=== PATIENT | female | born 1955 | race Caucasian/White ===

== ENCOUNTER 2024-04-13 22:25 | Emergency (ER) | payer MEDICARE, MEDICAID, SELFPAY ==
[2024-04-13] VITALS (11 sets, daily range): BP systolic 152; BP diastolic 71; PULSE 63–68; O2SAT 96–98; BMI 23.0
--- NOTE | 2024-04-13 22:31 | ECG_ITS ---
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
--- NOTE | 2024-04-13 22:39 | PC.NURSE ---
Patient C/O chest pain. 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 news anchor states patient wasnt able to c/o of pain when she broke her leg and is unsure if she is in pain. patient is unable to point to pain.
--- NOTE | 2024-04-13 22:46 | ED_ITS ---
HPI - Chest Pain General Chief Complaint: Chest Pain Time Seen by Provider: 04/13/24 22:41 Source: other Source comment: EMS [facility] Mode of arrival: ambulance Limitations: physical limitation History of Present Illness HPI narrative: long-term patient with dementia. complained of chest pain that is ongoing. States she has chest pain but she is not able to point to where it is. no radiation of pain or vomiting. 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 Related Data Home Medications ?Medication ?Instructions ?Recorded ?Confirmed aripiprazole 10 mg tablet (Abilify) 10 mg PO DAILY 04/13/24 04/13/24 aspirin 81 mg tablet,delayed 81 mg PO DAILY 04/13/24 04/13/24 release (Adult Low Dose Aspirin) carbidopa 25 mg-levodopa 100 mg 1 tab PO TID 04/13/24 04/13/24 tablet (Sinemet) Allergies Allergy/AdvReac Type Severity Reaction Status Date / Time adhesive tape Allergy Mild rash Verified 04/13/24 22:33 Latex, Natural Rubber Allergy Mild rash Verified 04/13/24 22:33 Sulfa (Sulfonamide Allergy Mild rash Verified 04/13/24 22:33 Antibiotics) Review of Systems ROS Status of ROS unobtainable due to mental status Exam Constitutional Vital Signs, click to edit/add: Last Vital Signs Pulse 66 04/13/24 23:40 Resp 17 04/13/24 23:40 BP 152/71 H 04/13/24 22:25 Pulse Ox 98 04/13/24 23:40 Common normals: no apparent distress, healthy appearing, alert and well nourished [facility] Common normals: normocephalic Eye Common normals: EOMs intact bilaterally Chest Other: chest wall is tender Respiratory Common normals: normal respiratory effort, no retractions, no use of accessory muscles and clear to auscultation bilaterally Cardio Common normals: regular rate, regular rhythm, S1 normal heart sound and S2 normal heart sound GI Common normals: Normal to inspection, nondistended, normoactive bowel sounds present, soft to palpation and non-tender Extremity Common normals: normal to inspection and full ROM Neuro Common normals: moves all extremities Sensorium/orientation: oriented to person Course Vital Signs Vital signs: Vital Signs Blood Pressure 152/71 H 04/13/24 22:25 Pulse Rate 66 04/13/24 23:40 Respiratory Rate 17 04/13/24 23:40 Blood Pressure 152/71 H 04/13/24 22:25 Pulse Oximetry 98 04/13/24 23:40 MDM - Chest Pain MDM Narrative Medical decision making narrative: patient has dementia and is brought in from long-term complaining of chest pain. she is not able to point to where her pain is. She does have chest wall tenderness. No vomiting , dyspnea. workup in the department neg including normal EKG with low voltage and neg d-dimer, troponin and normal cxray. Discharged back to nursing facility in stable condition Lab Data Labs: Lab Results 04/13/24 Range/Units 22:45 WBC 7.5 (4.0-11.0) 10^3/uL RBC 4.17 L (4.20-5.40) 10^6/uL Hgb 12.4 (12.0-16.0) g/dL Hct 38.8 (36.0-48.0) % MCV 93.0 (81.0-99.0) fL MCH 29.7 (26.7-34.0) pg MCHC 32.0 (29.9-35.2) g/dL RDW 13.0 (11.0-15.0) % Plt Count 128 L (150-450) 10^3/uL MPV 12.6 (9.5-13.5) fL Neut % (Auto) 53.9 (43.0-75.0) % Lymph % (Auto) 34.3 (20.5-60.0) % [place] % (Auto) 9.1 (1.7-12.0) % Eos % (Auto) 1.6 (0.9-7.0) % Baso % (Auto) 0.8 (0.2-2.0) % Neut # (Auto) 4.0 (1.4-6.5) 10^3/uL Lymph # (Auto) 2.6 (1.2-3.8) 10^3/uL [place] # (Auto) 0.7 (0.3-0.8) 10^3/uL Eos # (Auto) 0.1 (0.0-0.7) 10^3/uL Baso # (Auto) 0.1 (0.0-0.1) 10^3/uL Abs Immat Gran (auto) 0.02 (0.00-0.03) 10^3/uL Imm/Tot Granulo (auto) 0.3 (0.0-0.5) % D-Dimer 0.34 (<=0.59) mg/L FEU Sodium 144 (136-145) mmol/L Potassium 3.9 (3.5-5.1) mmol/L Chloride 106 (98-107) mmol/L Carbon Dioxide 30.9 (21.0-32.0) mmol/L Anion Gap 11.0 BUN 25.0 H (7.0-18.0) mg/dL Creatinine 0.78 (0.55-1.02) mg/dL Est GFR ( Amer) >60 (>=60 mL/min/1.73m^2) Est GFR (Non-Af Amer) >60 (>=60 mL/min/1.73m^2) BUN/Creatinine Ratio 32.1 Glucose 95 (74-106) mg/dL Calcium 9.4 (8.5-10.1) mg/dL Troponin I High Sens <4.0 L (4.0-51.3) pg/mL Discharge Plan Discharge Chief Complaint: Chest Pain Clinical Impression: Atypical chest pain Patient Disposition: Home, Self-Care Prescriptions / Home Meds: No Action aripiprazole [Abilify] 10 mg tablet 10 mg PO DAILY aspirin [Adult Low Dose Aspirin] 81 mg tablet,delayed release (DR/EC) 81 mg PO DAILY carbidopa-levodopa [Sinemet] 25-100 mg tablet 1 tab PO TID Print Language: Macedonian Instructions: Chest Pain (ED) Referrals: Physician,Non-Staff, MD [Primary Care Provider] - 1 week
--- NOTE | 2024-04-13 22:46 | XR_ITS ---
The [address] [address] Patient Name: PABLO PECK MRN: [id number] date: 1955 Sex: F Assigned Patient Location: ER Current Patient Location: ER Accession/Order Number: [id number] Exam Date: 04/13/2024 23:25 Report Date: 04/14/2024 00:32 At the request of: SHEREE LOVELACE Procedure: XR chest 1V EXAM: XR chest 1V HISTORY: chest pain COMPARISON: Chest radiograph 10/28/2016 TECHNIQUE: Frontal radiograph of the chest FINDINGS: Minimal elevation of the left hemidiaphragm. No focal airspace disease. No evidence of pulmonary edema. No pneumothorax or significant pleural effusion. Atherosclerotic calcifications of the aortic arch. Otherwise unremarkable cardiomediastinal contours. No acute osseous abnormality. Healed left clavicular fracture. XR/XR chest 1V IMPRESSION: No acute cardiopulmonary findings. Electronically authenticated by: BRUCE VENTURA Date: 04/14/2024 00:32
[2024-04-13 23:17] LABS: Basophils Absolute Auto 0.1 10^3/uL (0.0-0.1); Basophils Percent Auto 0.8 % (0.2-2.0); Eosinophils Absolute Auto 0.1 10^3/uL (0.0-0.7); Eosinophils Percent Auto 1.6 % (0.9-7.0); Hematocrit 38.8 % (36.0-48.0); Hemoglobin 12.4 g/dL (12.0-16.0); Immature Granulocytes Abs Auto 0.02 10^3/uL (0.00-0.03); Immature Granulocytes Pct Auto 0.3 % (0.0-0.5); Lymphocytes Absolute Auto 2.6 10^3/uL (1.2-3.8); Lymphocytes Percent Auto 34.3 % (20.5-60.0); Mean Corpuscular Hemoglobin 29.7 pg (26.7-34.0); Mean Platelet Volume 12.6 fL (9.5-13.5); Monocytes Absolute Auto 0.7 10^3/uL (0.3-0.8); Monocytes Percent Auto 9.1 % (1.7-12.0); Neutrophils Percent Auto 53.9 % (43.0-75.0); Platelet Count 128 10^3/uL (150-450); Red Blood Count 4.17 10^6/uL (4.20-5.40); White Blood Count 7.5 10^3/uL (4.0-11.0)
[2024-04-13 23:33] LABS: BUN Creatinine Ratio 32.1; Calcium 9.4 mg/dL (8.5-10.1); Carbon Dioxide 30.9 mmol/L (21.0-32.0); Chloride 106 mmol/L (98-107); Estimated GFR (African America >60 (>=60 mL/min/1.73m^2); Estimated GFR (Non-African Ame >60 (>=60 mL/min/1.73m^2); Glucose 95 mg/dL (74-106); Potassium 3.9 mmol/L (3.5-5.1); Sodium 144 mmol/L (136-145); Troponin I High Sensitivity <4.0 pg/mL (4.0-51.3)
[2024-04-13 23:36] LABS: D Dimer 0.34 mg/L FEU (<=0.59)
[2024-04-14] VITALS (7 sets, daily range): BP systolic 133; BP diastolic 55; PULSE 63–67; O2SAT 96–98
== END 2024-04-14 01:16 | disposition home or self-care (01) ==
PROVIDERS: Emergency Provider Internal Medicine
DX: R07.89 Other chest pain (principal); F03.90 Unspecified dementia, unspecified severity, without behavioral disturbance, psychotic disturbance, mood disturbance, and anxiety
CPT/HCPCS: 36415; 71045; 80048; 84484; 85025; 85378; 93005; 99285

== ENCOUNTER 2024-11-19 18:23 | Observation (INO) | payer MEDICARE, MEDICAID, SELFPAY ==
[2024-11-19] VITALS (39 sets, daily range): BP systolic 104–148; BP diastolic 51–86; PULSE 54–93; TEMP 36.7; O2SAT 91–100; BMI 21.0
--- NOTE | 2024-11-19 18:31 | ECG_ITS ---
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 Measurements Intervals [place] Rate: 61 P: 60 ME: 144 QRS: 30 QRSD: 82 T: 70 QT: 428 QTc: 430 Interpretive Statements 1100 Sinus rhythm 9110 normal ECG Compared to ECG 04/13/2024 22:31:24 No significant changes Electronically Signed On 11-19-2024 18:49:14 EDT by ANAIS WALTER M.D.
--- NOTE | 2024-11-19 18:32 | XR_ITS ---
The [address] [address] Patient Name: PABLO PECK MRN: [id number] date: 1955 Sex: F Assigned Patient Location: ED.MAIN Current Patient Location: [place] Accession/Order Number: [id number] Exam Date: 11/20/2024 09:40 Report Date: 11/20/2024 09:41 At the request of: DANNY GOTTLIEB NP Procedure: XR chest 1V Plain film chest Single view HISTORY: Shortness of breath COMPARISON: 04/13/2024 FINDINGS: SUPPORT DEVICES: None POSTSURGICAL CHANGES: None HEART: Within normal limits PULMONARY [place]LA: Within normal limits MEDIASTINUM: Atherosclerosis of aortic arch. LUNGS AND PLEURA: No acute lung process, pleural effusion or pneumothorax identified. BONY STRUCTURES: Healing left clavicle fracture ADDITIONAL FINDINGS None XR/XR chest 1V IMPRESSION: No acute process. Impression dictated by: Ahsan Melton M.D. 11/20/2024 9:41 AM Dictation Location: MusicPlay AnalyticsST. JOSEPH MEDICAL CENTERPodaddies Electronically authenticated by: [id number] Y Date: 11/20/2024 09:41
--- OUTSIDE RECORDS SUMMARY | 2024-11-19 18:35 | XMS_ITS | CCD ---
Author Organization [facility] Care Team Providers Care Office Correspondent Name Role Phone Sukh JOHN Primary Care Physician Shivani Franco Unavailable Unavailable Zidarin, Yue Unavailable Unavailable Holly Martines MD Primary Care Provider Sukh John DO Unavailable Holly Martines MD Primary Care Provider Sukh John DO Unavailable HOLLY MARTINES [facility] Unavailab WILBERTO Beebe R Attending Unavailable HOLLY MARTINES [facility] Unavailab WILBERTO Beebe R Attending Unavailable HOLLY MARTINES [facility] Unavailab adelaide SOSA, WILBERTO R Admitting Unavailable MAYA ORDOÑEZ Attending Unavailable HOLLY MARTINES [facility] Unavailab le TULIO, LEONIDES Primary Care Unavailable KIARA ZEPEDA Attending Unavailable LORENA CASTRO Admitting Unavailable PROVIDER, UNKNOWN Consulting Unavailable MITALI BARNES Consulting Unavailable DIVISION OF INFECTIOUS DISEASE, [facility] Consulting Unavailable SNOW CAMERON Attending Unavailable TULIO, LEONIDES Referring Unavailable TULIO, LEONIDES Primary Care Unavailable Sukh John DO Primary Care Provider CINDY LAWTON Referring Unavailable TULIO, LEONIDES Primary Care Unavailable TULIO, LEONIDES L Referring Unavailable SUKH JOHN Primary Care Unavailable TULIO, LEONIDES L Referring Unavailable SUKH JOHN Primary Care Unavailable TULIO, LEONIDES L Referring Unavailable KAPLE, SUKH A Primary Care Unavailable TULIO, LEONIDES L Referring Unavailable KAPLE, SUKH A Primary Care Unavailable TULIO, LEONIDES L Referring Unavailable KAPLE, SUKH A Primary Care Unavailable TULIO, LEONIDES L Referring Unavailable KAPLE, SUKH A Primary Care Unavailable TULIO, LEONIDES L Referring Unavailable KAPLE, SUKH A Primary Care Unavailable TULIO, LEONIDES L Referring Unavailable KAPLE, SUKH A Primary Care Unavailable TULIO, LEONIDES L Referring Unavailable KAPLE, SUKH A Primary Care Unavailable TULIO, LEONIDES L Referring Unavailable KAPLE, SUKH A Primary Care Unavailable TULIO, LEONIDES Primary Care Unavailable TULIO, LEONIDES Primary Care Unavailable TULIO, LEONIDES Referring Unavailable TULIO, LEONIDES Primary Care Unavailable KAPLE, Sukh A Attending Unavailable Guillermo Gann Attending Unavailable Allergies Allergy Classification Reported Allergen(s) Allergy Type Date of Onset Reaction(s) Facility (20 sources) Adhesive bandage; Translations: [Adhesive Bandage] Propensity to adverse reactions to substance Unknown (qualifier value) [facility] (20 sources) Latex; Translations: [LATEX] Drug allergy 6 Unknown (qualifier value), Unknown [facility] (20 sources) Sulfamethoxazole ; Translations: [sulfamethoxazol e] Drug Allergy Unknown (qualifier value) [facility] (20 sources) Sulfonamides (Antibiotic); Translations: [sulfa drugs] Drug allergy Unknown (qualifier value) [facility] (10 sources) Penicillins; Translations: [PENICILLINS] Drug Allergy 2 Other: See Comments [facility] (20 sources) Sulfonamides (Antibiotic); Translations: [SULFA (SULFONAMIDE ANTIBIOTICS)] Drug Allergy 6 Other: See Comments [facility] (20 sources) Neomycin; Translations: [neomycin] Drug Allergy 4 Contact dermatitis (disorder) [facility] (4 sources) Adhesive agent; Translations: [ADHESIVE] Propensity to adverse reactions to drug (disorder) 4 [facility] (4 sources) Sulfamethizole; Translations: [SULFAMETHIZOLE] Drug Allergy 4 [facility] (3 sources) Silicone adhesive tape Propensity to adverse reactions to drug 4 [facility] Medications Current Medications Medication Drug Class(es) Dates Sig (Normalized) Sig (Original) acetaminophen 325 mg oral tablet (20 sources) Start: 02-15-2023 take 2 tablets by mouth every six hours as needed for pain acetaminophen 325 mg Tab 650 mg = 2 tab(s), Oral, q6hr, PRN Pain, Refills(s) 0 Start Date: 02/15/23 Status: Ordered Start: 09-02-2022 Tylenol Extra Strength 500 mg oral tablet 1,000 mg = 2 tab(s), Oral, q6hr, PRN Pain/Fever, not to exceed 3000 mg/day, # 120 tab(s), Refills(s) 3, Pharmacy: [facility], 170, cm, 09/02/22 11:07:00 EDT, Height/Length Dosing, 92, kg, 09/02/22 11:07:00 EDT, Weight Dosing Start Date: 09/02/22 Status: Ordered Start: 02-22-2019 End: 05-15-2022 acetaminophen (TYLENOL) 500 mg tablet Take by mouth. 0 02/22/2019 05/15/2022 Discontinued Start: 02-22-2019 take 2 tablets by mo [facility] once daily Tylenol Extra Strength 500 mg oral tablet 1,000 mg = 2 tab(s), Oral, Daily, Refills(s) 0 Start Date: 02/22/19 Status: Ordered Comment on above: Take by mouth. [id number] 200 actuat albuterol 0.09 mg/actuat metered dose inhaler (10 sources) beta2-Adrenergic Agonist take 2 puff(s) by inhalation every six hours as needed albuterol sulfate HFA (PROVENTIL;VENTOLIN ;PROAIR) 108 (90 Base) MCG/ACT inhaler Inhale 2 puffs into the lungs every 6 hours as needed Active Comment on above: Inhale 2 Puffs as in structed every 6 hours as needed for wheezing/shortness of breath. ARIPiprazole 5 mg oral tablet (20 sources) Atypical Antipsychotic Start: 04-11-20 take 1 tablet by mouth at bedtime aripiprazole 5 mg Tab 5 mg = 1 tab(s), Oral, Bedtime, Refills(s) 0 Start Date: 04/11/23 Status: Ordered Start: 03-05-2023 take 1 tablet by kartik th once daily Abilify 10 mg Tab 10 mg = 1 tab(s), Oral, Daily, # 90 tab(s), Refills(s) 3, [facility], [facility], cm, 02/11/23 7:04:00 EDT, Height/Length Dosing, 83.5, kg, 02/11/23 7:04:00 EDT, Weight Dosing Start Date: 03/05/23 Status: Ordered Start: 01-21-2023 take 1 tablet by kartik once daily Abilify 10 mg Tab 10 mg = 1 tab(s), Oral, Daily, # 90 tab(s), Refills(s) 0, [facility]: [facility], 170, cm, 01/15/23 13:03:00 EDT, Height/Length Dosing, 81.9, kg, 01/15/23 13:03:00 EDT, Weight Dosing Start Date: 01/21/23 Status: Ordered Start: 11-21-2022 take 1 tablet by [facility] once daily Abilify 5 mg Tab 5 mg = 1 tab(s), Oral, Daily, # 90 tab(s), Refills(s) 3, [facility]acy: [facility], 170, cm, 10/16/22 12:54:00 EDT, Height/Length Dosing, 87.8, kg, 10/16/22 12:54:00 EDT, Weight Dosing Start Date: 11/21/22 Status: Ordered Start: 07-05-2021 take 2.5 mg by mouth once daily ARIPiprazole (ABILIFY) 5 mg tablet Take 2.5 mg by mouth once daily. 0 04/18/2022 Active take 0.5 tablet by m out once daily ARIPiprazole (ABILIFY) 5 MG tablet Take 0.5 tablets by mouth daily Active Comment on above: 2.5 mg. Take 2.5 mg by mouth once daily. aspirin 81 mg delayed release oral tablet (20 sources) Platelet Aggregation Inhibitor, Nonsteroidal Anti-inflammatory Drug Start: 07-15-2021 take 1 tablet by mouth once daily aspirin 81 mg Oral EC Tab 81 mg = 1 tab(s), Oral, Daily, # 90 tab(s), Refills(s) 1, Pharmacy: [facility], 170, cm, 07/02/21 12:41:00 EST, Height/Length Dosing, 92.2, kg, 07/02/21 12:41:00 EST, Weight Dosing Start Date: 07/15/21 Status: Ordered Start: 07-15-2021 take 1 tablet by kartik th once daily aspirin 81 mg Oral EC Tab 81 mg = 1 tab(s), Oral, Daily, # 90 tab(s), Refills(s) 3, [facility]: [facility], 170, cm, 10/16/22 12:54:00 EDT, Height/Length Dosing, 87.8, kg, 10/16/22 12:54:00 EDT, Weight Dosing Start Date: 11/26/22 Status: Ordered take 1 tablet by kartik th once daily aspirin 81 MG chewable tablet Take 1 tablet by mouth daily Active Comment on above: Take 81 mg by mouth once daily. bisacodyl 10 mg rectal suppository (3 sources) Stimulant Laxative bisacodyl (DULCOLAX) [address] 1 suppository rectally daily as needed Active Booster Liners (20 sources) Start: 06-16-19 20 Booster Liners Booster Liners, See Instructions, 120 EA, 11, qid urninary pads Dx N39.3, [facility], Supply Start Date: 06/16/19 Status: Ordered carbidopa 25 mg / levodopa 100 mg oral tablet (20 sources) Aromatic Amino Acid Decarboxylation Inhibitor, Aromatic Amino Acid Start: 07-05-19 22 take 1 tablet by mouth three times daily carbidopa-levodopa 25 mg-100 mg Tab 1 tab(s), Oral, TID, 270 tab(s), Refill(s) 1, [facility], 157.5, cm, 05/18/23 10:28:00 EST, Height/Length Dosing, 77.6, kg, 05/18/23 10:28:00 EST, Weight Dosing Start Date: 05/26/23 Status: Ordered Comment on above: Take by mouth three times daily. cephalexin 500 mg oral capsule (3 sources) Cephalosporin Antibacterial Start: 06-17-19 24 take 1 capsule by mouth every twelve hours cephalexin 500 mg Cap 500 mg = 1 cap(s), Oral, q12hr, # 20 cap(s), Refills(s) 0, Pharmacy: [facility], 157, cm, 06/17/23 17:28:00 EST, Height/Length Dosing, 77.8, kg, 06/17/23 17:28:00 EST, Weight Dosing Start Date: 06/17/23 Status: Ordered Start: 05-03-2023 End: 05-10-2023 take 1 capsule by mouth four times daily Keflex 500 mg Cap 500 mg = 1 cap(s), Oral, QID, X 7 day(s), # 28 cap(s), Refills(s) 0, [facility]acy: [id number], 157.2, cm, 05/03/23 13:21:00 EST, Height/Length Dosing, 77.4, kg, 05/03/23 13:21:00 EST, Weight Dosing Start Date: 05/03/23 Stop Date: 05/10/23 Status: Ordered cholecalciferol 0.125 mg oral tablet (16 sources) Vitamin D take 1 tablet by mouth once daily Cholecalciferol (VITAMIN D3) 5000 UNITS TABS Take 1 tablet by mouth daily Active Comment on above: Take 5,000 Units by mouth once daily. cyclobenzaprine hydrochloride 5 mg oral tablet (11 sources) Muscle Relaxant Start: 02-23-20 take 1 tablet by mouth twice daily for muscle spasms cyclobenzaprine 5 mg Tab 5 mg = 1 tab(s), Oral, BID, for muscle spasm, Refills(s) 0 Start Date: 02/22/23 Status: Ordered Start: 02-15-2023 take 5 mg by mouth t hree times daily as needed for muscle spasms cyclobenzaprine 10 mg Tab 5 mg = 0.5 tab(s), Oral, TID, PRN Spasm, Refills(s) 0 Start Date: 02/15/23 Status: Ordered dexamethasone 1 mg/ml / neomycin 3.5 mg/ml / polymyxin b [id number] unt/ml ophthalmic suspension (9 sources) Aminoglycoside Antibacterial, Polymyxin-class Antibacterial, Corticosteroid take 2 drop(s) into the eye(s) four times daily yrctdbdy-jmnfimdqf-boiifakl (MAXITROL) 3.5-79553-2.[address] 2 drops into both eyes 4 times daily Active End: 05-15-2022 [id number]-UUTTWVKN 3.5 MG/ML-10,000 UNIT/ML-0.1% EYE DROPS 2 Drops. 0 05/15/2022 Discontinued Comment on above: 2 Drops. donepezil hydrochloride 10 mg oral tablet (20 sources) Start: 06-15-2021 take 1 tablet by mouth twice daily donepezil 10 mg Tab 10 mg = 1 tab(s), Oral, BID, # 180 tab(s), Refills(s) 3, [facility]acy: [facility], 165, cm, 03/18/23 11:22:00 EDT, Height/Length Dosing, 82.6, kg, 03/18/23 11:22:00 EDT, Weight Dosing Start Date: 03/26/23 Status: Ordered Start: 06-15-2021 take 1 tablet by kartik once daily at bedtime donepezil (ARICEPT) 10 mg tablet Take 10 mg by mouth daily at bedtime. 0 06/15/2021 Active Comment on above: Take 10 mg by mouth daily at bedtime. doxepin hydrochloride 10 mg oral capsule (17 sources) Tricyclic Antidepressant Start: take 1 capsule by mouth three times daily doxepin 10 mg Cap 10 mg = 1 cap(s), Oral, TID, # 90 cap(s), Refills(s) 1, Pharmacy: [facility], 157.5, cm, 05/18/23 10:28:00 EST, Height/Length Dosing, 77.6, kg, 05/18/23 10:28:00 EST, Weight Dosing Start Date: 05/26/23 Status: Ordered Start: 01-15-2023 take 1 capsule by mo [facility] three times daily doxepin 10 mg Cap 10 mg = 1 cap(s), Oral, TID, # 90 cap(s), Refills(s) 1, Pharmacy: [facility], 165, cm, 03/18/23 11:22:00 EDT, Height/Length Dosing, 82.6, kg, 03/18/23 11:22:00 EDT, Weight Dosing Start Date: 03/26/23 Status: Ordered escitalopram 20 mg oral tablet (20 sources) Serotonin Reuptake Inhibitor Start: 05-16-2021 take 1 tablet by mouth once daily escitalopram 20 mg Tab 20 mg = 1 tab(s), Oral, Daily, # 90 tab(s), Refills(s) 3, Pharmacy: [facility], 167, cm, 02/11/23 7:04:00 EDT, Height/Length Dosing, 83.5, kg, 02/11/23 7:04:00 EDT, Weight Dosing Start Date: 03/05/23 Status: Ordered take 1 tablet by mouth once diana y escitalopram (LEXAPRO) 10 MG tablet Take 1 tablet by mouth daily Active Comment on above: Take 20 mg by mouth once daily. gabapentin 400 mg oral capsule (20 sources) Anti-epileptic Agent Start: 02-11-2023 take 1 capsule by mouth three times daily gabapentin 400 mg Cap 400 mg = 1 cap(s), Oral, TID, # 120 cap(s), Refills(s) 0 Start Date: 02/11/23 Status: Ordered Start: 02-11-2023 take 1 capsule by mo [facility] twice daily gabapentin 400 mg Cap 400 mg = 1 cap(s), Oral, BID, # 120 cap(s), Refills(s) 0 Start Date: 02/11/23 Status: Ordered Start: 05-20-2022 End: 12-25-2022 take 1 capsule by mouth three times daily gabapentin (NEURONTIN) 400 mg capsule TAKE 1 CAPSULE BY MOUTH THREE TIMES DAILY 270 capsule 0 09/26/2022 12/25/2022 Active Start: 04-18-2022 take 1 capsule by mo [facility] twice daily gabapentin (NEURONTIN) 100 mg capsule Take 100 mg by mouth twice daily. 0 04/18/2022 Suspended Start: 12-05-2021 take 1 capsule by mo [facility] twice daily gabapentin 100 mg Cap 100 mg = 1 cap(s), Oral, BID, # 180 cap(s), Refills(s) 3, Pharmacy: [facility], 170, cm, 10/29/21 13:36:00 EDT, Height/Length Dosing, 92.4, kg, 10/29/21 13:36:00 EDT, Weight Dosing Start Date: 12/05/21 Status: Ordered Start: 01-11-2021 take 1 capsule by [facility] twice daily gabapentin 100 mg Cap 100 mg = 1 cap(s), Oral, BID, # 180 cap(s), Refills(s) 3, Pharmacy: [facility], 170, cm, 12/27/20 8:28:00 EDT, Height/Length Dosing, 89, kg, 12/27/20 8:28:00 EDT, Weight Dosing Start Date: 01/11/21 Status: Ordered Comment on above: Take 100 mg by mouth twice daily. Take 1 capsule by [facility] three times daily for 180 days. TAKE 1 CAPSULE BY [facility] THREE TIMES DAILY High Potency Vitamin D3 125 mcg (5000 intl units) oral capsule (7 sources) Start: 3 take 1 capsule by mouth once daily High Potency Vitamin D3 125 mcg (5000 intl units) oral capsule 125 mcg = 1 cap(s), Oral, Daily, Refills(s) 0 Start Date: 04/11/23 Status: Ordered hydrOXYzine pamoate 25 mg oral capsule (20 sources) Antihistamine Start: 3 Vistaril 25 mg Cap See Instructions, 1 at 8am 1 at 12pm(noon) 1 at 4pm 1 at 8pm, # 120 cap(s), Refills(s) 5, Pharmacy: [facility]/pharmacy #[id number], 157.5, cm, 05/18/23 10:28:00 EST, Height/Length Dosing, 77.6, kg, 05/18/23 10:28:00 EST, Weight Dosing Start Date: 05/26/23 Status: Ordered Start: 05-06-2023 Vistaril 25 mg Cap See Instructions, 1 at 8am 1 at 12pm(noon) 1 at 4pm 1 at 8pm, # 120 cap(s), Refills(s) 5, Pharmacy: [facility], 157.2, cm, 05/03/23 13:21:00 EST, Height/Length Dosing, 77.4, kg, 05/03/23 13:21:00 EST, Weight Dosing Start Date: 05/06/23 Status: Ordered Start: 04-20-2023 Vistaril 25 mg Cap See Instructions, 1 at 8am 1 at 12pm(noon) 1 at 4pm 1 at 8pm, # 120 cap(s), Refills(s) 0, Pharmacy: [facility], 170, cm, 04/10/23 17:19:00 EDT, Height/Length Dosing, 81.1, kg, 04/10/23 17:19:00 EDT, Weight Dosing Start Date: 04/20/23 Status: Ordered Start: 04-29-2022 take 1 capsule by mo uth twice daily as needed for anxiety Vistaril 25 mg Cap 25 mg = 1 cap(s), Oral, BID, PRN for anxiety, # 60 cap(s), Refills(s) 0, [facility]acy: [facility] #[id number], 170, cm, 04/08/22 14:33:00 EDT, Height/Length Dosing, 92.4, kg, 04/08/22 14:33:00 EDT, Weight Dosing Start Date: 04/29/22 Status: Ordered take 1 tablet by kartik th three times daily hydrOXYzine HCl (ATARAX) 25 MG tablet Take 1 tablet by mouth 3 times daily Active Comment on above: take 1 capsule by mo uth twice a day if needed for anxiety Knee High Compression Stockings (1 source) Start: 09-02-2022 Knee High Compression Stockings Knee High Compression Stockings, See Instructions, 1 EA, 2, Knee High Compression Stockings, [employer] [facility] #[facility], Supply, 170, cm, 09/02/22 11:07:00 EDT, Height/Length Dosing, 92, kg, 09/02/22 11:07:00 EDT, Weight Dosing Start Date: 09/02/22 Status: Ordered lamoTRIgine 100 mg oral tablet (19 sources) Mood Stabilizer, Anti-epileptic Agent Start: 10-16-2022 End: 05-23-2023 take 100 mg by mouth twice daily Lamictal 100 mg, Oral, BID, Refills(s) 0 Start Date: 10/16/22 Status: Ordered Start: 10-16-2022 Lamictal Oral, Bedtime, Refills(s) 0 Start Date: 10/16/22 Status: Ordered Start: 10-08-2022 take 1 tablet by kartik th once daily lamoTRIgine (LAMICTAL) 25 mg tablet Take 1 tablet by mouth daily for 2 weeks, then 1 tablet twice daily for 2 weeks, then 2 tablets twice daily for 2 weeks, then 3 tablets twice daily for 1 week, then start the Lamictal 100 mg twice daily script. 140 tablet 0 10/08/2022 Active Comment on above: Take 1 tablet by kartik th twice daily. Take 1 tablet by kartik th daily for 2 weeks, then 1 tablet twice daily for 2 weeks, then 2 tablets twice daily for 2 weeks, then 3 tablets twice daily for 1 week, then start the Lamictal 100 mg twice daily script. levothyroxine sodium 0.1 mg oral tablet (20 sources) l-Thyroxine Start: 05-26-2023 levothyroxine 100 mcg (0.1 mg) Tab 100 microgram, Oral, Daily, # 90 tab(s), Refills(s) 1, Pharmacy: [facility], 157.5, cm, 05/18/23 10:28:00 EST, Height/Length Dosing, 77.6, kg, 05/18/23 10:28:00 EST, Weight Dosing Start Date: 05/26/23 Status: Ordered Start: 11-26-2022 levothyroxine 100 mcg (0.1 mg) Tab 100 microgram, Oral, Daily, # 90 tab(s), Refills(s) 1, Pharmacy: [facility], 170, cm, 10/16/22 12:54:00 EDT, Height/Length Dosing, 87.8, kg, 10/16/22 12:54:00 EDT, Weight Dosing Start Date: 11/26/22 Status: Ordered Start: 06-02-2022 levothyroxine 100 mcg (0.1 mg) Tab 100 microgram, Oral, Daily, # 90 tab(s), Refills(s) 1, Pharmacy: [facility], 170, cm, 04/08/22 14:33:00 EDT, Height/Length Dosing, 92.4, kg, 04/08/22 14:33:00 EDT, Weight Dosing Start Date: 06/02/22 Status: Ordered Start: 07-15-2021 levothyroxine 100 mcg (0.1 mg) Tab 100 microgram, Oral, Daily, # 90 tab(s), Refills(s) 1, Pharmacy: [facility], 170, cm, 07/02/21 12:41:00 EST, Height/Length Dosing, 92.2, kg, 07/02/21 12:41:00 EST, Weight Dosing Start Date: 07/15/21 Status: Ordered Start: 07-15-2021 End: 05-15-2022 take 1 tablet by mouth once daily levothyroxine (SYNTHROID) 100 mcg tablet Take 100 mcg by mouth once daily. 0 07/15/2021 Active Comment on above: Take 100 mcg by mout h once daily. lidocaine 0.05 mg/mg medicated patch (2 sources) Antiarrhythmic, Amide Local Anesthetic Start: 02-15-2023 lidocaine Top 5% film Patch 1 patch(es), TransDermal, Daily, Refill(s) 0, R hip Start Date: 02/15/23 Status: Ordered loratadine 10 mg oral tablet (20 sources) Start: 05-06-2023 take 1 tablet by mouth once daily loratadine 10 mg Tab 10 mg = 1 tab(s), Oral, Daily, # 30 tab(s), Refills(s) 11, Pharmacy: [facility], 157.2, cm, 05/03/23 13:21:00 EST, Height/Length Dosing, 77.4, kg, 05/03/23 13:21:00 EST, Weight Dosing Start Date: 05/06/23 Status: Ordered Start: 07-03-2021 End: 06-28-2022 take 1 tablet by mouth once daily loratadine 10 mg Tab 10 mg = 1 tab(s), Oral, Daily, # 30 tab(s), Refills(s) 11, [facility], [facility], cm, 04/08/22 14:33:00 EDT, Height/Length Dosing, 92.4, kg, 04/08/22 14:33:00 EDT, Weight Dosing Start Date: 05/07/22 Status: Ordered take 1 capsule by mo [facility] once daily loratadine 10 mg cap Take 10 mg by mouth once daily. 0 Active Comment on above: Take 10 mg by mouth once daily. Low Pressure Knee High Compression Stockings (14 sources) Start: 10-09-2022 Low Pressure Knee High Compression Stockings Low Pressure Knee High Compression Stockings, See Instructions, 1 EA, 2, Dx: I87.2, [facility] #[id number], Supply, 170, cm, 09/02/22 11:07:00 EDT, Height/Length Dosing, 92, kg, 09/02/22 11:07:00 EDT, Weight Dosing Start Date: 10/09/22 Status: Ordered melatonin 10 mg oral tablet (17 sources) Start: 05-18-2023 take 1 tablet by mouth once daily at bedtime melatonin 10 mg oral tablet 10 mg = 1 tab(s), Oral, Once a day (at bedtime), # 90 tab(s), Refills(s) 3, Pharmacy: [facility], 157.5, cm, 05/18/23 10:28:00 EST, Height/Length Dosing, 77.6, kg, 05/18/23 10:28:00 EST, Weight Dosing Start Date: 05/18/23 Status: Ordered Start: 03-02-2023 take 1 tablet by kartik th once daily at bedtime melatonin 5 mg oral tablet 5 mg = 1 tab(s), Oral, Once a day (at bedtime), # 30 tab(s), Refills(s) 5, Pharmacy: [facility], 167, cm, 02/11/23 7:04:00 EDT, Height/Length Dosing, 83.5, kg, 02/11/23 7:04:00 EDT, Weight Dosing Start Date: 03/02/23 Status: Ordered Start: 01-21-2023 take 1 tablet by kartik th once daily at bedtime melatonin 5 mg oral tablet 5 mg = 1 tab(s), Oral, Once a day (at bedtime), # 60 tab(s), Refills(s) 0, Pharmacy: [facility], 170, cm, 01/15/23 13:03:00 EDT, Height/Length Dosing, 81.9, kg, 01/15/23 13:03:00 EDT, Weight Dosing Start Date: 01/21/23 Status: Ordered Start: 01-15-2023 take 1 tablet by kartik th once daily at bedtime as needed melatonin 5 mg oral tablet 5 mg = 1 tab(s), Oral, Once a day (at bedtime), PRN for insomnia, # 60 tab(s), Refills(s) 0, Pharmacy: [facility], 170, cm, 01/15/23 13:03:00 EDT, Height/Length Dosing, 81.9, kg, 01/15/23 13:03:00 EDT, Weight Dosing Start Date: 01/15/23 Status: Ordered 24 hr memantine hydrochloride 28 mg extended release oral capsule (20 sources) S-ajcpxg-H-aspartate Receptor Antagonist Start: 05-26-2023 take 1 capsule by mouth once daily Namenda XR 28 mg oral capsule, extended release 28 mg = 1 cap(s), Oral, Daily, # 90 cap(s), Refills(s) 1, Pharmacy: [facility], 157.5, cm, 05/18/23 10:28:00 EST, Height/Length Dosing, 77.6, kg, 05/18/23 10:28:00 EST, Weight Dosing Start Date: 05/26/23 Status: Ordered Start: 11-26-2022 take 1 capsule by [facility] once daily Namenda XR 28 mg oral capsule, extended release 28 mg = 1 cap(s), Oral, Daily, # 90 cap(s), Refills(s) 1, Pharmacy: [facility], 170, cm, 10/16/22 12:54:00 EDT, Height/Length Dosing, 87.8, kg, 10/16/22 12:54:00 EDT, Weight Dosing Start Date: 11/26/22 Status: Ordered Start: 07-05-2021 End: 05-15-2022 take 1 capsule by mouth once daily Namenda XR 28 mg oral capsule, extended release 28 mg = 1 cap(s), Oral, Daily, # 90 cap(s), Refills(s) 1, Pharmacy: [facility], 170, cm, 10/16/22 12:54:00 EDT, Height/Length Dosing, 87.8, kg, 10/16/22 12:54:00 EDT, Weight Dosing Start Date: 11/26/22 Status: Ordered End: 05-15-2022 memantine (NAMENDA) 10 MG ta blet Take 28 mg by mouth three times daily Active Comment on above: Take 28 mg by mouth. Take 28 mg by mouth once daily. menthol 0.0044 mg/mg / zinc oxide 0.206 mg/mg topical ointment (9 sources) menthol-zinc oxi de (CALMOSEPTINE) 0.44-20.6 % OINT ointment Apply topically 4 times daily as needed (irritated skin) Max 30 ml per day. Active End: 05-15-2022 Menthol-Zinc Oxide (CALMOSEP VENECIA) 0.44-20.6 % Apply to affected area. 0 05/15/2022 Discontinued Comment on above: Apply to affected ar ea. mesalamine 500 mg extended release oral capsule (20 sources) Aminosalicylate Start: 2 take 2 capsules by mouth four times daily Pentasa 500 mg oral capsule, extended release 1,000 mg = 2 cap(s), Oral, QID, # 720 cap(s), Refills(s) 1, Pharmacy: [facility], 157.5, cm, 05/18/23 10:28:00 EST, Height/Length Dosing, 77.6, kg, 05/18/23 10:28:00 EST, Weight Dosing Start Date: 05/26/23 Status: Ordered Comment on above: Take 1,000 mg by kartik th four times daily. 24 hr mirabegron 50 mg extended release oral tablet (20 sources) beta3-Adrenergic Agonist Start: 2 take 1 tablet by mouth once daily Myrbetriq 50 mg oral tablet, extended release 50 mg = 1 tab(s), Oral, Daily, # 90 tab(s), Refills(s) 1, Pharmacy: [facility], 157.5, cm, 05/18/23 10:28:00 EST, Height/Length Dosing, 77.6, kg, 05/18/23 10:28:00 EST, Weight Dosing Start Date: 05/26/23 Status: Ordered Comment on above: Take 50 mg by mouth once daily. Mupirocin (4 sources) RNA Synthetase Inhibitor Antibacterial Start: 1 mupirocin Top 2% Oint 1 marva, Topical, TID, 15 gram, Refill(s) 0 Start Date: 12/26/20 Status: Ordered Start: 12-26-2020 End: 05-15-2022 mupirocin (BACTROBAN) 2 % oi ntment Apply to affected area. 0 12/26/2020 05/15/2022 Discontinued Comment on above: Apply to affected ar ea. omeprazole 20 mg delayed release oral capsule (20 sources) Proton Pump Inhibitor Start: 2 take 1 tablet by mouth once daily omeprazole 20 mg Cap-DR 20 mg = 1 tab(s), Oral, Daily, # 90 tab(s), Refills(s) 3, Pharmacy: [facility], 170, cm, 06/03/22 10:34:00 EST, Height/Length Dosing, 92.1, kg, 06/03/22 10:34:00 EST, Weight Dosing Start Date: 07/01/22 Status: Ordered Comment on above: Take 20 mg by mouth once daily. omeprazole 20 mg Cap-DR (7 sources) Start: 2 take 1 tablet by mouth once daily omeprazole 20 mg Cap-DR 20 mg = 1 tab(s), Oral, Daily, # 90 tab(s), Refills(s) 3, [facility]: [facility], 170, cm, 07/02/21 12:41:00 EST, Height/Length Dosing, 92.2, kg, 07/02/21 12:41:00 EST, Weight Dosing Start Date: 08/08/21 Status: Ordered pravastatin sodium 20 mg oral tablet (20 sources) HMG-CoA Reductase Inhibitor Start: 2 take 1 tablet by mouth once daily pravastatin 20 mg Tab 20 mg = 1 tab(s), Oral, Daily, # 90 tab(s), Refills(s) 1, [facility]acy: [facility], 157.5, cm, 05/18/23 10:28:00 EST, Height/Length Dosing, 77.6, kg, 05/18/23 10:28:00 EST, Weight Dosing Start Date: 05/26/23 Status: Ordered Comment on above: Take 20 mg by mouth once daily. primidone 50 mg oral tablet (13 sources) Anti-epileptic Agent Start: 2 End: 2 take 1 tablet by mouth once daily at bedtime primidone 50 mg Tab 50 mg = 1 tab(s), Oral, Once a day (at bedtime), Refills(s) 0 Start Date: 10/14/21 Status: Ordered Comment on above: Take 50 mg by mouth. raloxifene hydrochloride 60 mg oral tablet (20 sources) Estrogen Agonist/Antagonist Start: 2 take 1 tablet by mouth once daily Evista 60 mg Tab 60 mg = 1 tab(s), Oral, Daily, # 90 tab(s), Refills(s) 3, [facility]acy: [facility], 170, cm, 06/03/22 10:34:00 EST, Height/Length Dosing, 92.1, kg, 06/03/22 10:34:00 EST, Weight Dosing Start Date: 07/01/22 Status: Ordered Comment on above: Take 60 mg by mouth once daily. Systane Ultra preserved ophthalmic solution (14 sources) Start: 0 take 2 drop(s) into the eye(s) twice daily Systane Ultra preserved ophthalmic solution 2 drop(s), Eye-Both, BID Ocular congestion, 30 mL, Refill(s) 11 Start Date: 10/17/19 Status: Ordered traZODone hydrochloride 100 mg oral tablet (11 sources) Serotonin Reuptake Inhibitor Start: 3 take 1 tablet by mouth once daily at bedtime traZODONE 100 mg Tab 100 mg = 1 tab(s), Oral, Once a day (at bedtime), # 90 tab(s), Refills(s) 3, [facility]acy: [facility], 170, cm, 03/27/23 12:55:00 EDT, Height/Length Dosing, 87.6, kg, 03/27/23 12:55:00 EDT, Weight Dosing Start Date: 04/09/23 Status: Ordered Start: 03-27-2023 take 1 tablet by kartik th once daily at bedtime traZODONE 50 mg Tab 50 mg = 1 tab(s), Oral, Once a day (at bedtime), # 90 tab(s), Refills(s) 3, [facility]acy: [facility], 170, cm, 03/27/23 12:55:00 EDT, Height/Length Dosing, 87.6, kg, 03/27/23 12:55:00 EDT, Weight Dosing Start Date: 03/27/23 Status: Ordered Ventolin HFA 90 mcg/inh Aerosol-Adpt (12 sources) Start: 02-11-2023 take 2 puff(s) by inhalation four times daily as needed for wheezing Ventolin HFA 90 mcg/inh Aerosol-Adpt 2 puff(s), Inhalation, QID as needed for wheezing, 18 gram, Refill(s) 0 Start Date: 02/11/23 Status: Ordered Vitamin D3 1000 intl units (25 mcg) Tab (4 sources) Start: 02-18-2023 take 1 tablet by mouth once daily Vitamin D3 1000 intl units (25 mcg) Tab 25 mcg = 1 tab(s), Oral, Daily, Refills(s) 0 Start Date: 02/18/23 Status: Ordered Vitamin D3 5000 intl units (125 mcg) oral tab (8 sources) Start: 01-26-2023 take 1 tablet by mouth once daily Vitamin D3 5000 intl units (125 mcg) oral tab 125 mcg = 1 tab(s), Oral, Daily, # 90 tab(s), Refills(s) 3, Pharmacy: [facility], 170, cm, 01/15/23 13:03:00 EDT, Height/Length Dosing, 81.9, kg, 01/15/23 13:03:00 EDT, Weight Dosing Start Date: 01/26/23 Status: Ordered Start: 02-26-2022 take 1 tablet by kartik th once daily Vitamin D3 5000 intl units (125 mcg) oral tab 125 mcg = 1 tab(s), Oral, Daily, # 90 tab(s), Refills(s) 3, [facility]acy: [facility], 170, cm, 10/29/21 13:36:00 EDT, Height/Length Dosing, 92.4, kg, 10/29/21 13:36:00 EDT, Weight Dosing Start Date: 02/26/22 Status: Ordered Vitamin D3 5000 intl units oral tab (7 sources) Start: 03-15-2021 take 1 tablet by mouth once daily Vitamin D3 5000 intl units oral tab 125 mcg = 1 tab(s), Oral, Daily, # 90 tab(s), Refills(s) 3, Pharmacy: [facility], 170, cm, 02/28/21 13:06:00 EDT, Height/Length Dosing, 88, kg, 02/28/21 13:06:00 EDT, Weight Dosing Start Date: 03/15/21 Status: Ordered Wheelchair (8 sources) Start: 01-21-2022 Wheelchair Wheelchair, See Instructions, 1 EA, 0, Use to assist with mobility in and out of home for ADL's, Supply Start Date: 01/21/22 Status: Ordered zolpidem tartrate 10 mg oral tablet (9 sources) gamma-Aminobuty can Acid-ergic Agonist Start: 04-23-2023 take 1 tablet by mouth once daily at bedtime as needed for sleep Ambien 10 mg Tab 10 mg = 1 tab(s), Oral, Once a day (at bedtime), PRN for sleep, # 90 tab(s), Refills(s) 0, Pharmacy: [facility], 157.5, cm, 04/23/23 13:42:00 EST, Height/Length Dosing, 80.3, kg, 04/23/23 13:42:00 EST, Weight Dosing Start Date: 04/23/23 Status: Ordered Completed/Discontinued Medications Medication Drug Class(es) Dates Sig (Normalized) Sig (Original) Depend Undergarment XL (20 sources) Start: 06-16-2019 Depend Undergarment XL Depend Undergarment XL, See Instructions, 120 EA, 11, Change 4 times daily DX N39.3, [facility], Supply Start Date: 06/16/19 Status: Ordered eslicarbazepine acetate 400 mg oral tablet (20 sources) Start: 07-08-2022 End: 08-07-2022 take 1 tablet by mouth once daily eslicarbazepine (APTIOM) 400 mg tablet Indications: Convulsions, unspecified convulsion type (HCC) Take 1 tablet by mouth once daily. 30 tablet 0 07/08/2022 Active Start: 02-03-2019 take 1 tablet by kartik once daily Aptiom 800 mg oral tablet 800 mg = 1 tab(s), Oral, Daily, Refills(s) 0 Start Date: 02/03/19 Status: Ordered End: 06-25-2022 take 2 tablets by mouth once daily eslicarbazepine (APTIOM) 400 mg tablet Take 800 mg by mouth once daily. 0 06/25/2022 Discontinued Comment on above: Take 800 mg by mouth once daily. Take 1 tablet by kartik th once daily. Handicap Placard (2 sources) Start: 3 Handicap Placard Handicap Placard, See Instructions, 1 EA, 0, Duration x5 years, Supply Start Date: 02/03/23 Status: Ordered levETIRAcetam 750 mg oral tablet (20 sources) Start: 2 take 1 tablet by mouth twice daily levETIRAcetam (KEPPRA) 750 mg tablet Take 750 mg by mouth twice daily. 0 04/18/2022 Suspended Start: 04-08-2022 take 750 mg by mouth every twelve hours levetiracetam 750 mg, Oral, q12hr, Refills(s) 0 Start Date: 04/08/22 Status: Ordered Start: 10-15-2021 End: 05-15-2022 levETIRAcetam (KEPPRA) 250 m g tablet Take 250 mg by mouth. 0 10/15/2021 05/15/2022 Discontinued Start: 07-02-2021 take 1 tablet by kartik th twice daily levetiracetam 1000 mg oral tablet 1,000 mg = 1 tab(s), Oral, BID, # 60 tab(s), Refills(s) 0 Start Date: 07/02/21 Status: Ordered Comment on above: Take 250 mg by mouth . Take 750 mg by mouth twice daily. polyethylene glycol 400 4 mg/ml / propylene glycol 3 mg/ml ophthalmic solution (1 source) Start: 10-17-2019 End: 05-15-2022 PEG 400-propylene glycol (SYSTANE, PROPYLENE GLYCOL,) 0.4-0.3 % ophthalmic solution Use 2 Drops in eyes. 0 10/17/2019 05/15/2022 Discontinued Comment on above: Use 2 Drops in eyes. rt knee brace (14 sources) Start: 11-18-2022 rt knee brace rt knee brace, See Instructions, 1 EA, 0, rt knee brace for stability dx;R26.0, I69.351,G24.8, Z91.81, Supply Start Date: 11/18/22 Status: Ordered 24 hr divalproex sodium 500 mg extended release oral tablet (20 sources) Mood Stabilizer, Anti-epileptic Agent Start: 08-29-2020 take 1 tablet by mouth twice daily divalproex ER (DEPAKOTE ER) 500 mg 24 hr tablet Take 500 mg by mouth twice daily. 0 04/18/2022 Active take 2 tablets by mo uth three times daily divalproex (DEPAKOTE) [address] tablet T joy 2 tablets by mouth 3 times daily Active Comment on above: Take 500 mg by mouth twice daily. Problems Active Problems Problem Classification Problem Date Documented Date Episodic/Chronic Acute cerebrovascular disease (20 sources) Cerebrovascular accident; Translations: [Left sided cerebral hemisphere cerebrovascular accident] Resolved : 12-03-19 19 12-09-2018 Chronic Allergic reactions (20 sources) Contact dermatitis due to neomycin 12-27-2020 Episodic Anxiety disorders (20 sources) Feeling irritable; Translations: [Irritability and anger] Onset: 09-03-1904-14-2022 Episodic Calculus of urinary tract (2 sources) Calculus of kidney; Translations: [Calculus of kidney] Onset: 07-14-19 Episodic Coagulation and hemorrhagic disorders (18 sources) Primary thrombocytopenia; Translations: [Other primary thrombocytopenia] Onset: 09-03-1903-29-2020 Chronic Coma; stupor; and brain damage (15 sources) Drowsy 10-08-2020 Episodic Delirium, dementia, and amnestic and other cognitive disorders (20 sources) Alzheimer's disease; Translations: [Dementia associated with another disease] Onset: 10-15-1903-29-2020 Chronic Developmental disorders (20 sources) Mental retardation; Translations: [Mild intellectual disability] Onset: 10-15-19 Resolved : 12-10-19 19 12-29-2013 Chronic Disorders of lipid metabolism (20 sources) Familial hypercholesterolemia; Translations: [Hyperlipidemia] Onset: 10-15-1903-29-2020 Chronic E Codes: Fall (13 sources) Fall Onset: 07-13-19 24 02-18-2023 Epilepsy; convulsions (20 sources) Generalized epilepsy; Translations: [Absence seizure] Onset: 10-15-1903-29-2020 Chronic Epilepsy; convulsions (20 sources) Seizure disorder; Translations: [Seizure] Onset: 10-15-1908-26-2013 Episodic Esophageal disorders (20 sources) Gastroesophageal reflux disease; Translations: [Gastro-esophageal reflux disease with esophagitis] Onset: 04-08-20 22 10-31-2014 Chronic Fracture of lower limb (20 sources) Fracture of tibia 10-08-2020 Episodic Gastrointestinal hemorrhage (15 sources) Melena 02-28-2021 Episodic Genitourinary symptoms and ill-defined conditions (2 sources) Unspecified urinary incontinence; Translations: [Unspecified urinary incontinence] Onset: 05-04-20 Chronic Hemorrhoids (18 sources) Hemorrhoids; Translations: [Other hemorrhoids] Onset: 02-04-20 23 10-08-2020 Episodic Immunity disorders (2 sources) Other specified disorders involving the immune mechanism, not elsewhere classified; Translations: [Other specified disorders involving the immune mechanism, not elsewhere classified] Onset: 09-02-19 Chronic Immunizations and screening for infectious disease (1 source) Vaccination given; Translations: [Encounter for immunization] Onset: 04-23-20 Episodic Inflammation; infection of eye (except that caused by tuberculosis or sexually transmitteddisease) (15 sources) Contact blepharoconjunctivitis 10-08-2020 Episodic Influenza (1 source) Influenza; Translations: [Influenza due to unidentified influenza virus with other respiratory manifestations] Episodic Intracranial injury (8 sources) Traumatic brain injury; Translations: [Traumatic brain injury] 05-15-2022 Episodic Late effects of cerebrovascular disease (6 sources) Hemiplegia of dominant side as late effect of cerebrovascular disease; Translations: [Hemiplegia and hemiparesis following cerebral infarction affecting right dominant side] Onset: 09-03-19 Chronic Malaise and fatigue (20 sources) Asthenia; Translations: [Fatigue] Onset: 10-15-19 22 04-18-2019 Episodic Menopausal disorders (20 sources) Primary ovarian failure; Translations: [Other primary ovarian failure] Onset: 10-30-19 Chronic Miscellaneous mental health disorders (20 sources) Dissociative convulsions; 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] Onset: 03-27-20 23 06-03-2022 Chronic Mood disorders (20 sources) Chronic depression; Translations: [Depressive disorder] Onset: 10-15-19 Resolved : 12-03-19 19 12-09-2018 Chronic Nutritional deficiencies (20 sources) Decreased vitamin D; Translations: [Vitamin D deficiency] Onset: 03-13-20 23 03-29-2020 Chronic Osteoarthritis (20 sources) Osteoarthritis; Translations: [Osteoarthritis of knee] Onset: 03-27-20 23 12-02-2018 Chronic Other aftercare (2 sources) Long-term current use of drug therapy; Translations: [Other terminal superintendent (current) drug therapy] Onset: 02-13-20 Episodic Other bone disease and musculoskeletal deformities (15 sources) Osteopenia 10-31-2014 Episodic Other circulatory disease (20 sources) History of cerebrovascular accident 03-29-2020 Episodic Other circulatory disease (2 sources) History of transient ischemic attack; Translations: [Personal history of transient ischemic attack (TIA), and cerebral infarction without residual deficits] Onset: 02-12-20 Episodic Other circulatory disease (2 sources) Personal history of transient ischemic attack (TIA), and cerebral infarction without residual deficits; Translations: [Personal history of transient ischemic attack (TIA), and cerebral infarction without residual deficits] Onset: 09-02-19 Episodic Other connective tissue disease (11 sources) Muscle weakness 12-09-2018 Episodic Other connective tissue disease (15 sources) Pain in left arm 10-08-2020 Episodic Other connective tissue disease (1 source) Recurrent falls ; Translations: [Repeated falls] Onset: 06-18-19 Episodic Other diseases of kidney and ureters (2 sources) Other obstructive and reflux uropathy; Translations: [Other obstructive and reflux uropathy] Onset: 07-14-19 Episodic Other diseases of veins and lymphatics (15 sources) Venous stasis 01-22-2021 Episodic Other gastrointestinal disorders (15 sources) Diarrhea 10-08-2020 Episodic Other gastrointestinal disorders (20 sources) Dysphagia 05-03-2021 Episodic Other hereditary and degenerative nervous system conditions (17 sources) Dystonia; Translations: [Other dystonia] Onset: 09-03-19 23 06-03-2022 Chronic Other injuries and conditions due to external causes (1 source) History of fall; Translations: [History of falling] Onset: 09-03-19 Episodic Other lower respiratory disease (15 sources) Dry cough 07-02-2021 Episodic Other lower respiratory disease (11 sources) Labored breathing 05-03-2021 Episodic Other lower respiratory disease (1 source) Wheezing; Translations: [Wheezing] Onset: 11-16-19 Episodic Other nervous system disorders (15 sources) Unable to walk 10-17-2019 Chronic Other nervous system disorders (1 source) Metabolic encephalopathy; Translations: [Metabolic encephalopathy] Onset: 04-10-20 Chronic Other nervous system disorders (20 sources) Ataxic gait; Translations: [Ataxic gait] Onset: 04-23-2010-17-2019 Episodic Other non-traumatic joint disorders (8 sources) Arthritis of knee 03-27-2023 Chronic Other non-traumatic joint disorders (9 sources) Instability of joint of right knee; Translations: [Other instability, right knee] Onset: 03-27-20 Episodic Other nutritional; endocrine; and metabolic disorders (20 sources) Obesity; Translations: [Other obesity] Onset: 10-15-19 22 07-02-2021 Chronic Other nutritional; endocrine; and metabolic disorders (15 sources) Obese class I; Translations: [Body mass index (BMI) 32.0-32.9, adult] Onset: 10-15-19 Chronic Other nutritional; endocrine; and metabolic disorders (15 sources) Difficulty eating 10-08-2020 Episodic Other nutritional; endocrine; and metabolic disorders (2 sources) Overweight in adulthood with body mass index of 25 or more but less than 30; Translations: [Body mass index (BMI) 28.0-28.9, adult] Onset: 01-16-20 Episodic Other screening for suspected conditions (not mental disorders or infectious disease) (20 sources) Platelet count below reference range; Translations: [Patient encounter status] Onset: 10-20-19 Resolved : 12-10-19 19 12-09-2018 Episodic Paralysis (9 sources) Right hemiparesis 09-01-2022 Chronic Comment on above: added per 09/01/2022 query response. Parkinson`s disease (20 sources) Parkinson's disease; Translations: [Parkinsonism] Onset: 10-15-1903-29-2020 Chronic Parkinson`s disease (4 sources) Parkinson`s disease; Translations: [Parkinson's disease without dyskinesia, without mention of fluctuations (HCC)] Onset: 04-14-20 Peripheral and visceral atherosclerosis (20 sources) Atherosclerosis of aorta; Translations: [Atherosclerosis of aorta] Onset: 10-30-19 Chronic Regional enteritis and ulcerative colitis (20 sources) Crohn's disease of large bowel; Translations: [Crohn's disease] Onset: 02-13-20 23 07-02-2021 Chronic Residual codes; unclassified (2 sources) Restlessness and agitation; Translations: [Restlessness and agitation] Onset: 05-04-20 Chronic Residual codes; unclassified (15 sources) Poor short-term memory 08-26-2013 Episodic Residual codes; unclassified (15 sources) Swelling - edema - symptom 10-08-2020 Episo dic Residual codes; unclassified (1 source) Procedure carried out on subject; Translations: [Encounter for prophylactic measures, unspecified] Onset: 10-15-19 Episodic Residual codes; unclassified (1 source) Pain; Translations: [Pain, unspecified] Onset: 09-03-19 Episodic Residual codes; unclassified (15 sources) Intermittent pain 09-02-2022 Episodic Residual codes; unclassified (15 sources) Insomnia; Translations: [Insomnia, unspecified] Onset: 01-16-20 Episodic Residual codes; unclassified (2 sources) Acquired absence of both cervix and uterus; Translations: [Acquired absence of both cervix and uterus] Onset: 09-02-19 Episodic Superficial injury; contusion (16 sources) Contusion of hand; Translations: [Contusion of unspecified hand, initial encounter] Onset: 03-31-20 Episodic Syncope (1 source) Syncope and collapse; Translations: [Syncope and collapse] Onset: 04-10-20 Episodic Thyroid disorders (20 sources) Hypothyroidism; Translations: [Hypothyroidism, unspecified] Onset: 10-15-19 22 10-31-2014 Chronic Transient cerebral ischemia (8 sources) Cerebral ischemia; Translations: [Transient cerebral ischemic attack, unspecified] 10-03-2016 Chronic Unclassified (11 sources) Stool finding 02-28-2021 Unclassified (20 sources) History of SARS-CoV-2; Translations: [Personal history of COVID-19] Onset: 10-15-19 Unclassified (2 sources) EMS Onset: 07-13-19 24 Unclassified (1 source) Cough, unspecified; Translations: [Cough, unspecified] Onset: 11-16-19 Past or Other Problems Problem Classification Problem Date Documented Da te Episodic/Chronic E Codes: Fall (3 sources) Fall; Translations: [Unspecified fall, initial encounter] Onset: 02-12-2023 Episodic Genitourinary symptoms and ill-defined conditions (20 sources) Blood in urine; Translations: [Decreased urine output] Onset: 03-07-2024 10-08-2020 Episodic Other aftercare (2 sources) Other residential (current) drug therapy; Translations: [Other residential (current) drug therapy] Onset: 03-07-2024 Episodic Other infections; including parasitic (2 sources) Personal history of other infectious and parasitic diseases; Translations: [Personal history of other infectious and parasitic diseases] Onset: 03-22-2024 Episodic Residual codes; unclassified (2 sources) Disorientation, unspecified; Translations: [Disorientation, unspecified] Onset: 05-04-2024 Episodic Residual codes; unclassified (2 sources) Altered mental status, unspecified; Translations: [Altered mental status, unspecified] Onset: 03-22-2024 Episodic Septicemia (except in labor) (3 sources) Sepsis, unspecified organism; Translations: [Sepsis, unspecified organism] Onset: 07-14-2023 Episodic Shock (3 sources) Severe sepsis with septic shock; Translations: [Severe sepsis with septic shock] Onset: 07-14-2023 Episodic Unclassified (15 sources) Intellectual disability 04-25-2021 Unclassified (20 sources) Non-smoker 05-03-2021 Unclassified (7 sources) organic brain disorder( Confirmed ) 11-14-2009 Unclassified (8 sources) organic brain disorder 11-14-2009 Unclassified (1 source) Exposure to 2019 novel coronavirus; Translations: [Contact with and (suspected) exposure to COVID19] Unclassified (13 sources) Patient encounter status 04-23-2023 Urinary tract infections (12 sources) Urinary tract infectious disease; Translations: [Urinary tract infection, site not specified] Onset: 04-10-2023 Episodic Viral infection (20 sources) Disease caused by 2019-nCoV; Translations: [COVID-19] Results Test Name Value Interpretation Reference Range Facility XR CHEST 2 VWSon 11-15-2024 XR CHEST 2 VWS XR CHEST 2 VWS PA and lateral chest: HISTORY: Cough. 2 views of the chest obtained. Lungs are clear. There is no consolidation, effusion, or pneumothorax. Cardiac and mediastinal contours within normal limits. Osseous structures appear intact. IMPRESSION: No acute findings. Finalized by Sid Craig MD on 11/15/2024 9:45 AM Normal [facility] No Panel InformationOrdered By: Snow Belle on 11-04-2024 Interpretation and review of laboratory results Abnormal [facility] Work Phone: [facility] Work Phone: No Panel Informationon 11-04 1. Benign right breast ultrasound. The mammographic abnormality most likely represents overlapping fibroglandular tissue. 2. Probably benign hypoechoic lesion in the left breast at 11 o'clock, 3 cm from the nipple measuring 8 mm in maximal diameter. Follow-up left breast ultrasound in 6 months is recommended. BIRADS: BIRADS - CATEGORY 3 Findings are probably benign. A short interval follow-up is recommended in 6 months. OVERALL ASSESSMENT -PROBABLY BENIGN. A letter of notification will be sent to the patient regarding the results. [facility] EXAMINATION: TARGETED ULTRASOUND OF THE RIGHT BREAST; TARGETED ULTRASOUND OF THE LEFT BREAST 11/04/2024 COMPARISON: 10/19/2024 HISTORY: ORDERING SYSTEM PROVIDED HISTORY: Abnormal mammogram residential patient with limited mobility in the wheelchair. FINDINGS: Right breast ultrasound: Sonography of the lower inner quadrant of the right breast demonstrates normal fibroglandular tissue. There is no sonographic correlate to the mammogram finding. The mammographic finding likely represents normal fibroglandular tissue. Left breast ultrasound: Sonography of the medial aspect of the left breast, from the 8-12 o'clock position was performed. There is a well-circumscribed hypoechoic area in the left breast, 11 o'clock, 3 cm from the nipple measuring 7 x 3 x 8 mm that is probably benign. There are no other suspicious masses or cystic lesions. There is no left axillary adenopathy. [facility] Radiology Study observation (narrative) [facility] US BREAST LIMITED LEFTon US BREAST LIMITED LEFT EXAMINATION: TARGETED ULTRASOUND OF THE RIGHT BREAST; TARGETED ULTRASOUND OF THE LEFT BREAST 11/04/2024 COMPARISON: 10/19/2024 HISTORY: ORDERING SYSTEM PROVIDED HISTORY: Abnormal mammogram residential patient with limited mobility in the wheelchair. FINDINGS: Right breast ultrasound: Sonography of the lower inner quadrant of the right breast demonstrates normal fibroglandular tissue. There is no sonographic correlate to the mammogram finding. The mammographic finding likely represents normal fibroglandular tissue. Left breast ultrasound: Sonography of the medial aspect of the left breast, from the 8-12 o'clock position was performed. There is a well-circumscribed hypoechoic area in the left breast, 11 o'clock, 3 cm from the nipple measuring 7 x 3 x 8 mm that is probably benign. There are no other suspicious masses or cystic lesions. There is no left axillary adenopathy. IMPRESSION: 1. Benign right breast ultrasound. The mammographic abnormality most likely represents overlapping fibroglandular tissue. 2. Probably benign hypoechoic lesion in the left breast at 11 o'clock, 3 cm from the nipple measuring 8 mm in maximal diameter. Follow-up left breast ultrasound in 6 months is recommended. BIRADS: BIRADS - CATEGORY 3 Findings are probably benign. A short interval follow-up is recommended in 6 months. OVERALL ASSESSMENT -PROBABLY BENIGN. A letter of notification will be sent to the patient regarding the results. Interpreted by: Snow Belle MD Signed by: Snow Belle MD 11/04/24 Final result Normal [facility] US BREAST LIMITED RIGHTon US BREAST LIMITED RIGHT EXAMINATION: TARGETED ULTRASOUND OF THE RIGHT BREAST; TARGETED ULTRASOUND OF THE LEFT BREAST 11/04/2024 COMPARISON: 10/19/2024 HISTORY: ORDERING SYSTEM PROVIDED HISTORY: Abnormal mammogram residential patient with limited mobility in the wheelchair. FINDINGS: Right breast ultrasound: Sonography of the lower inner quadrant of the right breast demonstrates normal fibroglandular tissue. There is no sonographic correlate to the mammogram finding. The mammographic finding likely represents normal fibroglandular tissue. Left breast ultrasound: Sonography of the medial aspect of the left breast, from the 8-12 o'clock position was performed. There is a well-circumscribed hypoechoic area in the left breast, 11 o'clock, 3 cm from the nipple measuring 7 x 3 x 8 mm that is probably benign. There are no other suspicious masses or cystic lesions. There is no left axillary adenopathy. IMPRESSION: 1. Benign right breast ultrasound. The mammographic abnormality most likely represents overlapping fibroglandular tissue. 2. Probably benign hypoechoic lesion in the left breast at 11 o'clock, 3 cm from the nipple measuring 8 mm in maximal diameter. Follow-up left breast ultrasound in 6 months is recommended. BIRADS: BIRADS - CATEGORY 3 Findings are probably benign. A short interval follow-up is recommended in 6 months. OVERALL ASSESSMENT -PROBABLY BENIGN. A letter of notification will be sent to the patient regarding the results. Interpreted by: Snow Belle MD Signed by: Snow Belle MD 11/04/24 Final result Normal [facility] DBT Breast - bilateral scree marvin 10-19-2024 EXAMINATION: SCREENING DIGITAL BILATERAL MAMMOGRAM WITH TOMOSYNTHESIS, 10/19/2024 TECHNIQUE: Screening mammography was performed with tomosynthesis including MLO and CC views of the bilateral breasts. Computer aided detection was used for the interpretation of this exam. COMPARISON: None available HISTORY: Screening. FINDINGS: BREAST COMPOSITION: There are scattered areas of fibroglandular density. Bilateral breast asymmetry lower inner right breast middle depth and medial central left breast middle to posterior depth. No suspicious calcification either breast. [facility] Radiology Study observation (narrative) [facility] DBT Breast - bilateral scree chilogOrdered By: Godwin Schmidt on 10-19-2024 [facility] Work Phone: [facility] LUZE LENA DIGITAL SCREEN BILA TERALoanne marie 10-19-2024 [facility] ELENA DIGITAL SCREEN BILATERAL EXAMINATION: SCREENING DIGITAL BILATERAL MAMMOGRAM WITH TOMOSYNTHESIS, 10/19/2024 TECHNIQUE: Screening mammography was performed with tomosynthesis including MLO and CC views of the bilateral breasts. Computer aided detection was used for the interpretation of this exam. COMPARISON: None available HISTORY: Screening. FINDINGS: BREAST COMPOSITION: There are scattered areas of fibroglandular density. Bilateral breast asymmetry lower inner right breast middle depth and medial central left breast middle to posterior depth. No suspicious calcification either breast. IMPRESSION: Bilateral breast asymmetries. Recommend mammographic workup with possible progression to ultrasound. BIRADS: BIRADS - CATEGORY 0 Incomplete: Need Additional Imaging Evaluation OVERALL ASSESSMENT - INCOMPLETE: NEED ADDITIONAL IMAGING EVALUATION. Performing Facility: [place] [address] Interpreted by: Godwin Schmidt DO Signed by: Godwin Schmidt DO 10/19/24 Final result Normal [facility] CBC with Auto Differentialon 09-01-2024 Basophils (Bld) [#/Vol] 0.06 10*3/uL [facility] Basophils/100 WBC (Bld) 1 % 0 - 2 % [facility] Eosinophils (Bld) [#/Vol] 0.22 10*3/uL [facility] Eosinophils/100 WBC (Bld) 3 % 1 - 4 % [facility] Erythrocyte distribution width (RBC) [Ratio] 13 % 11.8 - 14.4 % [facility] Hematocrit (Bld) [Volume fraction] 39.5 % 36.3 - 47.1 % [facility] Hemoglobin (Bld) [Mass/Vol] 12.9 g/dL 11.9 - 15.1 g/dL [facility] Immature granulocytes (Bld) [#/Vol] [facility] Immature granulocytes/100 WBC (Bld) 0 % 0 [facility] Interpretation and review of laboratory results Abnormal [facility] Lymphocytes/100 WBC (Bld) 41 % 24 - 43 % [facility] Lymphocytes/100 WBC (Bld) 2.67 % [facility] MCH (RBC) [Entitic mass] 29.6 pg 25.2 - 33.5 pg [facility] MCHC (RBC) [Mass/Vol] 32.7 g/dL 28.4 - 34.8 g/dL [facility] MCV (RBC) [Entitic vol] 90.6 fL 82.6 - 102.9 fL [facility] Monocytes/100 WBC (Bld) 10 % 3 - 12 % [facility] Monocytes/100 WBC (Bld) 0.63 % [facility] Neutrophils/100 WBC (Bld) 45 % 36 - 65 % [facility] Nucleated RBC/100 WBC (Bld) [Ratio] 0 % 0.0 per 100 WBC [facility] Platelet mean volume (Bld) [Entitic vol] 13.8 fL High 8.1 - 13.5 fL [facility] Platelets (Bld) [#/Vol] 130 10*3/uL Low [facility] RBC (Bld) [#/Vol] 4.36 10*6/uL 3.95 - 5.1 1 m/uL [facility] Segmented neutrophils/100 WBC (Bld) 2.92 % [facility] WBC other (Bld) [#/Vol] 6.5 [facility] CBC with Diffon 09-01-2024 Abs. Basophil 0.06 k/uL Normal 0.00-0.[address] [facility] Comment on above: Performed By: #### U MAREK UA #### [facility] [address] [place] [address] [employer] Consultant: Bradley Warren MD Abs.Imm.Granulocyte <0.03 Normal 0.00-0.30 [facility] Comment on above: Performed By: #### Alessio JARA UA #### [address] [place] [address] [employer] Consultant: Bradley Warren MD Abs.Neutrophil (Seg) 2.92 k/uL Normal 1.50-8.10 [facility] Comment on above: Performed By: #### Alessio JARA UA #### [address] [place], [place] [address] [employer] Consultant: Bradley Warren MD Basophils/100 WBC (Bld) 1 % Normal 0-2 [facility] Comment on above: Performed By: #### Alessio JARA UA #### [address] [place], [place] [address] [employer] Consultant: Bradley Warren MD Eosinophils (Bld) [#/Vol] 0.22 10*3/uL Normal 0.00-0.44 [facility] Comment on above: Performed By: #### U MAREK UA #### [address] [place], [facility] [employer] Consultant: Bradley Warren MD Eosinophils/100 WBC (Bld) 3 % Normal 1-4 [facility] Comment on above: Performed By: #### Alessio JARA UA #### [facility] [address] [place], [place] [phone] [employer] Consultant: Bradley Warren MD Erythrocyte distribution width (RBC) [Ratio] 13.0 % Normal 11.8-14.4 [facility] Comment on above: Performed By: #### U MICAO, UA #### [facility] [address] [place], [place] [phone] [employer] Consultant: Bradley Warren MD Hematocrit (Bld) [Volume fraction] 39.5 % Normal 36.3-47.1 [facility] Comment on above: Performed By: #### U ERICO, UA #### [address] [place], [facility] [employer] Consultant: Bradley Warren MD Hemoglobin (Bld) [Mass/Vol] 12.9 g/dL Normal 11.9-15.1 [facility] Comment on above: Performed By: #### U ERICO, UA #### [facility] [address] [place] [address] Dr[place], [place] [phone] [employer] Consultant: Bradley Warren MD Immature granulocytes/100 WBC (Bld) 0 % Normal 0 [facility] Comment on above: Performed By: #### U ERICO, UA #### [address] [place], [place] [phone] [employer] Consultant: Bradley Warren MD Lymphocytes (Bld) [#/Vol] 2.67 10*3/uL Normal 1.10-3.70 [facility] Comment on above: Performed By: #### U MICAO, UA #### [facility] [address] [place], [place] [phone] [employer]ant: Bradley Warren MD Lymphocytes/100 WBC (Bld) 41 % Normal 24-43 [facility] Comment on above: Performed By: #### U ERICO, UA #### [facility] [address] [place], [place] [phone] [employer] Consultant: Bradley Warren MD MCH (RBC) [Entitic mass] 29.6 pg Normal 25.2-33.5 [facility] Comment on above: Performed By: #### U MAREK UA #### [facility] [address] [place], [place] [phone] [employer] Consultant: Bradley Warren MD MCHC (RBC) [Mass/Vol] 32.7 g/dL Normal 28.4-34.8 [facility] Comment on above: Performed By: #### U MAREK, UA #### [facility] [address] [place] [address] [employer]ant: Bradley Warren MD MCV (RBC) [Entitic vol] 90.6 fL Normal 82.6-102.9 [facility] Comment on above: Performed By: #### Alessio JARA UA #### [facility] [address] [place] [address] Dr[address] [place], [place] [phone] [employer] Consultant: Bradley Warren MD Monocytes (Bld) [#/Vol] 0.63 10*3/uL Normal 0.10-1.20 [facility] Comment on above: Performed By: #### Alessio JARA, UA #### [address] [place], [place] [phone] [employer] Consultant: Bradley Warren MD Monocytes/100 WBC (Bld) 10 % Normal 3-12 [facility] Comment on above: Performed By: #### U MAREK, UA #### [facility] [address] [place], [place] [phone] [employer] Consultant: Bradley Warren MD Neutrophil (Seg) 45 % Normal 36-65 [facility] Comment on above: Performed By: #### U MAREK, UA #### [facility] [address] [place], [place] [phone] [employer] Consultant: Bradley Warren MD NRBC Automated 0.0 per 100 WBC Normal 0.0 [facility] Comment on above: Performed By: #### U MAREK, UA #### [facility] [address] [place] [address] [employer] Consultant: Bradley Warren MD Platelet mean volume (Bld) [Entitic vol] 13.8 fL High 8.1-13.5 [facility] Comment on above: Performed By: #### U MAREK, UA #### [facility] [address] [place] [address] [employer]ant: Bradley Warren MD Platelets (Bld) [#/Vol] 130 10*3/uL Low 138-453 [facility] Comment on above: Performed By: #### U MAREK, UA #### [facility] [address] [place], [place] [phone] [employer] Consultant: Bradley Warren MD RBC (Bld) [#/Vol] 4.36 10*6/uL Normal 3.95-5.11 [facility] Comment on above: Performed By: #### U MAREK, UA #### [facility] [address] [place] [address] [employer]ant: Bradley Warren MD WBC (Bld) [#/Vol] 6.5 10*3/uL Normal 3.5-11.3 [facility] Comment on above: Performed By: #### U MAREK, UA #### [facility] [address] [place] [address] [employer]ant: Bradley Warren MD Comp Metabolic Profon 2024 Albumin [Mass/Vol] 3.8 g/dL Normal 3.5-5.2 [facility] Comment on above: Performed By: #### U MAREK, UA #### [facility] [address] [place], [place] [phone] [employer] Consultant: Bradley Warren MD Albumin/Glob Ratio 1.4 Normal 1.0-2.5 [facility] Comment on above: Performed By: #### U MICAO, UA #### [facility] [address] [place], [place] [phone] [employer] Consultant: Bradley Warren MD Alkaline Phos 54 U/L Normal 35-[address] [facility] Comment on above: Performed By: #### U MICAO, UA #### [facility] [address] [place], [place] [phone] [employer] Consultant: Bradley Warren MD ALT [Catalytic activity/Vol] 8 U/L Low 10-35 [facility] Comment on above: Performed By: #### U MICAO, UA #### [facility] [address] [place], [place] [phone] [employer] Consultant: Bradley Warren MD Anion gap [Moles/Vol] 8 mmol/L Low 9-16 [facility] Comment on above: Performed By: #### U MICAO, UA #### [facility] [address] [place], [place] [phone] [employer] Consultant: Bradley Warren MD AST [Catalytic activity/Vol] 19 U/L Normal 10-35 [facility] Comment on above: Performed By: #### U MICAO, UA #### [facility] [address] [place], [place] [phone] [employer] Consultant: Bradley Warren MD Bilirubin [Mass/Vol] 0.3 mg/dL Normal 0.00-1.20 [facility] Comment on above: Performed By: #### U MICAO, UA #### [facility] [address] [place], [place] [phone] [employer] Consultant: Bradley Warren MD BUN/CRE Ratio 35 High 9-[address] [facility] Comment on above: Performed By: #### U MICAO, UA #### [facility] [address] [place], [place] [phone] [employer] Consultant: Bradley Warren MD Calcium [Mass/Vol] 9.1 mg/dL Normal 8.6-10.4 [facility] Comment on above: Performed By: #### U MAREK, UA #### [facility] [address] [place] [address] [employer]ant: Bradley Warren MD Chloride [Moles/Vol] 108 mmol/L High 98-107 [facility] Comment on above: Performed By: #### U MAREK, UA #### [facility] [address] [place] [address] [employer] Consultant: Bradley Warren MD CO2 [Moles/Vol] 27 mmol/L Normal 20-31 [facility] Comment on above: Performed By: #### Alessio JARA, UA #### [facility] [address] [place] [address] [employer] Consultant: Bradley Warren MD Creatinine [Mass/Vol] 0.6 mg/dL Normal 0.50-0.90 [facility] Comment on above: Performed By: #### U MAREK, UA #### [facility] [address] [place] [address] [employer] Consultant: Bradley Warren MD GFR/1.73 sq M.predicted among non-blacks MDRD (S/P/Bld) [Vol rate/Area] mL/min/{1.73_m2} Normal >60 [facility] Comment on above: Result Comment: These results are not intended for use in patients <18 years of age. eGFR results are calculated without a race factor using the 2020 CKD-EPI equation. Careful clinical correlation is recommended, particularly when comparing to results calculated using previous equations. The CKD-EPI equation is less accurate in patients with extremes of muscle mass, extra-renal metabolism of creatine, excessive creatine ingestion, or following therapy that affects renal tubular secretion. Performed By: #### U ERICO, UA #### [facility] [address] [place] [address] [employer] Consultant: Bradley Warren MD Glucose [Mass/Vol] 84 mg/dL Normal 74-99 [facility] Comment on above: Performed By: #### U MAREK UA #### [facility] [address] [place] [address] [employer] Consultant: Bradley Warren MD Potassium [Moles/Vol] 4.3 mmol/L Normal 3.7-5.3 [facility] Comment on above: Performed By: #### U MAREK UA #### [facility] [address] [place] [address] [employer] Consultant: Bradley Warren MD Protein [Mass/Vol] 6.6 g/dL Normal 6.6-8.7 [facility] Comment on above: Performed By: #### Alessio JARA UA #### [facility] [address] [place] [address] [employer] Consultant: Bradley Warren MD Sodium [Moles/Vol] 143 mmol/L Normal 136-145 [facility] Comment on above: Performed By: #### U MAREK UA #### [facility] [address] [place] [address] [employer] Consultant: Bradley Warren MD Urea nitrogen [Mass/Vol] 21 mg/dL Normal 8-23 [facility] Comment on above: Performed By: #### U MAREK UA #### [facility] [address] [place] [address] [employer] Consultant: Bradley Warren MD Comprehensive Metabolic Pane memo 09-01-2024 Albumin [Mass/Vol] 3.8 g/dL 3.5 - 5.2 g/dL [facility] Albumin/Globulin [Mass ratio] 1.4 {ratio} 1.0 - 2.5 [facility] ALP [Catalytic activity/Vol] 54 U/L 35 - 104 U/L [facility] ALT [Catalytic activity/Vol] 8 U/L Low 10 - 35 U/L [facility] Anion gap [Moles/Vol] 8 mmol/L Low 9 - 16 mmol/L [facility] AST [Catalytic activity/Vol] 19 U/L 10 - 35 U/L [facility] Bilirubin [Mass/Vol] 0.3 mg/dL 0.00 - 1.20 mg/dL [facility] Calcium [Mass/Vol] 9.1 mg/dL 8.6 - 10. 4 mg/dL [facility] Chloride [Moles/Vol] 108 mmol/L High 98 - 10 7 mmol/L [facility] CO2 [Moles/Vol] 27 mmol/L 20 - 31 mmol/L [facility] Creatinine [Mass/Vol] 0.6 mg/dL 0.50 - 0.90 mg/dL [facility] Varinder Benites - [facility] Comment on above: These results are not intended for use in patients <18 years of age. eGFR results are calculated without a race factor using the 2020 CKD-EPI equation. Careful clinical correlation is recommended, particularly when comparing to results calculated using previous equations. The CKD-EPI equation is less accurate in patients with extremes of muscle mass, extra-renal metabolism of creatine, excessive creatine ingestion, or following therapy that affects renal tubular secretion. Glucose [Mass/Vol] 84 mg/dL 74 - 99 mg/dL [facility] Interpretation and review of laboratory results Abnormal [facility] Potassium [Moles/Vol] 4.3 mmol/L 3.7 - 5.3 mmol/L [facility] Protein [Mass/Vol] 6.6 g/dL 6.6 - 8.7 g/dL [facility] Sodium [Moles/Vol] 143 mmol/L 136 - 145 mmol/L [facility] Urea nitrogen [Mass/Vol] 21 mg/dL 8 - 23 mg/dL [facility] Urea nitrogen/Creatinine [Mass ratio] 35 mg/mg High - 20 [facility] Lipid Panelon 09-01-2024 Cholesterol [Mass/Vol] 158 mg/dL 0 - 199 mg/dL [facility] Comment on above: Cholesterol Guidelines: <200 Desirable 200-240 Borderline >240 Undesirable Cholesterol in HDL [Mass/Vol] 52 mg/dL 40 - PINF mg/dL [facility] Comment on above: HDL Guidelines: <40 Undesirable 40-59 Borderline >59 Desirable Cholesterol in LDL [Mass/Vol] 91 mg/dL 0 - 100 mg/dL [facility] Comment on above: LDL Guidelines: <100 Desirable 100-129 Near to/above Desirable 130-159 Borderline >159 Undesirable Direct (measured) LDL and calculated LDL are not interchangeable tests. Cholesterol in VLDL [Mass/Vol] 15 mg/dL 1 - 30 mg/dL [facility] Cholesterol.total/Cho lesterol in HDL [Mass ratio] 3.0 {ratio} [facility] Triglyceride [Mass/Vol] 75 mg/dL NINF - 150 mg/dL [facility] Comment on above: Triglyceride Guidelines: <150 Desirable 150-199 Borderline 200-499 High >499 Very high Based on AHA Guidelines for fasting triglyceride, March 2012. Lipid Profileon 09-01-2024 Cholesterol [Mass/Vol] 158 mg/dL Normal 0-199 [facility] Comment on above: Result Comment: Cholesterol Guidelines: <200 Desirable 200-240 Borderline >240 Undesirable Performed By: #### U MAREK, UA #### [facility] [address] [place] [address] [employer] Consultant: Bradley Warren MD Cholesterol in HDL [Mass/Vol] 52 mg/dL Normal >40 [facility] Comment on above: Result Comment: HDL Guidelines: <40 Undesirable 40-59 Borderline >59 Desirable Performed By: #### U MAREK, UA #### [facility] [address] [place] [address] [employer] Consultant: Bradley Warren MD Cholesterol in LDL [Mass/Vol] 91 mg/dL Normal 0-100 [facility] Comment on above: Result Comment: LDL Guidelines: <100 Desirable 100-129 Near to/above Desirable 130-159 Borderline >159 Undesirable Direct (measured) LDL and calculated LDL are not interchangeable tests. Performed By: #### U ERICO, UA #### [facility] [address] [place] [address] [employer] Consultant: Bradley Warren MD Cholesterol in VLDL [Mass/Vol] 15 mg/dL Normal 1-30 [facility] Comment on above: Performed By: #### ANDRY KAPLAN #### [facility] [address] [place] [address] [employer] Consultant: Bradley Warren MD Cholesterol.total/Cho lesterol in HDL [Mass ratio] 3.0 {ratio} Normal [facility] Comment on above: Performed By: #### Alessio JARA UA #### [facility] [address] [place] [address] [employer] Consultant: Bradley Warren MD Triglyceride [Mass/Vol] 75 mg/dL Normal <150 [facility] Comment on above: Result Comment: Triglyceride Guidelines: <150 Desirable 150-199 Borderline 200-499 High >499 Very high Based on AHA Guidelines for fasting triglyceride, March 2012. Performed By: #### ANDRY KAPLAN #### [facility] [address] [place] [address] [employer] Consultant: Bradley Warren MD No Panel Informationon 09-01 [facility] T4, Freeon 09-01-2024 Free T4 [Mass/Vol] 1.3 ng/dL 0.9 - 1.7 ng/dL [facility] TSHon 09-01-2024 TSH Qn 1.83 m[IU]/L [facility] Thyroid Stim. Horm.on 2024 Thyroid Stim. Horm. 1.83 uIU/mL Normal 0.27-4.20 [facility] Comment on above: Performed By: #### ANDRY KAPLAN #### [facility] [address] [place] [address] [employer] Consultant: Bradley Warren MD Thyroxine, Freeon 09-01-2024 Thyroxine, Free 1.3 ng/dL Normal 0.9-1.7 [facility] Comment on above: Performed By: #### ANDRY KAPLAN #### [facility] [address] [place] [address] [employer] Consultant: Bradley Warren MD Vitamin D 25 Hydroxyon 09-01 25-hydroxyvitamin D3 [Mass/Vol] 65.4 ng/mL 30.0 - 100.0 ng/mL [facility] Comment on above: Reference Range: Vitamin D status Range Deficiency <20 ng/mL Mild Deficiency 20-30 ng/mL Sufficiency 30-100 ng/mL Toxicity >100 ng/mL Vitamin D 25 OHon 09-01-2024 Vitamin D 25 OH 65.4 ng/mL Normal 30.0-100.0 [facility] Comment on above: Result Comment: Reference Range: Vitamin D status Range Deficiency <20 ng/mL Mild Deficiency 20-30 ng/mL Sufficiency 30-100 ng/mL Toxicity >100 ng/mL Performed By: #### U MAREK, UA #### [facility] [address] [place] [address] [employer] Consultant: Bradley Warren MD CT BRAIN WO CONTon CT BRAIN WO CONT CT BRAIN WO CONT STUDY: CT HEAD WITHOUT CONTRAST CLINICAL HISTORY: Polytrauma, blunt acute head pain trauma injury COMPARISON: 07/13/2023 TECHNIQUE: CT head was performed without contrast utilizing 2.5 mm axial reconstruction with images reviewed in bone and brain windows. Automated exposure control was utilized. FINDINGS: Left MCA distribution encephalomalacia, stable. Stable compensatory enlargement of the left lateral ventricle. No new intracranial mass mass effect or shift of midline structures. No extra-axial fluid collection. Garcia-white differentiation preserved. No CT evidence of large vessel vascular distribution of acute infarct, acute ischemic hemorrhage. No depressed or widely calvarial fracture. IMPRESSION: 1. No evidence of an acute intracranial process. All CT scans at this facility use dose modulation, iterative reconstruction, and/or weight based dosing when appropriate to reduce radiation dose to as low as reasonably achievable. Finalized by Misbah Sheehan MD on 07/29/2024 9:53 PM Normal [facility] CT CERVICAL SPINE WO CONTon 07-29-2024 CT CERVICAL SPINE WO CONT CT CERVICAL SPINE WO CONT CT CERVICAL SPINE WO CONT CLINICAL INFORMATION: Polytrauma, blunt. COMPARISON: None. PROCEDURE: Routine cervical spine protocol CT was obtained without intravenous contrast. Sagittal and coronal reformatted images were obtained from the axial data. All CT scans at this facility use dose modulation, iterative reconstruction, and/or weight based dosing when appropriate to reduce radiation dose to as low as reasonably achievable. FINDINGS: Motion artifact degrades assessment. No fracture. Loss of the normal cervical lordosis. Prominent C2-3 facet degenerative changes noted at multiple levels, with vacuum disc phenomenon, minimal gas in the endplates adjacent to C6-7 consistent with degenerative change, and some anterior osteophytes, which appear bulky. No prevertebral soft tissue swelling. Lung apices demonstrate no acute findings. Please note, if ligamentous or spinal cord injury is of clinical concern, suggest MR imaging or flexion-extension radiographs. IMPRESSION: * No acute cervical spine fracture. * Multilevel degenerative changes. * Subtle alignment abnormalities as above. Finalized by Dre Rooney MD on 07/29/2024 10:02 PM Normal [facility] XR PELVIS 1 OR 2 VWSon 07-29 XR PELVIS 1 OR 2 VWS XR PELVIS 1 OR 2 VW S XR PELVIS 1 OR 2 VWS Clinical history:fall acute pelvic pain Comparison: 09/19/2023 Findings: Stable irregularity of the right superior and inferior pubic rami likely related to prior trauma. Sclerosis of the right femoral head may related avascular necrosis. Evaluation of the right femoral neck is compromised by external rotation of the right lower extremity. The right femoral neck cannot be assessed to exclude femoral neck fracture. Degenerative changes. Osteopenia. If the patient is unable to bear weight or if there is concern for nondisplaced hip fracture, consider correlation with MRI. Impression: No obvious acute process identified within the limitations of this examination. Finalized by Misbah Sheehan MD on 07/29/2024 9:52 PM Normal [facility] Cult,Urineon 05-11-2024 Cult,Urine Specimen Description .CATHETERIZED URINE Culture VANCOMYCIN RESISTANT ENTEROCOCCUS FAECIUM 50 TO 100,000 CFU/ML Report Status FINAL 05/11/2024 SUSCEPTIBILITY Organism VANCOMYCIN RESISTANT ENTEROCOCCUS FAECIUM Method AMRLA Ampicillin >=32 RESISTANT Ciprofloxacin >=8 RESISTANT Levofloxacin >=8 RESISTANT Linezolid 2 SUSCEPTIBLE Nitrofurantoin 128 RESISTANT Tetracycline >=16 RESISTANT Vancomycin >=32 RESISTANT Resistant [facility] Comment on above: Performed By: #### U MICAO, UA #### [facility] [address] [place], [place] [phone] [employer] Consultant: Bradley Warren MD Urinalysis w/ Microon 2023 Bacteria TRACE Abnormal NONE [facility] Comment on above: Performed By: #### U MICAO, UA #### [facility] [address] [place], [place] [phone] [employer] Consultant: Bradley Warren MD Bilirubin, SemiQt,Ur Negative Normal NEG [facility] Comment on above: Performed By: #### U MICAO, UA #### [address] [place], [place] [phone] [employer] Consultant: Bradley Warren MD Blood, Urine TRACE Abnormal NEG [facility] Comment on above: Performed By: #### U MICAO, UA #### [facility] [address] [place], [place] [phone] [employer] Consultant: Bradley Warren MD Clarity (U) Clear Normal CLEAR [facility] Comment on above: Performed By: #### U MICAO, UA #### [facility] [address] [place] [address] [place] [place], [place] [phone] [employer] Consultant: Bradley Warren MD Color (U) Yellow Normal YEL [facility] Comment on above: Performed By: #### U MICAO, UA #### [facility] [address] [place], [place] [phone] [employer] Consultant: Bradley Warren MD Epithelial cells LM Ql (Urine sed) 0 TO 2 Normal 0-25 [facility] Comment on above: Performed By: #### U MICAO, UA #### [facility] [address] [place], [place] [phone] [employer] Consultant: Bradley Warren MD Glucose Ql (U) Negative Normal NEG [facility] Comment on above: Performed By: #### U MICAO, UA #### [facility] [address] [place], [place] [phone] [employer] Consultant: Bradley Warren MD Ketones Ql (U) Negative Normal NEG [facility] Comment on above: Performed By: #### U MICAO, UA #### [facility] [address] [place], [place] [phone] [employer] Consultant: Bradley Warren MD Leukocyte esterase Test strip Ql (U) Negative Normal NEG [facility] Comment on above: Performed By: #### U MICAO, UA #### [facility] [address] [place] [address] Dr[place], [place] [phone] [employer] Consultant: Bradley Warren MD Mucus Strands TRACE Abnormal NONE [facility] Comment on above: Performed By: #### U MICAO, UA #### [facility] [address] [place] [address] [place] [address] [employer] Consultant: Bradley Warren MD Nitrite,Ur Negative Normal [facility] Comment on above: Performed By: #### U MICAO, UA #### [facility] [address] [place] [address] Dr[place], [place] [phone] [employer] Consultant: Bradley Warren MD PH,Ur 6.0 Normal 5.0-9.0 [facility] Comment on above: Performed By: #### U MICAO, UA #### [facility] [address] [place] [address] Dr[place], [place] [phone] [employer] Consultant: Bradley Warren MD Protein Ql (U) Negative Normal NEG [facility] Comment on above: Performed By: #### U MICAO, UA #### [facility] [address] [place] [address] [place], [place] [phone] [employer] Consultant: Bradley Warren MD Spec. [place],Ur >1.030 High 1.010-1.020 [facility] Comment on above: Performed By: #### U MICAO, UA #### [facility] [address] [place] [address] [employer] Consultant: Bradley Warren MD Urine RBC's 2 TO 5 Normal 0-2 [facility] Comment on above: Performed By: #### U MICAO, UA #### [facility] [address] [place] [address] [employer] Consultant: Bradley Warren MD Urine WBC's 2 TO 5 Normal 0-5 [facility] Comment on above: Performed By: #### U MICAO, UA #### [facility] [address] [place] [address] [employer] Consultant: Bradley Warren MD Urobilinogen,Ur Normal Normal 0.0-1.0 [facility] Comment on above: Performed By: #### U MICAO, UA #### [facility] [address] [place] [address] [employer] Consultant: Bradley Warren MD Urinalysis with Microscopico n 05-09-2024 Bacteria LM Ql (Urine sed) TRACE Abnormal None [facility] Bilirubin Ql (U) Negative NEGATIVE [facility] Clarity (U) Clear Clear [facility] Color (U) Yellow Yellow [facility] Epithelial cells LM.HPF (Urine sed) [#/Area] 0 TO 2 [facility] Glucose Test strip (U) [Mass/Vol] Negative NEGATIVE mg/dL [facility] Hemoglobin Auto test strip Ql (U) TRACE Abnormal NEGATIVE [facility] Interpretation and review of laboratory results Abnormal [facility] Ketones (U) [Mass/Vol] Negative NEGATIVE mg/dL [facility] Leukocyte esterase Test strip Ql (U) Negative NEGATIVE [facility] Mucus Ql (Urine sed) TRACE Abnormal None [facility] Nitrite Ql (U) Negative NEGATIVE [facility] pH (U) 6.0 [pH] 5.0 - 9.0 [facility] Protein (U) [Mass/Vol] Negative NEGATIVE mg/dL [facility] RBC LM.HPF (Urine sed) [#/Area] 2 TO 5 [facility] Specific gravity (U) [Rel density] High 1.010 - 1.020 [facility] Urobilinogen Qn (U) Normal 0.0 - 1. 0 EU/dL [facility] WBC LM.HPF (Urine sed) [#/Area] 2 TO 5 [facility] Cult,Urineon 05-05-2024 Cult,Urine Specimen Description .VOIDED URINE Culture Several types of bacteria were identified in this specimen. Further ID and susceptibility testing is generally not helpful in this circumstance and has not been performed. Consider recollection if clinically indicated. Report Status FINAL 05/05/2024 Normal [facility] Comment on above: Performed By: #### U RC ####[facility] [id number] [place], [place] [id number] Lab Director: Yusef Hood, [facility] [place] [address] Lab Director: Bradley Warren MD Microscopic Urinalysison Bacteria LM Ql (Urine sed) 2+ Abnormal None [facility] Epithelial cells LM.HPF (Urine sed) [#/Area] None [facility] Interpretation and review of laboratory results Abnormal [facility] RBC LM.HPF (Urine sed) [#/Area] None [facility] WBC LM.HPF (Urine sed) [#/Area] 2 TO 5 [facility] Urinalysison 05-04-2024 Bilirubin Ql (U) Negative NEGATIVE [facility] Clarity (U) Clear Clear [facility] Color (U) Yellow Yellow [facility] Glucose Test strip (U) [Mass/Vol] Negative NEGATIVE mg/dL [facility] Hemoglobin Auto test strip Ql (U) 1+ Abnormal NEGATIVE [facility] Interpretation and review of laboratory results Abnormal [facility] Ketones (U) [Mass/Vol] Negative NEGATIVE mg/dL [facility] Leukocyte esterase Test strip Ql (U) TRACE Abnormal NEGATIVE [facility] Nitrite Ql (U) Positive Abnormal NEGATIVE [facility] pH (U) 7.0 [pH] 5.0 - 9.0 [facility] Protein (U) [Mass/Vol] Negative NEGATIVE mg/dL [facility] Specific gravity (U) [Rel density] 1.025 High 1.010 - 1.020 [facility] Urobilinogen Qn (U) Normal 0.0 - 1. 0 EU/dL [facility] Urinalysis, Routineon 2023 Bilirubin, SemiQt,Ur Negative Normal NEG [facility] Comment on above: Performed By: #### U MICAO, UA #### [facility] [address] [place] [address] [employer] Consultant: Bradley Warren MD Blood, Urine 1+ Abnormal NEG [facility] Comment on above: Performed By: #### U MICAO, UA #### [facility] [address] [place] [address] [employer] Consultant: Bradley Warren MD Clarity (U) Clear Normal CLEAR [facility] Comment on above: Performed By: #### U MICAO, UA #### [facility] [address] [place] [address] [employer] Consultant: Bradley Warren MD Color (U) Yellow Normal YEL [facility] Comment on above: Performed By: #### U MICAO, UA #### [facility] [address] [place] [address] [employer] Consultant: Bradley Warren MD Glucose Ql (U) Negative Normal NEG [facility] Comment on above: Performed By: #### U MICAO, UA #### [facility] [address] [place] [address] [employer] Consultant: Bradley Warren MD Ketones Ql (U) Negative Normal NEG [facility] Comment on above: Performed By: #### U MICAO, UA #### [facility] [address] [place] [address] Dr. [place], [place] [phone] [employer] Consultant: Bradley Warren MD Leukocyte esterase Test strip Ql (U) TRACE Abnormal NEG [facility] Comment on above: Performed By: #### U MICAO, UA #### [facility] [address] [place] [address] [place], [place] [phone] [employer] Consultant: Bradley Warren MD Nitrite,Ur Positive Abnormal NEG [facility] Comment on above: Performed By: #### U MICAO, UA #### [address] [place], [place] [phone] [employer] Consultant: Bradley Warren MD PH,Ur 7.0 Normal 5.0-9.0 [facility] Comment on above: Performed By: #### U MICAO, UA #### [facility] [address] [place] [address] [place], [place] [phone] [employer] Consultant: Bradley Warren MD Protein Ql (U) Negative Normal NEG [facility] Comment on above: Performed By: #### U MICAO, UA #### [address] [place], [place] [phone] [employer] Consultant: Bradley Warren MD Spec. [place],Ur 1.025 High 1.010-1.020 [facility] Comment on above: Performed By: #### U MICAO, UA #### [facility] [address] [place] [address] [place], [place] [phone] [employer] Consultant: Bradley Warren MD Urobilinogen,Ur Normal Normal 0.0-1.0 [facility] Comment on above: Performed By: #### U MICAO, UA #### [facility] [address] [place] [address] [place], [place] [phone] [employer] Consultant: Bradley Warren MD Urinalysis,Microon 11-20-202 4 Bacteria 2+ Abnormal NONE [facility] Comment on above: Performed By: #### U MAREK UA #### [facility] [address] [place] [address] [employer] Consultant: Bradley Warrne MD Epithelial cells LM Ql (Urine sed) None Normal 0-25 [facility] Comment on above: Performed By: #### U MAREK, UA #### [facility] [address] [place] [address] [employer] Consultant: Bradley Warren MD Urine RBC's None Normal 0-2 [facility] Comment on above: Performed By: #### U MAREK UA #### [facility] [address] [place] [address] [employer] Consultant: Bradley Warren MD Urine WBC's 2 TO 5 Normal 0-5 [facility] Comment on above: Performed By: #### U MAREK UA #### [facility] [address] [place] [address] [employer] Consultant: Bradley Warren MD Lamotrigineon 04-16-2024 Lamotrigine 10.2 ug/mL Normal 3.0-15.0 [facility] Comment on above: Result Comment: (NOT E) INTERPRETIVE INFORMATION: Lamotrigine Therapeutic Range: 3.0-15.0 ug/mL Toxic: Greater than or equal to 20 ug/mL Pharmacokinetics varies widely, particularly with co-medications and/or compromised renal function. Adverse effects may include dizziness, somnolence, nausea and vomiting. Performed By: [facility] [address] [place] [id number] [employer] Recruiter: Rc Barragan MD, PhD CLIA Number: [id number] Performed By: #### C P, TSH, CDP ####[facility] [place] [address] Lab Director: Bradley Warren MD#### FT4, LIPR, VD25 ####[facility] [address] [place] [address] Lab Director: Yusef Hood MD#### VERONICA ####MDMARII [address] [place] [address] lab Director: Zac Cabrera MD CBC with Auto Differentialon 04-14-2024 Basophils (Bld) [#/Vol] 0.05 10*3/uL [facility] Basophils/100 WBC (Bld) 1 % 0 - 2 % [facility] Eosinophils (Bld) [#/Vol] 0.11 10*3/uL [facility] Eosinophils/100 WBC (Bld) 2 % 1 - 4 % [facility] Erythrocyte distribution width (RBC) [Ratio] 12.8 % 11.8 - 14.4 % [facility] Hematocrit (Bld) [Volume fraction] 40.1 % 36.3 - 47.1 % [facility] Hemoglobin (Bld) [Mass/Vol] 12.8 g/dL 11.9 - 15.1 g/dL [facility] Immature granulocytes (Bld) [#/Vol] [facility] Immature granulocytes/100 WBC (Bld) 0 % 0 [facility] Interpretation and review of laboratory results Abnormal [facility] Lymphocytes/100 WBC (Bld) 41 % 24 - 43 % [facility] Lymphocytes/100 WBC (Bld) 2.50 % [facility] MCH (RBC) [Entitic mass] 29.5 pg 25.2 - 33.5 pg [facility] MCHC (RBC) [Mass/Vol] 31.9 g/dL 28.4 - 34.8 g/dL [facility] MCV (RBC) [Entitic vol] 92.4 fL 82.6 - 102.9 fL [facility] Monocytes/100 WBC (Bld) 11 % 3 - 12 % [facility] Monocytes/100 WBC (Bld) 0.66 % [facility] Neutrophils/100 WBC (Bld) 45 % 36 - 65 % [facility] Nucleated RBC/100 WBC (Bld) [Ratio] 0.0 % 0.0 per 100 WBC [facility] Platelet, Fluorescence 139 [facility] Platelets (Bld) [#/Vol] See Reflexed IPF Result [facility] Platelets reticulated/100 platelets Auto (Bld) 14.7 % High 1.1 - 10.3 % [facility] RBC (Bld) [#/Vol] 4.34 10*6/uL 3.95 - 5.1 1 m/uL [facility] Segmented neutrophils/100 WBC (Bld) 2.72 % [facility] WBC other (Bld) [#/Vol] 6.1 [facility] CBC with Diffon 04-14-2024 Abs. Basophil 0.05 k/uL Normal 0.00-0.[address] [facility] Comment on above: Performed By: #### C P, TSH, CDP #### [facility] [address] [place] [address] [place] [address] [employer] Consultant: Bradley Warren MD #### EDMAR OTERO VD25 #### [facility] [address] [place] [address] [phone] [employer] Consultant: Yusef Hood MD #### ALAMO #### [facility] [address] [place] [address] [employer] Consultant: Zac Cabrera MD Abs.Imm.Granulocyte <0.03 Normal 0.00-0.30 [facility] Comment on above: Performed By: #### C P, TSH, CDP #### [facility] [address] [place] [address] [place] [address] [employer] Consultant: Bradley Warren MD #### FTEDMAR Mancilla VD25 #### [address] [address] [employer] Consultant: Yusef Hood MD #### ALAMO #### [facility] [address] [place], [place] [phone] [employer] Consultant: Zac Cabrera MD Abs.Neutrophil (Seg) 2.72 k/uL Normal 1.50-8.10 [facility] Comment on above: Performed By: #### C P, TSH, CDP #### [address] [place] [phone] [employer] Consultant: Bradley Warren MD #### FT4, LIPR, VD25 #### [facility] [address] [place] [address] [employer] Consultant: Yusef Hood MD #### ALAMO #### [facility] [address] [place], [place] [phone] [employer] Consultant: Zac Cabrera MD Basophils/100 WBC (Bld) 1 % Normal 0-2 [facility] Comment on above: Performed By: #### C P, TSH, CDP #### [address] [place], [place] [address] [employer] Consultant: Bradley Warren MD #### FT4, LIPR, VD25 #### [address] [address] [employer] Consultant: Yusef Hood MD #### ALAMO #### [facility] [address] [place], [place] [phone] [employer] Consultant: Zac Cabrera MD Eosinophils (Bld) [#/Vol] 0.11 10*3/uL Normal 0.00-0.44 [facility] Comment on above: Performed By: #### C P, TSH, CDP #### [address] [place], [facility] [employer] Consultant: Bradley Warren MD #### FT4, LIPR, VD25 #### [facility] [address] [place] [address] [employer] Consultant: Yusef Hood MD #### ALAMO #### [facility] [address] [place] [address] [employer] Consultant: Zac Cabrera MD Eosinophils/100 WBC (Bld) 2 % Normal 1-4 [facility] Comment on above: Performed By: #### C P, TSH, CDP #### [facility] [address] [place], [place] [phone] [employer] Consultant: Bradley Warren MD #### FT4, LIPR, VD25 #### [facility] [address] [place] [address] [employer] Consultant: Yusef Hood MD #### ALAMO #### [facility] [address] [place], [place] [phone] [employer] Consultant: Zac Cabrera MD Erythrocyte distribution width (RBC) [Ratio] 12.8 % Normal 11.8-14.4 [facility] Comment on above: Performed By: #### C P, TSH, CDP #### [facility] [address] [place] [address] [place], [place] [phone] [employer] Consultant: Bradley Warren MD #### FT4, LIPR, VD25 #### [facility] [address] [place] [address] [employer] Consultant: Yusef Hood MD #### ALAMO #### [facility] [address] [place], [place] [phone] [employer] Consultant: Zac Cabrera MD Hematocrit (Bld) [Volume fraction] 40.1 % Normal 36.3-47.1 [facility] Comment on above: Performed By: #### C P, TSH, CDP #### [address] [place], [place] 1160983 [employer] Consultant: Bradley Warren MD #### FT4, LIPR, VD25 #### [facility] [address] [place] [address] [employer] Consultant: Yusef Hood MD #### ALAMO #### [facility] [address] [place] [address] [employer] Consultant: Zac Cabrera MD Hemoglobin (Bld) [Mass/Vol] 12.8 g/dL Normal 11.9-15.1 [facility] Comment on above: Performed By: #### C P, TSH, CDP #### [facility] [address] [place], [place] [phone] [employer] Consultant: Bradley Warren MD #### FT4, LIPR, VD25 #### [facility] [address] [place] [address] [employer] Consultant: Yusef Hood MD #### ALAMO #### [facility] [address] [place] [address] [employer] Consultant: Zac Cabrera MD Immature granulocytes/100 WBC (Bld) 0 % Normal 0 [facility] Comment on above: Performed By: #### C P, TSH, CDP #### [address] [place], [place] 4747783 [employer] Consultant: Bradley Warren MD #### FT4, LIPR, VD25 #### [facility] [address] [place] [address] [employer] Consultant: Yusef Hood MD #### ALAMO #### [facility] [address] [place] [address] [employer] Consultant: Zac Cabrera MD Lymphocytes (Bld) [#/Vol] 2.50 10*3/uL Normal 1.10-3.70 [facility] Comment on above: Performed By: #### C P, TSH, CDP #### [address] [place], [place] [phone] [employer] Consultant: Bradley Warren MD #### FT4, LIPR, VD25 #### [address] [address] [employer] Consultant: Yusef Hodo MD #### ALAMO #### [facility] [address] [place], [place] [phone] [employer] Consultant: Zac Cabrera MD Lymphocytes/100 WBC (Bld) 41 % Normal 24-43 [facility] Comment on above: Performed By: #### C P, TSH, CDP #### [facility] [address] [place], [place] [phone] [employer] Consultant: Bradley Warren MD #### FT4, LIPR, VD25 #### [facility] [address] [place] [address] [employer] Consultant: Yusef Hood MD #### ALAMO #### [facility] [address] [place], [place] [phone] [employer] Consultant: Zac Cabrera MD MCH (RBC) [Entitic mass] 29.5 pg Normal 25.2-33.5 [facility] Comment on above: Performed By: #### C P, TSH, CDP #### [facility] [address] [place], [place] [phone] [employer] Consultant: Bradley Warren MD #### FT4, LIPR, VD25 #### [facility] [address] [place] [address] [employer] Consultant: Yusef Hood MD #### ALAMO #### [facility] [address] [place], [place] [phone] [employer] Consultant: Zac Cabrera MD MCHC (RBC) [Mass/Vol] 31.9 g/dL Normal 28.4-34.8 [facility] Comment on above: Performed By: #### C P, TSH, CDP #### [facility] [address] [place], [place] [phone] [employer] Consultant: Bradley Warren MD #### FT4, LIPR, VD25 #### [facility] [address] [place] [address] [employer] Consultant: Yusef Hood MD #### ALAMO #### [facility] [address] [place] [address] [employer] Consultant: Zac Cabrera MD MCV (RBC) [Entitic vol] 92.4 fL Normal 82.6-102.9 [facility] Comment on above: Performed By: #### C P, TSH, CDP #### [facility] [address] [place] [phone] [employer] Consultant: Bradley Warren MD #### FT4, LIPR, VD25 #### [address] [address] [employer] Consultant: Yusef Hood MD #### ALAMO #### [facility] [address] [place], [place] [phone] [employer] Consultant: Zac Cabrera MD Monocytes (Bld) [#/Vol] 0.66 10*3/uL Normal 0.10-1.20 [facility] Comment on above: Performed By: #### C P, TSH, CDP #### [address] [place], [place] 5288383 [employer] Consultant: Bradley Warren MD #### FT4, LIPR, VD25 #### [address] [address] [employer] Consultant: Yuesf Hood MD #### ALAMO #### [facility] [address] [place] [address] [employer] Consultant: Zac Cabrera MD Monocytes/100 WBC (Bld) 11 % Normal 3-12 [facility] Comment on above: Performed By: #### C P, TSH, CDP #### [facility] [address] [place] [address] [employer] Consultant: Bradley Warren MD #### FT4, LIPR, VD25 #### [address] [address] [employer] Consultant: Yusef Hood MD #### ALAMO #### [facility] [address] [place], [place] [phone] [employer] Consultant: Zac aCbrera MD Neutrophil (Seg) 45 % Normal 36-65 [facility] Comment on above: Performed By: #### C P, TSH, CDP #### [facility] [address] [place] [address] [employer] Consultant: Bradley Warren MD #### FT4, LIPR, VD25 #### [address] [address] [employer] Consultant: Yusef Hood MD #### ALAMO #### [facility] [address] [place], [place] [phone] [employer] Consultant: Zac Cabrera MD NRBC Automated 0.0 per 100 WBC Normal 0.0 [facility] Comment on above: Performed By: #### C P, TSH, CDP #### [facility] [address] [place], [place] [phone] [employer] Consultant: Bradley Warren MD #### FT4, LIPR, VD25 #### [address] [address] [employer] Consultant: Yusef Hood MD #### ALAMO #### [facility] [address] [place] [address] [employer] Consultant: Zac Cabrera MD Platelet Count See Reflexed IPF Result Normal 138-453 [facility] Comment on above: Performed By: #### C P, TSH, CDP #### [facility] [address] [place], [place] 2388083 [employer] Consultant: Bradley Warren MD #### FT4, LIPR, VD25 #### [address] [address] [employer] Consultant: Yusef Hood MD #### ALAMO #### [facility] [address] [place] [address] [employer] Consultant: Zac Cabrera MD Platelet, Fluoresc. 139 k/uL Normal 138-453 [facility] Comment on above: Performed By: #### C P, TSH, CDP #### [facility] [address] [place] [place] [id number] [employer] Consultant: Bradley Warren MD #### FT4, LIPR, VD25 #### [address] [address] [employer] Consultant: Yusef Hood MD #### ALAMO #### [facility] [address] [place] [address] [employer] Consultant: Zac Cabrera MD PLT, Immature Fract. 14.7 % High 1.1-10.3 [facility] Comment on above: Performed By: #### C P, TSH, CDP #### [address] [place], [place] [address] [employer] Consultant: Bradley Warren MD #### FT4, LIPR, VD25 #### [address] [address] [employer] Consultant: Yusef Hood MD #### ALAMO #### [facility] [address] [place] [address] [employer] Consultant: Zac Cabrera MD RBC (Bld) [#/Vol] 4.34 10*6/uL Normal 3.95-5.11 [facility] Comment on above: Performed By: #### C P, TSH, CDP #### [facility] [address] [place] [address] [employer] Consultant: Bradley Warren MD #### FT4, LIPR, VD25 #### [address] [address] [employer] Consultant: Yusef Hood MD #### ALAMO #### [facility] [address] [place], [place] [id number] [employer] Consultant: Zac Cabrera MD WBC (Bld) [#/Vol] 6.1 10*3/uL Normal 3.5-11.3 [facility] Comment on above: Performed By: #### C P, TSH, CDP #### [facility] [address] [place] [address] [employer] Consultant: Bradley Warren MD #### FT4EDMAR VD25 #### [address] [address] [employer] Consultant: Yusef Hood MD #### ALAMO #### [facility] [address] [place], [place] [id number] [employer] Consultant: Zac Cabrera MD Comp Metabolic Profon 2023 Albumin [Mass/Vol] 4.0 g/dL Normal 3.5-5.2 [facility] Comment on above: Performed By: #### C P, TSH, CDP #### [address] [place] [address] [employer] Consultant: Bradley Warren MD #### FT4EDMAR VD25 #### [address] [address] [employer] Consultant: Yusef Hood MD #### ALAMO #### [facility] [address] [place], [place] [id number] [employer] Consultant: Zac Cabrera MD Albumin/Glob Ratio 1.4 Normal 1.0-2.5 [facility] Comment on above: Performed By: #### C P, TSH, CDP #### [facility] [address] [place] [address] [employer] Consultant: Bradley Warren MD #### FT4, LIPR, VD25 #### [facility] [place] [address] [employer] Consultant: Yusef Hood MD #### ALAMO #### [facility] [address] [place] [address] [employer] Consultant: Zac Cabrera MD Alkaline Phos 60 U/L Normal 35-[address] [facility] Comment on above: Performed By: #### C P, TSH, CDP #### [facility] [address] [place], [place] 408[address]83 [employer] Consultant: Bradley Warren MD #### FT4, LIPR, VD25 #### [facility] [address] [place] [address] [employer] Consultant: Yusef Hood MD #### ALAMO #### [facility] [address] [place] [address] [employer] Consultant: Zac Cabrera MD ALT [Catalytic activity/Vol] 6 U/L Low 10-35 [facility] Comment on above: Performed By: #### C P, TSH, CDP #### [address] [place], [place] 1160583 [employer] Consultant: Bradley Warren MD #### FT4, LIPR, VD25 #### [address] [address] [employer] Consultant: Yusef Hood MD #### ALAMO #### [facility] [address] [place] [address] [employer] Consultant: Zac Cabrera MD Anion gap [Moles/Vol] 9 mmol/L Normal 9-16 [facility] Comment on above: Performed By: #### C P, TSH, CDP #### [facility] [address] [place], [place] [id number] [employer] Consultant: Bradley Warren MD #### FT4, LIPR, VD25 #### [place] [address] [place] [address] [employer] Consultant: Yusef Hood MD #### ALAMO #### [facility] [address] [place] [address] [employer] Consultant: Zac Cabrera MD AST [Catalytic activity/Vol] 16 U/L Normal 10-35 [facility] Comment on above: Performed By: #### C P, TSH, CDP #### [facility] [address] [place], [place] [id number] [employer] Consultant: Bradley Warren MD #### FT4, LIPR, VD25 #### [address] [address] [employer] Consultant: Yusef Hood MD #### ALAMO #### [facility] [address] [place] [address] [employer] Consultant: Zac Cabrera MD Bilirubin [Mass/Vol] 0.3 mg/dL Normal 0.00-1.20 [facility] Comment on above: Performed By: #### C P, TSH, CDP #### [facility] [address] [place], [place] [id number] [employer] Consultant: Bradley Warren MD #### FT4, LIPR, VD25 #### [address] [address] [employer] Consultant: Yusef Hood MD #### ALAMO #### [facility] [address] [place] [address] [employer] Consultant: Zac Cabrera MD BUN/CRE Ratio 33 High 9-[address] [facility] Comment on above: Performed By: #### C P, TSH, CDP #### [facility] [address] [place], [place] [phone] [employer] Consultant: Bradley Warren MD #### FT4, LIPR, VD25 #### [address] [address] [employer] Consultant: Yusef Hood MD #### ALAMO #### [facility] [address] [place] [address] [employer] Consultant: Zac Cabrera MD Calcium [Mass/Vol] 9.4 mg/dL Normal 8.6-10.4 [facility] Comment on above: Performed By: #### C P, TSH, CDP #### [facility] [address] [place], [place] [phone] [employer] Consultant: Bradley Warren MD #### FT4, LIPR, VD25 #### [address] [address] [employer] Consultant: Yusef Hood MD #### ALAMO #### [facility] [address] [place], [place] [id number] [employer] Consultant: Zac Cabrera MD Chloride [Moles/Vol] 104 mmol/L Normal 98-107 [facility] Comment on above: Performed By: #### C P, TSH, CDP #### [facility] [address] [place], [place] 3978183 [employer] Consultant: Bradley Warren MD #### FT4, LIPR, VD25 #### [address] [address] [employer] Consultant: Yusef Hood MD #### ALAMO #### [facility] [address] [place], [place] [id number] [employer] Consultant: Zac Cabrera MD CO2 [Moles/Vol] 29 mmol/L Normal 20-31 [facility] Comment on above: Performed By: #### C P, TSH, CDP #### [facility] [address] [place], [place] 8950383 [employer] Consultant: Bradley Warren MD #### FT4, LIPR, VD25 #### [facility] [place] [address] [employer] Consultant: Yusef Hood MD #### ALAMO #### [facility] [address] [place] [address] [employer] Consultant: Zac Cabrera MD Creatinine [Mass/Vol] 0.6 mg/dL Normal 0.50-0.90 [facility] Comment on above: Performed By: #### C P, TSH, CDP #### [facility] [address] [place] [address] [employer] Consultant: Bradley Warren MD #### FT4, LIPR, VD25 #### [address] [address] [employer] Consultant: Yusef Hood MD #### ALAMO #### [facility] [address] [place] [address] [employer] Consultant: Zac Cabrera MD GFR/1.73 sq M.predicted among non-blacks MDRD (S/P/Bld) [Vol rate/Area] mL/min/{1.73_m2} Normal >60 [facility] Comment on above: Result Comment: These results are not intended for use in patients <18 years of age. eGFR results are calculated without a race factor using the 2020 CKD-EPI equation. Careful clinical correlation is recommended, particularly when comparing to results calculated using previous equations. The CKD-EPI equation is less accurate in patients with extremes of muscle mass, extra-renal metabolism of creatine, excessive creatine ingestion, or following therapy that affects renal tubular secretion. Performed By: #### C P, TSH, CDP #### [facility] [address] [place] [address] [employer] Consultant: Bradley Warren MD #### FT4, LIPR, VD25 #### [address] [phone] [employer] Consultant: Yusef Hood MD #### ALAMO #### [facility] [address] [place] [address] [employer] Consultant: Zac Cabrera MD Glucose [Mass/Vol] 80 mg/dL Normal 74-99 [facility] Comment on above: Performed By: #### C P, TSH, CDP #### [facility] [address] [place], [place] 1024783 [employer] Consultant: Bradley Warren MD #### FT4, LIPR, VD25 #### [facility] [address] [place] [address] [employer] Consultant: Yusef Hood MD #### ALAMO #### [facility] [address] [place] [address] [employer] Consultant: Zac Cabrera MD Potassium [Moles/Vol] 3.9 mmol/L Normal 3.7-5.3 [facility] Comment on above: Performed By: #### C P, TSH, CDP #### [address] [place], [place] 1230983 [employer] Consultant: Bradley Warren MD #### FT4, LIPR, VD25 #### [facility] [address] [place] [address] [employer] Consultant: Yusef Hood MD #### ALAMO #### [facility] [address] [place] [address] [employer] Consultant: Zac Cabrera MD Protein [Mass/Vol] 7.0 g/dL Normal 6.6-8.7 [facility] Comment on above: Performed By: #### C P, TSH, CDP #### [facility] [address] [place], [place] 0570983 [employer] Consultant: Bradley Warren MD #### FT4, LIPR, VD25 #### [facility] [address] [place] [address] [employer] Consultant: Yusef Hood MD #### ALAMO #### [facility] [address] [place], [place] [id number] [employer] Consultant: Zac Cabrera MD Sodium [Moles/Vol] 142 mmol/L Normal 136-145 [facility] Comment on above: Performed By: #### C P, TSH, CDP #### [facility] [address] [place] [address] [employer] Consultant: Bradley Warren MD #### FT4, LIPR, VD25 #### [facility] [address] [place], [place] 6687708 [employer] Consultant: Yusef Hood MD #### ALAMO #### [facility] [address] [place], [place] [id number] [employer] Consultant: Zac Cabrera MD Urea nitrogen [Mass/Vol] 20 mg/dL Normal 8-23 [facility] Comment on above: Performed By: #### C P, TSH, CDP #### [facility] [address] [place] [address] [employer] Consultant: Bradley Warren MD #### FT4, LIPR, VD25 #### [facility] [address] [place], [place] 2236208 [employer] W[employer] Consultant: Yusef Hood MD #### ALAMO #### [facility] [address] [place], [place] [phone] [employer] W[employer] Consultant: Zac Cabrera MD Comprehensive Metabolic Pane [facility] 04-14-2024 Albumin [Mass/Vol] 4.0 g/dL 3.5 - 5.2 g/dL [facility] Albumin/Globulin [Mass ratio] 1.4 {ratio} 1.0 - 2.5 [facility] ALP [Catalytic activity/Vol] 60 U/L 35 - 104 U/L [facility] ALT [Catalytic activity/Vol] 6 U/L Low 10 - 35 U/L [facility] Anion gap [Moles/Vol] 9 mmol/L 9 - 16 mmol/L [facility] AST [Catalytic activity/Vol] 16 U/L 10 - 35 U/L [facility] Bilirubin [Mass/Vol] 0.3 mg/dL 0.00 - 1.20 mg/dL [facility] Calcium [Mass/Vol] 9.4 mg/dL 8.6 - 10. 4 mg/dL [facility] Chloride [Moles/Vol] 104 mmol/L 98 - 10 7 mmol/L [facility] CO2 [Moles/Vol] 29 mmol/L 20 - 31 mmol/L [facility] Creatinine [Mass/Vol] 0.6 mg/dL 0.50 - 0.90 mg/dL [facility] Est, Varinder Padillat Rate - PINF [facility] Comment on above: These results are not intended for use in patients <18 years of age. eGFR results are calculated without a race factor using the 2020 CKD-EPI equation. Careful clinical correlation is recommended, particularly when comparing to results calculated using previous equations. The CKD-EPI equation is less accurate in patients with extremes of muscle mass, extra-renal metabolism of creatine, excessive creatine ingestion, or following therapy that affects renal tubular secretion. Glucose [Mass/Vol] 80 mg/dL 74 - 99 mg/dL [facility] Interpretation and review of laboratory results Abnormal [facility] Potassium [Moles/Vol] 3.9 mmol/L 3.7 - 5.3 mmol/L [facility] Protein [Mass/Vol] 7.0 g/dL 6.6 - 8.7 g/dL [facility] Sodium [Moles/Vol] 142 mmol/L 136 - 145 mmol/L [facility] Urea nitrogen [Mass/Vol] 20 mg/dL 8 - 23 mg/dL [facility] Urea nitrogen/Creatinine [Mass ratio] 33 mg/mg High 9 - 20 [facility] Lipid Panelon 04-14-2024 Cholesterol [Mass/Vol] 169 mg/dL 0 - 199 mg/dL [facility] Comment on above: Cholesterol Guidelines: <200 Desirable 200-240 Borderline >240 Undesirable Cholesterol in HDL [Mass/Vol] 54 mg/dL 40 - PINF mg/dL [facility] Comment on above: HDL Guidelines: <40 Undesirable 40-59 Borderline >59 Desirable Cholesterol in LDL [Mass/Vol] 99 mg/dL 0 - 100 mg/dL [facility] Comment on above: LDL Guidelines: <100 Desirable 100-129 Near to/above Desirable 130-159 Borderline >159 Undesirable Direct (measured) LDL and calculated LDL are not interchangeable tests. Cholesterol in VLDL [Mass/Vol] 16 mg/dL 1 - 30 mg/dL [facility] Cholesterol.total/Cho lesterol in HDL [Mass ratio] 3.1 {ratio} [facility] Triglyceride [Mass/Vol] 79 mg/dL NINF - 150 mg/dL [facility] Comment on above: Triglyceride Guidelines: <150 Desirable 150-199 Borderline 200-499 High >499 Very high Based on AHA Guidelines for fasting triglyceride, March 2012. Lipid Profileon 04-14-2024 Cholesterol [Mass/Vol] 169 mg/dL Normal 0-199 [facility] Comment on above: Result Comment: Cholesterol Guidelines: <200 Desirable 200-240 Borderline >240 Undesirable Performed By: #### C P, TSH, CDP #### [facility] [address] [place] [address] [employer] Consultant: Bradley Warren MD #### FT4 LIPR, VD25 #### [facility] [address] [place] [address] [employer] W[employer] Consultant: Yusef Hood MD #### ALAMO #### [facility] [address] [place] [address] [employer] Consultant: Zac Cabrera MD Cholesterol in HDL [Mass/Vol] 54 mg/dL Normal >40 [facility] Comment on above: Result Comment: HDL Guidelines: <40 Undesirable 40-59 Borderline >59 Desirable Performed By: #### C P, TSH, CDP #### [facility] [address] [place] [address] [employer] Consultant: Bradley Warren MD #### FT4, LIPR, VD25 #### [facility] [address] [place] [address] [employer] Consultant: Yusef Hood MD #### ALAMO #### [facility] [address] [place], [place] [id number] [employer] Consultant: Zac Cabrera MD Cholesterol in LDL [Mass/Vol] 99 mg/dL Normal 0-100 [facility] Comment on above: Result Comment: LDL Guidelines: <100 Desirable 100-129 Near to/above Desirable 130-159 Borderline >159 Undesirable Direct (measured) LDL and calculated LDL are not interchangeable tests. Performed By: #### C P, TSH, CDP #### [facility] [address] [place] [address] [place] [address] [employer] Consultant: Bradley Warren MD #### FT4, LIPR, VD25 #### [address] [address] [employer] Consultant: Yusef Hood MD #### ALAMO #### [facility] [address] [place], [place] [id number] [employer] Consultant: Zac Cabrera MD Cholesterol in VLDL [Mass/Vol] 16 mg/dL Normal 1-30 [facility] Comment on above: Performed By: #### C P, TSH, CDP #### [address] [place] [address] [employer] Consultant: Bradley Warren MD #### FT4, LIPR, VD25 #### [address] [address] [employer] Consultant: Yusef Hood MD #### ALAMO #### [facility] [address] [place], [place] [id number] [employer] Consultant: Zac Cabrera MD Cholesterol.total/Cho lesterol in HDL [Mass ratio] 3.1 {ratio} Normal [facility] Comment on above: Performed By: #### C P, TSH, CDP #### [facility] [address] [place] [address] [employer] Consultant: Bradley Warren MD #### FT4, LIPR, VD25 #### [facility] [address] [place], [place] 2349408 [employer] Consultant: Yusef Hood MD #### ALAMO #### [facility] [address] [place], [place] [id number] [employer] Consultant: Zac Cabrera MD Triglyceride [Mass/Vol] 79 mg/dL Normal <150 [facility] Comment on above: Result Comment: Triglyceride Guidelines: <150 Desirable 150-199 Borderline 200-499 High >499 Very high Based on AHA Guidelines for fasting triglyceride, March 2012. Performed By: #### C P, TSH, CDP #### [facility] [address] [place] [address] [place] [address] [employer] Consultant: Bradley Warren MD #### FT4, LIPR, VD25 #### [address] [phone] [employer] Consultant: Yusef Hood MD #### ALAMO #### [facility] [address] [place] [address] [employer] Consultant: Zac Cabrera MD No Panel Informationon 04-14 [facility] T4, Freeon 04-14-2024 Free T4 [Mass/Vol] 1.5 ng/dL 0.92 - 1. 68 ng/dL [facility] TSHon 04-14-2024 TSH Qn 0.51 m[IU]/L [facility] Thyroid Stim. Horm.on 2023 Thyroid Stim. Horm. 0.51 uIU/mL Normal 0.27-4.20 [facility] Comment on above: Performed By: #### C P, TSH, CDP #### [facility] [address] [place] [address] [employer] W[employer] Consultant: Bradley Warren MD #### FT4, LIPR, VD25 #### [facility] [address] [place] [address] [employer] Consultant: Yusef Hood MD #### SUNITHAMO #### [facility] [address] [place] [address] [employer] Consultant: Zac Cabrera MD Thyroxine, Freeon 04-14-2024 Thyroxine, Free 1.5 ng/dL Normal 0.92-1.68 [facility] Comment on above: Performed By: #### C P, TSH, CDP #### [facility] [address] [place] [address] [employer] W[employer] Consultant: Bradley Warren MD #### FT4, LIPR, VD25 #### [address] [address] [employer] Consultant: Yusef Hood MD #### SUNITHAMO #### [facility] [address] [place] [address] [employer] Consultant: Zac Cabrera MD Vitamin D 25 Hydroxyon 04-14 25-hydroxyvitamin D3 [Mass/Vol] 61.8 ng/mL 30.0 - 100.0 ng/mL [facility] Comment on above: Reference Range: Vitamin D status Range Deficiency <20 ng/mL Mild Deficiency 20-30 ng/mL Sufficiency 30-100 ng/mL Toxicity >100 ng/mL Vitamin D 25 OHon 04-14-2024 Vitamin D 25 OH 61.8 ng/mL Normal 30.0-100.0 [facility] Comment on above: Result Comment: Reference Range: Vitamin D status Range Deficiency <20 ng/mL Mild Deficiency 20-30 ng/mL Sufficiency 30-100 ng/mL Toxicity >100 ng/mL Performed By: #### C P, TSH, CDP #### [facility] [address] [place], [place] [id number] [employer] Consultant: Bradley Warren MD #### FT4, LIPR, VD25 #### [address] [address] [employer] Consultant: Yusef Hood MD #### ALAPR #### [facility] [address] [place] [address] [employer] Consultant: Zac Cabrera MD Cult,Urineon 03-24-2024 Cult,Urine Specimen Description .CLEAN CATCH URINE Culture Several types of bacteria were identified in this specimen. Further ID and susceptibility testing is generally not helpful in this circumstance and has not been performed. Consider recollection if clinically indicated. Report Status FINAL 03/24/2024 Normal [facility] Comment on above: Performed By: #### U ####[facility] [address] [place], [place] 1429408 Lab Director: Yusef Hood, [facility] [place] [address] Lab Director: Bradley Warren MD Microscopic Urinalysison Bacteria LM Ql (Urine sed) 2+ Abnormal None [facility] Epithelial cells LM.HPF (Urine sed) [#/Area] 2 TO 5 [facility] Interpretation and review of laboratory results Abnormal [facility] RBC LM.HPF (Urine sed) [#/Area] None [facility] WBC LM.HPF (Urine sed) [#/Area] 20 TO 50 [facility] Urinalysison 03-22-2024 Bilirubin Ql (U) Negative NEGATIVE [facility] Clarity (U) Clear Clear [facility] Color (U) Yellow Yellow [facility] Glucose Test strip (U) [Mass/Vol] Negative NEGATIVE mg/dL [facility] Hemoglobin Auto test strip Ql (U) Negative NEGATIVE [facility] Interpretation and review of laboratory results Abnormal [facility] Ketones (U) [Mass/Vol] Negative NEGATIVE mg/dL [facility] Leukocyte esterase Test strip Ql (U) TRACE Abnormal NEGATIVE [facility] Nitrite Ql (U) Negative NEGATIVE [facility] pH (U) 6.0 [pH] 5.0 - 9.0 [facility] Protein (U) [Mass/Vol] Negative NEGATIVE mg/dL [facility] Specific gravity (U) [Rel density] 1.020 1.010 - 1.020 [facility] Urobilinogen Qn (U) Normal 0.0 - 1. 0 EU/dL [facility] Urinalysis, Routineon 2023 Bilirubin, SemiQt,Ur Negative Normal NEG [facility] Comment on above: Performed By: #### U MICAO, UA ####[facility] , [place] [id number] Lab Director: Bradley Warren MD Blood, Urine Negative Normal NEG [facility] Comment on above: Performed By: #### U MICAO, UA ####[address] , [place] [id number] Lab Director: Bradley Warren MD Clarity (U) Clear Normal CLEAR [facility] Comment on above: Performed By: #### U MICAO, UA ####[address] , [place] 4741683 Lab Director: Bradley Warren MD Color (U) Yellow Normal YEL [facility] Comment on above: Performed By: #### U MICAO, UA ####[address] , [place] 5595383 Lab Director: Bradley Warren MD Glucose Ql (U) Negative Normal NEG [facility] Comment on above: Performed By: #### U MICAO, UA ####[facility] [place] [address] , [place] 2672383 Lab Director: Bradley Warren MD Ketones Ql (U) Negative Normal NEG [facility] Comment on above: Performed By: #### U MICAO, UA ####[facility] [place] [address] Lab Director: Bradley Warren MD Leukocyte esterase Test strip Ql (U) TRACE Abnormal NEG [facility] Comment on above: Performed By: #### U MICAO, UA ####[address] , [place] 7009183 Lab Director: Bradley Warren MD Nitrite,Ur Negative Normal NEG [facility] Comment on above: Performed By: #### U MICAO, UA ####[address] , [place] 9143583 lab Director: Bradley Warren MD PH,Ur 6.0 Normal 5.0-9.0 [facility] Comment on above: Performed By: #### U MICAO, UA ####[address] , [place] [id number] lab Director: Bradley Warren MD Protein Ql (U) Negative Normal NEG [facility] Comment on above: Performed By: #### U MICAO, UA ####[address] , [place] 8156483 lab Director: Bradley Warren MD Spec. [place],Ur 1.020 Normal 1.010-1.020 [facility] Comment on above: Performed By: #### U MICAO, UA ####[address] , [place] [id number] lab Director: Bradley Warren MD Urobilinogen,Ur Normal Normal 0.0-1.0 [facility] Comment on above: Performed By: #### U MICAO, UA ####[address] , [place] 7212883 lab Director: Bradley Warren MD Urinalysis,Microon 4 Bacteria 2+ Abnormal NONE [facility] Comment on above: Performed By: #### U MICAO, UA ####[address] , [place] 1486383 lab Director: Bradley Warren MD Epithelial cells LM Ql (Urine sed) 2 TO 5 Normal 0-25 [facility] Comment on above: Performed By: #### U ERICO, UA ####[facility] [place] [address] lab Director: Bradley Warren MD Urine RBC's None Normal 0-2 [facility] Comment on above: Performed By: #### U ERICO, UA ####[facility] [place] [address] lab Director: Bradley Warren MD Urine WBC's 20 TO 50 Normal 0-5 [facility] Comment on above: Performed By: #### U MAREK, UA ####[facility] [place] [address] lab Director: Bradley Warren MD Cult,Urineon 03-11-2024 Cult,Urine Specimen Description .CLEAN CATCH URINE Culture Several types of bacteria were identified in this specimen. Further ID and susceptibility testing is generally not helpful in this circumstance and has not been performed. Consider recollection if clinically indicated. Report Status FINAL 03/11/2024 Normal [facility] Comment on above: Performed By: #### U RC ####[address] [place] [address] lab Director: Yusef Hood, [address] [place] [address] lab Director: Bradley Warren MD Lamotrigineon 03-11-2024 Lamotrigine 6.6 ug/mL Normal 3.0-15.0 [facility] Comment on above: Result Comment: (NOT E) INTERPRETIVE INFORMATION: Lamotrigine Therapeutic Range: 3.0-15.0 ug/mL Toxic: Greater than or equal to 20 ug/mL Pharmacokinetics varies widely, particularly with co-medications and/or compromised renal function. Adverse effects may include dizziness, somnolence, nausea and vomiting. Performed By: [facility] [address] [place] [id number] National Recruiter: Rc Barragan MD, PhD CLIA Number: [id number] Performed By: #### U MAREK, UA #### [facility] [address] [place] [address] [employer] Consultant: Bradley Warren MD CBC with Auto Differentialon 03-09-2024 Basophils (Bld) [#/Vol] 0.08 10*3/uL [facility] Basophils/100 WBC (Bld) 1 % 0 - 2 % [facility] Eosinophils (Bld) [#/Vol] 0.00 10*3/uL [facility] Eosinophils/100 WBC (Bld) 0 % Low 1 - 4 % [facility] Erythrocyte distribution width (RBC) [Ratio] 12.9 % 11.8 - 14.4 % [facility] Hematocrit (Bld) [Volume fraction] 41.2 % 36.3 - 47.1 % [facility] Hemoglobin (Bld) [Mass/Vol] 13.7 g/dL 11.9 - 15.1 g/dL [facility] Immature granulocytes (Bld) [#/Vol] 0.00 10*3/uL [facility] Immature granulocytes/100 WBC (Bld) 0 % 0 [facility] Interpretation and review of laboratory results Abnormal [facility] Lymphocytes/100 WBC (Bld) 47 % High 24 - 43 % [facility] Lymphocytes/100 WBC (Bld) 3.86 % High [facility] MCH (RBC) [Entitic mass] 30.0 pg 25.2 - 33.5 pg [facility] MCHC (RBC) [Mass/Vol] 33.3 g/dL 28.4 - 34.8 g/dL [facility] MCV (RBC) [Entitic vol] 90.2 fL 82.6 - 102.9 fL [facility] Monocytes/100 WBC (Bld) 7 % 3 - 12 % [facility] Monocytes/100 WBC (Bld) 0.57 % [facility] Morphology Josr (Bld) [Interp] Normal [facility] Neutrophils/100 WBC (Bld) 45 % 36 - 65 % [facility] Nucleated RBC/100 WBC (Bld) [Ratio] 0.0 % 0.0 per 100 WBC [facility] Platelet, Fluorescence 170 [facility] Platelets (Bld) [#/Vol] See Reflexed IPF Result [facility] Platelets reticulated/100 platelets Auto (Bld) 13.5 % High 1.1 - 10.3 % [facility] RBC (Bld) [#/Vol] 4.57 10*6/uL 3.95 - 5.1 1 m/uL [facility] Segmented neutrophils/100 WBC (Bld) 3.69 % [facility] WBC other (Bld) [#/Vol] 8.2 [facility] CBC with Diffon 03-09-2024 Abs. Basophil 0.08 k/uL Normal 0.0-0.[address] [facility] Comment on above: Performed By: #### U MAREK UA #### [facility] [address] [place] [address] [employer] Consultant: Bradley Warren MD Abs.Imm.Granulocyte 0.00 k/uL Normal 0.00-0.30 [facility] Comment on above: Performed By: #### U ERICO, UA #### [facility] [address] [place], [place] [phone] [employer] Consultant: Bradley Warren MD Abs.Neutrophil (Seg) 3.69 k/uL Normal 1.50-8.10 [facility] Comment on above: Performed By: #### U ERICO, UA #### [facility] [address] [place] [address] [employer] Consultant: Bradley Warren MD Basophils/100 WBC (Bld) 1 % Normal 0-2 [facility] Comment on above: Performed By: #### U ERICO, UA #### [facility] [address] [place] [address] [employer] Consultant: Bradley Warren MD Eosinophils (Bld) [#/Vol] 0.00 10*3/uL Normal 0.00-0.44 [facility] Comment on above: Performed By: #### U MAREK UA #### [facility] [address] [place] [address] [employer] Consultant: Bradley Warren MD Eosinophils/100 WBC (Bld) 0 % Low 1-4 [facility] Comment on above: Performed By: #### U MAREK, UA #### [facility] [address] [place] [address] [employer] Consultant: Bradley Warren MD Immature granulocytes/100 WBC (Bld) 0 % Normal 0 [facility] Comment on above: Performed By: #### Alessio JARA UA #### [facility] [address] [place], [place] [phone] [employer] Consultant: Bradley Warren MD Lymphocytes (Bld) [#/Vol] 3.86 10*3/uL High 1.10-3.70 [facility] Comment on above: Performed By: #### Alessio JARA UA #### [facility] [address] [place], [place] [phone] [employer] Consultant: Bradley Warren MD Lymphocytes/100 WBC (Bld) 47 % High 24-43 [facility] Comment on above: Performed By: #### U MAREK, UA #### [facility] [address] [place], [place] [phone] [employer] Consultant: Bradley Warren MD Monocytes (Bld) [#/Vol] 0.57 10*3/uL Normal 0.10-1.20 [facility] Comment on above: Performed By: #### U ERICO, UA #### [facility] [address] [place], [place] [phone] [employer] Consultant: Bradley Wraren MD Monocytes/100 WBC (Bld) 7 % Normal 3-12 [facility] Comment on above: Performed By: #### U ERICO, UA #### [facility] [address] [place], [place] [phone] [employer] Consultant: Bradley Warren MD Morphology Josr (Bld) [Interp] Normal Normal [facility] Comment on above: Performed By: #### U ERICO, UA #### [facility] [address] [place], [facility] [employer] Consultant: Bradley Warren MD Neutrophil (Seg) 45 % Normal 36-65 [facility] Comment on above: Performed By: #### U MAREK UA #### [facility] [address] [place], [facility] [employer] Consultant: Bradley Warren MD Erythrocyte distribution width (RBC) [Ratio] 12.9 % Normal 11.8-14.4 [facility] Comment on above: Performed By: #### U MAREK UA #### [address] [place], [place] [phone] [employer] Consultant: Bradley Warren MD Hematocrit (Bld) [Volume fraction] 41.2 % Normal 36.3-47.1 [facility] Comment on above: Performed By: #### U MAREK UA #### [address] [place], [facility]83 [employer] Consultant: Bradley Warren MD Hemoglobin (Bld) [Mass/Vol] 13.7 g/dL Normal 11.9-15.1 [facility] Comment on above: Performed By: #### U MAREK, UA #### [address] [place], [place] [phone] [employer] Consultant: Bradley Warren MD MCH (RBC) [Entitic mass] 30.0 pg Normal 25.2-33.5 [facility] Comment on above: Performed By: #### U ERICO, UA #### [address] [place], [place] 1280083 [employer] Consultant: Bradley Warren MD MCHC (RBC) [Mass/Vol] 33.3 g/dL Normal 28.4-34.8 [facility] Comment on above: Performed By: #### U MAREK UA #### [facility] [address] [place], [place] 1142483 [employer] Consultant: Bradley Warren MD MCV (RBC) [Entitic vol] 90.2 fL Normal 82.6-102.9 [facility] Comment on above: Performed By: #### ANDRY KAPLAN #### [address] [place], [place] [phone] [employer] Consultant: Bradley Warren MD NRBC Automated 0.0 per 100 WBC Normal 0.0 [facility] Comment on above: Performed By: #### Alessio JARA UA #### [address] [place], [place] [phone] [employer] Consultant: Bradley Warren MD Platelet Count See Reflexed IPF Result Normal 138-453 [facility] Comment on above: Performed By: #### Alessio JARA, UA #### [address] [place], [place] [phone] [employer] Consultant: Bradley Warren MD Platelet, Fluoresc. 170 k/uL Normal 138[address] [place] [address] Comment on above: Performed By: #### U MAREK, UA #### [facility] [address] [place], [place] [phone] [employer] Consultant: Bradley Warren MD PLT, Immature Fract. 13.5 % High 1.1-10.3 [facility] Comment on above: Performed By: #### U MAREK, UA #### [facility] [address] [place], [place] [phone] [employer] Consultant: Bradley Warren MD RBC (Bld) [#/Vol] 4.57 10*6/uL Normal 3.95-5.11 [facility] Comment on above: Performed By: #### U MAREK UA #### [facility] [address] [place] [address] [employer] Consultant: Bradley Warren MD WBC (Bld) [#/Vol] 8.2 10*3/uL Normal 3.5-11.3 [facility] Comment on above: Performed By: #### Alessio JARA UA #### [facility] [address] [place], [place] [phone] [employer] Consultant: Bradley Warren MD Comp Metabolic Profon 2023 Albumin [Mass/Vol] 4.1 g/dL Normal 3.5-5.2 [facility] Comment on above: Performed By: #### V D25, LIPR ####[facility] [address] [place], [place] [phone] Director: Yusef Hood MD#### TSHJULIÁN, CDP ####[address] , [place] 0348983 Lab Director: Bradley Warren MD#### ALAMO ####[facility] [address] [place], [place] [id number] Lab Director: Zac Cabrera MD Albumin/Glob Ratio 1.3 Normal 1.0-2.5 [facility] Comment on above: Performed By: #### V D25, LIPR ####[facility] [address] [place] [address] Lab Director: Yusef Hood MD#### TSH, CP, CDP ####[address] , [place] [phone] Lab Director: Bradley Warren MD#### ALAMO ####[facility] [address] [place], [place] [id number] Lab Director: Zac Cabrera MD Alkaline Phos 64 U/L Normal 35-[address] [facility] Comment on above: Performed By: #### V D25, LIPR ####[facility] [address] [place], [place] [phone] Director: Yusef Hood MD#### TSH, CP, CDP ####[address] , [place] [phone] Lab Director: Bradley Warren MD#### ALAMO ####[facility] [address] [place] [address] Lab Director: Zac Cabrera MD ALT [Catalytic activity/Vol] 8 U/L Low 10-35 [facility] Comment on above: Performed By: #### V D25, LIPR ####[facility] [address] [place] [address] Lab Director: Yusef Hood MD#### TSH, CP, CDP ####[address] , [place] 2280583 Lab Director: Bradley Warren MD#### ALAMO ####[facility] [address] [place] [address] [phone] Lab Director: Zac Cabrera MD Anion gap [Moles/Vol] 7 mmol/L Low 9-16 [facility] Comment on above: Performed By: #### V D25, LIPR ####[facility] [address] [place], [place] [phone] Director: Yusef Hood MD#### TSH, CP, CDP ####[address] , [place] 9202483 Lab Director: Bradley Warren MD#### ALAMO ####[facility] [address] [place] [address] Lab Director: Zac Cabrera MD AST [Catalytic activity/Vol] 20 U/L Normal 10-35 [facility] Comment on above: Performed By: #### V D25, LIPR ####[facility] [place] [address] Lab Director: Yusef Hood MD#### TSH, CP, CDP ####[address] , [place] 4809683 Lab Director: Bradley Warren MD#### ALAMO ####[facility] [address] [place] [address] Lab Director: Zac Cabrera MD Bilirubin [Mass/Vol] 0.2 mg/dL Normal 0.00-1.20 [facility] Comment on above: Performed By: #### V D25, LIPR ####[address] [address] Lab Director: Yusef Hood MD#### TSH, CP, CDP ####[address] , [place] 2428083 Lab Director: Bradley Warren MD#### ALAMO ####[facility] [address] [place] [address] [id number] Lab Director: Zac Cabrera MD BUN/CRE Ratio 19 Normal 9-[address] [facility] Comment on above: Performed By: #### V D25, LIPR ####[facility] [place] [address] Lab Director: Yusef Hood MD#### TSH, CP, CDP ####[address] , [place] 0056483 Lab Director: Bradley Warren MD#### ALAMO ####[facility] [address] [place], [place] [phone] Lab Director: Zac Cabrera MD Calcium [Mass/Vol] 9.8 mg/dL Normal 8.6-10.4 [facility] Comment on above: Performed By: #### V D25, LIPR ####[facility] [place], [place] [phone] Director: Yusef Hood MD#### TSH, CP, CDP ####[address] , [place] 8157583 Lab Director: Bradley Warren MD#### ALAMO ####[facility] [address] [place] [address] Lab Director: Zac Cabrera MD Chloride [Moles/Vol] 104 mmol/L Normal 98-107 [facility] Comment on above: Performed By: #### V D25, LIPR ####[address] [place] [address] Lab Director: Yusef Hood MD#### TSH, CP, CDP ####[address] , [place] [phone] Lab Director: Bradley Warren MD#### ALAMO ####[facility] [address] [place] [address] Lab Director: Zac Cabrera MD CO2 [Moles/Vol] 30 mmol/L Normal 20-31 [facility] Comment on above: Performed By: #### V D25, LIPR ####[facility] [place], [place] [phone] Director: Yusef Hood MD#### TSH, CP, CDP ####[address] [place] [address] Lab Director: Bradley Warren MD#### ALAMO ####[facility] [address] [place] [address] Lab Director: Zac Cabrera MD Creatinine [Mass/Vol] 0.7 mg/dL Normal 0.50-0.90 [facility] Comment on above: Performed By: #### V D25, LIPR ####[facility] [address] [place] [address] Lab Director: Yusef Hood MD#### JULIÁN SOTO, CDP ####[address] , [place] 6049983 Lab Director: Bradley Warren MD#### ALAMO ####[facility] [address] [place] [address] [id number] Lab Director: Zac Cabrera MD GFR/1.73 sq M.predicted among non-blacks MDRD (S/P/Bld) [Vol rate/Area] mL/min/{1.73_m2} Normal >60 [facility] Comment on above: Result Comment: These results are not intended for use in patients <18 years of age. eGFR results are calculated without a race factor using the 2020 CKD-EPI equation. Careful clinical correlation is recommended, particularly when comparing to results calculated using previous equations. The CKD-EPI equation is less accurate in patients with extremes of muscle mass, extra-renal metabolism of creatine, excessive creatine ingestion, or following therapy that affects renal tubular secretion. Performed By: #### Kimo D25, LIPR ####[facility] [address] [place] [address] Lab Director: Yusef Hood MD#### JULIÁN SOTO, CDP ####[address] , [place] 2093683 Lab Director: Bradley Warren MD#### ALAMO ####[facility] [address] [place] [address] [id number] Lab Director: Zac Cabrera MD Glucose [Mass/Vol] 86 mg/dL Normal 74-99 [facility] Comment on above: Performed By: #### V D25, LIPR ####[facility] [address] [place] [address] Lab Director: Yusef Hood MD#### TSH, CP, CDP ####[address] , [place] 9291883 Lab Director: Bradley Warren MD#### ALAMO ####[facility] [address] [place] [address] Lab Director: Zac Cabrera MD Potassium [Moles/Vol] 4.5 mmol/L Normal 3.7-5.3 [facility] Comment on above: Performed By: #### V D25, LIPR ####[facility] [address] [place] [address] Lab Director: Yusef Hood MD#### TSH, CP, CDP ####[address] , [place] [phone] Lab Director: Bradley Warren MD#### ALAMO ####[facility] [address] [place] [address] Lab Director: Zac Cabrera MD Protein [Mass/Vol] 7.1 g/dL Normal 6.6-8.7 [facility] Comment on above: Performed By: #### V D25, LIPR ####[facility] [address] [place] [address] Lab Director: Yusef Hood MD#### TSH, CP, CDP ####[address] [place] [address] Lab Director: Bradley Warren MD#### ALAMO ####[facility] [address] [place], [place] [id number] Lab Director: Zac Cabrera MD Sodium [Moles/Vol] 141 mmol/L Normal 136-145 [facility] Comment on above: Performed By: #### V D25, LIPR ####[facility] [address]uc[address] [place] [address] Lab Director: Yusef Hood MD#### TSH, CP, CDP ####[facility] [place] [address] Lab Director: Bradley Warren MD#### SUNITHAMO ####[facility] [address] [place], [place] [id number] Lab Director: Zac Cabrera MD Urea nitrogen [Mass/Vol] 13 mg/dL Normal 8-23 [facility] Comment on above: Performed By: #### V D25, LIPR ####[facility] [address] [place], [place] 6333308 Lab Director: Yusef Hood MD#### JULIÁN SOTO, CDP ####[facility] [place] [address] Lab Director: Bradley Warren MD#### SUNITHAMO ####[facility] [address] [place] [address] Lab Director: Zac Cabrera MD Comprehensive Metabolic Pane [facility] 03-09-2024 Albumin [Mass/Vol] 4.1 g/dL 3.5 - 5.2 g/dL [facility] Albumin/Globulin [Mass ratio] 1.3 {ratio} 1.0 - 2.5 [facility] ALP [Catalytic activity/Vol] 64 U/L 35 - 104 U/L [facility] ALT [Catalytic activity/Vol] 8 U/L Low 10 - 35 U/L [facility] Anion gap [Moles/Vol] 7 mmol/L Low 9 - 16 mmol/L [facility] AST [Catalytic activity/Vol] 20 U/L 10 - 35 U/L [facility] Bilirubin [Mass/Vol] 0.2 mg/dL 0.00 - 1.20 mg/dL [facility] Calcium [Mass/Vol] 9.8 mg/dL 8.6 - 10. 4 mg/dL [facility] Chloride [Moles/Vol] 104 mmol/L 98 - 10 7 mmol/L [facility] CO2 [Moles/Vol] 30 mmol/L 20 - 31 mmol/L [facility] Creatinine [Mass/Vol] 0.7 mg/dL 0.50 - 0.90 mg/dL [facility] Varinder Benites Rate - [facility] Comment on above: These results are not intended for use in patients <18 years of age. eGFR results are calculated without a race factor using the 2020 CKD-EPI equation. Careful clinical correlation is recommended, particularly when comparing to results calculated using previous equations. The CKD-EPI equation is less accurate in patients with extremes of muscle mass, extra-renal metabolism of creatine, excessive creatine ingestion, or following therapy that affects renal tubular secretion. Glucose [Mass/Vol] 86 mg/dL 74 - 99 mg/dL [facility] Interpretation and review of laboratory results Abnormal [facility] Potassium [Moles/Vol] 4.5 mmol/L 3.7 - 5.3 mmol/L [facility] Protein [Mass/Vol] 7.1 g/dL 6.6 - 8.7 g/dL [facility] Sodium [Moles/Vol] 141 mmol/L 136 - 145 mmol/L [facility] Urea nitrogen [Mass/Vol] 13 mg/dL 8 - 23 mg/dL [facility] Urea nitrogen/Creatinine [Mass ratio] 19 mg/mg 9 - 20 [facility] Lipid Panelon 03-09-2024 Cholesterol [Mass/Vol] 167 mg/dL 0 - 199 mg/dL [facility] Comment on above: Cholesterol Guidelines: <200 Desirable 200-240 Borderline >240 Undesirable Cholesterol in HDL [Mass/Vol] 56 mg/dL 40 - PINF mg/dL [facility] Comment on above: HDL Guidelines: <40 Undesirable 40-59 Borderline >59 Desirable Cholesterol in LDL [Mass/Vol] 91 mg/dL 0 - 100 mg/dL [facility] Comment on above: LDL Guidelines: <100 Desirable 100-129 Near to/above Desirable 130-159 Borderline >159 Undesirable Direct (measured) LDL and calculated LDL are not interchangeable tests. Cholesterol in VLDL [Mass/Vol] 21 mg/dL [facility] Cholesterol.total/Cho lesterol in HDL [Mass ratio] 3.0 {ratio} [facility] Triglyceride [Mass/Vol] 103 mg/dL NINF - 150 mg/dL [facility] Comment on above: Triglyceride Guidelines: <150 Desirable 150-199 Borderline 200-499 High >499 Very high Based on AHA Guidelines for fasting triglyceride, March 2012. [facility] Lipid Profileon 03-09-2024 Cholesterol [Mass/Vol] 167 mg/dL Normal 0-199 [facility] Comment on above: Result Comment: Cholesterol Guidelines: <200 Desirable 200-240 Borderline >240 Undesirable Performed By: #### U MAREK, UA #### [facility] [address] [place] [address] [employer] Consultant: Bradley Warren MD Cholesterol in HDL [Mass/Vol] 56 mg/dL Normal >40 [facility] Comment on above: Result Comment: HDL Guidelines: <40 Undesirable 40-59 Borderline >59 Desirable Performed By: #### Alessio JARA UA #### [facility] [address] [place] [address] [employer] Consultant: Bradley Warren MD Cholesterol in LDL [Mass/Vol] 91 mg/dL Normal 0-100 [facility] Comment on above: Result Comment: LDL Guidelines: <100 Desirable 100-129 Near to/above Desirable 130-159 Borderline >159 Undesirable Direct (measured) LDL and calculated LDL are not interchangeable tests. Performed By: #### Alessio JARA UA #### [facility] [address] [place] [address] [employer] Consultant: Bradley Warren MD Cholesterol in VLDL [Mass/Vol] 21 mg/dL Normal [facility] Comment on above: Performed By: #### Alessio JARA UA #### [facility] [address] [place] [address] [employer] Consultant: Bradley Warren MD Cholesterol.total/Cho lesterol in HDL [Mass ratio] 3.0 {ratio} Normal [facility] Comment on above: Performed By: #### Alessio JARA, UA #### [facility] [address] [place] [address] [employer] Consultant: Bradley Warren MD Triglyceride [Mass/Vol] 103 mg/dL Normal <150 [facility] Comment on above: Result Comment: Triglyceride Guidelines: <150 Desirable 150-199 Borderline 200-499 High >499 Very high Based on AHA Guidelines for fasting triglyceride, March 2012. Performed By: #### Alessio JARA UA #### [facility] [address] [place] [address] [employer] Consultant: Bradley Warren MD Microscopic Urinalysison Bacteria LM Ql (Urine sed) 1+ Abnormal None [facility] Epithelial cells LM.HPF (Urine sed) [#/Area] 0 TO 2 [facility] Interpretation and review of laboratory results Abnormal [facility] RBC LM.HPF (Urine sed) [#/Area] 2 TO 5 [facility] WBC LM.HPF (Urine sed) [#/Area] 10 TO 20 [facility] No Panel Informationon 03-09 [facility] TSHon 03-09-2024 TSH Qn 1.69 m[IU]/L [facility] Thyroid Stim. Horm.on 2023 Thyroid Stim. Horm. 1.69 uIU/mL Normal 0.27-4.20 [facility] Comment on above: Performed By: #### V D25, LIPR ####[facility] [address] [place], [place] [id number] Lab Director: Yusef Hood MD#### TSH, CP, CDP ####[facility] [place] [address] Lab Director: Bradley Warren MD#### ALANAMRATA ####[facility] [address] [place] [address] Lab Director: Zac Cabrera MD UA w/Reflex Cultureon 2023 Bilirubin, SemiQt,Ur Negative Normal NEG [facility] Comment on above: Performed By: #### U MICAO, UAX ####[address] , [place] [phone] Lab Director: Bradley Warren MD Blood, Urine TRACE Abnormal NEG [facility] Comment on above: Performed By: #### U MICAO, UAX ####[address] , [place] 3362283 Lab Director: Bradley Warren MD Clarity (U) Clear Normal CLEAR [facility] Comment on above: Performed By: #### U MICAO, UAX ####[address] [place] [address] Lab Director: Bradley Warren MD Color (U) Yellow Normal YEL [facility] Comment on above: Performed By: #### U MICAO, UAX ####[address] [place] [address] Lab Director: Bradley Warren MD Glucose Ql (U) Negative Normal NEG [facility] Comment on above: Performed By: #### U MICAO, UAX ####[address] [place] [address] Lab Director: Bradley Warren MD Ketones Ql (U) Negative Normal NEG [facility] Comment on above: Performed By: #### U MICAO, UAX ####[address] [place] [address] Lab Director: Bradley Warren MD Leukocyte esterase Test strip Ql (U) SMALL Abnormal NEG [facility] Comment on above: Performed By: #### U MICAO, UAX ####[address] , [place] [id number] Lab Director: Bradley Warren MD Nitrite,Ur Positive Abnormal NEG [facility] Comment on above: Performed By: #### U MICAO, UAX ####[facility] , [place] [id number] [facility] Director: Bradley Warren MD PH,Ur 6.0 Normal 5.0-9.0 [facility] Comment on above: Performed By: #### U MICAO, UAX ####[facility] , [place] 9657783 [facility] Director: Bradley Warren MD Protein Ql (U) Negative Normal NEG [facility] Comment on above: Performed By: #### U MICAO, UAX ####[address] , [place] [phone] lab Director: Bradley Warren MD Spec. [place],Ur 1.020 Normal 1.010-1.020 [facility] Comment on above: Performed By: #### U MICAO, UAX ####[address] , [place] [phone] [facility] Director: Bradley Warren MD Urobilinogen,Ur Normal Normal 0.0-1.0 [facility] Comment on above: Performed By: #### U MICAO, UAX ####[address] , [place] [id number] lab Director: Bradley Warren MD Urinalysis with Reflex to Cu ltureon 03-09-2024 Bilirubin Ql (U) Negative NEGATIVE [facility] Clarity (U) Clear Clear [facility] Color (U) Yellow Yellow [facility] Glucose Test strip (U) [Mass/Vol] Negative NEGATIVE mg/dL [facility] Hemoglobin Auto test strip Ql (U) TRACE Abnormal NEGATIVE [facility] Interpretation and review of laboratory results Abnormal [facility] Ketones (U) [Mass/Vol] Negative NEGATIVE mg/dL [facility] Leukocyte esterase Test strip Ql (U) SMALL Abnormal NEGATIVE [facility] Nitrite Ql (U) Positive Abnormal NEGATIVE [facility] pH (U) 6.0 [pH] 5.0 - 9.0 [facility] Protein (U) [Mass/Vol] Negative NEGATIVE mg/dL [facility] Specific gravity (U) [Rel density] 1.020 1.010 - 1.020 [facility] Urobilinogen Qn (U) Normal 0.0 - 1. 0 EU/dL [facility] Urinalysis,Microon 4 Bacteria 1+ Abnormal NONE [facility] Comment on above: Performed By: #### U MICAO, UAX ####[facility] [place] [address] Lab Director: Bradley Warren MD Epithelial cells LM Ql (Urine sed) 0 TO 2 Normal 0-25 [facility] Comment on above: Performed By: #### U ERICO, UAX ####[address] , [place] [id number] Lab Director: Bradley Warren MD Urine RBC's 2 TO 5 Normal 0-2 [facility] Comment on above: Performed By: #### U ERICO, UAX ####[address] [place] [address] lab Director: Bradley Warren MD Urine WBC's 10 TO 20 Normal 0-5 [facility] Comment on above: Performed By: #### U ERICO, UAX ####[address] , [place] [id number] lab Director: Bradley Warren MD Vitamin D 25 Hydroxyon 03-09 25-hydroxyvitamin D3 [Mass/Vol] 55.4 ng/mL 30.0 - 100.0 ng/mL [facility] Comment on above: Reference Range: Vitamin D status Range Deficiency <20 ng/mL Mild Deficiency 20-30 ng/mL Sufficiency 30-100 ng/mL Toxicity >100 ng/mL [facility] Vitamin D 25 OHon 03-09-2024 Vitamin D 25 OH 55.4 ng/mL Normal 30.0-100.0 [facility] Comment on above: Result Comment: Reference Range: Vitamin D status Range Deficiency <20 ng/mL Mild Deficiency 20-30 ng/mL Sufficiency 30-100 ng/mL Toxicity >100 ng/mL Performed By: #### U ANDRY JARA #### [facility] [address] [place] [address] [employer] Consultant: Bradley Warren MD CBC AND AUTO DIFFon 07-17-19 24 Eosinophils (Bld) [#/Vol] 0.5 10*3/uL High 0.0-0.4 [facility] Comment on above: Performed By: #### C KIRILL, CBCA #### [facility] ([id number]) [address] [place] [address], [place] [address] Eosinophils/100 WBC (Bld) 3.0 % Normal [facility] Comment on above: Performed By: #### C KIRILL, CBCA #### [facility] ([id number]) [address] [place] [address] [place] [address] Erythrocyte distribution width (RBC) [Ratio] 14.7 % Normal 11.5-15.0 [facility] Comment on above: Performed By: #### C MP, CBCA #### [facility] ([id number]) [address] [place] [address] 89656 Hematocrit (Bld) [Volume fraction] 29.6 % Low 35-47 [facility] Comment on above: Performed By: #### C MP, CBCA #### [facility] ([id number]) [address] [place] [address] 72812 Hemoglobin (Bld) [Mass/Vol] 10.0 g/dL Low 11.7-15.5 [facility] Comment on above: Performed By: #### C MP, CBCA #### [facility] ([id number]) [address] [place] [address] 47536 LYMPHOCYTE, ATYPICAL 4.0 % Normal [facility] Comment on above: Performed By: #### C MP, CBCA #### [facility] ([id number]) [address] [place] [address] 39333 Lymphocytes (Bld) [#/Vol] 2.4 10*3/uL Normal 1.0-3.5 [facility] Comment on above: Performed By: #### C MP, CBCA #### [facility] ([id number]) [address] [place] [address] 87069 Lymphocytes/100 WBC (Bld) 12.0 % Normal [facility] Comment on above: Performed By: #### C MP, CBCA #### [facility] ([id number]) [address] [place] [address] 61176 MCH (RBC) [Entitic mass] 29.4 pg Normal 27-34 [facility] Comment on above: Performed By: #### C MP, CBCA #### [facility] ([id number]) [address] [place] [address] 47503 MCHC (RBC) [Mass/Vol] 33.8 g/dL Normal 32-36 [facility] Comment on above: Performed By: #### C MP, CBCA #### [facility] ([id number]) [address] [place] [address] 06198 MCV (RBC) [Entitic vol] 87 fL Normal 80-100 [facility] Comment on above: Performed By: #### C MP, CBCA #### [facility] ([id number]) [address] [place] [address] 34506 Monocytes (Bld) [#/Vol] 0.8 10*3/uL Normal 0-0.9 [facility] Comment on above: Performed By: #### C MP, CBCA #### [facility] ([id number]) [address] [place] [address] 39419 Monocytes/100 WBC (Bld) 5.0 % Normal [facility] Comment on above: Performed By: #### C MP, CBCA #### [facility] ([id number]) [address] [place] [address] 70644 Neutrophils (Bld) [#/Vol] 11.7 10*3/uL High 1.5-6.6 [facility] Comment on above: Performed By: #### C MP, CBCA #### [facility] ([id number]) [address] [place] [address] 27172 NUCLEATED RBC 1.0 /100 WBC Normal 0.0-1.0 [facility] Comment on above: Performed By: #### C MP, CBCA #### [facility] ([id number]) [address] [place] [address] 86467 Platelet mean volume (Bld) [Entitic vol] 11.6 fL Normal 7-12 [facility] Comment on above: Performed By: #### C MP, CBCA #### [facility] ([id number]) [address] [place] [address] 37413 Platelets (Bld) [#/Vol] 69 10*3/uL Low 150-450 [facility] Comment on above: Performed By: #### C MP, CBCA #### [facility] ([id number]) [address] [place] [address] 47052 RBC COUNT 3.40 X10E12/L Low 3.80-5.20 [facility] Comment on above: Performed By: #### C MP, CBCA #### [facility] ([id number]) [address] [place] [address] 13009 RBC morphology finding Nom (Bld) REVIEWED Normal [facility] Comment on above: Performed By: #### C MP, CBCA #### [facility] ([id number]) [address] [place] [address] 68248 SEG NEUTROPHIL 76.0 % Normal [facility] Comment on above: Performed By: #### C KIRILL CBCA #### [facility] ([id number]) [address] [place] [address] 12666 WBC (Bld) [#/Vol] 15.4 10*3/uL High 4.0-11.0 [facility] Comment on above: Performed By: #### C KIRILL CBCA #### [facility] ([id number]) [address] [place] [address] 58065 COMPREHENSIVE METABOLIC PANE Memo 07-17-2023 Albumin [Mass/Vol] 2.1 g/dL Low 3.2-5.3 [facility] Comment on above: Performed By: #### C KIRILL CBCA #### [facility] ([id number]) [address] [place] [address] 98905 ALP [Catalytic activity/Vol] 155 U/L High 39-130 [facility] Comment on above: Performed By: #### C KIRILL, CBCA #### [facility] ([id number]) [address] [place] [address] 99018 ALT [Catalytic activity/Vol] 8 U/L Normal 0-31 [facility] Comment on above: Performed By: #### C KIRILL, CBCA #### [facility] ([id number]) [address] [place] [address] 44193 Anion gap [Moles/Vol] 5 mmol/L Normal 5-15 [facility] Comment on above: Performed By: #### C KIRILL, CBCA #### [facility] ([id number]) [address] [place] [address] 86759 AST [Catalytic activity/Vol] 32 U/L Normal 0-41 [facility] Comment on above: Performed By: #### C KIRILL CBCA #### [facility] ([id number]) [address] [place] [address] 68484 Bilirubin [Mass/Vol] 0.8 mg/dL Normal 0.3-1.2 [facility] Comment on above: Performed By: #### C KIRILL CBCA #### [facility] ([id number]) [address] [place] [address] 13260 Calcium [Mass/Vol] 8.2 mg/dL Low 8.5-10.5 [facility] Comment on above: Performed By: #### C KIRILL CBCA #### [facility] ([id number]) [address] [place] [address] 78190 Chloride [Moles/Vol] 111 mmol/L High 98-109 [facility] Comment on above: Performed By: #### C KIRILL CBCRiley #### [facility] ([id number]) [address] [place] [address] 24847 CO2 [Moles/Vol] 27 mmol/L Normal 22-32 [facility] Comment on above: Performed By: #### C KIRILL CBCA #### [facility] ([id number]) [address] [place] [address] 61156 Creatinine [Mass/Vol] 0.60 mg/dL Normal 0.40-1.00 [facility] Comment on above: Result Comment: METH OD TRACEABLE TO IDMS STANDARD Performed By: #### C KIRILL CBCA #### [facility] ([id number]) [address] [place] [address] 99525 eGFR (CKD-EPI) NON-RACE DEPENDENT >90 Normal >59 [facility] Comment on above: Result Comment: Reported eGFR is based on the CKD-EPI 2020 equation that does not use a race coefficient. Performed By: #### C KIRILL CBCA #### [facility] ([id number]) [address] [place] [address] 22449 Glucose [Mass/Vol] 89 mg/dL Normal 65-99 [facility] Comment on above: Performed By: #### C KIRILL, CBCA #### [facility] ([id number]) [address] [place] [address] 64713 Potassium [Moles/Vol] 3.6 mmol/L Normal 3.5-5.0 [facility] Comment on above: Performed By: #### C KIRILL, CBCA #### [facility] ([id number]) [address] [place] [address] 40230 Protein [Mass/Vol] 4.8 g/dL Low 6.0-8.0 [facility] Comment on above: Performed By: #### C KIRILL, CBCA #### [facility] ([id number]) [address] [place] [address] 38586 Sodium [Moles/Vol] 143 mmol/L Normal 134-146 [facility] Comment on above: Performed By: #### C KIRILL CBCA #### [facility] ([id number]) [address] [place] [address] 33460 Urea nitrogen [Mass/Vol] 17 mg/dL Normal 5-27 [facility] Comment on above: Performed By: #### C KIRILL, CBCA #### [facility] ([id number]) [address] [place] [address] 03412 MAGNESIUMon 07-17-2023 Magnesium [Mass/Vol] 1.4 mg/dL Low 1.8-2.6 [facility] Comment on above: Performed By: #### C KIRILL, CBCA #### [facility] ([id number]) [address] [place] [address] 42256 CBC AND AUTO DIFFon 07-16-19 24 ABSOLUTE BASOPHIL 0.2 X10E9/L Normal 0.0-0.2 [facility] Comment on above: Performed By: #### C MP, CBCA #### [facility] ([id number]) [address] [place] [address] 51007 Basophils/100 WBC (Bld) 1.0 % Normal [facility] Comment on above: Performed By: #### C MP, CBCA #### [facility] ([id number]) [address] [place] [address] 37665 Erythrocyte distribution width (RBC) [Ratio] 15.1 % High 11.5-15.0 [facility] Comment on above: Performed By: #### C MP, CBCA #### [facility] ([id number]) [address] [place] [address] 67247 Hematocrit (Bld) [Volume fraction] 29.3 % Low 35-47 [facility] Comment on above: Performed By: #### C MP, CBCA #### [facility] ([id number]) [address] [place] [address] 82193 Hemoglobin (Bld) [Mass/Vol] 9.6 g/dL Low 11.7-15.5 [facility] Comment on above: Performed By: #### C MP, CBCA #### [facility] ([id number]) [address] [place] [address] 67462 LYMPHOCYTE, ATYPICAL 1.0 % Normal [facility] Comment on above: Performed By: #### C MP, CBCA #### [facility] ([id number]) [address] [place] [address] 52285 Lymphocytes (Bld) [#/Vol] 1.8 10*3/uL Normal 1.0-3.5 [facility] Comment on above: Performed By: #### C MP, CBCA #### [facility] ([id number]) [address] [place] [address] 61406 Lymphocytes/100 WBC (Bld) 10.0 % Normal [facility] Comment on above: Performed By: #### C MP, CBCA #### [facility] ([id number]) [address] [place] [address] 15876 MCH (RBC) [Entitic mass] 29.1 pg Normal 27-34 [facility] Comment on above: Performed By: #### C MP, CBCA #### [facility] ([id number]) [address] [place] [address] 43523 MCHC (RBC) [Mass/Vol] 32.7 g/dL Normal 32-36 [facility] Comment on above: Performed By: #### C MP, CBCA #### [facility] ([id number]) [address] [place] [address] 99028 MCV (RBC) [Entitic vol] 89 fL Normal 80-100 [facility] Comment on above: Performed By: #### C MP, CBCA #### [facility] ([id number]) [address] [place] [address] 77526 Monocytes (Bld) [#/Vol] 0.6 10*3/uL Normal 0-0.9 [facility] Comment on above: Performed By: #### C MP, CBCA #### [facility] ([id number]) [address] [place] [address] 01856 Monocytes/100 WBC (Bld) 4.0 % Normal [facility] Comment on above: Performed By: #### C MP, CBCA #### [facility] ([id number]) [address] [place] [address] 29494 Neutrophils (Bld) [#/Vol] 13.0 10*3/uL High 1.5-6.6 [facility] Comment on above: Performed By: #### C MP, CBCA #### [facility] ([id number]) [address] [place] [address] 53501 NUCLEATED RBC 1.0 /100 WBC Normal 0.0-1.0 [facility] Comment on above: Performed By: #### C MP, CBCA #### [facility] ([id number]) [address] [place] [address] 37398 OVALOCYTE 1+ Abnormal NONE [facility] Comment on above: Performed By: #### C MP, CBCA #### [facility] ([id number]) [address] [place] [address] 63317 Platelet mean volume (Bld) [Entitic vol] 11.2 fL Normal 7-12 [facility] Comment on above: Performed By: #### C MP, CBCA #### [facility] ([id number]) [address] [place] [address] 79729 Platelets (Bld) [#/Vol] 62 10*3/uL Low 150-450 [facility] Comment on above: Performed By: #### C MP, CBCA #### [facility] ([id number]) [address] [place] [address] 21877 RBC COUNT 3.29 X10E12/L Low 3.80-5.20 [facility] Comment on above: Performed By: #### C MP, CBCA #### [facility] ([id number]) [address] [place] [address] 33122 SEG NEUTROPHIL 84.0 % Normal [facility] Comment on above: Performed By: #### C MP, CBCA #### [facility] ([id number]) [address] [place] [address] 45393 WBC (Bld) [#/Vol] 15.5 10*3/uL High 4.0-11.0 [facility] Comment on above: Performed By: #### C MP, CBCA #### [facility] ([id number]) [address] [place] [address] 75741 COMPREHENSIVE METABOLIC PANE Memo 07-16-2023 Albumin [Mass/Vol] 2.1 g/dL Low 3.2-5.3 [facility] Comment on above: Performed By: #### C KIRILL, CBCA #### [facility] ([id number]) [address] [place] [address] 63378 ALP [Catalytic activity/Vol] 131 U/L High 39-130 [facility] Comment on above: Performed By: #### C KIRILL CBCA #### [facility] ([id number]) [address] [place] [address] 91758 ALT [Catalytic activity/Vol] 15 U/L Normal 0-31 [facility] Comment on above: Performed By: #### C KIRILL CBCA #### [facility] ([id number]) [address] [place] [address] 12952 Anion gap [Moles/Vol] 5 mmol/L Normal 5-15 [facility] Comment on above: Performed By: #### C KIRILL, CBCA #### [facility] ([id number]) [address] [place] [address] 70769 AST [Catalytic activity/Vol] 36 U/L Normal 0-41 [facility] Comment on above: Performed By: #### C KIRILL, CBCA #### [facility] ([id number]) [address] [place] [address] 71166 Bilirubin [Mass/Vol] 0.9 mg/dL Normal 0.3-1.2 [facility] Comment on above: Performed By: #### C KIRILL, CBCA #### [facility] ([id number]) [address] [place] [address] 12770 Calcium [Mass/Vol] 8.0 mg/dL Low 8.5-10.5 [facility] Comment on above: Performed By: #### C KIRILL, CBCA #### [facility] ([id number]) [address] [place] [address] 99572 Chloride [Moles/Vol] 113 mmol/L High 98-109 [facility] Comment on above: Performed By: #### C KIRILL, CBCA #### [facility] ([id number]) [address] [place] [address] 53689 CO2 [Moles/Vol] 24 mmol/L Normal 22-32 [facility] Comment on above: Performed By: #### C KIRILL, CBCA #### [facility] ([id number]) [address] [place] [address] 70087 Creatinine [Mass/Vol] 0.81 mg/dL Normal 0.40-1.00 [facility] Comment on above: Result Comment: METH OD TRACEABLE TO IDMS STANDARD Performed By: #### C KIRILL, CBCA #### [facility] ([id number]) [address] [place] [address] 54644 GFR/1.73 sq M.predicted among non-blacks MDRD (S/P/Bld) [Vol rate/Area] 80 mL/min/{1.73_m2} Normal >59 [facility] Comment on above: Result Comment: Reported eGFR is based on the CKD-EPI 2020 equation that does not use a race coefficient. Performed By: #### C KIRILL, CBCA #### [facility] ([id number]) [address] [place] [address] 59745 Glucose [Mass/Vol] 99 mg/dL Normal 65-99 [facility] Comment on above: Performed By: #### C KIRILL, CBCA #### [facility] ([id number]) [address] [place] [address] 49974 Potassium [Moles/Vol] 3.5 mmol/L Normal 3.5-5.0 [facility] Comment on above: Performed By: #### C MP, CBCA #### [facility] ([id number]) [address] [place] [address] 69132 Protein [Mass/Vol] 4.9 g/dL Low 6.0-8.0 [facility] Comment on above: Performed By: #### C MP, CBCA #### [facility] ([id number]) [address] [place] [address] 79048 Sodium [Moles/Vol] 142 mmol/L Normal 134-146 [facility] Comment on above: Performed By: #### C MP, CBCA #### [facility] ([id number]) [address] [place] [address] 87460 Urea nitrogen [Mass/Vol] 34 mg/dL High 5-27 [facility] Comment on above: Performed By: #### C MP, CBCA #### [facility] ([id number]) [address] [place] [address] 32402 MAGNESIUMon 07-16-2023 Magnesium [Mass/Vol] 2.1 mg/dL Normal 1.8-2.6 [facility] Comment on above: Performed By: #### C MP, CBCA #### [facility] ([id number]) [address] [place] [address] 16688 CBC AND AUTO DIFFon 07-15-19 24 Band form neutrophils/100 WBC (Bld) 11.4 % Normal [facility] Comment on above: Performed By: #### C MP, CBCA #### [facility] ([id number]) [address] [place] [address] 58923 PATRICIA 1+ Abnormal NONE [facility] Comment on above: Performed By: #### C MP, CBCA #### [facility] ([id number]) [address] [place] [address] 84076 Erythrocyte distribution width (RBC) [Ratio] 15.0 % Normal 11.5-15.0 [facility] Comment on above: Performed By: #### C MP, CBCA #### [facility] ([id number]) [address] [place] [address] 04722 FRAGMENT 1+ Abnormal NONE [facility] Comment on above: Performed By: #### C MP, CBCA #### [facility] ([id number]) [address] [place] [address] 70144 Hematocrit (Bld) [Volume fraction] 30.4 % Low 35-47 [facility] Comment on above: Performed By: #### C MP, CBCA #### [facility] ([id number]) [address] [place] [address] 23204 Hemoglobin (Bld) [Mass/Vol] 9.9 g/dL Low 11.7-15.5 [facility] Comment on above: Performed By: #### C MP, CBCA #### [facility] ([id number]) [address] [place] [address] 14046 LYMPHOCYTE, ATYPICAL 1.9 % Normal [facility] Comment on above: Performed By: #### C MP, CBCA #### [facility] ([id number]) [address] [place] [address] 06400 Lymphocytes (Bld) [#/Vol] 2.6 10*3/uL Normal 1.0-3.5 [facility] Comment on above: Performed By: #### C MP, CBCA #### [facility] ([id number]) [address] [place] [address] 13674 Lymphocytes/100 WBC (Bld) 10.5 % Normal [facility] Comment on above: Performed By: #### C MP, CBCA #### [facility] ([id number]) [address] [place] [address] 28831 MCH (RBC) [Entitic mass] 29.3 pg Normal 27-34 [facility] Comment on above: Performed By: #### C MP, CBCA #### [facility] ([id number]) [address] [place] [address] 46431 MCHC (RBC) [Mass/Vol] 32.7 g/dL Normal 32-36 [facility] Comment on above: Performed By: #### C MP, CBCA #### [facility] ([id number]) [address] [place] [address] 51020 MCV (RBC) [Entitic vol] 90 fL Normal 80-100 [facility] Comment on above: Performed By: #### C KIRILL, CBCA #### [facility] ([id number]) [address] [place] [address] 29947 Monocytes (Bld) [#/Vol] 0.6 10*3/uL Normal 0-0.9 [facility] Comment on above: Performed By: #### C KIRILL, CBCA #### [facility] ([id number]) [address] [place] [address] 55961 Monocytes/100 WBC (Bld) 2.9 % Normal [facility] Comment on above: Performed By: #### C MP, CBCA #### [facility] ([id number]) [address] [place] [address] 09062 Neutrophils (Bld) [#/Vol] 17.4 10*3/uL High 1.5-6.6 [facility] Comment on above: Performed By: #### C MP, CBCA #### [facility] ([id number]) [address] [place] [address] 74500 OVALOCYTE 1+ Abnormal NONE [facility] Comment on above: Performed By: #### C KIRILL, CBCA #### [facility] ([id number]) [address] [place] [address] 94803 Platelet mean volume (Bld) [Entitic vol] 12.2 fL High 7-12 [facility] Comment on above: Performed By: #### C MP, CBCA #### [facility] ([id number]) [address] [place] [address] 98391 Platelets (Bld) [#/Vol] 74 10*3/uL Low 150-450 [facility] Comment on above: Performed By: #### C MP, CBCA #### [facility] ([id number]) [address] [place] [address] 16049 RBC COUNT 3.39 X10E12/L Low 3.80-5.20 [facility] Comment on above: Performed By: #### C MP, CBCA #### [facility] ([id number]) [address] [place] [address] 27961 SEG NEUTROPHIL 73.3 % Normal [facility] Comment on above: Performed By: #### C MP, CBCA #### [facility] ([id number]) [address] [place] [address] [id number] WBC (Bld) [#/Vol] 20.6 10*3/uL High 4.0-11.0 [facility] Comment on above: Performed By: #### C MP, CBCA #### [facility] ([id number]) [address] [place] [address] [id number] COMPREHENSIVE METABOLIC PANE Memo 07-15-2023 Albumin [Mass/Vol] 2.2 g/dL Low 3.2-5.3 [facility] Comment on above: Performed By: #### C MP, CBCA #### [facility] ([id number]) [address] [place] [address] 68467 ALP [Catalytic activity/Vol] 94 U/L Normal 39-130 [facility] Comment on above: Performed By: #### C MP, CBCA #### [facility] ([id number]) [address] [place] [address] 14887 ALT [Catalytic activity/Vol] 13 U/L Normal 0-31 [facility] Comment on above: Performed By: #### C MP, CBCA #### [facility] ([id number]) [address] [place] [address] 20497 Anion gap [Moles/Vol] 5 mmol/L Normal 5-15 [facility] Comment on above: Performed By: #### C KIRILL, CBCA #### [facility] ([id number]) [address] [place] [address] 80214 AST [Catalytic activity/Vol] 34 U/L Normal 0-41 [facility] Comment on above: Performed By: #### C KIRILL, CBCA #### [facility] ([id number]) [address] [place] [address] [place] [address] Bilirubin [Mass/Vol] 0.8 mg/dL Normal 0.3-1.2 [facility] Comment on above: Performed By: #### C KIRILL, CBCA #### [facility] ([id number]) [address] [place] [address] 74087 Calcium [Mass/Vol] 7.5 mg/dL Low 8.5-10.5 [facility] Comment on above: Performed By: #### C MP, CBCA #### [facility] ([id number]) [address] [place] [address] 06389 Chloride [Moles/Vol] 113 mmol/L High 98-109 [facility] Comment on above: Performed By: #### C MP, CBCA #### [facility] ([id number]) [address] [place] [address] 02292 CO2 [Moles/Vol] 22 mmol/L Normal 22-32 [facility] Comment on above: Performed By: #### C KIRILL, CBCA #### [facility] ([id number]) [address] [place] [address] 07796 Creatinine [Mass/Vol] 1.47 mg/dL High 0.40-1.00 [facility] Comment on above: Result Comment: METH OD TRACEABLE TO IDMS STANDARD Performed By: #### C KIRILL, CBCA #### [facility] ([id number]) [address] [place] [address] 07790 GFR/1.73 sq M.predicted among non-blacks MDRD (S/P/Bld) [Vol rate/Area] 39 mL/min/{1.73_m2} Low >59 [facility] Comment on above: Result Comment: Reported eGFR is based on the CKD-EPI 2020 equation that does not use a race coefficient. Performed By: #### C KIRILL, CBCA #### [facility] ([id number]) [address] [place] [address] 95682 Glucose [Mass/Vol] 88 mg/dL Normal 65-99 [facility] Comment on above: Performed By: #### C KIRILL, CBCA #### [facility] ([id number]) [address] [place] [address] 83214 Potassium [Moles/Vol] 3.7 mmol/L Normal 3.5-5.0 [facility] Comment on above: Performed By: #### C KIRILL, CBCA #### [facility] ([id number]) [address] [place] [address] 23060 Protein [Mass/Vol] 5.1 g/dL Low 6.0-8.0 [facility] Comment on above: Performed By: #### C KIRILL, CBCA #### [facility] ([id number]) [address] [place] [address] 73709 Sodium [Moles/Vol] 140 mmol/L Normal 134-146 [facility] Comment on above: Performed By: #### C LUIS ALFREDO ROY #### [facility] ([id number]) [address] [place] [address] 93966 Urea nitrogen [Mass/Vol] 51 mg/dL High 5-27 [facility] Comment on above: Performed By: #### C LUIS ALFREDO ROY #### [facility] ([id number]) [address] [place] [address] 84429 Calcium.ionized (Bld) [Moles /Vol]on 07-15-2023 PORTABLE ICA 4.6 mg/dL Normal 4.5-5.3 [facility] Comment on above: Performed By: #### 1 994-3 ####[facility] ([id number])[address] [place] [address] 43319 MAGNESIUMon 07-15-2023 Magnesium [Mass/Vol] 2.9 mg/dL High 1.8-2.6 [facility] Comment on above: Performed By: #### C LUIS ALFREDO ROY #### [facility] ([id number]) [address] [place] [address] 43538 Magnesium [Mass/Vol] 3.0 mg/dL High 1.8-2.6 [facility] Comment on above: Performed By: #### 1 9123-9 ####[facility] ([id number])[address] [place] [address] 45899 POTASSIUMon 07-15-2023 Potassium [Moles/Vol] 3.8 mmol/L Normal 3.5-5.0 [facility] Comment on above: Performed By: #### C LUIS ALFREDO ROY #### [facility] ([id number]) [address] [place] [address] 66917 Vancomycin trough [Mass/Vol] on 07-15-2023 VANCOMYCIN TROUGH 9.0 ug/mL Normal 5.0-20.0 [facility] Comment on above: Performed By: #### C MP, CBCA #### [facility] ([id number]) [address] [place] [address] 02958 ARTERIAL BLOOD GASon 024 MARA'S TEST Normal [facility] Comment on above: Performed By: #### A BG #### [facility] ([id number]) [address] [place] [address] 37037 BASE,DEFICIT 7.0 MMOL/L High 0.0-2.0 [facility] Comment on above: Performed By: #### A BG #### [facility] ([id number]) [address] [place] [address] 44857 Body temperature 98.6 [degF] Normal 37.0 [facility] Comment on above: Performed By: #### A BG #### [facility] ([id number]) [address] [place] [address] 98585 HCO3 (Bld) [Moles/Vol] 18.6 mmol/L Low 22-26 [facility] Comment on above: Performed By: #### A BG #### [facility] ([id number]) [address] [place] [address] 65347 Oxygen (Bld) [Partial pressure] 71 mm[Hg] Low 80-100 [facility] Comment on above: Performed By: #### A BG #### [facility] ([id number]) [address] [place] [address] 53029 Oxygen saturation in Blood 93.0 % Normal >90 [facility] Comment on above: Performed By: #### A BG #### [facility] ([id number]) [address] [place] [address] 39055 OXYGEN SOURCE RoomAir Normal [facility] Comment on above: Performed By: #### A BG #### [facility] ([id number]) [address] [place] [address] [place] [address] PCO2 35.5 MMHG Normal 35-45 [facility] Comment on above: Performed By: #### A BG #### [facility] ([id number]) [address] [place] [address] 33412 pH (Bld) 7.326 [pH] Low 7.350-7.450 [facility] Comment on above: Performed By: #### A BG #### [facility] ([id number]) [address] [place] [address] 68029 SAMPLE SITE [facility] Comment on above: Performed By: #### A BG #### [facility] ([id number]) [address] [place] [address] 57619 SAMPLE TYPE ARTERIAL Normal [facility] Comment on above: Performed By: #### A BG #### [facility] ([id number]) [address] [place] [address] 68829 BLOOD CULTUREon 07-14-2023 Bacteria identified Aer cx Nom (Bld) SPECIMEN NOTES CENTRAL LINE CULTURE RESULTS PROTEUS MIRABILIS FOR SUSCEPTIBILITY, SEE PREVIOUS REPORT. [facility] Comment on above: Performed By: #### 1 7928-3 ####[facility] ([id number])[address] [place] [address]87[address] ([id number])[address] [facility], [address], [place] [address] Bacteria identified Aer cx Nom (Bld) SPECIMEN NOTES CENTRAL LINE CULTURE RESULTS PROTEUS MIRABILIS Proteus species detected by PCR. No resistance genes detected by PCR. [ S = SUSCEPTIBLE R = RESISTANT I = INTERMEDIATE S-DO = Susceptible-dose dependent NS = Non-suscceptible NO = No Interpretation ] Organism: PROTEUS MIRABILIS Antibiotic Interpretation MARLA Status AMPICILLIN S <=2 F AMP/SULBACTAM S <=2/1 F CEFAZOLIN UNK <=4 F CLSI interpretive criteria for nonurinary isolates are as follows: <=2 Susceptible, 4 Intermediate, Resistant >=8. Contact Microbiology laboratory if further susceptibility testing for Cefazolin is required. CEFTRIAXONE S <=1 F CIPROFLOXACIN R >=4 F GENTAMICIN S <=1 F LEVOFLOXACIN R >=8 F PIPERACIL/TAZOBACTAM S <=4 F TOBRAMYCIN S <=1 F Susceptible [facility] Comment on above: Performed By: #### 1 7928-3 ####[facility] ([id number])[address] [place] [address] 08305[facility] ([id number])[address] [facility], [address], [place] [address] CBC AND AUTO DIFFon 07-14-19 24 ABSOLUTE BASOPHIL 0.8 X10E9/L High 0.0-0.2 [facility] Comment on above: Performed By: #### C KIRILL, , CBCA ####[facility] ([id number])[address] [place] [address] 73614 Band form neutrophils/100 WBC (Bld) 1.9 % Normal [facility] Comment on above: Performed By: #### C KIRILL, , CBCA ####[facility] ([id number])[address] [place] [address] 34360 Basophils/100 WBC (Bld) 2.9 % Normal [facility] Comment on above: Performed By: #### C KIRILL, , CBCA ####[facility] ([id number])[address] [place] [address] 37590 PATRICIA 2+ Abnormal NONE [facility] Comment on above: Performed By: #### C KIRILL, , CBCA ####[facility] ([id number])[address] [place] [address] 34978 Erythrocyte distribution width (RBC) [Ratio] 14.5 % Normal 11.5-15.0 [facility] Comment on above: Performed By: #### C KIRILL, , CBCA ####[facility] ([id number])[address] [place] [address] 00524 Hematocrit (Bld) [Volume fraction] 31.5 % Low 35-47 [facility] Comment on above: Performed By: #### C KIRILL, , CBCA ####[facility] ([id number])[address] [place] [address] 91413 Hemoglobin (Bld) [Mass/Vol] 10.3 g/dL Low 11.7-15.5 [facility] Comment on above: Performed By: #### C KIRILL, , CBCA ####[facility] ([id number])[address] [place] [address] 59186 LYMPHOCYTE, ATYPICAL 1.0 % Normal [facility] Comment on above: Performed By: #### C KIRILL, , CBCA ####[facility] ([id number])[address] [place] [address] 45675 Lymphocytes (Bld) [#/Vol] 1.7 10*3/uL Normal 1.0-3.5 [facility] Comment on above: Performed By: #### C KIRILL, , CBCA ####[facility] ([id number])[address] [place] [address] 21785 Lymphocytes/100 WBC (Bld) 4.9 % Normal [facility] Comment on above: Performed By: #### C KIRILL, , CBCA ####[facility] ([id number])[address] [place] [address] 96275 MCH (RBC) [Entitic mass] 29.3 pg Normal 27-34 [facility] Comment on above: Performed By: #### C KIRILL, , CBCA ####[facility] ([id number])[address] [place] [address] 29172 MCHC (RBC) [Mass/Vol] 32.6 g/dL Normal 32-36 [facility] Comment on above: Performed By: #### C KIRILL, , CBCA ####[facility] ([id number])[address] [place] [address] 11166 MCV (RBC) [Entitic vol] 90 fL Normal 80-100 [facility] Comment on above: Performed By: #### C KIRILL, , CBCA ####[facility] ([id number])[address] [place] [address] 59945 Monocytes (Bld) [#/Vol] 4.8 10*3/uL High 0-0.9 [facility] Comment on above: Performed By: #### C KIRILL, , CBCA ####[facility] ([id number])[address] [place] [address] 47609 Monocytes/100 WBC (Bld) 16.5 % Normal [facility] Comment on above: Performed By: #### C KIRILL, , CBCA ####[facility] ([id number])[address] [place] [address] 95321 Neutrophils (Bld) [#/Vol] 21.9 10*3/uL High 1.5-6.6 [facility] Comment on above: Performed By: #### C KIRILL, , CBCA ####[facility] ([id number])[address] [place] [address] 15758 OVALOCYTE 1+ Abnormal NONE [facility] Comment on above: Performed By: #### C KIRILL, , CBCA ####[facility] ([id number])[address] [place] [address], [place] [address] Platelet mean volume (Bld) [Entitic vol] 12.2 fL High 7-12 [facility] Comment on above: Performed By: #### C KIRILL, , CBCA ####[facility] ([id number])[address] [place] [address] 23404 Platelets (Bld) [#/Vol] 85 10*3/uL Low 150-450 [facility] Comment on above: Performed By: #### C KIRILL, , CBCA ####[facility] ([id number])[address] [place] [address] 74877 RBC COUNT 3.51 X10E12/L Low 3.80-5.20 [facility] Comment on above: Performed By: #### C KIRILL, , CBCA ####[facility] ([id number])[address] [place] [address] 13258 SEG NEUTROPHIL 72.8 % Normal [facility] Comment on above: Performed By: #### Nori ROY, , CBCA ####[facility] ([id number])[address] [place] [address] 14523 WBC (Bld) [#/Vol] 29.3 10*3/uL High 4.0-11.0 [facility] Comment on above: Performed By: #### C KIRILL, , CBCA ####[facility] ([id number])[address] [place] [address] 91706 COMPREHENSIVE METABOLIC PANE Memo 07-14-2023 Albumin [Mass/Vol] 2.7 g/dL Low 3.2-5.3 [facility] Comment on above: Performed By: #### C KIRILL, , CBCA ####[facility] ([id number])[address], [place] [address] ALP [Catalytic activity/Vol] 90 U/L Normal 39-130 [facility] Comment on above: Performed By: #### C KIRILL, , CBCA ####[facility] ([id number])[address] [place] [address] 81420 ALT [Catalytic activity/Vol] 13 U/L Normal 0-31 [facility] Comment on above: Performed By: #### C KIRILL, , CBCA ####[facility] ([id number])[address] [place] [address] [place] [address] Anion gap [Moles/Vol] 14 mmol/L Normal 5-15 [facility] Comment on above: Performed By: #### C KIRILL, , CBCA ####[facility] ([id number])[address] [place] [address] [place] [address] AST [Catalytic activity/Vol] 45 U/L High 0-41 [facility] Comment on above: Performed By: #### C KIRILL, , CBCA ####[facility] ([id number])[address] [place] [address] [place] [address] Bilirubin [Mass/Vol] 1.3 mg/dL High 0.3-1.2 [facility] Comment on above: Performed By: #### C KIRILL, , CBCA ####[facility] ([id number])[address] [place] [address] [place] [address] Calcium [Mass/Vol] 7.7 mg/dL Low 8.5-10.5 [facility] Comment on above: Performed By: #### C KIRILL, , CBCA ####[facility] ([id number])[address] [place] [address] [place] [address] Chloride [Moles/Vol] 108 mmol/L Normal 98-109 [facility] Comment on above: Performed By: #### C KIRILL, , CBCA ####[facility] ([id number])[address] [place] [address] 14504 CO2 [Moles/Vol] 19 mmol/L Low 22-32 [facility] Comment on above: Performed By: #### C KIRILL, , CBCA ####[facility] ([id number])[address] [place] [address] [place] [address] Creatinine [Mass/Vol] 2.49 mg/dL High 0.40-1.00 [facility] Comment on above: Result Comment: METH OD TRACEABLE TO IDMS STANDARD Performed By: #### C KIRILL, , CBCA ####[facility] ([id number])[address] [place] [address] 55620 GFR/1.73 sq M.predicted among non-blacks MDRD (S/P/Bld) [Vol rate/Area] 21 mL/min/{1.73_m2} Low >59 [facility] Comment on above: Result Comment: Reported eGFR is based on the CKD-EPI 2020 equation that does not use a race coefficient. Performed By: #### C KIRILL, , CBCA ####[facility] ([id number])[address] [place] [address] 38340 Glucose [Mass/Vol] 83 mg/dL Normal 65-99 [facility] Comment on above: Performed By: #### C KIRILL, , CBCA ####[facility] ([id number])[address] [place] [address] 01317 Potassium [Moles/Vol] 3.9 mmol/L Normal 3.5-5.0 [facility] Comment on above: Performed By: #### C KIRILL, , CBCA ####[facility] ([id number])[address] [place] [address] 64912 Protein [Mass/Vol] 5.7 g/dL Low 6.0-8.0 [facility] Comment on above: Performed By: #### C MP, 70514-1, CBCA ####[facility] ([id number])[address] [place] [address] 80741 Sodium [Moles/Vol] 141 mmol/L Normal 134-146 [facility] Comment on above: Performed By: #### [place], 28493-7, CBCA ####[facility] ([id number])[address] [place] [address] 61114 Urea nitrogen [Mass/Vol] 44 mg/dL High 5-27 [facility] Comment on above: Performed By: #### C MP, 33081-3, CBCA ####[facility] ([id number])[address] [place] [address] ABDOMEN AND PELVIS WO CON Ton 07-14-2023 CT ABDOMEN AND PELVIS WO CONT CT ABDOMEN AND PELVIS WO CONT CT ABDOMEN AND PELVIS WO CONT HISTORY: Fall, sepsis, UTI COMPARISON: None TECHNIQUE: CT images of abdomen and pelvis obtained without the administration of contrast. Lack of IV contrast limits evaluation, especially solid organs. Automated exposure control was utilized. All CT scans at this facility use dose modulation, iterative reconstruction, and/or weight based dosing when appropriate to reduce radiation dose to as low as reasonably achievable. FINDINGS: Suboptimal evaluation of the solid organs, vessels, and lymph nodes in the absence of IV contrast. Exam is compromised by patient motion and patient arm positioning. LOWER CHEST: Lung bases are clear. LIVER AND BILIARY: Noncirrhotic liver morphology. Prominent appearance of the gallbladder. No evidence of cholelithiasis, definite gallbladder thickening or pericholecystic fluid. Indeterminate 1 cm hyperdense observation within the superior margin of the hepatic hilum, likely a partially calcified lymph node. PANCREAS: Unremarkable SPLEEN: Unremarkable ADRENALS: No adrenal mass or lesion. KIDNEYS, URETERS, AND BLADDER: Multiple bilateral nonobstructing renal calculi, largest measures 0.5 cm in the midpole the right kidney. There is nonobstructing calculus in the distal left ureter near the ureterovesicular junction which measures 1 cm. There is upstream collecting system dilatation. Suboptimal characterization of the bladder given decompressed state, Paulson catheter in place. GI TRACT AND PERITONEUM: The appendix and terminal ileum is unremarkable appearing. There is no evidence of bowel obstruction. No pericolonic fat stranding or free intraperitoneal gas. Large stool ball in the rectal vault measuring 7.6 cm in transverse dimension. VASCULATURE: Moderate aortobiiliac atherosclerotic disease. Right femoral vein catheter terminates near the proximal right common iliac vein. LYMPH NODES: No enlarged lymph nodes by size criteria. REPRODUCTIVE ORGANS: Unremarkable. 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 Chronic irregularity of the right ischial pubic rami. Diffuse degenerative changes throughout the thoracolumbar spine. IMPRESSION: * There is a 1 cm obstructing calculus in the distal left ureter near the ureterovesicular junction with moderate upstream collecting system dilatation. * Multiple additional nonobstructing renal calculi are visualized. 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 Approved by Resident Holly Peñaloza DO on 07/14/2023 3:18 AM ILuther MD have personally reviewed the image(s) and agree with and/or edited the report Finalized by Luther Whiting MD on 07/14/2023 3:32 AM Normal [facility] Lactate (P nicko) [Moles/Vol]o n 07-14-2023 Lactate [Moles/Vol] 2.3 mmol/L High 0.4-2.0 [facility] Comment on above: Performed By: #### 3 2133-1 ####[facility] ([id number])[address] [place] [address] 85929 LACTATE W/REFLEX 3.4 mmol/L High 0.4-2.0 [facility] Comment on above: Performed By: #### 3 2133-1 ####[facility] ([id number])[address] [place] [address] 87580 Lactate [Moles/Vol] 5.1 mmol/L Critically high 0.4-2.0 [facility] Comment on above: Performed By: #### 3 2133-1 #### [facility] ([id number]) [address] [place] [address] 86506 LACTATE W/REFLEX 6.0 mmol/L Critically high 0.4-2.0 [facility] Comment on above: Performed By: #### 3 3-1 #### [facility] ([id number]) [address] [place] [address] 26087 MAGNESIUMon 07-14-2023 Magnesium [Mass/Vol] 1.6 mg/dL Low 1.8-2.6 [facility] Comment on above: Performed By: #### C KIRILL, 22262-8, CBCA ####[facility] ([id number])[address] [place] [address] 33438 URINE CULTUREon 07-14-2023 Bacteria identified Cx Nom (U) CULTURE RESULTS >100,000 ORGANISMS/mL PROTEUS MIRABILIS [ S = SUSCEPTIBLE R = RESISTANT I = INTERMEDIATE S-DO = Susceptible-dose dependent NS = Non-suscceptible NO = No Interpretation ] Organism: PROTEUS MIRABILIS Antibiotic Interpretation MARLA Status AMPICILLIN S <=2 F AMP/SULBACTAM S <=2/1 F CEFAZOLIN S <=4 F CEFTRIAXONE S <=1 F CIPROFLOXACIN R >=4 F GENTAMICIN S <=1 F LEVOFLOXACIN R >=8 F NITROFURANTOIN R 128 F PIPERACIL/TAZOBACTAM S <=4 F TOBRAMYCIN S <=1 F TRIMETH/SULFAMETHOXA ZOLE S <=1/19 F Susceptible [facility] Comment on above: Performed By: #### C KIRILL, CBCA #### [facility] ([id number]) [address] [place] [address] 99395 URN MACROSCOPIC NURon 2023 BILIRUBIN BETTY MODERATE Abnormal NEG [facility] Comment on above: Performed By: #### N UM #### [facility] ([id number]) [address] [place] [address] 39527 BLOOD/HGB BETTY Trace Abnormal NEG [facility] Comment on above: Performed By: #### N UM #### [facility] ([id number]) [address] [place] [address] 14847 GLUCOSE BETTY Negative Normal NEG [facility] Comment on above: Performed By: #### N UM #### [facility] ([id number]) [address] [place] [address] [place] [address] KETONES BETTY Trace Abnormal NEG [facility] Comment on above: Performed By: #### N UM #### [facility] ([id number]) [address] [place] [address] 98175 LEUKOCYTE ESTERASE BETTY Large Abnormal NEG [facility] Comment on above: Performed By: #### N UM #### [facility] ([id number]) [address] [place] [address] [place] [address] NITRITE BETTY Positive Abnormal NEG [facility] Comment on above: Performed By: #### N UM #### [facility] ([id number]) [address] [place] [address] 47488 PH BETTY 5.0 Normal 5.0-8.5 [facility] Comment on above: Performed By: #### N UM #### [facility] ([id number]) [address] [place] [address] [place] [address] PROTEIN BETTY 100 mg/dL Abnormal NEG [facility] Comment on above: Performed By: #### N UM #### [facility] ([id number]) [address] [place] [address] [place] [address] SPECIFIC GRAVITY BETTY >=1.030 Normal 1.003-1.035 [facility] Comment on above: Performed By: #### N UM #### [facility] ([id number]) [address] [place] [address] [place] [address] UROBILINOGEN BETTY 2.0 eu/dL High <1.1 [facility] Comment on above: Performed By: #### N UM #### [facility] ([id number]) [address] [place] [address] 60958 XR ABDOMEN AP 1 VWon 024 XR ABDOMEN AP 1 VW XR ABDOMEN AP 1 VW Abdomen single view Clinical history:left stent insertion ureteral stone Comparison: None. Findings: AP supine view of the abdomen. AP fluoroscopic views of the abdomen demonstrates a left ureteral stent placement with fluoroscopic guidance. Reference air kerma was 2.01 mGy. Impression: Left renal stent placement with fluoroscopic guidance. Finalized by Misbah Sheehan MD on 07/14/2023 10:49 AM Normal [facility] [facility] V[facility]on 07-14-2023 XR CHEST 1 VW XR CHEST 1 VW XR CHEST 1 VW HISTORY: Fall, hypertension COMPARISON: None FINDINGS: The cardiomediastinal silhouette is unremarkable appearing. Pulmonary vasculature is within normal limits. There is no focal consolidation. No pleural effusion or pneumothorax. Trachea is midline. Chronic-appearing irregularity of the left distal clavicular body. Aortic atherosclerotic disease. IMPRESSION: * No acute cardiopulmonary process. Approved by Resident Holly Peñaloza DO on 07/14/2023 3:14 AM Luther Taylor MD have personally reviewed the image(s) and agree with and/or edited the report Finalized by Luther Whiting MD on 07/14/2023 3:27 AM Normal [facility] CBC AND AUTO DIFFon 07-13-19 24 Band form neutrophils/100 WBC (Bld) 1.0 % Normal [facility] Comment on above: Performed By: #### C KIRILL, CBCA #### [facility] ([id number]) [address] [place] [address] [phone] Erythrocyte distribution width (RBC) [Ratio] 14.7 % Normal 11.5-15.0 [facility] Comment on above: Performed By: #### C MP, CBCA #### [facility] ([id number]) [address] [place] [address] 64426 Hematocrit (Bld) [Volume fraction] 31.8 % Low 35-47 [facility] Comment on above: Performed By: #### C MP, CBCA #### [facility] ([id number]) [address] [place] [address] 40258 Hemoglobin (Bld) [Mass/Vol] 10.3 g/dL Low 11.7-15.5 [facility] Comment on above: Performed By: #### C MP, CBCA #### [facility] ([id number]) [address] [place] [address] 53370 Lymphocytes (Bld) [#/Vol] 1.8 10*3/uL Normal 1.0-3.5 [facility] Comment on above: Performed By: #### C MP, CBCA #### [facility] ([id number]) [address] [place] [address] 43501 Lymphocytes/100 WBC (Bld) 10.0 % Normal [facility] Comment on above: Performed By: #### C KIRILL, CBCA #### [facility] ([id number]) [address] [place] [address] 71047 MCH (RBC) [Entitic mass] 29.2 pg Normal 27-34 [facility] Comment on above: Performed By: #### C MP, CBCA #### [facility] ([id number]) [address] [place] [address] 97973 MCHC (RBC) [Mass/Vol] 32.4 g/dL Normal 32-36 [facility] Comment on above: Performed By: #### C MP, CBCA #### [facility] ([id number]) [address] [place] [address] 04864 MCV (RBC) [Entitic vol] 90 fL Normal 80-100 [facility] Comment on above: Performed By: #### C MP, CBCA #### [facility] ([id number]) [address] [place] [address] 05530 Monocytes (Bld) [#/Vol] 1.1 10*3/uL High 0-0.9 [facility] Comment on above: Performed By: #### C MP, CBCA #### [facility] ([id number]) [address] [place] [address] 10856 Monocytes/100 WBC (Bld) 6.0 % Normal [facility] Comment on above: Performed By: #### C MP, CBCA #### [facility] ([id number]) [address] [place] [address] 10051 Neutrophils (Bld) [#/Vol] 15.1 10*3/uL High 1.5-6.6 [facility] Comment on above: Performed By: #### C MP, CBCA #### [facility] ([id number]) [address] [place] [address] 40031 Platelet mean volume (Bld) [Entitic vol] 11.4 fL Normal 7-12 [facility] Comment on above: Performed By: #### C MP, CBCA #### [facility] ([id number]) [address] [place] [address] 99006 Platelets (Bld) [#/Vol] 81 10*3/uL Low 150-450 [facility] Comment on above: Performed By: #### C MP, CBCA #### [facility] ([id number]) [address] [place] [address] 87635 POLYCHROMASIA 1+ Abnormal NONE [facility] Comment on above: Performed By: #### C MP, CBCA #### [facility] ([id number]) [address] [place] [address] 46185 RBC COUNT 3.53 X10E12/L Low 3.80-5.20 [facility] Comment on above: Performed By: #### C MP, CBCA #### [facility] ([id number]) [address] [place] [address] 57528 SEG NEUTROPHIL 83.0 % Normal [facility] Comment on above: Performed By: #### C MP, CBCA #### [facility] ([id number]) [address] [place] [address] 31757 WBC (Bld) [#/Vol] 18.0 10*3/uL High 4.0-11.0 [facility] Comment on above: Performed By: #### C KIRILL, CBCA #### [facility] ([id number]) [address] [place] [address] 26510 COMPREHENSIVE METABOLIC PANE Memo 07-13-2023 Albumin [Mass/Vol] 2.5 g/dL Low 3.2-5.3 [facility] Comment on above: Performed By: #### C KIRILL, CBCA #### [facility] ([id number]) [address] [place] [address] 58494 ALP [Catalytic activity/Vol] 159 U/L High 39-130 [facility] Comment on above: Performed By: #### C KIRILL, CBCA #### [facility] ([id number]) [address] [place] [address] 82283 ALT [Catalytic activity/Vol] 8 U/L Normal 0-31 [facility] Comment on above: Performed By: #### C KIRILL, CBCA #### [facility] ([id number]) [address] [place] [address] 18800 Anion gap [Moles/Vol] 15 mmol/L Normal 5-15 [facility] Comment on above: Performed By: #### C KIRILL, CBCA #### [facility] ([id number]) [address] [place] [address] 07544 AST [Catalytic activity/Vol] 42 U/L High 0-41 [facility] Comment on above: Performed By: #### C LUIS ALFREDO ROY #### [facility] ([id number]) [address] [place] [address] 84731 Bilirubin [Mass/Vol] 1.3 mg/dL High 0.3-1.2 [facility] Comment on above: Performed By: #### C LUIS ALFREDO ROY #### [facility] ([id number]) [address] [place] [address] 43850 Calcium [Mass/Vol] 7.6 mg/dL Low 8.5-10.5 [facility] Comment on above: Performed By: #### C LUIS ALFREDO ROY #### [facility] ([id number]) [address] [place] [address] 20889 Chloride [Moles/Vol] 107 mmol/L Normal 98-109 [facility] Comment on above: Performed By: #### C LUIS ALFREDO ROY #### [facility] ([id number]) [address] [place] [address] 03265 CO2 [Moles/Vol] 20 mmol/L Low 22-32 [facility] Comment on above: Performed By: #### C LUIS ALFREDO ROY #### [facility] ([id number]) [address] [place] [address] 92204 Creatinine [Mass/Vol] 2.68 mg/dL High 0.40-1.00 [facility] Comment on above: Result Comment: METH OD TRACEABLE TO IDMS STANDARD Performed By: #### C LUIS ALFREDO ROY #### [facility] ([id number]) [address] [place] [address] 76382 GFR/1.73 sq M.predicted among non-blacks MDRD (S/P/Bld) [Vol rate/Area] 19 mL/min/{1.73_m2} Low >59 [facility] Comment on above: Result Comment: Reported eGFR is based on the CKD-EPI 2020 equation that does not use a race coefficient. Performed By: #### C LUIS ALFREDO ROY #### [facility] ([id number]) [address] [place] [address] 18976 Glucose [Mass/Vol] 74 mg/dL Normal 65-99 [facility] Comment on above: Performed By: #### C KIRILL CBCA #### [facility] ([id number]) [address] [place] [address] 43407 Potassium [Moles/Vol] 3.2 mmol/L Low 3.5-5.0 [facility] Comment on above: Performed By: #### C LUIS ALFREDO ROY #### [facility] ([id number]) [address] [place] [address] 43560 Protein [Mass/Vol] 5.4 g/dL Low 6.0-8.0 [facility] Comment on above: Performed By: #### C KIRILL CBCRiley #### [facility] ([id number]) [address] [place] [address] 31441 Sodium [Moles/Vol] 142 mmol/L Normal 134-146 [facility] Comment on above: Performed By: #### C LUIS ALFREDO ROY #### [facility] ([id number]) [address] [place] [address] [phone] Urea nitrogen [Mass/Vol] 36 mg/dL High 5-27 [facility] Comment on above: Performed By: #### C KIRILL CBCA #### [facility] ([id number]) [address] [place] [address] BRAIN WO CONTon 4 CT BRAIN WO CONT CT BRAIN WO CONT CLINICAL INFORMATION: Polytrauma, blunt TECHNIQUE: CT BRAIN WO CONT CT images of the brain were obtained. There are no prior exams available for comparison. 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 Right cerebral atrophy also noted. There is no acute hemorrhage. Osseous structures appear intact. Sinuses are clear. IMPRESSION: Cerebral atrophy and encephalomalacia. No acute findings. All CT scans at this facility use dose modulation, iterative reconstruction, and/or weight based dosing when appropriate to reduce radiation dose to as low as reasonably achievable. Finalized by Sid Craig MD on 07/13/2023 9:08 PM Normal [facility] XR KNEE RT 3 VWSon 4 XR KNEE RT 3 VWS XR KNEE RT 3 VWS CLINICAL INFORMATION: trauma TECHNIQUE: XR KNEE RT 3 VWS 3 views right knee were obtained. Tibial intramedullary chani in place. Osteophytic changes appreciated. There is no obvious acute fracture. No joint effusion. IMPRESSION: No acute findings. Finalized by Sid Craig MD on 07/13/2023 9:07 PM Normal [facility] CHEMISTRYOrdered By: SYSTEM SYSTEM on 06-17-2023 Troponin pg/mL Low 10.10 - 27.10 pg/mL [facility] Comment on above: Interpretive Data: T he 95% CI (Confidence Interval) PPV (Positive Predictive Value) for myocardial infarction in females is 38 pg/mL, in males 51 pg/mL. The results should be used in conjunction with clinical conditions of myocardial infarction. (Access High Sensitivity Troponin I Instructions For Use, Radhames Monique, January 2018) Albumin [Mass/Vol] 3.8 g/dL Normal 3.3 - 5.0 gm/dL [facility] Albumin/Globulin [Mass ratio] 1.5 {ratio} Normal 1.1 - 2.2 [facility] Alk Phos 53 [iU]/d Normal 21 - 98 Int._Unit/L [facility] ALT [iU]/d Low 6 - 46 Int._Unit/L [facility] Anion gap [Moles/Vol] 9 mmol/L Normal 6 - 16 mEq/L R emisol Chem AST 11 [iU]/d Normal 5 - 43 Int._Unit/L [facility] Bili Direct 0.1 mg/dL Normal 0.0 - 0.4 mg/dL [facility] Bili Indirect 0.2 mg/dL Normal 0.1 - 0.9 mg/dL [facility] Bili Total 0.3 mg/dL Normal 0.0 - 1.1 mg/dL [facility] Calcium [Mass/Vol] 9.4 mg/dL Normal 8.9 - 11. 1 mg/dL [facility] Chloride [Moles/Vol] 109 mmol/L Normal 101 - 1 11 mmol/L [facility] CO2 [Moles/Vol] 30 mmol/L Normal 21 - 31 mmol/L [facility] Creatinine [Mass/Vol] 0.6 mg/dL Normal 0.5 - 1.3 mg/dL [facility] eGFR mL/min/1.73 m2 Normal >=59mL/min/1 .73 m2 [facility] Globulin (S) [Mass/Vol] 2.5 g/dL Normal 1.4 - 4.0 gm/dL [facility] Glucose [Mass/Vol] 81 mg/dL Normal 55 - 199 mg/dL [facility] Lactic Acid Lvl 1.2 mmol/L Normal 0.5 - 2.2 mmol/L [facility] Lipase Lvl 27 unit/L Normal 13 - 58 unit/L [facility] Potassium [Moles/Vol] 4.1 mmol/L Normal 3.5 - 5.3 mmol/L [facility] Protein [Mass/Vol] 6.3 g/dL Normal 6.0 - 7.8 gm/dL [facility] Sodium [Moles/Vol] 144 mmol/L Normal 135 - 145 mmol/L [facility] Troponin pg/mL Low 10.10 - 27.10 pg/mL [facility] Comment on above: Interpretive Data: T he 95% CI (Confidence Interval) PPV (Positive Predictive Value) for myocardial infarction in females is 38 pg/mL, in males 51 pg/mL. The results should be used in conjunction with clinical conditions of myocardial infarction. (Access High Sensitivity Troponin I Instructions For Use, Radhames Monique, January 2018) Urea nitrogen [Mass/Vol] 24 mg/dL High 5 - 21 mg/dL [facility] Urea nitrogen/Creatinine [Mass ratio] 40 mg/mg High 10 - 20 [facility] HEMATOLOGYOrdered By: SYSTEM SYSTEM on 06-17-2023 Basophils/100 WBC (Bld) 1.2 % Normal 0.0 - 2.0 % [facility] Basophils/Leukocytes Auto (Bld) [Pure # fraction] 0.1 E9/L Normal 0.0 - 0.2 E9/L [facility] Eosinophils/100 WBC (Bld) 2.2 % Normal 0.0 - 8.0 % [facility] Eosinophils/Leukocyte s Auto (Bld) [Pure # fraction] 0.2 E9/L Normal 0.0 - 0.5 E9/L [facility] Lymphocytes/100 WBC (Bld) 40.6 % Normal 14.0 - 50.0 % [facility] Lymphocytes/Leukocyte s Auto (Bld) [Pure # fraction] 3.6 E9/L Normal 1.0 - 4.0 E9/L [facility] Monocytes/100 WBC (Bld) 12.7 % Normal 4.0 - 14.0 % [facility] Monocytes/Leukocytes Auto (Bld) [Pure # fraction] 1.1 E9/L High 0.2 - 1.0 E9/L [facility] Neutrophils/100 WBC (Bld) 43.3 % Normal 36.0 - 75.0 % [facility] Neutrophils/Leukocyte s Auto (Bld) [Pure # fraction] 3.9 E9/L Normal 2.0 - 7.5 E9/L [facility] HEMATOLOGYOrdered By: Saravanan Paulino on 06-17-2023 Erythrocyte distribution width (RBC) [Ratio] 13.8 % Normal 10.9 - 14.2 % [facility] Hematocrit (Bld) [Volume fraction] 37.9 % Normal 34.0 - 46.0 % [facility] Hemoglobin (Bld) [Mass/Vol] 12.4 g/dL Normal 12.0 - 16.0 gm/dL [facility] MCH (RBC) [Entitic mass] 29.0 pg Normal 27.0 - 34.0 pg [facility] MCHC (RBC) [Mass/Vol] 32.8 g/dL Normal 31.4 - 36.0 gm/dL [facility] MCV (RBC) [Entitic vol] 88.5 fL Normal 80.0 - 100.0 fL [facility] Platelet mean volume (Bld) [Entitic vol] 11.1 fL High 6.4 - 10.8 fL [facility] Platelets (Bld) [#/Vol] 159.0 E9/L Normal 150.0 - 500.0 E9/L [facility] RBC (Bld) [#/Vol] 4.3 E12/L Normal 4.3 - 5.9 E12/L [facility] WBC corrected for nucl RBC Auto (Bld) [#/Vol] 8.9 E9/L Normal 4.0 - 11.0 E9/L [facility] URINALYSISOrdered By: Kan Ceja on 06-17-2023 Bacteria LM Ql (Urine sed) Trace /HPF Normal Trace/HPF [facility] UA Auto SS Bilirubin Ql (U) Negative (06/17/23 8:50 PM) Normal Negative [facility]A Auto SS Clarity (U) SL CLOUDY Invalid Interpretation Code [facility]A Auto SS Color (U) Yellow (06/17/23 8:50 PM) Normal Yellow [facility] Auto SS Epithelial cells.squamous LM.HPF (Urine sed) [#/Area] 3-4 /HPF Normal 0-2/HPF [facility] UA Aut o SS Glucose Test strip (U) [Mass/Vol] Negative (06/17/23 8:50 PM) Normal Negative [facility]A Auto SS Hemoglobin Ql (U) 1+ *ABN* (06/17/23 8:50 PM) Invalid Interpretation Code Negative [facility]A Auto SS Ketones (U) [Mass/Vol] Negative (06/17/23 8:50 PM) Normal Negative [facility]A Auto SS Green.plasma/Lithiu m.RBC (Bld) [Mass ratio] 0-3 /HPF Normal 0-3/HPF [facility] Auto SS Nitrite Ql (U) Negative (06/17/23 8:50 PM) Normal Negative [facility] Auto SS pH (U) 5.5 *NA* (06/17/23 8:50 PM) Invalid Interpretation Code 5.0 - 9.0 [facility]A Auto SS Protein (U) [Mass/Vol] Trace *ABN* (06/17/23 8:50 PM) Invalid Interpretation Code Negative [facility] UA Auto SS Specific gravity (U) [Rel density] >=1.030 *NA* (06/17/23 8:50 PM) Invalid Interpretation Code 1.005 - 1.030 [facility] UA Auto SS UA Spec Desc Clean Catch (06/17/23 8:50 PM) Normal [facility] UA Auto SS Urobilinogen Qn (U) [id number] {Iglesia'U}/dL Normal 0.0 - 1.0 EU/dL [facility] UA Auto SS WBC Auto Ql (U) 2+ *ABN* (06/17/23 8:50 PM) Invalid Interpretation Code Negative [facility] UA Auto SS WBC LM.HPF (Urine sed) [#/Area] 16-25 /HPF Invalid Interpretation Code 0-5/HPF [facility] UA Auto SS CHEMISTRYOrdered By: SYSTEM SYSTEM on 05-03-2023 Albumin [Mass/Vol] 4.1 g/dL Normal 3.3 - 5.0 gm/dL [facility] Albumin/Globulin [Mass ratio] 1.1 {ratio} Normal 1.1 - 2.2 [facility] ALP [Catalytic activity/Vol] 63 [iU]/d Normal 21 - 98 Int._Unit/L [facility] ALT No additional P-5'-P [Catalytic activity/Vol] 10 [iU]/d Normal 6 - 46 Int._Unit/L [facility] Anion gap [Moles/Vol] 11 mmol/L Normal 6 - 16 mEq/L F [facility] AST [Catalytic activity/Vol] 17 [iU]/d Normal 5 - 43 Int._Unit/L [facility] Bilirubin [Mass/Vol] 0.4 mg/dL Normal 0.0 - 1 .1 mg/dL [facility] Bilirubin.direct [Mass/Vol] 0.1 mg/dL Normal 0.1 - 0.4 mg/dL [facility] Bilirubin.indirect [Mass or moles/Vol] 0.3 mg/dL Normal 0.1 - 0.9 mg/dL [facility] Calcium [Mass/Vol] 9.9 mg/dL Normal 8.9 - 11. 1 mg/dL [facility] Chloride [Moles/Vol] 107 mmol/L Normal 101 - 1 11 mmol/L [facility] CO2 [Moles/Vol] 27 mmol/L Normal 21 - 31 mmol/L [facility] Creatinine [Mass/Vol] 0.8 mg/dL Normal 0.5 - 1.3 mg/dL [facility] GFR/1.73 sq M.predicted among non-blacks MDRD (S/P/Bld) [Vol rate/Area] 81 mL/min/1.73 m2 Normal >=59mL/min/1 .73 m2 [facility] Chem S Comment on above: Interpretive Data: C hronic kidney disease could be indicated at eGFR's of less than 60 mL/min/1.73m2. Kidney failure is indicated at less than 15 mL/min/1.73m2. Globulin (S) [Mass/Vol] 3.6 g/dL Normal 1.4 - 4.0 gm/dL [facility] Glucose [Mass/Vol] 94 mg/dL Normal 55 - 199 mg/dL [facility] Comment on above: Interpretive Data: I f this glucose result represents a fasting glucose, interpretation should refer to the following reference range: 55-99 mg/dL Potassium [Moles/Vol] 4.3 mmol/L Normal 3.5 - 5.3 mmol/L [facility] Protein [Mass/Vol] 7.7 g/dL Normal 6.0 - 7.8 gm/dL [facility] Sodium [Moles/Vol] 141 mmol/L Normal 135 - 145 mmol/L [facility] Troponin I.cardiac [Mass/Vol] 3.20 pg/mL Low 10.10 - 27.10 pg/mL [facility] Comment on above: Interpretive Data: T he 95% CI (Confidence Interval) PPV (Positive Predictive Value) for myocardial infarction in females is 38 pg/mL, in males 51 pg/mL. The results should be used in conjunction with clinical conditions of myocardial infarction. (Access High Sensitivity Troponin I Instructions For Use, Radhames Monique, January 2018) Urea nitrogen [Mass/Vol] 30 mg/dL High 5 - 21 mg/dL [facility] Urea nitrogen/Creatinine [Mass ratio] 38 mg/mg High 10 - 20 [facility] COAGULATIONOrdered By: Saji Barbosa on 05-03-2023 aPTT Coag (PPP) [Time] 27.8 s Normal 25.1 - 36.5 second(s) [facility] Auto Coag Comment on above: Interpretive Data: P arameter 15 days - 4 weeks 1 - 5 months 6 - 11 months 1 - 5 years 6 - 10 years 11 - 17 years PTT Mean: 35.4 (27.6-45.6) Mean: 33.5 (24.8-40.7) Mean: 32.4 (25.1-40.7) Mean: 31.6 (24.0-39.2) Mean: 31.6 (26.9-38.7) Mean: 31.0 (24.6-38.4) Pediatric Reference ranges were obtained from a study by prem Martines alPhan prepared from 1437 samples obtained at 7 different centers using the same coagulation reagent and instrumentation as [facility]. Currently there are no coagulation studies available worldwide for children to 14 days, and no normal ranges. Heparin therapeutic range (represented by Anti-Factor Xa activity of 0.2 - 0.4 U/mL) corresponds to PTT of 56.6 - 109.0 sec. INR Coag (PPP) [Relative time] 1.2 {INR} Invalid Interpretation Code [facility] Auto Coag Comment on above: Interpretive Data: I NR results are specifically intended to assess patients stabilized on long-term Anticoagulation therapy suggested INR s Less Intensive Anticoagulation 2.0 3.0 Conventional Range 3.0 4.5 PT Coag (PPP) [Time] 12.9 s High 9.4 - 1 2.5 second(s) [facility] Auto Coag Comment on above: Interpretive Data: 1 5 days - 4 weeks 1 - 5 months 6 -11 months 1-5 years 6-10 years 11 -17 years Mean: 11.2 (9.5-12.6) Mean: 11.0 (9.7-12.8) Mean: 11.0 (9.8-13.0) Mean: 11.3 (9.9-13.4) Mean: 11.7 (10.0-14.6) Mean: 11.8 (10.0 - 14.1) Pediatric Reference ranges were obtained from a study by prem Martines alPhan prepared from 1437 samples obtained at 7 different centers using the same coagulation reagent and instrumentation as [facility]. Currently there are no coagulation studies available worldwide for children to 14 days, and no normal ranges. HEMATOLOGYOrdered By: SYSTEM SYSTEM on 05-03-2023 Basophils/100 WBC (Bld) 1.0 % Normal 0.0 - 2.0 % [facility] Basophils/Leukocytes Auto (Bld) [Pure # fraction] 0.1 E9/L Normal 0.0 - 0.2 E9/L [facility] Eosinophils/100 WBC (Bld) 1.6 % Normal 0.0 - 8.0 % [facility] Eosinophils/Leukocyte s Auto (Bld) [Pure # fraction] 0.1 E9/L Normal 0.0 - 0.5 E9/L [facility] Lymphocytes/100 WBC (Bld) 34.5 % Normal 14.0 - 50.0 % [facility] Lymphocytes/Leukocyte s Auto (Bld) [Pure # fraction] 3.0 E9/L Normal 1.0 - 4.0 E9/L [facility] Monocytes/100 WBC (Bld) 10.3 % Normal 4.0 - 14.0 % [facility] Monocytes/Leukocytes Auto (Bld) [Pure # fraction] 0.9 E9/L Normal 0.2 - 1.0 E9/L [facility] Neutrophils/100 WBC (Bld) 52.6 % Normal 36.0 - 75.0 % [facility] Neutrophils/Leukocyte s Auto (Bld) [Pure # fraction] 4.7 E9/L Normal 2.0 - 7.5 E9/L [facility] HEMATOLOGYOrdered By: Breanna De Leon on 05-03-2023 Erythrocyte distribution width (RBC) [Ratio] 13.8 % Normal 10.9 - 14.2 % [facility] Hematocrit (Bld) [Volume fraction] 40.0 % Normal 34.0 - 46.0 % [facility] Hemoglobin (Bld) [Mass/Vol] 13.1 g/dL Normal 12.0 - 16.0 gm/dL [facility] MCH (RBC) [Entitic mass] 29.6 pg Normal 27.0 - 34.0 pg [facility] MCHC (RBC) [Mass/Vol] 32.9 g/dL Normal 31.4 - 36.0 gm/dL [facility] MCV (RBC) [Entitic vol] 90.0 fL Normal 80.0 - 100.0 fL [facility] Platelet mean volume (Bld) [Entitic vol] 10.7 fL Normal 6.4 - 10.8 fL [facility] Platelets (Bld) [#/Vol] 169.0 E9/L Normal 150.0 - 500.0 E9/L [facility] RBC (Bld) [#/Vol] 4.4 E12/L Normal 4.3 - 5.9 E12/L [facility] WBC corrected for nucl RBC Auto (Bld) [#/Vol] 8.8 E9/L Normal 4.0 - 11.0 E9/L [facility] URINALYSISOrdered By: Domingo Barbosa on 05-03-2023 Bacteria LM Ql (Urine sed) 3+ /HPF Invalid Interpretation Code Trace/HPF [facility] Auto SS Bilirubin Ql (U) 1+ *ABN* (05/03/23 3:34 PM) Invalid Interpretation Code Negative [facility] Auto SS Clarity (U) SL CLOUDY Invalid Interpretation Code [facility] Auto SS Color (U) Yellow (05/03/23 3:34 PM) Normal Yellow [facility]A Auto SS Epithelial cells.squamous LM.HPF (Urine sed) [#/Area] 0-2 /HPF Normal 0-2/HPF [facility] UA Aut o SS Glucose Test strip (U) [Mass/Vol] Negative (05/03/23 3:34 PM) Normal Negative [facility] Auto SS Hemoglobin Ql (U) 3+ *ABN* (05/03/23 3:34 PM) Invalid Interpretation Code Negative [facility] Auto SS Ketones (U) [Mass/Vol] Trace *NA* (05/03/23 3:34 PM) Invalid Interpretation Code Negative [facility]A Auto SS Green.plasma/Lithiu m.RBC (Bld) [Mass ratio] 21-30 /HPF Invalid Interpretation Code 0-3/HPF [facility] Auto SS Mucus Ql (Urine sed) 2+ (05/03/23 3:34 PM) Normal [facility] Auto SS Nitrite Ql (U) Negative (05/03/23 3:34 PM) Normal Negative [facility] Auto SS pH (U) 5.5 *NA* (05/03/23 3:34 PM) Invalid Interpretation Code 5.0 - 9.0 [facility] Auto SS Protein (U) [Mass/Vol] 2+ *ABN* (05/03/23 3:34 PM) Invalid Interpretation Code Negative [facility] UA Auto SS Specific gravity (U) [Rel density] >=1.030 *NA* (05/03/23 3:34 PM) Invalid Interpretation Code 1.005 - 1.030 [facility]A Auto SS UA Spec Desc Catheter (05/03/23 3:34 PM) Normal [facility]A Auto SS Urobilinogen Qn (U) 1.2004271 {Iglesia'U}/dL Normal 0.0 - 1.0 EU/dL [facility]A Auto SS WBC Auto Ql (U) 1+ *ABN* (05/03/23 3:34 PM) Invalid Interpretation Code Negative [facility]A Auto SS WBC LM.HPF (Urine sed) [#/Area] /[HPF] Invalid Interpretation Code 0-5/HPF [facility] Auto SS Yeast LM Ql (Urine sed) 1+ (05/03/23 3:34 PM) Normal [facility]A Auto SS CEFEPIME:SUSC:PT:ISOLATE:ORD QN:MICOrdered By: Akiko Clarke on 04-10-2023 Cefepime MARLA [Susc] 50,000 cfu/ml Proteus mirabilis [facility] CHEMISTRYOrdered By: Meg Elliott on 04-10-2023 Troponin I.cardiac [Mass/Vol] 2.90 pg/mL Low 10.10 - 27.10 pg/mL [facility] Remisol Comment on above: Interpretive Data: T he 95% CI (Confidence Interval) PPV (Positive Predictive Value) for myocardial infarction in females is 38 pg/mL, in males 51 pg/mL. The results should be used in conjunction with clinical conditions of myocardial infarction. (Access High Sensitivity Troponin I Instructions For Use, Radhames Chittenango, January 2018) CHEMISTRYOrdered By: SYSTEM SYSTEM on 04-10-2023 Albumin [Mass/Vol] 3.8 g/dL Normal 3.3 - 5.0 gm/dL [facility] Remisol Albumin/Globulin [Mass ratio] 1.2 {ratio} Normal 1.1 - 2.2 [facility] Remisol ALP [Catalytic activity/Vol] 67 [iU]/d Normal 21 - 98 Int._Unit/L [facility] Remisol ALT No additional P-5'-P [Catalytic activity/Vol] 6 [iU]/d Normal 6 - 46 Int._Unit/L [facility] Remisol Anion gap [Moles/Vol] 6 mmol/L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 % Sukh KAPLE [facility] 05-18-2023 10:21-0500 Systolic blood pressure 122 mm[Hg] Sukh KAPLE [facility] 05-03-2023 16:15-0500 Diastolic blood pressure 70 mm[Hg] Tacho Mitch [facility] 05-03-2023 16:15-0500 Heart rate 79 /min Tacho Mitch [facility] 05-03-2023 16:15-0500 Mean blood pressure 95 mm[Hg] Tacho Mitch [facility] 05-03-2023 16:15-0500 Respiratory rate 18 /min Tacho Mitch [facility] 05-03-2023 16:15-0500 SaO2% (BldA) [Mass fraction] 98 % Tacho Mitch [facility] 05-03-2023 16:15-0500 Systolic blood pressure 145 mm[Hg] Tacho Mitch [facility] 05-03-2023 15:15-0500 Diastolic blood pressure 75 mm[Hg] Tacho Mitch [facility] 05-03-2023 15:15-0500 Heart rate 80 /min Tacoh Mitch [facility] 05-03-2023 15:15-0500 Hourly Rounding Tacho Mitch [facility] 05-03-2023 15:15-0500 Mean blood pressure 96 mm[Hg] Tacho Mitch [facility] 05-03-2023 15:15-0500 Promise to Return Tacho Mitch [facility] 05-03-2023 15:15-0500 Respiratory rate 18 /min Tacho Mitch [facility] 05-03-2023 15:15-0500 SaO2% (BldA) [Mass fraction] 98 % Tacho Mitch [facility] 05-03-2023 15:15-0500 Systolic blood pressure 138 mm[Hg] Tacho Mitch [facility] 05-03-2023 14:15-0500 Diastolic blood pressure 73 mm[Hg] Tacho Mitch [facility] 05-03-2023 14:15-0500 Heart rate 83 /min Tacho Mitch [facility] 05-03-2023 14:15-0500 Hourly Rounding Tacho Mitch [facility] 05-03-2023 14:15-0500 Mean blood pressure 97 mm[Hg] Tacho Mitch [facility] 05-03-2023 14:15-0500 Promise to Return Tacho Mitch [facility] 05-03-2023 14:15-0500 Respiratory rate 18 /min Tacho Meyer [facility] 05-03-2023 14:15-0500 SaO2% (BldA) [Mass fraction] 96 % Tacho Meyer [facility] 05-03-2023 14:15-0500 Systolic blood pressure 145 mm[Hg] Tacho Meyer [facility] 05-03-2023 13:15-0500 Body temperature 98.96 [degF] Tacho Meyer [facility] 05-03-2023 13:15-0500 Heart rate 72 /min Tacho Meyer [facility] 04-23-2023 13:39-0500 Blood Pressure Location Sukh KAPLE [facility] 04-23-2023 13:39-0500 Body temperature 98.96 [degF] Sukh KAPLE [facility] 04-23-2023 13:39-0500 Diastolic blood pressure 64 mm[Hg] Sukh KAPLE [facility] 04-23-2023 13:39-0500 Heart rate 87 /min Sukh KAPLE [facility] 04-23-2023 13:39-0500 Respiratory rate 16 /min Sukh KAPLE [facility] 04-23-2023 13:39-0500 SaO2% (BldA) [Mass fraction] 95 % Sukh KAPLE [facility] 04-23-2023 13:39-0500 Systolic blood pressure 122 mm[Hg] Sukh KAPLE [facility] 04-23-2023 13:04-0500 Blood Pressure Location Sukh KAPLE [facility] 04-23-2023 13:04-0500 Body temperature 98.96 [degF] Sukh KAPLE [facility] 04-23-2023 13:04-0500 Diastolic blood pressure 64 mm[Hg] Sukh KAPLE [facility] 04-23-2023 13:04-0500 Heart rate 87 /min Sukh KAPLE [facility] 04-23-2023 13:04-0500 Systolic blood pressure 122 mm[Hg] Sukh KAPLE [facility] 04-13-2023 11:33-0400 Heart rate 83 /min [facility] 04-13-2023 11:33-0400 SaO2% (BldA) [Mass fraction] 95 % [facility] 04-13-2023 11:32-0400 Body temperature 97.7 [degF] [facility] 04-13-2023 11:32-0400 Diastolic blood pressure 74 mm[Hg] [facility] 04-13-2023 11:32-0400 Mean blood pressure 93 mm[Hg] [facility] 04-13-2023 11:32-0400 Systolic blood pressure 131 mm[Hg] [facility] 04-13-2023 10:00-0400 Hourly Rounding [facility] 04-13-2023 10:00-0400 Promise to Return [facility] 04-13-2023 09:00-0400 Hourly Rounding [facility] 04-13-2023 09:00-0400 Promise to Return [facility] 04-13-2023 08:00-0400 Promise to Return [facility] 04-13-2023 07:58-0400 Heart rate 76 /min [facility] 04-13-2023 07:58-0400 SaO2% (BldA) [Mass fraction] 94 % [facility] 04-13-2023 07:57-0400 Body temperature 98.06 [degF] [facility] 04-13-2023 07:57-0400 Diastolic blood pressure 69 mm[Hg] [facility] 04-13-2023 07:57-0400 Mean blood pressure 80 mm[Hg] [facility] 04-13-2023 07:57-0400 Systolic blood pressure 104 mm[Hg] [facility] 04-13-2023 01:00-0400 Body temperature 98.24 [degF] [facility] 04-13-2023 01:00-0400 Diastolic blood pressure 78 mm[Hg] [facility] 04-13-2023 01:00-0400 Heart rate 72 /min [facility] 04-13-2023 01:00-0400 SaO2% (BldA) [Mass fraction] 95 % [facility] 04-13-2023 01:00-0400 Systolic blood pressure 132 mm[Hg] [facility] 04-12-2023 21:15-0400 Blood Pressure Location [facility] 04-12-2023 21:15-0400 Body temperature 97.88 [degF] [facility] 04-12-2023 21:15-0400 Respiratory rate 16 /min [facility] 04-12-2023 16:43-0400 Mean blood pressure 85 mm[Hg] [facility] 04-12-2023 16:43-0400 Body temperature 97.88 [degF] [facility] 04-12-2023 08:00-0400 Body temperature 98.6 [degF] [facility] 04-12-2023 08:00-0400 Heart rate 74 /min [facility] 04-12-2023 08:00-0400 Mean blood pressure 89 mm[Hg] [facility] 04-11-2023 20:15-0400 Mean blood pressure 93 mm[Hg] [facility] 04-11-2023 06:00-0400 Mean blood pressure 101 mm[Hg] [facility] 04-10-2023 17:15-0400 Heart rate 84 /min [facility] 03-27-2023 12:47-0400 Blood Pressure Location Sukh KAPLE [facility] 03-27-2023 12:47-0400 Body temperature 98.42 [degF] Sukh KAPLE [facility] 03-27-2023 12:47-0400 Diastolic blood pressure 70 mm[Hg] Sukh KAPLE [facility] 03-27-2023 12:47-0400 Heart rate 61 /min Sukh KAPLE [facility] 03-27-2023 12:47-0400 Respiratory rate 16 /min Sukh KAPLE [facility] 03-27-2023 12:47-0400 SaO2% (BldA) [Mass fraction] 95 % Sukh KAPLE [facility] 03-27-2023 12:47-0400 Systolic blood pressure 120 mm[Hg] Sukh KAPLE [facility] 03-18-2023 11:12-0400 Body temperature 98.42 [degF] [facility] 03-18-2023 11:12-0400 Diastolic blood pressure 73 mm[Hg] [facility] 03-18-2023 11:12-0400 Heart rate 63 /min [facility] 03-18-2023 11:12-0400 Respiratory rate 16 /min [facility] 03-18-2023 11:12-0400 SaO2% (BldA) [Mass fraction] 99 % [facility] 03-18-2023 11:12-0400 Systolic blood pressure 114 mm[Hg] [facility] 02-15-2023 11:00-0400 Hourly Rounding Hasan AMIR [facility] 02-15-2023 11:00-0400 Promise to Return Hasan AMIR [facility] 02-15-2023 10:50-0400 Heart rate 78 /min Hasan AMIR [facility] 02-15-2023 10:50-0400 SaO2% (BldA) [Mass fraction] 93 % Hasan AMIR [facility] 02-15-2023 10:50-0400 Diastolic blood pressure 55 mm[Hg] Hasan AMIR [facility] 02-15-2023 10:50-0400 Mean blood pressure 82 mm[Hg] Hasan AMIR [facility] 02-15-2023 10:50-0400 Systolic blood pressure 135 mm[Hg] Hasan AMIR [facility] 02-15-2023 10:49-0400 Body temperature 98.42 [degF] Hasan AMIR [facility] 02-15-2023 10:00-0400 Hourly Rounding Hasan AMIR [facility] 02-15-2023 10:00-0400 Promise to Return Hasan AMIR [facility] 02-15-2023 09:45-0400 Hourly Rounding Hasan AMIR [facility] 02-15-2023 09:45-0400 Promise to Return Hasan AMIR [facility] 02-15-2023 07:41-0400 Heart rate 62 /min Hasan AMIR [facility] 02-15-2023 07:41-0400 SaO2% (BldA) [Mass fraction] 97 % Hasan AMIR [facility] 02-15-2023 07:40-0400 Diastolic blood pressure 66 mm[Hg] Hasan AMIR [facility] 02-15-2023 07:40-0400 Mean blood pressure 93 mm[Hg] Hasan AMIR [facility] 02-15-2023 07:40-0400 Systolic blood pressure 147 mm[Hg] Hasan AMIR [facility] 02-15-2023 07:40-0400 Body temperature 98.24 [degF] Hasan AMIR [facility] 02-15-2023 07:00-0400 Respiratory rate 18 /min Hasan AMIR [facility] 02-15-2023 00:02-0400 Blood Pressure Location Hasan AMIR [facility] 02-15-2023 00:02-0400 Body temperature 98.78 [degF] Hasan AMIR [facility] 02-15-2023 00:02-0400 Diastolic blood pressure 79 mm[Hg] Hasan AMIR [facility] 02-15-2023 00:02-0400 Heart rate 90 /min Hasan AMIR [facility] 02-15-2023 00:02-0400 SaO2% (BldA) [Mass fraction] 93 % Hasan AMIR [facility] 02-15-2023 00:02-0400 Systolic blood pressure 127 mm[Hg] Hasan AMIR [facility] 02-14-2023 19:30-0400 Body temperature 97.7 [degF] Hasan AMIR [facility] 02-14-2023 19:30-0400 Mean blood pressure 97 mm[Hg] Hasan AMIR [facility] 02-14-2023 16:00-0400 Respiratory rate 17 /min Hasan AMIR [facility] 02-14-2023 11:40-0400 Respiratory rate 18 /min Hasan AMIR [facility] 02-13-2023 00:45-0400 Blood Pressure Location Hasan AMIR [facility] 02-13-2023 00:45-0400 Body temperature 98.24 [degF] Hasan AMIR [facility] 02-13-2023 00:45-0400 Mean blood pressure 81 mm[Hg] Hasan AMIR [facility] 02-11-2023 16:00-0400 Body temperature 98.06 [degF] Hasan AMIR [facility] 02-11-2023 13:25-0400 Heart rate 67 /min Hasan AMIR [facility] 02-11-2023 12:29-0400 Mean blood pressure 81 mm[Hg] Hasan AMIR [facility] 02-11-2023 11:30-0400 Mean blood pressure 81 mm[Hg] Hasan AMIR [facility] 02-11-2023 07:10-0400 Heart rate 68 /min Hasan AMIR [facility] 02-03-2023 13:28-0400 Blood Pressure Location Sukh KAPLE [facility] 02-03-2023 13:28-0400 Body temperature 97.7 [degF] Sukh KAPLE [facility] 02-03-2023 13:28-0400 Diastolic blood pressure 78 mm[Hg] Sukh KAPLE [facility] 02-03-2023 13:28-0400 Heart rate 79 /min Sukh KAPLE [facility] 02-03-2023 13:28-0400 Respiratory rate 18 /min Sukh KAPLE [facility] 02-03-2023 13:28-0400 SaO2% (BldA) [Mass fraction] 98 % Sukh KAPLE [facility] 02-03-2023 13:28-0400 Systolic blood pressure 128 mm[Hg] Sukh KAPLE [facility] 01-15-2023 12:59-0400 Blood Pressure Location Marta Joaquin [facility] 01-15-2023 12:59-0400 Diastolic blood pressure 76 mm[Hg] Marta Joaquin [facility] 01-15-2023 12:59-0400 Heart rate 84 /min Marta Joaquin [facility] 01-15-2023 12:59-0400 Respiratory rate 18 /min Marta Joaquin [facility] 01-15-2023 12:59-0400 SaO2% (BldA) [Mass fraction] 94 % Marta Joaquin [facility] 01-15-2023 12:59-0400 Systolic blood pressure 118 mm[Hg] Marta Joaquin [facility] 09-02-2022 10:58-0400 Blood Pressure Location Sukh KAPLE [facility] 09-02-2022 10:58-0400 Body temperature 97.7 [degF] Sukh KAPLE [facility] 09-02-2022 10:58-0400 Diastolic blood pressure 72 mm[Hg] Sukh KAPLE [facility] 09-02-2022 10:58-0400 Heart rate 82 /min Sukh KAPLE [facility] 09-02-2022 10:58-0400 Respiratory rate 18 /min Sukh KAPLE [facility] 09-02-2022 10:58-0400 SaO2% (BldA) [Mass fraction] 97 % Sukh KAPLE [facility] 09-02-2022 10:58-0400 Systolic blood pressure 124 mm[Hg] Sukh KAPLE [facility] 06-25-2022 13:10-0500 Body height 167.6 cm Wilberto Sosa MD Work Phone: [facility] 06-25-2022 13:10-0500 Diastolic blood pressure 64 mm[Hg] Wilberto Sosa MD Work Phone: [facility] 06-25-2022 13:10-0500 Heart rate 85 /min Wilberto Sosa MD Work Phone: [facility] 06-25-2022 13:10-0500 Respiratory rate 15 /min Wilberto Sosa MD Work Phone: [facility] 06-25-2022 13:10-0500 SaO2% (BldA) [Mass fraction] 95 % Wilberto Sosa MD Work Phone: [facility] 06-25-2022 13:10-0500 Systolic blood pressure 117 mm[Hg] Wilberto Sosa MD Work Phone: [facility] 05-15-2022 12:49-0500 Body height 167.6 cm Con Jean Baptiste MD Work Phone: [facility] 05-15-2022 12:49-0500 Diastolic blood pressure 66 mm[Hg] Con Jean Baptiste MD Work Phone: [facility] 05-15-2022 12:49-0500 Heart rate 80 /min Con Jean Baptiste MD Work Phone: [facility] 05-15-2022 12:49-0500 Respiratory rate 18 /min Con Jean Baptiste MD Work Phone: [facility] 05-15-2022 12:49-0500 SaO2% (BldA) [Mass fraction] 96 % Con Jean Baptiste MD Work Phone: [facility] 05-15-2022 12:49-0500 Systolic blood pressure 130 mm[Hg] Con Jean Baptiste MD Work Phone: [facility] 04-08-2022 14:22-0400 Blood Pressure Location Sukh JOHN [facility] 04-08-2022 14:22-0400 Body temperature 98.24 [degF] Sukh KAPLE [facility] 04-08-2022 14:22-0400 Diastolic blood pressure 72 mm[Hg] Sukh KAPLE [facility] 04-08-2022 14:22-0400 Heart rate 82 /min Sukh KAPLE [facility] 04-08-2022 14:22-0400 Respiratory rate 18 /min Sukh KAPLE [facility] 04-08-2022 14:22-0400 SaO2% (BldA) [Mass fraction] 95 % Sukh KAPLE [facility] 04-08-2022 14:22-0400 Systolic blood pressure 128 mm[Hg] Sukh KAPLE [facility] 03-31-2022 15:42-0400 Body temperature 98.24 [degF] [facility] 03-31-2022 15:42-0400 Diastolic blood pressure 85 mm[Hg] [facility] 03-31-2022 15:42-0400 Heart rate 73 /min [facility] 03-31-2022 15:42-0400 Respiratory rate 18 /min [facility] 03-31-2022 15:42-0400 SaO2% (BldA) [Mass fraction] 97 % [facility] 03-31-2022 15:42-0400 Systolic blood pressure 133 mm[Hg] [facility] 10-29-2021 13:30-0400 Body temperature 98.6 [degF] Sukh KAPLE [facility] 10-29-2021 13:30-0400 Diastolic blood pressure 64 mm[Hg] Sukh KAPLE [facility] 10-29-2021 13:30-0400 Heart rate 83 /min Sukh KAPLE [facility] 10-29-2021 13:30-0400 Respiratory rate 18 /min Sukh KAPLE [facility] 10-29-2021 13:30-0400 SaO2% (BldA) [Mass fraction] 95 % Sukh KAPLE [facility] 10-29-2021 13:30-0400 Systolic blood pressure 118 mm[Hg] Sukh KAPLE [facility] 10-17-2021 12:08-0400 Blood Pressure Location Ronobir RED [facility] 10-17-2021 12:08-0400 Body temperature 99.5 [degF] Ronobir RED [facility] 10-17-2021 12:08-0400 BP/Pulse Patient Position Ronobir RED [facility] 10-17-2021 12:08-0400 Diastolic blood pressure 77 mm[Hg] Ronobir RED [facility] 10-17-2021 12:08-0400 Heart rate 89 /min Ronobir RED [facility] 10-17-2021 12:08-0400 Mean blood pressure 98 mm[Hg] Ronobir RED [facility] 10-17-2021 12:08-0400 Respiratory rate 18 /min Ronobir RED [facility] 10-17-2021 12:08-0400 SaO2% (BldA) [Mass fraction] 95 % Ronobir RED [facility] 10-17-2021 12:08-0400 Systolic blood pressure 139 mm[Hg] Ronobir RED [facility] 10-17-2021 10:00-0400 Hourly Rounding Ronobir RED [facility] 10-17-2021 10:00-0400 Promise to Return Ronobir RED [facility] 10-17-2021 08:10-0400 Blood Pressure Location Ronobir RED [facility] 10-17-2021 08:10-0400 Body temperature 99.14 [degF] Ronobir RED [facility] 10-17-2021 08:10-0400 BP/Pulse Patient Position Ronobir RED [facility] 10-17-2021 08:10-0400 Diastolic blood pressure 78 mm[Hg] Ronobir RED [facility] 10-17-2021 08:10-0400 Heart rate 80 /min Ronobir RED [facility] 10-17-2021 08:10-0400 Mean blood pressure 94 mm[Hg] Ronobir RED [facility] 10-17-2021 08:10-0400 Respiratory rate 16 /min Ronobir RED [facility] 10-17-2021 08:10-0400 SaO2% (BldA) [Mass fraction] 93 % Ronobir RED [facility] 10-17-2021 08:10-0400 Systolic blood pressure 128 mm[Hg] Ronobir RED [facility] 10-17-2021 00:15-0400 Blood Pressure Location Ronobir RED [facility] 10-17-2021 00:15-0400 Body temperature 98.96 [degF] Ronobir RED [facility] 10-17-2021 00:15-0400 BP/Pulse Patient Position Ronobir RED [facility] 10-17-2021 00:15-0400 Diastolic blood pressure 71 mm[Hg] Ronobir RED [facility] 10-17-2021 00:15-0400 Heart rate 91 /min Ronobir RED [facility] 10-17-2021 00:15-0400 Mean blood pressure 88 mm[Hg] Ronobir RED [facility] 10-17-2021 00:15-0400 Respiratory rate 18 /min Ronobir RED [facility] 10-17-2021 00:15-0400 SaO2% (BldA) [Mass fraction] 94 % Ronobir RED [facility] 10-17-2021 00:15-0400 Systolic blood pressure 123 mm[Hg] Ronobir RED [facility] 10-16-2021 19:48-0400 Body temperature 98.6 [degF] Ronobir RED [facility] 10-16-2021 19:48-0400 Mean blood pressure 105 mm[Hg] Ronobir RED [facility] 10-16-2021 01:34-0400 Mean blood pressure 91 mm[Hg] Ronobir RED [facility] 10-15-2021 17:00-0400 Mean blood pressure 92 mm[Hg] Ronobir RED [facility] 10-14-2021 22:34-0400 Heart rate 73 /min Ronobir RED [facility] 10-14-2021 20:00-0400 Respiratory rate 22 /min Ronobir RED [facility] 10-14-2021 19:00-0400 Respiratory rate 17 /min Ronobir RED [facility] 10-14-2021 16:58-0400 Heart rate 84 /min Ronobir RED [facility] 10-14-2021 15:26-0400 Blood Pressure Location Sukh KAPLE [facility] 10-14-2021 15:26-0400 Body temperature 98.24 [degF] Sukh KAPLE [facility] 10-14-2021 15:26-0400 Diastolic blood pressure 62 mm[Hg] Sukh KAPLE [facility] 10-14-2021 15:26-0400 Heart rate 84 /min Sukh KAPLE [facility] 10-14-2021 15:26-0400 Respiratory rate 16 /min Sukh KAPLE [facility] 10-14-2021 15:26-0400 SaO2% (BldA) [Mass fraction] 96 % Sukh BILLYADELAIDE [facility] 10-14-2021 15:26-0400 Systolic blood pressure 112 mm[Hg] Sukh JOHN [facility] Encounters Encounter Date Encounter Type Care Provider Facility Start: 12-15-2024 ambulatory Guillermo Telles [facility]vonda:[facility] Start: 11-15-2024 End: 11-15-2024 ambulatory [facility] Start: 11-04-2024 End: 11-06-2024 Subsequent hospital visit by physician [facility] Ultrasound Room [facility] Ultrasound Comment on above: Abnormal mammogram Start: 11-04-2024 End: 11-06-2024 ambulatory [facility] Start: 10-19-2024 End: 10-21-2024 ambulatory [facility] Start: 10-19-2024 End: 10-21-2024 Subsequent hospital visit by physician [facility] Mammography Room [facility] Mammography Comment on above: Encounter for screen ing mammogram for malignant neoplasm of breast Start: 09-28-2024 End: [facility]28[facility] 09-01-[facility]24 End: 09-01-2024 ambulatory [facility] Start: 09-01-2024 End: 09-01-2024 Subsequent hospital visit by physician Sukh John DO Work Phone: [facility] Start: 07-30-2024 End: 07-30-2024 Emergency department patient visit [facility] Start: 07-29-2024 End: 07-30-2024 Emergency department patient visit [facility] Start: 05-09-2024 End: 05-09-2024 ambulatory [facility] Start: 05-09-2024 End: 05-09-2024 Subsequent hospital visit by physician Sukh John DO Work Phone: [facility] Start: 05-04-2024 End: 05-04-2024 ambulatory [facility] Start: 05-04-2024 End: 05-04-2024 Subsequent hospital visit by physician Sukh John DO Work Phone: [facility] Start: 05-02-2024 ambulatory Sukh JOHN Facility: [facility] Start: 04-14-2024 End: 04-14-2024 ambulatory [facility] Start: 04-14-2024 End: 04-14-2024 Subsequent hospital visit by physician Sukh Mederos Phone: [facility] Start: 03-22-2024 End: 03-22-2024 ambulatory [facility] Start: 03-22-2024 End: 03-22-2024 Subsequent hospital visit by physician Sukh John DO Work Phone: [facility] Start: 03-09-2024 End: 03-09-2024 ambulatory [facility] Start: 03-09-2024 End: 03-09-2024 Subsequent hospital visit by physician Sukh John DO Work Phone: [facility] Start: 03-07-2024 End: 03-07-2024 ambulatory [facility] L TUL[facility] Start: 2023 End: 2023 ambulatory SNOW G [facility] Start: 07-13-2023 End: 07-17-2023 Evaluation and management of inpatient [facility] Start: 06-18-2023 End: 06-18-2023 Emergency department patient visit Suzie Barillas [facility] Start: 06-17-2023 End: 06-17-2023 Emergency department patient visit Tacho Meyer [facility] Start: 05-18-2023 End: 05-18-2023 Patient encounter procedure Sukh JOHN [facility] Start: 05-03-2023 End: 05-03-2023 Emergency department patient visit Tacho Meyer [facility] Start: 04-23-2023 End: 04-23-2023 Patient encounter procedure Sukh JOHN [facility] Start: 04-23-2023 End: 04-23-2023 Well adult monitoring check done Sukh JOHN [facility] Start: 04-10-2023 End: 04-13-2023 Evaluation and management of inpatient Karyn Escamilla [facility] Start: 03-27-2023 End: 03-27-2023 Patient encounter procedure Sukh JOHN [facility] Start: 03-23-2023 Telephone encounter Wilberto heller MD Work Phone: Neurology Comment on above: Forms ([facility]) Start: 03-18-2023 End: 03-18-2023 Emergency department patient visit Suzie Barillas [facility] Start: 03-13-2023 End: 03-13-2023 [facility] Start: 02-18-2023 End: 02-18-2023 [facility] Start: 02-11-2023 End: 02-15-2023 Evaluation and management of inpatient Gibson ABRAHAM [facility] Start: 02-03-2023 End: 02-03-2023 Patient encounter procedure Sukh JOHN [facility] Start: 01-15-2023 End: 01-15-2023 Patient encounter procedure Marta Joaquin [facility] Start: 11-19-2022 End: 11-20-2022 ambulatory [facility] Facility:[facility] Start: 10-08-2022 End: 10-08-2022 ambulatory [facility] Facility:[facility] Start: 10-05-2022 End: 10-08-2022 Evaluation and management of inpatient [facility] Facility:[facility] Start: 09-26-2022 Refill Yusra Julio Work Phone: [phone] Comment on above: Refill Request Start: 09-24-2022 End: 09-25-2022 ambulatory [facility] Facility:[facility] Start: 09-24-2022 Chart abstracting Melissa estrella PA-C Work Phone: Neurology Start: 09-02-2022 End: 09-02-2022 Patient encounter procedure Sukh JOHN [facility] Start: 07-08-2022 Telephone encounter Wilberto heller MD Work Phone: Neurology Comment on above: medication concern ( aptiom) Start: 06-25-2022 End: 06-25-2022 Patient encounter procedure Wilberto Sosa MD Work Phone: Neurology Comment on above: Convulsions, unspeci fied convulsion type (HCC) (Primary Dx) Start: 05-29-2022 Telephone encounter Wilberto heller MD Work Phone: Neurology Comment on above: Medication Problem ( Keppra - Pharmacy Needs Confirmation) Start: 05-20-2022 Telephone encounter Wilberto heller MD Work Phone: Neurology Comment on above: medication concern ( gabapentin) Start: 05-15-2022 End: 05-15-2022 Patient encounter procedure Con Jean Baptiste MD Work Phone: Neurology Comment on above: Convulsions, unspeci fied convulsion type (HCC) (Primary Dx) Start: 05-07-2022 End: 08-10-2022 Patient encounter procedure Sukh JOHN [facility] Start: 04-18-2022 Patient encounter procedure Amy Noble MD Work Phone: Neurology Comment on above: Generalized epilepsy (HCC) (Primary Dx) Start: 04-16-2022 Telephone encounter Amy Noble MD Work Phone: Neurology Comment on above: Future Appointment ( [place], [place], Any ) Start: 04-11-2022 End: 04-11-2022 Patient encounter procedure Sukh JOHN [facility] Start: 04-08-2022 End: 04-08-2022 Patient encounter procedure Sukh JOHN [facility] Start: 03-31-2022 End: 03-31-2022 Emergency department patient visit Suzie Barillas [facility] Start: 11-07-2021 End: 11-07-2021 Patient encounter procedure Sukh JOHN [facility] Start: 10-29-2021 End: 10-29-2021 Patient encounter procedure Sukh JOHN [facility] Start: 10-18-2021 End: 10-18-2021 [facility]Site [facility] Start: 10-14-2021 End: 10-17-2021 Evaluation and management of inpatient Emperatriz MOON [facility] Start: 10-14-2021 End: 10-14-2021 Patient encounter procedure Sukh JOHN [facility] Start: 10-10-2021 End: 10-10-2021 Patient encounter procedure Sukh JOHN [facility] Start: 06-19-2021 End: 09-18-2021 Recurring Sukh JOHN [facility] Procedures Date Procedure Procedure Detail Performing Clinician Start: 11-04-2024 Us breast uni real t moraima with image limited Leonides Da Silva [employer] CAR[employer]ER Work Phone: Start: 10-19-2024 Screening mammograph y bi 2-view breast inc cad Leonides Da Silva [employer] Work Phone: Start: 09-01-2024 Comprehensive metabo lic panel Leonides Da Silva [employer]ER Work Phone: Start: 09-01-2024 Lipid panel Leonides Scottie cano [employer] Work Phone: Start: 05-09-2024 Urnls dip stick/tabl et reagent auto microscopy Leonides De Leónuger POST[employer]ER Work Phone: Start: 05-04-2024 Urinalysis microscopic only Leonides De Leónuger POSTAL [employer]ER Work Phone: Start: 05-04-2024 Urnls dip stick/tabl et rgnt auto w/o microscopy Leonides De Leónuger POSTAL CARRIER Work Phone: Start: 04-14-2024 Comprehensive metabo lic panel Leonides De Leónuger POSTAL CARRIER Work Phone: Start: 04-14-2024 Lipid panel Leonides De León uger POSTAL CARRIER Work Phone: Start: 03-22-2024 Urinalysis microscopic only Leonides Akersr POSTAL [employer]ER Work Phone: Start: 03-22-2024 Urnls dip stick/tabl et rgnt auto w/o microscopy Leonides De Leónuger POSTAL CAR[employer]ER Work Phone: Start: 03-09-2024 Comprehensive metabo lic panel Leonides De Leónuger POSTAL CAR[employer]ER Work Phone: Start: 03-09-2024 Lipid panel Leonides De León uger POSTAL [employer]ER Work Phone: Start: 03-09-2024 Urinalysis microscopic only Leonides Akersr POSTAL CAR[employer]ER Work Phone: Start: 03-09-2024 Urnls dip stick/tabl et rgnt auto w/o microscopy Leonides Akersr [employer]AL [employer]ER Work Phone: Start: 02-04-2019 Fracture of tibia (disorder) Sukh JOHN Comment on above: TIBIA FRACTURE INTRA MEDULLARY CHANI Start: 09-27-2018 left CATARACT EXTRAC TION W/ INTRAOCULAR LENS IMPLANTATION 2 Sukh JOHN Comment on above: left Start: 07-12-2018 Cataract extraction and insertion of intraocular lens Sukh JOHN Comment on above: right Start: 10-22-2014 Colonoscopy Sukh Mcgowan Start: 04-08-2012 Colonoscopy Sukh Mcgowan Hysterectomy Sukh JOHN Ligation of fallopian tube Amy JOHN Repair of shoulder Sukh OLEARY Comment on above: left Plan of Treatment Date Care Activity Detail Author Start: 10-19-2026 Screening for malign ant neoplasm of breast Breast cancer screen [facility] Start: 10-05-2025 [facility] Start: 09-01-2025 Lipid panel [facility]ids [email or web address] Start: 06-01-2025 Depression Screen Depression Screen [facility] Start: 05-21-2025 DIABETES SCREEN DI[facility]ET[facility] SCREEN [facility] Start: 05-15-2025 DIABETES SCREEN [facility] Start: 04-14-2025 Lipid panel Lipids [email or web address] Start: 03-09-2025 Lipid panel [facility] Start: 01-13-2025 Influenza vaccination Flu vacc ine (Season Ended) [facility] Start: 11-04-2024 End: 11-04-2024 Patient encounter procedure [facility] Comment on above: Fax [phone]- residential nurse [facility] Start: 09-14-2024 End: 09-14-2024 Patient encounter procedure 09/14/2024 11:00 AM EDT Appointment [facility] [address] [phone] Media/Nursing facility/[facility]. Unknown were previous mammogram was performed. Was a previous resident of [facility] Mammography Comment on above: Media/Nursing facili ty/[facility]. Unknown were previous mammogram was performed. Was a previous resident of [facility] Start: 03-07-2024 Annual Wellness Visi t (Medicare) Annual Wellness Visit (Medicare) [facility] Start: 02-14-2024 COVID-19 Vaccine ( season) COVID-19 Vaccine ( season) [facility] Start: 02-14-2024 COVID-19 Vaccine ( season) COVID-19 Vaccine ( season) [facility] Start: 01-14-2024 Influenza vaccination Flu vaccine (# 1) [facility] Start: 02-13-2023 Covid-19 Vaccine ( season) Covid-19 Vaccine ( season) [facility] Start: 02-13-2023 Influenza vaccination Influenza Vacc ine (#1) [facility] Start: 09-24-2022 End: 01-24-2023 SARS-CoV-2 (COVID-19) RNA [Presence] in Respiratory specimen by DOUG with probe detection INTERMEDIATE RAPID COVID Microbiology Routine Convulsions, unspecified convulsion type (HCC) Expected: 09/24/2022, Expires: 01/24/2023 [facility] Work Phone: Comment on above: Expected: 09/24/2022 , Expires: 01/24/2023 Start: 06-15-2022 ADVANCE DIRECTIVE DISCUSSION ADVANCE DIRECTIVE DISCUSSION [facility] Start: 04-21-2022 End: 04-21-2023 SARS-CoV-2 (COVID-19) RNA [Presence] in Respiratory specimen by DOUG with probe detection PRE-PROCEDURE & PRE-OPERATIVE COVID Microbiology Routine Generalized epilepsy (HCC) Expected: 04/21/2022, Expires: 04/21/2023 [facility] Work Phone: Comment on above: Expected: 04/21/2022 , Expires: 04/21/2023 Start: 02-13-2022 Influenza vaccination INFLUENZA (#1) [facility] Start: 2021 ADVANCE DIRECTIVE DISCUSSION ADVANCE DIRECTIVE DISCUSSION [facility] Start: 2021 BONE DENSITY BONE DENSITY [facility] Start: 2021 Bone Density Screening Bone Density Screening [facility] Start: 2021 Pneumococcal 65+ yea rs Vaccine (1 of 1 - PCV) Pneumococcal 65+ years Vaccine (1 of 1 - PCV) [facility] Start: 2021 Pneumococcal Vaccine : 65+ (1 - PCV) Pneumococcal Vaccine: 65+ (1 - PCV) [facility] Start: 2021 PNEUMOCOCCAL: 65+ (1 - PCV) PNEUMOCOCCAL: 65+ (1 - PCV) [facility] Start: 08-05-2021 COVID-19 VACCINE (5 - Booster) COVID-19 VACCINE (5 - Booster) [facility] Start: 2016 Respiratory Syncytia l Virus (RSV) or age 60 yrs+ (1 - 1-dose 60+ series) Respiratory Syncytial Virus (RSV) or age 60 yrs+ (1 - 1-dose 60+ series) [facility] Start: 2016 Respiratory Syncytia l Virus (RSV) or age 60 yrs+ (1 - Risk 60-74 years 1-dose series) Respiratory Syncytial Virus (RSV) or age 60 yrs+ (1 - Risk 60-74 years 1-dose series) [facility] Start: 08-19-2011 Screening for osteoporosis DEXA (modify frequency per FRAX score) [facility] Start: 2006 Pneumococcal 50+ yea rs Vaccine (1 of 1 - PCV) Pneumococcal 50+ years Vaccine (1 of 1 - PCV) [facility] Start: 2006 Shingles vaccine (1 of 2) Shingles vaccine (1 of 2) [facility] Start: 2006 SHINGRIX VACCINE (1 of 2) SHINGRIX VACCINE (1 of 2) [facility] Start: 2001 COLOGUARD (FIT-DNA) COLOGUARD (FIT-D NA) [facility] Start: 2001 Colonoscopy COLONOSCOPY [facility] Start: 2001 COLORECTAL CANCER SCREENING COLORECTAL CANCER SCREENING [facility] Start: [address] COLONOGRAPHY [facility] Start: 2001 FECAL OCCULT BLOOD FECAL OCCULT BLOO D [facility] Start: 2001 Lipid 1996 panel - Serum or Plasma Lipid Screening [facility] Start: 2001 LIPID SCREEN LIPID SCREEN [facility] Start: 2001 Screening for malign ant neoplasm of colon [facility] Start: 2001 SIGMOIDOSCOPY SIGMOIDOSCOPY [facility] Start: 1996 Mammography [facility] Start: 1996 Screening for malign ant neoplasm of breast Breast cancer screen [facility] Start: 08-19-1975 DTaP/Tdap/Td vaccine (1 - Tdap) DTaP/Tdap/Td vaccine (1 - Tdap) [facility] Start: 08-19-1975 Urine microalbumin profile [facility] Start: 1974 ANNUAL PCP TEAM MANAGER BALANCE WHITNEY DISEASE VISIT ANNUAL PCP TEAM CHRONIC DISEASE VISIT [facility] Start: 1974 HEPATITIS C SCREENING HEPATITIS C SC REENING [facility] Start: 1974 Hepatitis C screening Hepatitis C sc reen [facility] Start: 1974 HIV SCREENING HIV SCREENING [facility] Start: 1968 Depression Screen Depression Screen [facility] Start: 1966 Lipid panel Lipids [facility] [employer] End: 03-22-2024 Culture, Urine [facility] Work Phone: Comment on above: Once for 1 Occurrenc es starting 03/22/2024 until 03/22/2024 End: 05-04-2024 Culture, Urine [facility] Work Phone: Comment on above: Once for 1 Occurrenc es starting 05/04/2024 until 05/04/2024 End: 05-09-2024 Culture, Urine [facility] Work Phone: Comment on above: Once for 1 Occurrenc es starting 05/09/2024 until 05/09/2024 End: 03-09-2024 Culture, Urine [employer] Comment on above: Once for 1 Occurrenc es starting 03/09/2024 until 03/09/2024 End: 04-21-2023 EPIL EEG LEAD PLACEMENT EPIL EEG LEAD PLACEMENT NEUROLOGY Routine Generalized epilepsy (HCC) 1 Occurrences starting 04/21/2022 until 04/21/2023 [facility] Work Phone: Comment on above: 1 Occurrences starti ng 04/21/2022 until 04/21/2023 EPIL VEEG ADMIT TO EMU/PMU EPIL VEEG ADMIT TO EMU/PMU NEUROLOGY Routine Generalized epilepsy (HCC) Ordered: 04/21/2022 [facility] Work Phone: Comment on above: Ordered: 04/21/2022 EPIL VEEG ADMIT TO EMU/PMU EPIL VEEG ADMIT TO EMU/PMU NEUROLOGY Routine Convulsions, unspecified convulsion type (HCC) Ordered: 09/24/2022 [facility] Work Phone: Comment on above: Ordered: 09/24/2022 End: 04-14-2024 Lamotrigine Level [facility] Work Phone: Comment on above: Once for 1 Occurrenc es starting 04/14/2024 until 04/14/2024 End: 03-09-2024 Lamotrigine Level [employer] Work Phone: Comment on above: Once for 1 Occurrenc es starting 03/09/2024 until 03/09/2024 [facility] Immunizations Immunization Date Immunization Notes Care Provider Fa [facility] 04-23-2023 influenza, injectabl e, quadrivalent, preservative free Sukh JOHN [facility] 04-23-2023 Pneumococcal conjuga te PCV20, polysaccharide [id number] conjugate, adjuvant, PF Sukh JOHN [facility] 05-03-2022 influenza virus vaccine, unspecified formulation Sukh JOHN [facility] 06-10-2021 influenza virus vaccine, unspecified formulation Sukh JOHN [facility] 06-10-2021 SARS-CoV-2 (COVID-19 ) mRNA-1273 vaccine Sukh 170 SystemsADELAIDE [facility] 07-16-2020 SARS-CoV-2 (COVID-19 ) mRNA BNT-162b2 vax Sukh JOHN [facility] 06-28-2020 SARS-CoV-2 (COVID-19 ) mRNA BNT-162b2 vax Sukh JOHN [facility] Comment on above: Result Comment: [facility]al Dept[facility] 06-19-2020 SARS-CoV-2 (COVID-19 ) mRNA-1273 vaccine Sukh JOHN [facility] 07-18-2019 influenza, injectabl e, quadrivalent, preservative free Sukh JOHN [facility] 04-09-2009 influenza, whole; Translations: [influenza, whole] Sukh JOHN [facility] NEGATED: Highlighted row has not occurred!04-08-2022 influenza virus vaccine, unspecified formulation Sukh JOHN [facility] NEGATED: Highlighted row has not occurred!04-18-2019 influenza virus vaccine, unspecified formulation Sukh JOHN [facility] NEGATED: Highlighted row has not occurred!12-13-2014 pneumococcal polysaccharide vaccine, 23 valent Sukh JOHN [facility] NEGATED: Highlighted row has not occurred!03-26-2014 influenza, seasonal, injectable Sukh JOHN [facility] Payers Date Payer Category Payer Medicaid MEDICAID [facility] MEDICAID [id number] 2016-Present [phone] [address] [place] [address] Medicaid [id number] 2014 Medicaid [id number] 2014 Medicare [id number] 1989 Medicare MEDICARE MEDICAR E A AND B [id number] 1989-Present [phone] [address] [address] [place] [address] Medicare [id number] 1989 Medicare [id number] 1955 Unknown [id number] 2.16.840.1.801308.3.579.2.1286 1956 Unknown [id number] 2.16.840.1.927426.3.579.2.1286 1956 Unknown [id number] 2.16.840.1.834091.3.579.2.1286 1956 Unknown [id number] 2.16.840.1.778523.3.579.2.173 1956 Unknown [id number] 2.16.840.1.583820.3.579.2.173 1956 Unknown [id number] 2.16.840.1.565894.3.579.2.173 1956 Unknown [id number] 2.16.840.1.784368.3.579.2.173 1956 Unknown [id number] 2.16.840.1.290278.3.579.2.173 1956 Unknown [id number] 2.16.840.1.404832.3.579.2.173 1956 Unknown [id number] 2.16.840.1.613393.3.579.2.173 1956 Unknown [id number] 2.16.840.1.692481.3.579.2.173 1956 Unknown [id number] 2.16.840.1.724752.3.579.2.173 1956 Unknown [id number] 2.16.840.1.189188.3.579.2.173 1956 Unknown [id number] 2.16.840.1.804189.3.579.2.1286 1956 Unknown [id number] 2.16.840.1.047889.3.579.2.1286 1956 Unknown [id number] 2.16.840.1.787163.3.579.2.1286 1956 Unknown [id number] 2.16.840.1.711651.3.579.2.727 1956 Unknown [id number] 2.16.840.1.984697.3.579.2.727 Social History Date Type Detail Facility Start: 06-20-2021 End: 06-01-2024 Tobacco smoking status Never smoked tobacco (finding) [facility] Tobacco smoking status Never [facility] Start: 11-19-2022 End: 06-01-2024 Sex Assigned At Female [facility] Tobacco smoking status IAIS Tobacco smoking consumption unknown [facility] Start: 1955 Sex Assigned At Not on file [facility] Start: 05-15-2022 Tobacco use and exposure Smokeless tobacco non-user [facility] Start: 05-15-2022 End: 11-19-2022 Alcohol intake Lifetime non-drinker (finding) [facility] Start: 05-05-2022 End: 05-15-2022 Exposure to SARS-CoV-2 (event) Not sure [facility] Start: 05-16-2022 History SDOH Financial 4 [facility] Start: 05-16-2022 History SDOH Food Worry 1 [facility] Start: 05-16-2022 History SDOH Transport Med 2 [facility] Start: 11-19-2022 End: 06-01-2024 History of Social function [facility] (I/We) worried whether (my/our) food would run out before (I/we) got money to buy more. Never true [facility] In the past 12 months, was there a time when you were not able to pay the mortgage or rent on time? No [facility] Start: 10-28-2016 End: 06-01-2024 Alcoholic beverage intake Current non-drinker of alcohol (finding) [facility] Start: 07-25-2012 Sex Female (finding) [place] [facility] NEGATED: Highlighted rowStart: NINF History of tobacco use Passive smoker [facility] Functional Status Date Assessment Result Facility 06-18-2023 Functional Status N/A [facility] 06-17-2023 Functional Status N/A [facility] 05-18-2023 Functional Status N/A [facility] 05-03-2023 Functional Status N/A [facility] 04-23-2023 Functional Status N/A [facility] 04-10-2023 Functional Status N/A [facility] 04-10-2023 Functional Status [facility] 03-27-2023 Functional Status N/A [facility] 03-18-2023 Functional Status N/A [facility] 02-11-2023 Functional Status No [facility] 02-11-2023 Functional Status [facility] 02-03-2023 Functional Status N/A [facility] 01-15-2023 Functional Status N/A [facility] 09-02-2022 Functional Status N/A [facility] 04-08-2022 Functional Status N/A [facility] 03-31-2022 Functional Status N/A [facility] Clinical Notes 10-14-2021 to 10-19-2024 Note Date & Type Note Facility 10-19-2024 Note Bilateral breast asy mmetries. Recommend mammographic workup with possible progression to ultrasound. BIRADS: BIRADS - CATEGORY 0 Incomplete: Need Additional Imaging Evaluation OVERALL ASSESSMENT - INCOMPLETE: NEED ADDITIONAL IMAGING EVALUATION. Performing Facility: [place] [address] [facility] 07-07-2023 Note HNO ID: [id number] Author: MARK JEFF APRN.TRAVEL AGENCY MANAGER Service: ? Author Type: Nurse Specialist Type: Progress Notes Filed: 07/10/2023 07:09 Note Text: [facility] NOTE NAME: LORENA ORDONEZ NO.: [id number] DATE OF SERVICE: 07/07/2023 [facility] DATE OF : 1955 REASON FOR VISIT: The patient is a resident of [facility]. This is a discharge visit for recurrent falls and other medical concerns. The patient had been admitted to [facility] from [facility]. The patient originally was sent to [facility] from nursing home after staff reported the patient had recurrent falls and appeared to be weak. The patient's evaluation in the emergency room was unremarkable. The patient did have events while at [facility]. The patient did have behavioral issues, yelling out and fighting with staff, swinging at staff. The patient did refuse her lab work on 2 occasions and lab work was subsequently not drawn due to patient's refusals. The patient is being looked upon to return to her nursing home. The patient states does want to go back. DATE OF ADMISSION: June 18, 2023. DATE OF DISCHARGE: July 08, 2023. MEDICATIONS: 1. Escitalopram 20 mg 1 tab daily for depression. 2. Loratadine 10 mg 1 tab daily for environmental allergies. 3. Raloxifene 60 mg 1 tab daily for osteoporosis. 4. Omeprazole delayed release 20 mg 1 tab daily for GERD. 5. Hydroxyzine 25 mg 1 tab 4 times a day for anxiety. 6. Lamotrigine 100 mg 1 tab 2 times daily for behaviors. 7. Pravastatin 20 mg 1 tab daily for hyperlipidemia. 8. Trazodone 100 mg 1 tab at bedtime for insomnia. 9. Levothyroxine 100 mcg 1 tab daily for hypothyroidism. 10. Melatonin 10 mg 1 tab at bedtime for insomnia. 11. Donepezil 10 mg 1 tab 2 times a day for dementia. 12. Vitamin D3 5000 units 1 tab daily for vitamin D deficiency. 13. Aspirin 81 mg 1 tab daily for heart health. 14. Myrbetriq 24-hour 50 mg 1 tab daily for overactive bladder. 15. Doxepin 10 mg 1 tab daily for depression. 16. Gabapentin 400 mg 1 tab 3 times a day for neuropathic pain. 17. Memantine 10 mg 1 tab daily for dementia. 18. Abilify 10 mg 1 tab daily for depression. 19. Pentasa 500 mg 2 tabs 4 times daily for ulcerative colitis. 20. Carbidopa-levodopa 25-100 mg 1 tab 3 times daily for parkinsonism. The patient also has p.r.n. medications, Ambien, milk of magnesia, Fleet enema, bisacodyl, acetaminophen, and Ventolin inhaler. LABS: No labs drawn due to patient refusal. SUBJECTIVE DATA: Upon entering the room I found the patient calm, alert, sitting in bed, taking morning meal. The patient does not appear to be in distress or discomfort and is smiling. The patient likes to give hugs. The patient states has no complaints of pain, cough, shortness of breath. No fever, chills, or nausea. She feels as though she is eating and drinking well. OBJECTIVE DATA: Vital Signs: Temp 97.7, blood pressure 137/79, pulse 75, respirations 18, pulse ox 93% on room air, weight 165 pounds. Respiratory: Respirations are easy and unlabored with patient at rest. Lung sounds are clear. Heart: Heart rate and rhythm regular. Abdomen: Soft and nontender with palpation. Bowel sounds present x4. Extremities: Nonedematous. Psych: The patient is calm, alert, and cooperative with examination. The patient is smiling, appears to be in good spirits. IMPRESSION AND PLAN: 1. History of medical and behavioral disorders. The patient is currently on multiple medications Abilify, doxepin, lamotrigine, escitalopram. 2. Mental retardation with developmental disabilities, supportive care. 3. Vitamin D deficiency, on supplements. 4. Parkinsonism, on carbidopa-levodopa - cerebrovascular accident, on aspirin. 5. Ulcerative colitis, on Pentasa. 6. Hyperlipidemia, on pravastatin. 7. Osteoporosis, on raloxifene. 8. Alzheimer's disease, on memantine and donepezil. The patient is stable at the time of discharge. The patient will return back to nursing home with current medications, current treatments. No labs were drawn on patient's stay at [facility]. The patient will follow with primary care physician in 7 to 10 days. The patient is authorized to be discharged home. Time spent doing discharge greater than 31 minutes. DICTATED BY: DINORAH Knott JOB# [id number] cc:[facility] 07-02-2023 Note HNO ID: [id number] Author: MARK JEFF APRN.TRAVEL AGENCY MANAGER Service: ? Author Type: Nurse Specialist Type: Progress Notes Filed: 07/06/2023 07:05 Note Text: [facility] NOTE NAME: LORENA ORDONEZ NO.: [id number] DATE OF SERVICE: 07/02/2023 [facility] DATE OF : 1955 REASON FOR VISIT: The patient is resident of [facility]. This is a skilled visit for behavioral issues with developmental delays and other medical concerns. For patient assessment found patient sitting in chair. The patient does not appear to be in distress or discomfort. Appears to be in good spirits and is smiling. The patient has no complaints. States has no pain, no cough, no shortness of breath. No fever, chills, or nausea. States she eats and drinks well. Denies bowel or bladder dysfunction. Staff reports no recent behavioral issues have been reported at this time. MEDICATIONS: Have been reviewed. PHYSICAL EXAMINATION: Temperature 97.7, blood pressure 137/79, pulse 75, respirations 18, pulse ox 93% on room air, weight 165 pounds. Respiratory: Respirations are easy and unlabored with patient at rest. Lung sounds are clear. Heart: Heart rate and rhythm regular. Abdomen: Soft and nontender with palpation. Bowel sounds present x4. Extremities: Nonedematous. IMPRESSION AND PLAN: 1. History of behavioral disorders with mental retardation and developmental disability. The patient will most likely be residential on escitalopram, hydroxyzine, lamotrigine, doxepin, and Abilify. 2. Vitamin D deficiency, on supplement. 3. Parkinson's, on carbidopa-levodopa. 4. History of cerebrovascular accident, continue to monitor for neurologic changes, on aspirin. 5. Ulcerative colitis, on Pentasa. DICTATED BY: DINORAH Knott JOB# [id number] cc:[facility] 06-25-2023 Note HNO ID: [id number] Author: MARK JEFF APRN.TRAVEL AGENCY MANAGER Service: ? Author Type: Nurse Specialist Type: Progress Notes Filed: 06/29/2023 06:59 Note Text: [facility] NOTE NAME: LORENA ORDONEZ NO.: [id number] DATE OF SERVICE: 06/25/2023 [facility] DATE OF : 1955 REASON FOR VISIT: The patient is a resident of [facility]. This is a skilled visit for history of mental and behavioral disorders and other medical concerns. I entered the room after hearing the patient screaming out loud, found the patient sitting at the side of the bed. The patient appears agitated and anxious. Patient continues stating that she needs to go home, to go to her mother's . The patient is poorly compliant with the assessment process and notably striking out at staff members with attempt to redirect her calm. MEDICATIONS: Have been reviewed. PHYSICAL EXAMINATION: Temp 97.7, blood pressure 137/79, pulse 75, respirations 18, pulse ox 93% on room air, weight 165 pounds. Respiratory: Respirations are easy and unlabored with patient at rest. Lung sounds are clear. Heart: Heart rate and rhythm regular. Abdomen: Soft. The patient does not express tenderness. Bowel sounds present x4. Extremities: Nonedematous. Psych: The patient is agitated and difficult to console, continues to repeat nobody is listening to her. IMPRESSION AND PLAN: 1. History of mental and behavioral issues. The patient does have hydroxyzine routinely 4 times a day, continues use as ordered. The patient will follow with psychiatric services. 2. Mental retardation with developmental disabilities. Continue supportive care. The patient is on memantine, donepezil. 3. Vitamin D deficiency, on supplements. 4. Parkinsonism, on carbidopa-levodopa. 5. History of cerebrovascular accident, continue to monitor for neurologic changes, on aspirin. 6. History of ulcerative colitis, on Pentasa. DICTATED BY: DINORAH Knott JOB# [id number] cc:[facility] 06-23-2023 Note HNO ID: [id number] Author: MARK JEFF APRN.TRAVEL AGENCY MANAGER Service: ? Author Type: Nurse Specialist Type: Progress Notes Filed: 06/25/2023 07:01 Note Text: [facility] NOTE NAME: LORENA ORDONEZ NO.: [id number] DATE OF SERVICE: 06/23/2023 [facility] DATE OF : 1955 REASON FOR VISIT: The patient is a resident of [facility]. This is a monthly visit for multiple medical issues. Prior to patient's assessment, staff reported patient was refusing her admitting laboratory work. Upon entering the room, found patient calm, alert, and sitting in wheelchair. The patient does not appear to be in distress or discomfort. The patient states when asked why she is refusing her admitting laboratory work, patient states she passes out. I did encourage patient to take her laboratory work. The patient states she will agree to the next lab draw. The patient states she has no complaints. No pain, no cough and no shortness of breath. No fever, chills, or nausea. States she feels as though she is eating and drinking well. Denies bowel or bladder dysfunction. Medications have been reviewed. PHYSICAL EXAMINATION: Temperature is 97.7, blood pressure 137/79, pulse 75, respirations 18, and pulse ox 93% on room air. Weight 165 pounds. Respiratory: Respirations are easy and unlabored with patient at rest. Lung sounds are clear. Heart: Heart rate and rhythm regular. Abdomen: Soft, nontender with palpation. Bowel sounds are present x4. Extremities: Not edematous. Psych: The patient is calm, alert and pleasant in conversation. The patient is cooperative with examination. IMPRESSION: 1. Mental retardation and developmental disabilities. Continue supportive care. 2. Vitamin D deficiency. Continue supplements. 3. Parkinson's disease. The patient is currently on carbidopa/levodopa. 4. History of cerebrovascular accident, on aspirin. Continue to monitor neurologic status. No concerns at this time. 5. History of depression; on escitalopram, trazodone, and doxepin. Continue to monitor moods and behavior. 6. History of thrombocytopenia. The patient is encouraged to get baseline laboratory work. 7. History of Crohn's, on Pentasa. DICTATED BY: DINORAH Knott JOB# [id number] cc:[facility] 06-19-2023 Note HNO ID: [id number] Author: LESLIE CONWAY, ? Service: ? Author Type: Physician Type: Progress Notes Filed: 06/22/2023 06:09 Note Text: [facility] NOTE NAME: LORENA ORDONEZ NO.: [id number] DATE OF SERVICE: 06/19/2023 [facility] DATE OF : 1955 New Patient History and Physical HISTORY OF PRESENT ILLNESS: The patient is a 67-year-old female who was admitted to us from a nursing home via [facility] Emergency Room with a diagnosis of recurrent falls, MRDD intellectual disability, cognitive impairment, history of depression, Parkinson's disease, Crohn's disease, osteoporosis, previous cerebral infarction, degenerative osteoarthritis, vitamin D deficiency, hypothyroidism, hyperlipidemia, past history of thrombocytopenia, pedal edema, gait ataxia, and generalized weakness. She was initially sent to the emergency room by her caregiver at the nursing home due to multiple recent falls. Her last episode apparently was not an actual fall, but the patient was lowered to the ground by the caregiver. Evaluation in the emergency room was unremarkable. She is now being admitted to our facility for continued care, long-term care. REVIEW OF SYSTEMS: She is currently sitting up in bed. She is alert, smiling and in good spirits. She is quite cooperative. She denies any pain or discomfort. She is unable to give any information given her history of MRDD. She currently denies any shortness of breath, chest pain, abdominal pain, nausea, or vomiting. She claims to have a good appetite. She is not aware of any surgeries in the past. FAMILY HISTORY: Unclear. SOCIAL/FUNCTIONAL HISTORY: She denies smoking or alcohol abuse. Once again, she had been living at the nursing home. MEDICATIONS: Abilify 10 mg at bedtime, aspirin 81 mg daily, Sinemet 25/100 t.i.d., Keflex 500 mg b.i.d., donepezil 10 mg b.i.d., doxepin 10 mg t.i.d., escitalopram 20 mg daily, gabapentin 400 mg t.i.d., hydroxyzine 25 mg 4 times a day, lamotrigine 100 mg b.i.d., levothyroxine 100 mcg daily, loratadine 10 mg daily, melatonin at bedtime, memantine ER 28 mg daily, mesalamine ER 500 mg 2 capsules 4 times a day, Myrbetriq 50 mg daily, omeprazole 20 mg daily, pravastatin 20 mg at bedtime, raloxifene 60 mg daily, trazodone 100 mg at bedtime, Ventolin inhaler p.r.n., vitamin D 5000 units daily, and zolpidem 10 mg at bedtime p.r.n. ALLERGIES: SULFONAMIDES, ADHESIVE TAPE, AND LATEX. EXAMINATION: Afebrile, her vital signs are stable. She is in no distress. She appears chronically ill. HEENT: Extraocular movements are intact, sclerae nonicteric. Ears are intact. Lungs: Clear. Heart: Regular. Abdomen: Soft, nontender. Bowel sounds are present. Extremities: With mild bipedal edema. No calf tenderness or palpable cords. No ischemia or cyanosis. She does have generalized weakness. IMPRESSION: 1. Mental retardation and developmental delay intellectual disabilities - Continue with current supportive care. 2. Seizure disorder - maintain current anticonvulsant therapy. Monitor for any seizure activity. 3. Vitamin D deficiency - continue supplements. 4. Parkinson's parkinsonism - continue current Sinemet. 5. Previous cerebrovascular accident - monitor for signs of recurrence and extension. 6. History of depression - appears to be in good spirits. . Maintain current antidepressant therapy. 7. History of thrombocytopenia - we will obtain admission CBC and monitor blood counts and platelet counts closely. 8. History of Crohn's - continue with current therapy. Monitor gastrointestinal symptoms. Overall, condition and prognosis is somewhat guarded. We will obtain admission baseline laboratories including CBC and CMP. She is here for long-term care. DICTATED BY: MD YORDAN Meraz/Julicoesar JOB# [id number] cc:[facility] 06-18-2023 Evaluation + Plan note Extrac alejo from: Title:ED Note Author:González Almaraz PA-C te:06/18/23 Dementia (F03.90: Unspecifie d dementia, unspecified severity, without behavioral disturbance, psychotic disturbance, mood disturbance, and anxiety) Recurrent falls (R29.6: Repeated falls) Orders: ED Physician consult Hospitalist for continued care Future Appointments Appointment Date:08/20/2023 08:40:00 AM Scheduled Provider:Sukh JOHN DO, FAAFP Location:[facility] Appointment Type: Open Appointment Date:05/02/2024 09:30:00 AM Scheduled Provider: Location:[facility] Appointment Type: Medicare Wellness Subsequent Future Scheduled Tests Laboratory* Thyroid-stimulating Immunoglobulin (TSI) 01/15/23 * UA With Cult Reflex 11/06/22 * T3 Free 01/15/[address] [facility]01-04-2024 Hospital Discharge instructions Patient Education 06/17/2023 22:29:03 Urinary Tract Infection, Adult, [id number] Urinary Tract Infection, Adult A urinary tract infection (UTI) is an infection of any part of the urinary tract. The urinary tractincludes: The kidneys. The ureters. The bladder. The urethra. These organs make, store, and get rid of pee (urine) in the body. What are the causes? This infection is caused by germs (bacteria) in your genital area. These germs grow and cause swelling (inflammation) of your urinary tract. What increases the risk? The following factors may make you more likely to develop this condition: Using a small, thin tube (catheter) to drain pee. Not being able to control when you pee or poop (incontinence). Being female. If you are female, these things can increase the risk: ?Using these methods to prevent : ?A medicine that kills sperm (spermicide). ?A device that blocks sperm (diaphragm). ?Having low levels of a female hormone (estrogen). ?Being . You are more likely to develop this condition if: You have genes that add to your risk. You are sexually active. You take antibiotic medicines. You have trouble peeing because of: ?A prostate that is bigger than normal, if you are male. ?A blockage in the part of your body that drains pee from the bladder. ?A kidney stone. ?A nerve condition that affects your bladder. ?Not getting enough to drink. ?Not peeing often enough. You have other conditions, such as: ?Diabetes. ?A weak disease-fighting system (immune system). ?Sickle cell disease. ?Gout. ?Injury of the spine. What are the signs or symptoms? Symptoms of this condition include: Needing to pee right away. Peeing small amounts often. Pain or burning when peeing. Blood in the pee. Pee that smells bad or not like normal. Trouble peeing. Pee that is cloudy. Fluid coming from the vagina, if you are female. Pain in the belly or lower back. Other symptoms include: Vomiting. Not feeling hungry. Feeling mixed up (confused). This may be the first symptom in older adults. Being tired and grouchy (irritable). A fever. Watery poop (diarrhea). How is this treated? Taking antibiotic medicine. Taking other medicines. Drinking enough water. In some cases, you may need to see a specialist. Follow these instructions at home: Medicines Take qtvo-zac-lxfvyep and prescription medicines only as told by your doctor. If you were prescribed an antibiotic medicine, take it as told by your doctor. Do not stop taking it even if you start to feel better. General instructions Make sure you: ?Pee until your bladder is empty. ?Do not hold pee for a long time. ?Empty your bladder after sex. ?Wipe from front to back after peeing or pooping if you are a female. Use each tissue one time whenyou wipe. Drink enough fluid to keep your pee pale yellow. Keep all follow-up visits. Contact a doctor if: You do not get better after 1 2 days. Your symptoms go away and then come back. Get help right away if: You have very bad back pain. You have very bad pain in your lower belly. You have a fever. You have chills. You feeling like you will vomit or you vomit. Summary A urinary tract infection (UTI) is an infection of any part of the urinary tract. This condition is caused by germs in your genital area. There are many risk factors for a UTI. Treatment includes antibiotic medicines. Drink enough fluid to keep your pee pale yellow. This information is not intended to replace advice given to you by your health care provider. Make sure you discuss any questions you have with your health care provider. Document Revised: 01/11/2021 Document Reviewed: 01/11/2021 [employer] Patient Education 2022 [employer]. Follow Up Care 06/17/2023 17:13:21 With:Sukh JOHN Address: [address], [place] [address]- Business (1) When:06/20/2023 21:53:[address] [facility]12-04-2023 Hospital Discharge instructions Patient Education 05/18/2023 10:42:02 Urinary Tract Infection, Adult Urinary Tract Infection, Adult A urinary tract infection (UTI) is an infection of any part of the urinary tract. The urinary tractincludes the kidneys, ureters, bladder, and urethra. These organs make, store, and get rid of urinein the body. An upper UTI affects the ureters and kidneys. A lower UTI affects the bladder and urethra. What are the causes? Most urinary tract infections are caused by bacteria in your genital area around your urethra, where urine leaves your body. These bacteria grow and cause inflammation of your urinary tract. What increases the risk? You are more likely to develop this condition if: You have a urinary catheter that stays in place. You are not able to control when you urinate or have a bowel movement (incontinence). You are female and you: ?Use a spermicide or diaphragm for control. ?Have low estrogen levels. ?Are . You have certain genes that increase your risk. You are sexually active. You take antibiotic medicines. You have a condition that causes your flow of urine to slow down, such as: ?An enlarged prostate, if you are male. ?Blockage in your urethra. ?A kidney stone. ?A nerve condition that affects your bladder control (neurogenic bladder). ?Not getting enough to drink, or not urinating often. You have certain medical conditions, such as: ?Diabetes. ?A weak disease-fighting system (immunesystem). ?Sickle cell disease. ?Gout. ?Spinal cord injury. What are the signs or symptoms? Symptoms of this condition include: Needing to urinate right away (urgency). Frequent urination. This may include small amounts of urine each time you urinate. Pain or burning with urination. Blood in the urine. Urine that smells bad or unusual. Trouble urinating. Cloudy urine. Vaginal discharge, if you are female. Pain in the abdomen or the lower back. You may also have: Vomiting or a decreased appetite. Confusion. Irritability or tiredness. A fever or chills. Diarrhea. The first symptom in older adults may be confusion. In some cases, they may not have any symptoms until the infection has worsened. How is this diagnosed? This condition is diagnosed based on your medical history and a physical exam. You may also have other tests, including: Urine tests. Blood tests. Tests for STIs (sexually transmitted infections). If you have had more than one UTI, a cystoscopy or imaging studies may be done to determine the cause of the infections. How is this treated? Treatment for this condition includes: Antibiotic medicine. Qppt-rwo-czlshnb medicines to treat discomfort. Drinking enough water to stay hydrated. If you have frequent infections or have other conditions such as a kidney stone, you may need to see a health care provider who specializes in the urinary tract (urologist). In rare cases, urinary tract infections can cause sepsis. Sepsis is a life- threatening condition that occurs when the body responds to an infection. Sepsis is treated in the hospital with IV antibiotics, fluids, and other medicines. Follow these instructions at home: Medicines Take jnin-fuh-osgzscc and prescription medicines only as told by your health care provider. If you were prescribed an antibiotic medicine, take it as told by your health care provider. Do notstop using the antibiotic even if you start to feel better. General instructions Make sure you: ?Empty your bladder often and completely. Do not hold urine for long periods of time. ?Empty your bladder after sex. ?Wipe from front to back after urinating or having a bowel movement if you are female. Use each tissue only one time when you wipe. Drink enough fluid to keep your urine pale yellow. Keep all follow-up visits. This is important. Contact a health care provider if: Your symptoms do not get better after 1 2 days. Your symptoms go away and then return. Get help right away if: You have severe pain in your back or your lower abdomen. You have a fever or chills. You have nausea or vomiting. Summary A urinary tract infection (UTI) is an infection of any part of the urinary tract, which includes the kidneys, ureters, bladder, and urethra. Most urinary tract infections are caused by bacteria in your genital area. Treatment for this condition often includes antibiotic medicines. If you were prescribed an antibiotic medicine, take it as told by your health care provider. Do notstop using the antibiotic even if you start to feel better. Keep all follow-up visits. This is important. This information is not intended to replace advice given to you by your health care provider. Make sure you discuss any questions you have with your health care provider. Document Revised: 01/11/2021 Document Reviewed: 01/11/2021 [employer] Patient Education 2022 [employer]. Follow Up Care 05/06/2023 11:22:07 With:SHARAD GRIDER FAAFP, VARUN Hinojosa, PED Address: [address], [facility] [place] [address]- When:Within 3 Month(s) [facility] 11-19-2023 Hospital Discharge instructions Patient Education 05/03/2023 16:28:11 Urinary Tract Infection, Adult Urinary Tract Infection, Adult A urinary tract infection (UTI) is an infection of any part of the urinary tract. The urinary tractincludes the kidneys, ureters, bladder, and urethra. These organs make, store, and get rid of urinein the body. An upper UTI affects the ureters and kidneys. A lower UTI affects the bladder and urethra. What are the causes? Most urinary tract infections are caused by bacteria in your genital area around your urethra, where urine leaves your body. These bacteria grow and cause inflammation of your urinary tract. What increases the risk? You are more likely to develop this condition if: You have a urinary catheter that stays in place. You are not able to control when you urinate or have a bowel movement (incontinence). You are female and you: ?Use a spermicide or diaphragm for control. ?Have low estrogen levels. ?Are . You have certain genes that increase your risk. You are sexually active. You take antibiotic medicines. You have a condition that causes your flow of urine to slow down, such as: ?An enlarged prostate, if you are male. ?Blockage in your urethra. ?A kidney stone. ?A nerve condition that affects your bladder control (neurogenic bladder). ?Not getting enough to drink, or not urinating often. You have certain medical conditions, such as: ?Diabetes. ?A weak disease-fighting system (immunesystem). ?Sickle cell disease. ?Gout. ?Spinal cord injury. What are the signs or symptoms? Symptoms of this condition include: Needing to urinate right away (urgency). Frequent urination. This may include small amounts of urine each time you urinate. Pain or burning with urination. Blood in the urine. Urine that smells bad or unusual. Trouble urinating. Cloudy urine. Vaginal discharge, if you are female. Pain in the abdomen or the lower back. You may also have: Vomiting or a decreased appetite. Confusion. Irritability or tiredness. A fever or chills. Diarrhea. The first symptom in older adults may be confusion. In some cases, they may not have any symptoms until the infection has worsened. How is this diagnosed? This condition is diagnosed based on your medical history and a physical exam. You may also have other tests, including: Urine tests. Blood tests. Tests for STIs (sexually transmitted infections). If you have had more than one UTI, a cystoscopy or imaging studies may be done to determine the cause of the infections. How is this treated? Treatment for this condition includes: Antibiotic medicine. Eino-fpe-jnmcdik medicines to treat discomfort. Drinking enough water to stay hydrated. If you have frequent infections or have other conditions such as a kidney stone, you may need to see a health care provider who specializes in the urinary tract (urologist). In rare cases, urinary tract infections can cause sepsis. Sepsis is a life- threatening condition that occurs when the body responds to an infection. Sepsis is treated in the hospital with IV antibiotics, fluids, and other medicines. Follow these instructions at home: Medicines Take ylxo-cld-yylhicg and prescription medicines only as told by your health care provider. If you were prescribed an antibiotic medicine, take it as told by your health care provider. Do notstop using the antibiotic even if you start to feel better. General instructions Make sure you: ?Empty your bladder often and completely. Do not hold urine for long periods of time. ?Empty your bladder after sex. ?Wipe from front to back after urinating or having a bowel movement if you are female. Use each tissue only one time when you wipe. Drink enough fluid to keep your urine pale yellow. Keep all follow-up visits. This is important. Contact a health care provider if: Your symptoms do not get better after 1 2 days. Your symptoms go away and then return. Get help right away if: You have severe pain in your back or your lower abdomen. You have a fever or chills. You have nausea or vomiting. Summary A urinary tract infection (UTI) is an infection of any part of the urinary tract, which includes the kidneys, ureters, bladder, and urethra. Most urinary tract infections are caused by bacteria in your genital area. Treatment for this condition often includes antibiotic medicines. If you were prescribed an antibiotic medicine, take it as told by your health care provider. Do notstop using the antibiotic even if you start to feel better. Keep all follow-up visits. This is important. This information is not intended to replace advice given to you by your health care provider. Make sure you discuss any questions you have with your health care provider. Document Revised: 01/11/2021 Document Reviewed: 01/11/2021 [employer] Patient Education 2022 [employer]. Follow Up Care 05/03/2023 12:57:18 With:Sukh JOHN Address: [address] [place] [address] [place] [id number] [facility] (1) When:05/06/2023 16:27:56 Comments:Call the office of your primary care doctor to arrange for follow-up within the above-stated timeframe. Follow-up with your primary care doctor about this ED visit. You should review your labs, imaging, and diagnoses from this ED visit with your primary care physician. There are occasionally non-emergent findings that require additional follow-up after your ED visit. If you were prescribed medications you should discuss possible side-effects and drug interactions with your pharmacist. Call 911 or go to the nearest Emergency Department if you develop any new or worsening symptoms. Seek immediate medical attention if you develop:worsening abdominal pain, new or worsening nausea, new or worsening vomiting, new or worsening diarrhea, chest pain, shortness of breath, pain with urination, problems urinating, fever, chills, weakness, or any new or worsening symptoms. [facility]11-19-2023 Evaluation + Plan noteExtracted from: Title:ED Note Author:Tacho Meyer DO Date:07/03/22 Acute UTI (N39.0: Urinary tr act infection, site not specified) Orders: cephalexin, 500 mg = 1 cap(s), Cap, Oral, Once, Stop date 05/03/23 16:26:00 EST, STAT, Start date 05/03/23 16:26:00 EST, 05/03/23 16:26:00 EST cephalexin, 500 mg = 1 cap(s), Oral, QID, X 7 day(s), # 28 cap(s), Refills(s) 0, Pharmacy: [facility] #[id number], 157.2, cm, 05/03/23 13:21:00 EST, Height/Length Dosing, 77.4, kg, 05/03/23 13:21:00 EST, Weight Dosing Automated Diff Basic Metabolic Panel CBC w/ Auto Diff ED Cardiac Monitoring eGFR Hepatic Function Panel PT & PTT Saline Lock Insert Troponin 0 Hr. UA With Cult Reflex Urine Culture Future Appointments Appointment Date:05/19/2023 01:00:00 PM Scheduled Provider:Sukh JOHN DO, FAAFP Location:[facility] Appointment Type: Open Appointment Date:05/02/2024 09:30:00 AM Scheduled Provider: Location:[facility] Appointment Type:FM Medicare Wellness Subsequent Diagnostic Tests Pending * Urine Culture 05/03/23 Future Scheduled Tests Laboratory* Thyroid-stimulating Immunoglobulin (TSI) 01/15/23 * UA With Cult Reflex 11/06/22 * T3 Free 01/15/[address] [facility]11-09-2023 Hospital Discharge instructions Patient Education 04/23/2023 14:54:18 Alzheimer's Disease Alzheimer's Disease Alzheimer's disease is a brain disease that affects memory, thinking, language, and behavior. People with Alzheimer's disease lose mental abilities, and the disease gets worse over time. Alzheimer's disease is a form of dementia. What are the causes? This condition develops when a protein called beta-amyloid forms deposits in the brain. It is not known what causes these deposits to form. Alzheimer's disease may also be caused by a gene mutation that is inherited from one parent or bothparents. A gene mutation is a harmful change in a gene. Not everyone who inherits the genetic mutation will get the disease. What increases the risk? You are more likely to develop this condition if you: Are older than age 65. Are female. Have any of these medical conditions: ?High blood pressure. ?Diabetes. ?Heart or blood vessel disease. Smoke. Have obesity. Have had a brain injury. Have had a stroke. Have a family history of dementia. What are the signs or symptoms? Symptoms of this condition may happen in three stages, which often overlap. Early stage In this stage, you may continue to be independent. You may still be able to drive, work, and be social. Symptoms in this stage include: Minor memory problems, such as forgetting a name, words, or what you did recently. Difficulty with: ?Paying attention. ?Communicating. ?Doing familiar tasks. ?Problem solving or doing calculations. ?Following instructions. ?Learning new things. Anxiety. Social withdrawal. Loss of motivation. Moderate stage In this stage, you will start to need care. Symptoms in this stage include: Difficulty with expressing thoughts. Memory loss that affects daily life. This can include forgetting: ?Recent events that have happened. ?If you have taken medicines or eaten. ?Familiar places. You may get lost while walking or driving. ?To pay bills or manage finances. ?Personal hygiene such as bathing or using the bathroom. Confusion about where you are or what time it is. Difficulty in judging distance. Changes in personality, mood, and behavior. You may be davidson, irritable, angry, frustrated, fearful, anxious, or suspicious. Poor reasoning and judgment. Delusions or hallucinations. Changes in sleep patterns. Severe stage In the final stage, you will need help with your personal care and daily activities. Symptoms in this stage include: Worsening memory loss. Personality changes. Loss of awareness of your surroundings. Changes in physical abilities, including the ability to walk, sit, and swallow. Difficulty in communicating. Inability to control your bladder and bowels. Increasing confusion. Increasing behavior changes. How is this diagnosed? This condition is diagnosed by a health care provider who specializes in diseases of the nervous system (neurologist) or one who specializes in care of the elderly (mobile therapist or geriatric psychiatrist). Other causes of dementia may also be ruled out. Your health care provider will talk with you and your family, friends, or caregivers about your history and symptoms. A thorough medical history will be taken, and you will have a physical exam and tests. Tests may include: Lab tests, such as blood or urine tests. Imaging tests, such as a CT scan, a PET scan, or an MRI. A lumbar puncture. This test involves removing and testing a small amount of the fluid that surrounds the brain and spinal cord. An electroencephalogram (EEG). In this test, small metal discs are used to measure electrical activity in the brain. Memory tests, cognitive tests, and neuropsychological tests. These tests evaluate brain function. Genetic testing. This may be done if you have early onset of the disease (before age 60) or if other family members have the disease. How is this treated? At this time, there is no treatment to cure Alzheimer's disease or stop it from getting worse. The goals of treatment are: To manage behavioral changes. To provide you with a safe environment. To help manage daily life for you and your caregivers. The following treatment options are available: Medicines. Medicines may help the memory work better and manage behavioral symptoms. Cognitive therapy. Cognitive therapy provides you with education, support, and memory aids. It is most helpful in the early stages of the condition. Counseling or spiritual guidance. It is normal to have a lot of feelings, including anger, relief, fear, and isolation. Counseling and guidance can help you deal with these feelings. Caregiving. This involves having caregivers help you with your daily activities. Family support groups. These provide education, emotional support, and information about community resources to family members who are taking care of you. Follow these instructions at home: Medicines Take zviz-osl-spuxixu and prescription medicines only as told by your health care provider. Use a pill organizer or pill reminder to help you manage your medicines. Avoid taking medicines that can affect thinking, such as pain medicines or sleeping medicines. Lifestyle Make healthy lifestyle choices: ?Be physically active as told by your health care provider. Regular exercise may help improve symptoms. ?Do not use any products that contain nicotine or tobacco, such as cigarettes, e-cigarettes, and chewing tobacco. If you need help quitting, ask your health care provider. ?Do not drink alcohol. ?Eat a healthy diet. ?Practice stress-management techniques when you get stressed. ?Stay social. Drink enough fluid to keep your urine pale yellow. Make sure to get quality sleep. ?Avoid taking long naps during the day. Take short naps of 30 minutes or less if needed. ?Keep your sleeping area dark and cool. ?Avoid exercising during the few hours before you go to bed. ?Avoid caffeine products in the afternoon and evening. General instructions Work with your health care provider to determine what you need help with and what your safety needsare. If you were given a bracelet that identifies you as a person with memory loss or tracks your location, make sure to wear it at all times. Talk with your health care provider about whether it is safe for you to drive. Work with your family to make important decisions, such as advance directives, medical power of commonwealth attorney, or a living will. Keep all follow-up visits. This is important. Where to find more information The Alzheimer's Association: Call the 24-hour helpline at , or visit www.alz.org Contact a health care provider if: You have nausea, vomiting, or trouble with eating related to a medicine. You have worsening mood or behavior changes, such as depression, anxiety, or hallucinations. You or your family members become concerned for your safety. Get help right away if: You become less responsive or are difficult to wake up. Your memory suddenly gets worse. You feel that you want to harm yourself. If you ever feel like you may hurt yourself or others, or have thoughts about taking your own life,get help right away. Go to your nearest emergency department or: Call your local emergency services (341 in the [place] Call a suicide crisis helpline, such as the National Suicide Prevention Lifeline at or 374 in the [place] This is open 24 hours a day in the [place] Text the Crisis Text Line at 649111 (in the [place] Summary Alzheimer's disease is a brain disease that affects memory, thinking, language, and behavior. Alzheimer's disease is a form of dementia. This condition is diagnosed by a specialist in diseases of the nervous system (neurologist) or one who specializes in care of the elderly. At this time, there is no treatment to cure Alzheimer's disease or stop it from getting worse. The goal of treatment is to help you manage any symptoms. Work with your family to make important decisions, such as advance directives, medical power of commonwealth attorney, or a living will. This information is not intended to replace advice given to you by your health care provider. Make sure you discuss any questions you have with your health care provider. Document Revised: 12/25/2021 Document Reviewed: 09/17/2020 [employer] Patient Education 2022 [employer] 04/23/2023 14:54:15 Deconditioning Deconditioning Deconditioning refers to the changes in the body that occur during a period of time when you are not active (inactivity). The changes happen in the heart, lungs, and muscles. They make you feel tiredand weak (fatigued) and decrease your ability to be active. The three stages of deconditioning include: Mild deconditioning. This is a change in your ability to do your usual exercise activities, such asrunning, biking, or swimming. Moderate deconditioning. This is a change in your ability to do normal everyday activities, such aswalking, shopping for groceries, and doing chores. Severe deconditioning. In this stage, you may not be able to do minimal activity or usual self-care. What are the causes? Deconditioning can occur after only a few days of inactivity. The longer the period of inactivity, the more severe the deconditioning will be, and the longer it will take to return to your previous level of functioning. It can take three times longer to recover than the time period of inactivity. Deconditioning is caused by inactivity, often due to: Illnesses, such as cancer, stroke, heart attack, fibromyalgia, and chronic fatigue syndrome. Injuries, especially back injuries, broken bones, and injuries to soft tissues, such as ligaments and tendons. Hospitalization, even for just a day or two. , especially if long periods of bed rest are needed. What increases the risk? The following factors may make you more likely to develop this condition: Having obesity or poor nutrition. Having poor mobility before the period of inactivity. Being an older adult. Having depression. Having problems with thinking and learning (cognitive impairment). What are the signs or symptoms? Symptoms of this condition include: Weakness and tiredness. Shortness of breath with minor physical effort (exertion). A heartbeat that is faster than normal. You may not notice this without taking your pulse. Pain or discomfort with activity. Decreased strength, endurance, and balance. Difficulty doing your usual forms of exercise. Difficulty doing activities of daily living, such as grocery shopping or chores. You may also have problems walking around the house and doing basic self-care, such as getting to the bathroom, preparing meals, or doing laundry. How is this diagnosed? This condition is diagnosed based on your medical history and a physical exam. During the physical exam, your health care provider will check for signs of deconditioning, such as: Decreased size of muscles. Decreased strength. Trouble with balance. Shortness of breath or a heart rate that is faster than normal after minor exertion. How is this treated? Treatment for this condition involves an exercise program in which activity is increased slowly. Your health care provider will tell you which exercises are right for you. The exercise program will likely include: Aerobic exercise. This type of exercise helps improve the functioning of the heart, lungs, and muscles. Strength training. This type of exercise helps increase muscle size and strength. Both of these types of exercise will improve your endurance. You may be referred to a physical therapist who can create a safe strengthening program for you to follow. Follow these instructions at home: Eating and drinking Eat a healthy, well-balanced diet. This includes: ?Proteins, such as lean meats and fish, to build muscles. ?Fresh fruits and vegetables. ?Carbohydrates, such as whole grains, to boost energy. Drink enough fluid to keep your urine pale yellow. Activity Follow the exercise program that is recommended by your health care provider or physical therapist. Do not increase your exercise any faster than directed. General instructions Take mfle-fvf-xhztnsv and prescription medicines only as told by your health care provider. Do not use any products that contain nicotine or tobacco. These products include cigarettes, chewing tobacco, and vaping devices, such as e-cigarettes. If you need help quitting, ask your health careprovider. Keep all follow-up visits. This is important. Contact a health care provider if: You are not able to do the recommended exercise program. You are becoming more and more tired and weak. You become light-headed when rising to a sitting or standing position. Your level of endurance decreases after it has improved. Get help right away if: You have chest pain. You are very short of breath. You have any episodes of fainting. These symptoms may be an emergency. Get help right away. Call 911. Do not wait to see if the symptoms will go away. Do not drive yourself to the hospital. Summary Deconditioning refers to the changes in the body that occur during a period of inactivity. Deconditioning happens in the heart, lungs, and muscles. The changes make you feel tired and weak and decrease your ability to be active. Treatment for deconditioning involves an exercise program in which activity is increased slowly. This information is not intended to replace advice given to you by your health care provider. Make sure you discuss any questions you have with your health care provider. Document Revised: 03/24/2022 Document Reviewed: 03/24/2022 [employer] Patient Education 2022 [employer]. Follow Up Care 02/03/2023 14:02:16 With:SHARAD GRIDER FAAFP, Sukh Lin, VARUN, PED Address: [place] [address]- When:Within 1 Month(s) [facility] 11-09-2023 Hospital Discharge instructions Patient Education 04/23/2023 14:36:25 Health Maintenance After Age 65 Health Maintenance After Age 65 After age 65, you are at a higher risk for certain long-term diseases and infections as well as injuries from falls. Falls are a major cause of broken bones and head injuries in people who are older than age 65. Getting regular preventive care can help to keep you healthy and well. Preventive care includes getting regular testing and making lifestyle changes as recommended by your health care provider. Talk with your health care provider about: Which screenings and tests you should have. A screening is a test that checks for a disease when you have no symptoms. A diet and exercise plan that is right for you. What should I know about screenings and tests to prevent falls? Screening and testing are the best ways to find a health problem early. Early diagnosis and treatment give you the best chance of managing medical conditions that are common after age 65. Certain conditions and lifestyle choices may make you more likely to have a fall. Your health care provider mayrecommend: Regular vision checks. Poor vision and conditions such as cataracts can make you more likely to have a fall. If you wear glasses, make sure to get your prescription updated if your vision changes. Medicine review. Work with your health care provider to regularly review all of the medicines you are taking, including flfa-joy-sidouuw medicines. Ask your health care provider about any side effects that may make you more likely to have a fall. Tell your health care provider if any medicines thatyou take make you feel dizzy or sleepy. Strength and balance checks. Your health care provider may recommend certain tests to check your strength and balance while standing, walking, or changing positions. Foot health exam. Foot pain and numbness, as well as not wearing proper footwear, can make you morelikely to have a fall. Screenings, including: ?Osteoporosis screening. Osteoporosis is a condition that causes the bones to get weaker and break more easily. ?Blood pressure screening. Blood pressure changes and medicines to control blood pressure can make you feel dizzy. ?Depression screening. You may be more likely to have a fall if you have a fear of falling, feel depressed, or feel unable to do activities that you used to do. ?Alcohol use screening. Using too much alcohol can affect your balance and may make you more likelyto have a fall. Follow these instructions at home: Lifestyle Do not drink alcohol if: ?Your health care provider tells you not to drink. If you drink alcohol: ?Limit how much you have to: ?0 1 drink a day for women. ?0 2 drinks a day for men. ?Know how much alcohol is in your drink. In the [place] one drink equals one 12 oz bottle of beer (355 mL), one 5 oz glass of wine (148 mL), or one 1 oz glass of hard liquor (44 mL). Do not use any products that contain nicotine or tobacco. These products include cigarettes, chewing tobacco, and vaping devices, such as e-cigarettes. If you need help quitting, ask your health careprovider. Activity Follow a regular exercise program to stay fit. This will help you maintain your balance. Ask your health care provider what types of exercise are appropriate for you. If you need a cane or walker, use it as recommended by your health care provider. Wear supportive shoes that have nonskid soles. Safety Remove any tripping hazards, such as rugs, cords, and clutter. Install safety equipment such as grab bars in bathrooms and safety rails on stairs. Keep rooms and walkways well-lit. General instructions Talk with your health care provider about your risks for falling. Tell your health care provider if: ?You fall. Be sure to tell your health care provider about all falls, even ones that seem minor. ?You feel dizzy, tiredness (fatigue), or off-balance. Take gxcz-sgt-bjfvfuf and prescription medicines only as told by your health care provider. These include supplements. Eat a healthy diet and maintain a healthy weight. A healthy diet includes low- fat dairy products, low-fat (lean) meats, and fiber from whole grains, beans, and lots of fruits and vegetables. Stay current with your vaccines. Schedule regular health, dental, and eye exams. Summary Having a healthy lifestyle and getting preventive care can help to protect your health and wellnessafter age 65. Screening and testing are the best way to find a health problem early and help you avoid having a fall. Early diagnosis and treatment give you the best chance for managing medical conditions that aremore common for people who are older than age 65. Falls are a major cause of broken bones and head injuries in people who are older than age 65. Takeprecautions to prevent a fall at home. Work with your health care provider to learn what changes you can make to improve your health and wellness and to prevent falls. This information is not intended to replace advice given to you by your health care provider. Make sure you discuss any questions you have with your health care provider. Document Revised: 10/21/2021 Document Reviewed: 10/21/2021 [employer] Patient Education 2022 [employer]. 04/23/2023 14:36:05 Alzheimer's Disease Caregiver Guide Alzheimer's Disease Caregiver Guide Alzheimer's disease is a brain disease that causes memory loss and changes in behavior. People withAlzheimer's disease often have problems paying attention, communicating, and doing routine tasks. The disease gets worse over time, and people with the disease eventually need full-time care. Taking care of someone with Alzheimer's disease can be challenging and overwhelming. This guide provides helpful information and tips that can make caring for someone with the disease a little easier. How to help manage lifestyle changes Managing symptoms Be calm and patient. Give short, simple answers to questions. Long answers can overwhelm and confuse the person. Avoid correcting the person in a negative way. Try not to take things personally, even if the person forgets your name. Understand that changes are a part of the disease process. Do not argue or try to convince the person about a specific point. Doing that may make the person feel more agitated. Reducing frustration Make appointments and do daily tasks, like bathing and dressing, when the person is at his or her best. Allow for plenty of time for simple tasks because they may take longer than expected. Take your time when doing these tasks. Limit the person's choices. Too many choices can be overwhelming and stressful for the person. Involve the person in what you are doing. Take steps to help keep things organized such as: ?Keeping a daily routine. ?Organizing medicines in a pillbox for each day of the week. ?Keeping a calendar in a central location to remind the person of appointments or other activities. Avoid crowds and new situations, if possible. Use simple words, short sentences, and a calm voice. Only give one direction at a time. Buy clothes and shoes for the person that are easy to put on and take off. Try to change the subject or topic if the person becomes frustrated or angry. Distraction is a great technique for making a situation less tense. Reducing the risk of injury Keep floors clear of clutter. Remove rugs, magazine racks, and floor lamps. Keep hallways well-lit, especially at night. Put a handrail and nonslip mat in the bathtub or shower. Put childproof locks on cabinets that contain dangerous items, such as medicines, alcohol, guns, toxic cleaning items, sharp tools or utensils, matches, and lighters. Put locks on doors. Put the locks in places where the person cannot see or reach them easily. This will help ensure that the person does not wander out of the house and get lost. Be prepared for emergencies. Keep a list of emergency phone numbers and addresses in a convenient area. Remove car keys and lock garage doors so that the person does not try to get in the car and drive. A certain type of bracelet may be worn that tracks a person's location and identifies him or her ashaving memory problems. This should be worn at all times for safety. Planning for the future Discuss financial and legal planning early on in the course of the disease. People with Alzheimer'sdisease will have trouble managing their money as the disease gets worse. Get help from professional advisers regarding financial and legal matters. Discuss advance directives, safety, and daily care. Take these steps: ?Create a living will and choose a power of commonwealth attorney. The person with power of commonwealth attorney will be able to make decisions for the person with Alzheimer's disease when he or she is no longer able to. ?Discuss driving safety and when to stop driving. The person's health care provider can help provide assistance with this decision. ?Discuss the person's living situation. If the person lives alone, make sure he or she is safe. People who live at home may need extra help from home health caregivers, and those who live in a retirement or care center may need more care. How to recognize changes in the person's condition Alzheimer's disease causes a person to lose the ability to remember things and make decisions. Memory loss and confusion are usually mild at the start of the disease, but they slowly get more severe over time. Eventually, the person may not recognize friends, family members, or familiar places. Alzheimer's disease can also cause hallucinations, changes in behavior, and changes in mood, such as anxiety or anger. The changes can come on suddenly. They may happen in response to something such as: Pain. An infection. Changes in environment, such as changes in temperature or noise. Overstimulation. Feeling lost or scared. Medicines. Where to find support Ask about respite care resources. Respite care can provide short-term care for the person so that you can have a regular break from the stress of caregiving. Consider joining a local support group. Advantages of being part of a support group include: ?Learning strategies to manage stress. ?Sharing experiences with others. ?Receiving emotional comfort and support. ?Learning about caregiving as the disease progresses. ?Knowing what community resources are available and making use of them. Where to find more information Alzheimer's Association: www.alz.org Contact a health care provider if: The person has a fever. The person has a sudden change in behavior that does not improve with calming strategies. The person is unable to manage in his or her current living situation. You are no longer able to care for the person. Get help right away if: The person has a sudden increase in confusion or new hallucinations. The person threatens himself or herself, you, or anyone else. If you ever feel like your loved one may hurt himself or herself or others, or shares thoughts about taking his or her own life, get help right away. You can go to your nearest emergency department or: Call your local emergency services (911 in the [place] Call a suicide crisis helpline, such as the National Suicide Prevention Lifeline at or 904 in the [place] This is open 24 hours a day in the [place] Text the Crisis Text Line at 721472 (in the [place] Summary Alzheimer's disease is a brain disease that causes memory loss and changes in behavior. People with Alzheimer's disease often have problems paying attention, communicating, and doing routine tasks. The disease gets worse over time, and people with the disease eventually need full-time care. Take steps to reduce the person's risk of injury and plan for future care. Taking care of someone with Alzheimer's disease can be very challenging and overwhelming. One way to find support during this time is to join a local support group. This information is not intended to replace advice given to you by your health care provider. Make sure you discuss any questions you have with your health care provider. Document Revised: 12/25/2021 Document Reviewed: 09/17/2020 [employer] Patient Education 2022 [employer]. 04/23/2023 14:35:42 Preventive Care 65 Years and Older, Female Preventive Care 65 Years and Older, Female Preventive care refers to lifestyle choices and visits with your health care provider that can promote health and wellness. Preventive care visits are also called wellness exams. What can I expect for my preventive care visit? Counseling Your health care provider may ask you questions about your: Medical history, including: ?Past medical problems. ?Family medical history. ? and menstrual history. ?History of falls. Current health, including: ?Memory and ability to understand (cognition). ?Emotional well-being. ?Home life and relationship well-being. ?Sexual activity and sexual health. Lifestyle, including: ?Alcohol, nicotine or tobacco, and drug use. ?Access to firearms. ?Diet, exercise, and sleep habits. ?Work and work environment. ?Sunscreen use. ?Safety issues such as seatbelt and bike helmet use. Physical exam Your health care provider will check your: Height and weight. These may be used to calculate your BMI (body mass index). BMI is a measurement that tells if you are at a healthy weight. Waist circumference. This measures the distance around your waistline. This measurement also tells if you are at a healthy weight and may help predict your risk of certain diseases, such as type 2 diabetes and high blood pressure. Heart rate and blood pressure. Body temperature. Skin for abnormal spots. What immunizations do I need? Vaccines are usually given at various ages, according to a schedule. Your health care provider willrecommend vaccines for you based on your age, medical history, and lifestyle or other factors, suchas travel or where you work. What tests do I need? Screening Your health care provider may recommend screening tests for certain conditions. This may include: Lipid and cholesterol levels. Hepatitis C test. Hepatitis B test. HIV (human immunodeficiency virus) test. STI (sexually transmitted infection) testing, if you are at risk. Lung cancer screening. Colorectal cancer screening. Diabetes screening. This is done by checking your blood sugar (glucose) after you have not eaten for a while (fasting). Mammogram. Talk with your health care provider about how often you should have regular mammograms. BRCA-related cancer screening. This may be done if you have a family history of breast, ovarian, tubal, or peritoneal cancers. Bone density scan. This is done to screen for osteoporosis. Talk with your health care provider about your test results, treatment options, and if necessary, the need for more tests. Follow these instructions at home: Eating and drinking Eat a diet that includes fresh fruits and vegetables, whole grains, lean protein, and low-fat dairyproducts. Limit your intake of foods with high amounts of sugar, saturated fats, and salt. Take vitamin and mineral supplements as recommended by your health care provider. Do not drink alcohol if your health care provider tells you not to drink. If you drink alcohol: ?Limit how much you have to 0 1 drink a day. ?Know how much alcohol is in your drink. In the [place] one drink equals one 12 oz bottle of beer (355 mL), one 5 oz glass of wine (148 mL), or one 1 oz glass of hard liquor (44 mL). Lifestyle Reagan your teeth every morning and night with fluoride toothpaste. Floss one time each day. Exercise for at least 30 minutes 5 or more days each week. Do not use any products that contain nicotine or tobacco. These products include cigarettes, chewing tobacco, and vaping devices, such as e-cigarettes. If you need help quitting, ask your health careprovider. Do not use drugs. If you are sexually active, practice safe sex. Use a condom or other form of protection in order toprevent STIs. Take aspirin only as told by your health care provider. Make sure that you understand how much to take and what form to take. Work with your health care provider to find out whether it is safe and beneficial for you to take aspirin daily. Ask your health care provider if you need to take a cholesterol-lowering medicine (statin). Find healthy ways to manage stress, such as: ?Meditation, yoga, or listening to music. ?Journaling. ?Talking to a trusted person. ?Spending time with friends and family. Minimize exposure to UV radiation to reduce your risk of skin cancer. Safety Always wear your seat belt while driving or riding in a vehicle. Do not drive: ?If you have been drinking alcohol. Do not ride with someone who has been drinking. ?When you are tired or distracted. ?While texting. ?If you have been using any mind-altering substances or drugs. Wear a helmet and other protective equipment during sports activities. If you have firearms in your house, make sure you follow all gun safety procedures. What's next? Visit your health care provider once a year for an annual wellness visit. Ask your health care provider how often you should have your eyes and teeth checked. Stay up to date on all vaccines. This information is not intended to replace advice given to you by your health care provider. Make sure you discuss any questions you have with your health care provider. Document Revised: 11/27/2021 Document Reviewed: 11/27/2021 [employer] Patient Education 2022 [employer]. [facility] 10-30-2023 Evaluation + Plan noteExtracted from: Title:Discharge Note Author:Freddy Gaitan DO Date:04/13/23 stable Discharge To, Anticipated II - Home with responsible caregiver back to [facility] Dis[facility] Diet(s): Regular (04/13/23 10:56:00) Prescriptions Abilify 10 mg Tab, 10 mg= 1 tab(s), Oral, Daily, 3 refills, Not taking: dosage changed, see new order aspirin 81 mg Oral EC Tab, 81 mg= 1 tab(s), Oral, Daily, 3 refills Booster Liners, See Instructions, 11 refills carbidopa-levodopa 25 mg-100 mg Tab, 1 tab(s), Oral, TID, 1 refills Depend Undergarment XL, See Instructions, 11 refills donepezil 10 mg Tab, 10 mg= 1 tab(s), Oral, BID, 3 refills doxepin 10 mg Cap, 10 mg= 1 cap(s), Oral, TID, 1 refills escitalopram 20 mg Tab, 20 mg= 1 tab(s), Oral, Daily, 3 refills Evista 60 mg Tab, 60 mg= 1 tab(s), Oral, Daily, 3 refills levothyroxine 100 mcg (0.1 mg) Tab, 100 mcg, Oral, Daily, 1 refills loratadine 10 mg Tab, 10 mg= 1 tab(s), Oral, Daily, 11 refills Low Pressure Knee High Compression Stockings, See Instructions, 2 refills melatonin 5 mg oral tablet, 5 mg= 1 tab(s), Oral, Once a day (at bedtime), 5 refills Myrbetriq 50 mg oral tablet, extended release, 50 mg= 1 tab(s), Oral, Daily, 1 refills Namenda XR 28 mg oral capsule, extended release, 28 mg= 1 cap(s), Oral, Daily, 1 refills omeprazole 20 mg Cap-DR, 20 mg= 1 tab(s), Oral, Daily, 3 refills Pentasa 500 mg oral capsule, extended release, 1000 mg= 2 cap(s), Oral, QID, 5 refills pravastatin 20 mg Tab, 20 mg= 1 tab(s), Oral, Daily, 1 refills rt knee brace, See Instructions traZODONE 100 mg Tab, 100 mg= 1 tab(s), Oral, Once a day (at bedtime), 3 refills Vistaril 25 mg Cap, 25 mg= 1 cap(s), Oral, BID, PRN Home acetaminophen 325 mg Tab, 650 mg= 2 tab(s), Oral, q6hr, PRN aripiprazole 5 mg Tab, 5 mg= 1 tab(s), Oral, Bedtime cyclobenzaprine 5 mg Tab, 5 mg= 1 tab(s), Oral, BID, Not taking gabapentin 400 mg Cap, 400 mg= 1 cap(s), Oral, TID High Potency Vitamin D3 125 mcg (5000 intl units) oral capsule, 125 mcg= 1 cap(s), Oral, Daily Lamictal, 100 mg, Oral, BID Ventolin HFA 90 mcg/inh Aerosol-Adpt, 2 puff(s), Inhalation, QID, PRN With When Contact Information Sukh JOHN 04/23/2023 01:40 PM EST [address], [place] [address] [facility] (1) Additional Instructions: Keep scheduled appointment Extracted from: Title:APSO Note Author:RASHID SAINI, Mbanefo Date: 67-year-old female with history of CVA with right-sided weakness, hypothyroidism, hyperlipidemia, moderate intellectual disability, Parkinson's disease, seizure disorder presented from the nursing home because of increased lethargy, syncopal episode while eating, confusion and was admitted with syncope, acute metabolic encephalopathy secondary to urinary tract infection. 1. Syncope (R55: Syncope and collapse) Likely secondary to vasovagal reflex. Cardiac enzymes are negative. Orthostatic vital signs within normal limit. Ordered: Sbsq Hospital Care/Day Moderate 35 Minutes 32633 2. Acute metabolic encephalopathy (G93.41: Metabolic encephalopathy) Secondary to urinary tract infection present on admission. Resolved. Patient is back to her baseline mentation. Ordered: Sbsq Hospital Care/Day Moderate 35 Minutes [id number] 3. Acute lower urinary tract infection (N39.0: Urinary tract infection, site not specified) Proteus mirabilis urinary tract infection present on admission. Treating with IV ceftriaxone. Will convert to oral antibiotics at discharge. Ordered: Sbsq Hospital Care/Day Moderate 35 Minutes [id number] 4. 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 Continue on Lamictal and seizure precautions. Ordered: Sbsq Hospital Care/Day Moderate 35 Minutes [id number] 5. Parkinson's disease (G20: Parkinson's disease) Patient with history of Parkinson's disease and dementia. On Sinemet, Aricept and Namenda. Ordered: Sbsq Hospital Care/Day Moderate 35 Minutes [id number] 6. Moderate intellectual disability (F71: Moderate intellectual disabilities) Stable. Supportive care. 7. Familial hypercholesteremia (E78.01: Familial hypercholesterolemia) On Pravachol. 8. H/O: stroke (Z86.73: Personal history of transient ischemic attack (TIA), and cerebral infarction without residual deficits) Historical. Continue on aspirin and Pravachol. 9. Hemiparesis of right dominant side as late effect of cerebral infarction (I69.351: Hemiplegia and hemiparesis following cerebral infarction affecting right dominant side) Secondary to above stroke. Supportive care. 10. Obese (E66.9: Obesity, unspecified) Recommend therapeutic lifestyle modification changes. 11. 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 12. On deep vein thrombosis (DVT) prophylaxis (Z79.899: Other residential (current) drug therapy) Heparin. Disposition: We will plan for discharge in a.m with home health to nursing home when arranged.. I discussed the diagnosis and plan of care with the patient at the bedside. Moderate level of MDM based on addressing above issues. This documentation was transcribed using voice recognition software. Several attempts were made to ensure accuracy. However inadvertent computerized science center display builder errors may be present. Celi Morgan. Hospitalist. Orders: aripiprazole, 10 mg = 2 tab(s), Tab, Oral, Daily, Routine, Start date 04/12/23 9:00:00 EDT, 04/11/23 9:12:00 EDT aspirin, 81 mg = 1 tab(s), Tab-EC, Oral, Daily, Routine, Start date 04/12/23 9:00:00 EDT, 04/11/23 9:12:00 EDT carbidopa-levodopa, 1 tab(s), Tab, Oral, TID, Routine, Start date 04/11/23 14:00:00 EDT donepezil, 10 mg = 1 tab(s), Tab, Oral, BID, Routine, Start date 04/11/23 21:00:00 EDT, 04/11/23 9:12:00 EDT escitalopram, 20 mg = 2 tab(s), Tab, Oral, Daily, Routine, Start date 04/12/23 9:00:00 EDT, 04/11/23 9:12:00 EDT lamotrigine, 100 mg = 1 tab(s), Tab, Oral, BID, Routine, Start date 04/11/23 21:00:00 EDT, 04/11/23 9:16:00 EDT levothyroxine, 100 mcg = 1 tab(s), Tab, Oral, Daily, Routine, Start date 04/12/23 6:30:00 EDT, 04/11/23 9:14:00 EDT memantine, 28 mg = 4 cap(s), Cap-ER, Oral, Daily, Routine, Start date 04/12/23 9:00:00 EDT, 04/11/23 9:14:00 EDT pravastatin, 20 mg = 1 tab(s), Tab, Oral, Daily, Routine, Start date 04/12/23 9:00:00 EDT, 04/11/23 9:14:00 EDT Orthostatic Vitals Signs Extracted from: Title:APSO Note Author:RASHID SAINI, Mbanefo Date:1 67-year-old female with history of CVA with right-sided weakness, hypothyroidism, hyperlipidemia, moderate intellectual disability, Parkinson's disease, seizure disorder presented from the nursing home because of increased lethargy, syncopal episode while eating, confusion and was admitted with syncope, acute metabolic encephalopathy secondary to urinary tract infection. 1. Syncope (R55: Syncope and collapse) Likely secondary to vasovagal reflex. Cardiac enzymes are negative. Check orthostatic vital signs. Ordered: [facility] Hospital Care/Day Moderate 35 Minutes 85620 2. Acute metabolic encephalopathy (G93.41: Metabolic encephalopathy) Secondary to urinary tract infection. Present on admission. Improving. Approaching baseline mentation. Ordered: [facility] Hospital Care/Day Moderate 35 Minutes [id number] 3. Acute lower urinary tract infection (N39.0: Urinary tract infection, site not specified) Continue on IV ceftriaxone pending final urine culture result. Ordered: [facility] Hospital Care/Day Moderate 35 Minutes [id number] 4. 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 Continue on Lamictal. Seizure precautions. Ordered: [facility] Hospital Care/Day Moderate 35 Minutes [id number] 5. Parkinson's disease (G20: Parkinson's disease) History of Parkinson's disease with underlying dementia. Continue on Sinemet, Aricept and Namenda. 6. Moderate intellectual disability (F71: Moderate intellectual disabilities) Resides in a nursing home. Supportive care. Continue on trazodone, Abilify and Lexapro. 7. Familial hypercholesteremia (E78.01: Familial hypercholesterolemia) On Pravachol. 8. H/O: stroke (Z86.73: Personal history of transient ischemic attack (TIA), and cerebral infarction without residual deficits) Historical. Supportive care. Continue on aspirin. 9. Hemiparesis of right dominant side as late effect of cerebral infarction (I69.351: Hemiplegia and hemiparesis following cerebral infarction affecting right dominant side) Chronic secondary to above stroke. Supportive care. 10. Obese (E66.9: Obesity, unspecified) Recommend therapeutic lifestyle modification changes. 11. 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 12. On deep vein thrombosis (DVT) prophylaxis (Z79.899: Other residential (current) drug therapy) Heparin. Disposition: Continue current treatment in the hospital pending resolution of acute metabolic encephalopathy and final urine culture result. I discussed the diagnosis and plan of care with the patient at the bedside. Moderate level of MDM based on addressing above issues. This documentation was transcribed using voice recognition software. Several attempts were made to ensure accuracy. However inadvertent computerized science center display builder errors may be present. Celi Morgan. Hospitalist. Extracted from: Title:Admission H & P Author:Karyn Escamilla MD Date:04/10/23 1. Syncope (R55: Syncope and collapse) Possibly vasovagal in etiology related to underlying UTI. Correction staff denies that patient had any seizure activity while unconscious today. No further workup needed if patient continue to show improvement. 2. Acute metabolic encephalopathy (G93.41: Metabolic encephalopathy) Due to underlying UTI. 3. Acute lower urinary tract infection (N39.0: Urinary tract infection, site not specified) UA +UTI. Urine cx pending. Continue Rocephin daily. 4. Generalized seizure disorder (G40.309: Generalized idiopathic epilepsy and epileptic syndromes, not intractable, without status epilepticus) Seizure precautions. Lamictal 5. Parkinson's disease (G20: Parkinson's disease) With underlying dementia. Sinemet, Donepezil, Namenda 6. Moderate intellectual disability (F71: Moderate intellectual disabilities) Resides in a [facility], [place] [facility] 7. Familial hypercholesteremia (E78.01: Familial hypercholesterolemia) Statin. 8. H/O: stroke (Z86.73: Personal history of transient ischemic attack (TIA), and cerebral infarction without residual deficits) ASA, Statin. Extracted from: Title:ED Note Author:Tacho Meyer DO Date:1 Acute lower urinary tract in fection (N39.0: Urinary tract infection, site not specified) Acute metabolic encephalopathy (G93.41: Metabolic encephalopathy) Orders: ceftriaxone + Sodium Chloride 0.9% intravenous solution 50 mL, 1,000 mg = 1 EA, IV Piggyback, Once, Stop date 04/10/23 20:43:00 EDT, STAT, Start date 04/10/23 20:43:00 EDT, 100 mL/hr, Infuse over 30 minute(s), 04/10/23 20:43:00 EDT Automated Diff Basic Metabolic Panel CBC w/ Auto Diff CT Head or Brain w/o Contrast ECG 12 Lead Adult eGFR Extra Blue Tube Extra SST Tube Hepatic Function Panel Troponin 0 Hr. Troponin 3 Hr. UA With Cult Reflex Urine Culture XR Chest Single View Future Appointments Appointment Date:04/23/2023 01:00:00 PM Scheduled Provider: Location:[facility] Appointment Type: Medicare Wellness Subsequent Appointment Date:04/23/2023 01:40:00 PM Scheduled Provider:Sukh JOHN DO, FAAFP Location:[facility] Appointment Type: Open Future Scheduled Tests Laboratory* Thyroid-stimulating Immunoglobulin (TSI) 01/15/23 * UA With Cult Reflex 11/06/22 * T3 Free 01/15/[address] [facility]10-30-2023 Hospital Discharge instructions Patient Education 04/13/2023 11:09:27 Syncope, Adult Syncope, Adult Syncope refers to a condition in which a person temporarily loses consciousness. Syncope may also be called fainting or passing out. It is caused by a sudden decrease in blood flow to the brain. Thiscan happen for a variety of reasons. Most causes of syncope are not dangerous. It can be triggered by things such as needle sticks, seeing blood, pain, or intense emotion. However, syncope can also be a sign of a serious medical problem, such as a heart abnormality. Other causes can include dehydration, migraines, or taking medicines that lower blood pressure. Your health care provider may do tests to find the reason why you are having syncope. If you faint, get medical help right away. Call your local emergency services (911 in the [place] Follow these instructions at home: Pay attention to any changes in your symptoms. Take these actions to stay safe and to help relieve your symptoms: Knowing when you may be about to faint Signs that you may be about to faint include: ?Feeling dizzy, weak, light-headed, or like the room is spinning. ?Feeling nauseous. ?Seeing spots or seeing all white or all black in your field of vision. ?Having cold, clammy skin or feeling warm and sweaty. ?Hearing ringing in the ears (tinnitus). If you start to feel like you might faint, sit or lie down right away. If sitting, put your head down between your legs. If lying down, raise (elevate) your feet above the level of your heart. ?Breathe deeply and steadily. Wait until all the symptoms have passed. ?Have someone stay with you until you feel stable. Medicines Take qnag-iuf-xmskugz and prescription medicines only as told by your health care provider. If you are taking blood pressure or heart medicine, get up slowly and take several minutes to sit and then stand. This can reduce dizziness and decrease the risk of syncope. Lifestyle Do not drive, use machinery, or play sports until your health care provider says it is okay. Do not drink alcohol. Do not use any products that contain nicotine or tobacco. These products include cigarettes, chewing tobacco, and vaping devices, such as e-cigarettes. If you need help quitting, ask your health careprovider. Avoid hot tubs and saunas. General instructions Talk with your health care provider about your symptoms. You may need to have testing to understandthe cause of your syncope. Drink enough fluid to keep your urine pale yellow. Avoid prolonged standing. If you must stand for a long time, do movements such as: ?Moving your legs. ?Crossing your legs. ?Flexing and stretching your leg muscles. ?Squatting. Keep all follow-up visits. This is important. Contact a health care provider if: You have episodes of near fainting. Get help right away if: You faint. You hit your head or are injured after fainting. You have any of these symptoms that may indicate trouble with your heart: ?Fast or irregular heartbeats (palpitations). ?Unusual pain in your chest, abdomen, or back. ?Shortness of breath. You have a seizure. You have a severe headache. You are confused. You have vision problems. You have severe weakness or trouble walking. You are bleeding from your mouth or rectum, or you have black or tarry stool. These symptoms may represent a serious problem that is an emergency. Do not wait to see if your symptoms will go away. Get medical help right away. Call your local emergency services (911 in the [place] Do not drive yourself to the hospital. Summary Syncope refers to a condition in which a person temporarily loses consciousness. Syncope may also be called fainting or passing out. It is caused by a sudden decrease in blood flow to the brain. Signs that you may be about to faint include dizziness, feeling light-headed, feeling nauseous, sudden vision changes, or cold, clammy skin. Even though most causes of syncope are not dangerous, syncope can be a sign of a serious medical problem. Get help right away if you faint. If you start to feel like you might faint, sit or lie down right away. If sitting, put your head down between your legs. If lying down, raise (elevate) your feet above the level of your heart. This information is not intended to replace advice given to you by your health care provider. Make sure you discuss any questions you have with your health care provider. Document Revised: 10/10/2021 Document Reviewed: 10/10/2021 [employer] Patient Education 2022 [employer]. Follow Up Care 04/10/2023 17:13:06 With:Sukh JOHN Address: [address], [facility] [place] [address] [facility] (1) When:04/23/2023 13:40:00 Comments:Keep scheduled appointment [facility]10-13-2023 Hospital Discharge instructions Patient Education 03/27/2023 13:18:26 Knee Rehabilitation in the Home Knee Rehabilitation in the Home After knee surgery, it is important to follow instructions from your health care provider about rehabilitation or rehab. It is important to design a program that is safe and effective for you. Your health care provider and rehabilitation therapist will work with you to meet your specific abilities and needs. What are the benefits? Knee rehab can help: Strengthen your knee. Improve the flexibility and movement (range of motion) of your knee joint. Reduce swelling. Improve blood flow and prevent blood clots. How to do exercises at home Continue exercises at home that your health care provider or physical therapist instructed you to do in the hospital. Do not exercise in a pool until your incision has healed and your health care provider says that you can. Pool exercise is also called aquatic therapy. Before you exercise Take pain medicines, if told by your health care provider. Do not take the medicine if it makes youfeel dizzy or sleepy. Do a warm-up activity, such as gentle walking or riding a stationary bike, as told by your health care provider. This warms up your muscles and helps to prevent injury. While doing exercises When standing, make sure you are near something sturdy that you can hold onto for balance, such as a heavy chair or the wall. Do exercises exactly as told by your health care provider and adjust them as directed. As you are recovering, choose an exercise pace that is comfortable for you, and gradually work up to your goal. Do not use a lot of force to bend your knee. Bend it gently. Increase activity as your knee heals. Follow these instructions at home: Activity Rest as told by your health care provider. ?Avoid sitting for a long time without moving. Get up to take short walks every 1 2 hours. This is important to improve blood flow and breathing. Ask for help if you feel weak or unsteady. Do not lift anything that is heavier than 10 lb (4.5 kg), or the limit that you are told, until your health care provider says that it is safe. Do not use your knee to support your body weight until your health care provider says that you can.Use crutches or a walker as told by your health care provider. Do not twist or kneel on your injured knee. Return to your normal activities as told by your health care provider. Ask your health care provider what activities are safe for you. Managing pain, stiffness, and swelling Put ice on affected areas after you exercise, or as needed. Icing can help to relieve joint pain and swelling. To do this: ?Put ice in a plastic bag or use the icing device (cold flow pad or cold therapy unit) that you were given. Follow instructions from your health care provider about how to use the icing device. ?Place a towel between your skin and the bag or device. ?Leave the ice on for 20 minutes, 2 3 times a day. If directed, apply heat to affected areas before you exercise, or as needed. Heat can reduce the stiffness of your muscles and joints. Use the heat source that your health care provider recommends, such as a moist heat pack or a heating pad. To do this: ?Place a towel between your skin and the heat source. ?Leave the heat on for 20 30 minutes. ?Remove the heat if your skin turns bright red. This is especially important if you are unable to feel pain, heat, or cold. You may have a greater risk of getting burned. Wear compression stockings as told by your health care provider. These stockings help to prevent blood clots and reduce swelling in your legs. Raise your legs while sitting or lying down. Do not place your knee on top of pillows to elevate it. Keep your legs straight to prevent your knee from getting stuck in a bent position (contracture). Preventing falls Keep your home well-lit and free of clutter, especially in walkways and stairways. Keep floors dry and use non-skid mats. Remove tripping hazards from floors, such as throw rugs and cords. Install grab bars in bathrooms, and put night-lights in your bedroom and bathroom. Wear closed-toe shoes that fit well and support your feet. Wear shoes that have rubber soles or lowheels. Talk with your health care provider about any etuv-jkm-wbhplcp and prescription medicines that you are taking. Some medicines can cause dizziness or changes in blood pressure, which increase your risk of falling. General recommendations Teach your family about your condition and how they can help in your recovery. Include them during a physical therapy session. Keep all follow-up visits as told by your health care provider and physical therapist. This is important. Questions to ask your health care provider What exercises are safe for me to do? How often should I do the exercises? How can I manage the pain during exercise? What other activities are safe for me to do? Contact a health care provider if: You have questions about how to do exercises correctly. You have increased difficulty bending or straightening your knee. You have knee pain that does not go away after you rest and take pain medicines. Your prosthesis feels loose. You are not able to do exercises. Get help right away if: You fall. Your incision from surgery breaks open. Summary Knee rehab can help to strengthen your knee and improve the flexibility and movement (range of motion) of your knee joint. Continue exercises at home that your health care provider or physical therapist instructed you to do in the hospital. Call your health care provider if you have questions about how to do exercises correctly. This information is not intended to replace advice given to you by your health care provider. Make sure you discuss any questions you have with your health care provider. Document Revised: 2020 Document Reviewed: 2020 [employer] Patient Education 2022 [employer]. Follow Up Care 03/18/2023 09:33:20 With:SHARAD GRIDER FAAFP, VARUN Hinojosa, PED Address: [address] [place] [id number]- When:Within 3 Month(s) [facility] 10-10-2023 Miscellaneous Notes* Telephone Encounter - Andres Cortez RN - 03/24/2023 4:22 PM EDT Form routed to Dr. Sosa for signature thru docusign One copy faxed to Day [phone] Andres Cortez RN * Telephone Encounter - Judy Field - 03/23/2023 12:31 PM EDT Form received: From (agency / facility / parent): Home [employer] draftsperson (if given): Pablo Ordonez Phone #: [phone] (home) Fax # : [phone] Email: Information requested: physician order form Patient of Dr. sosa documented in [place] [address]-04-2023 Hospital Discharge instructions Patient Education 03/18/2023 13:29:07 Contusion Contusion A contusion is a deep bruise. Contusions are the result of a blunt injury to tissues and muscle fibers under the skin. The injury causes bleeding under the skin. The skin overlying the contusion may turn blue, purple, or yellow. Minor injuries will give you a painless contusion, but more severe injuries cause contusions that may stay painful and swollen for a few weeks. Follow these instructions at home: Pay attention to any changes in your symptoms. Let your health care provider know about them. Take these actions to relieve your pain. Managing pain, stiffness, and swelling Use resting, icing, applying pressure (compression), and raising (elevating) the injured area. Thisis often called the RICE strategy. ?Rest the injured area. Return to your normal activities as told by your health care provider. Ask your health care provider what activities are safe for you. ?If directed, put ice on the injured area: ?Put ice in a plastic bag. ?Place a towel between your skin and the bag. ?Leave the ice on for 20 minutes, 2 3 times per day. ?If directed, apply light compression to the injured area using an elastic bandage. Make sure the bandage is not wrapped too tightly. Remove and reapply the bandage as directed by your health care provider. ?If possible, raise (elevate) the injured area above the level of your heart while you are sitting or lying down. General instructions Take fxkg-pkh-njdaztc and prescription medicines only as told by your health care provider. Keep all follow-up visits as told by your health care provider. This is important. Contact a health care provider if: Your symptoms do not improve after several days of treatment. Your symptoms get worse. You have difficulty moving the injured area. Get help right away if: You have severe pain. You have numbness in a hand or foot. Your hand or foot turns pale or cold. Summary A contusion is a deep bruise. Contusions are the result of a blunt injury to tissues and muscle fibers under the skin. It is treated with rest, ice, compression, and elevation. You may be given gtxl-vbr-ueguuqx medicines for pain. Contact a health care provider if your symptoms do not improve, or get worse. Get help right away if you have severe pain, have numbness, or the area turns pale or cold. This information is not intended to replace advice given to you by your health care provider. Make sure you discuss any questions you have with your health care provider. Document Revised: 04/15/2022 Document Reviewed: 03/27/2022 [employer] Patient Education 2022 [employer]. Follow Up Care 03/18/2023 10:52:04 With:Sukh JOHN Address: [facility] [address] [place] [address] Business (1) When:03/21/2023 12:54:[address] [facility]10-04-2023 Evaluation + Plan noteExtracted from: Title:ED Note Author:González Almaraz PA-C te:03/18/23 Contusion of right shoulder (S40.011A: Contusion of right shoulder, initial encounter) Orders: XR Shoulder Complete Right Future Appointments Appointment Date:03/27/2023 12:40:00 PM Scheduled Provider:Sukh JOHN DO, FAAFP Location:[facility] Appointment Type: Hospital Follow Up w/TCM Appointment Date:04/23/2023 01:00:00 PM Scheduled Provider: Location:[facility] Appointment Type: Medicare Wellness Subsequent Appointment Date:04/23/2023 01:40:00 PM Scheduled Provider:Sukh JOHN DO, FAAFP Location:[facility] Appointment Type: Open Future Scheduled Tests Laboratory* Thyroid-stimulating Immunoglobulin (TSI) 01/15/23 * UA With Cult Reflex 11/06/22 * T3 Free 01/15/[address] [facility]09-03-2023 Evaluation + Plan noteExtracted from: Title:Discharge Note Author:PLACIDO NELSON, Re nee Date:02/15/23 Hemodynamically stable condi tion Discharge To, Anticipated II - Intermediate Unit Discharged to - Other: lives at home(nursing home-[facility] or [facility] Health Discharge Status: Improved Discharge Instructions Given: To patient Discharge disposition: Home Prescriptions reviewed with Patient 39 minutes spent in discharge time with patient, collaborating MD, nursing staff, CRM, message left for guardian to discuss DC POC, awaiting return call. Discharge Diet(s): Regular, Fat Modified- Low cholesterol, Low Sodium- 2000 mg (02/15/23 09:09:00) Prescriptions Abilify 10 mg Tab, 10 mg= 1 tab(s), Oral, Daily aspirin 81 mg Oral EC Tab, 81 mg= 1 tab(s), Oral, Daily, 3 refills Booster Liners, See Instructions, 11 refills carbidopa-levodopa 25 mg-100 mg Tab, 1 tab(s), Oral, TID, 1 refills Depend Undergarment XL, See Instructions, 11 refills donepezil 10 mg Tab, 10 mg= 1 tab(s), Oral, BID, 3 refills doxepin 10 mg Cap, 10 mg= 1 cap(s), Oral, TID, 1 refills escitalopram 20 mg Tab, 20 mg= 1 tab(s), Oral, Daily, 3 refills Evista 60 mg Tab, 60 mg= 1 tab(s), Oral, Daily, 3 refills Handicap Placard, See Instructions levothyroxine 100 mcg (0.1 mg) Tab, 100 mcg, Oral, Daily, 1 refills loratadine 10 mg Tab, 10 mg= 1 tab(s), Oral, Daily, 11 refills Low Pressure Knee High Compression Stockings, See Instructions, 2 refills melatonin 5 mg oral tablet, 5 mg= 1 tab(s), Oral, Once a day (at bedtime) Myrbetriq 50 mg oral tablet, extended release, 50 mg= 1 tab(s), Oral, Daily, 1 refills Namenda XR 28 mg oral capsule, extended release, 28 mg= 1 cap(s), Oral, Daily, 1 refills omeprazole 20 mg Cap-DR, 20 mg= 1 tab(s), Oral, Daily, 3 refills Pentasa 500 mg oral capsule, extended release, 1000 mg= 2 cap(s), Oral, QID, 5 refills pravastatin 20 mg Tab, 20 mg= 1 tab(s), Oral, Daily, 1 refills rt knee brace, See Instructions Vistaril 25 mg Cap, 25 mg= 1 cap(s), Oral, BID, PRN Vitamin D3 5000 intl units (125 mcg) oral tab, 125 mcg= 1 tab(s), Oral, Daily, 3 refills Wheelchair, See Instructions Home acetaminophen 325 mg Tab, 650 mg= 2 tab(s), Oral, q6hr, PRN cyclobenzaprine 10 mg Tab, 5 mg= 0.5 tab(s), Oral, TID, PRN gabapentin 400 mg Cap, 400 mg= 1 cap(s), Oral, TID Lamictal, 100 mg, Oral, BID lidocaine Top 5% film Patch, 1 patch(es), TransDermal, Daily Ventolin HFA 90 mcg/inh Aerosol-Adpt, 2 puff(s), Inhalation, QID, PRN With When Contact Information Sukh JOHN In 3 days 02/14/2023 EDT [address], [address] [place] [id number]- Business (1) Additional Instructions: Call the office of your primary care doctor to arrange for follow-up within the above-stated timeframe. Follow-up with your primary care doctor about this ED visit. You should review your labs, imaging, and diagnoses from this ED visit with your primary care physician. There are occasionally non-emergent findings that require additional follow-up after your ED visit. If you were prescribed medications you should discuss possible side-effects and drug interactions with your pharmacist. Call 911 or go to the nearest Emergency Department if you develop any new or worsening symptoms. Fall Prevention in the Home, Adult Contusion Extracted from: Title:APSO Note Author:Sara Morales Date:02/14/23 Pt. lives [place] home [place]01 caregivers -CRM to obtain guardianship information and make contact 1. Fall (W19.XXXA: Unspecified fall, initial encounter) Described as mechanical -CT head, CT cervical spine, CT pelvis: no acute process, chronic findings -R tib/fib, R foot, R femur xrays: no acute process, chronic findings -Raloxifene -PT/OT: SNF -> CRM to arrange, plan for transfer on Thursday 02/15 -Fall precautions 2. Contusion of hip, right (S70.01XA: Contusion of right hip, initial encounter) 2/2 fall -Ice, lidoderm patch 3. Thrombocytopenia (D69.6: Thrombocytopenia, unspecified) -Chronic - baseline level 120 -140 range -No acute bleeding noted, hemodynamically stable -Trend labs, she has been refusing lab draws 4. Moderate intellectual disability (F71: Moderate intellectual disabilities) Baseline mentation: Alert, oriented x person, , town only, per caregiver she requires 05/01 supervision, and assistance with completing ADLs. -With dx. of Alzheimer in medical record -Donepezil, memantine, -Promote sleep/wake cycle -Supportive care 5. Behavior-irritability (R45.4: Irritability and anger) -Abilify, doxepin, escitalopram, melatonin -See above 6. Generalized seizure disorder (G40.309: Generalized idiopathic epilepsy and epileptic syndromes, not intractable, without status epilepticus) -Gabapentin, lamotrigine, -Seizure precautions 7. HLD (hyperlipidemia) (E78.5: Hyperlipidemia, unspecified) -Pravastatin 8. 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 Parkinson's disease (G20: Parkinson's disease) -Sinemet 10. Insomnia (G47.00: Insomnia, unspecified) Melatonin 11. Depression (F32.A: Depression, unspecified) -Meds as above 12. Crohn disease (K50.90: Crohn's disease, unspecified, without complications) -Mesalamine 13. Chronic GERD (K21.9: Gastro-esophageal reflux disease without esophagitis) -PPI 14. Hemiparesis of right dominant side as late effect of cerebral infarction (I69.351: Hemiplegia and hemiparesis following cerebral infarction affecting right dominant side) -Asa, pravastatin -Per caregiver - pt. intermittently uses a walker and wheelchair as needed 15. H/O: stroke (Z86.73: Personal history of transient ischemic attack (TIA), and cerebral infarction without residual deficits) See above 16. On deep vein thrombosis (DVT) prophylaxis (Z79.899: Other residential (current) drug therapy) -Add SCDs, early ambulation -Avoid heparin 2/2 thrombocytopenia Orders: Ambulate with Assistance Extracted from: Title:APSO Note Author:Sara Morales Date:02/13/23 Pt. lives in a nursing home [place]/01 caregivers -[facility] to obtain guardianship information and make contact 1. Fall (W19.XXXA: Unspecified fall, initial encounter) Described as mechanical -CT head, CT cervical spine, CT pelvis: no acute process, chronic findings -R tib/fib, R foot, R femur xrays: no acute process, chronic findings -Raloxifene -PT/OT: SNF -> CRM to arrange, plan for transfer on Thursday 02/15 -Fall precautions 2. Contusion of hip, right (S70.01XA: Contusion of right hip, initial encounter) 2/2 fall -Ice, lidoderm patch 3. Thrombocytopenia (D69.6: Thrombocytopenia, unspecified) -Chronic - baseline level 120 -140 range -No acute bleeding noted, hemodynamically stable -Trend labs 4. Moderate intellectual disability (F71: Moderate intellectual disabilities) Baseline mentation: Alert, oriented x person, , town only, per caregiver she requires 24/ supervision, and assistance with completing ADLs. -With dx. of Alzheimer in medical record -Donepezil, memantine, -Promote sleep/wake cycle -Supportive care 5. Behavior-irritability (R45.4: Irritability and anger) -Abilify, doxepin, escitalopram, melatonin -See above 6. Generalized seizure disorder (G40.309: Generalized idiopathic epilepsy and epileptic syndromes, not intractable, without status epilepticus) -Gabapentin, lamotrigine, -Seizure precautions 7. HLD (hyperlipidemia) (E78.5: Hyperlipidemia, unspecified) -Pravastatin 8. 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 Parkinson's disease (G20: Parkinson's disease) -Sinemet 10. Insomnia (G47.00: Insomnia, unspecified) Melatonin 11. Depression (F32.A: Depression, unspecified) -Meds as above 12. Crohn disease (K50.90: Crohn's disease, unspecified, without complications) -Mesalamine 13. Chronic GERD (K21.9: Gastro-esophageal reflux disease without esophagitis) -PPI 14. Hemiparesis of right dominant side as late effect of cerebral infarction (I69.351: Hemiplegia and hemiparesis following cerebral infarction affecting right dominant side) -Asa, pravastatin -Per caregiver - pt. intermittently uses a walker and wheelchair as needed 15. H/O: stroke (Z86.73: Personal history of transient ischemic attack (TIA), and cerebral infarction without residual deficits) See above 16. On deep vein thrombosis (DVT) prophylaxis (Z79.899: Other residential (current) drug therapy) -Add SCDs, early ambulation -Avoid heparin 2/2 thrombocytopenia Extracted from: Title:APSO Note Author:PLACIDO COLE-Sola CHRISTIANSEN ate:02/12/23 Pt. lives in a nursing home [place] 05/01 caregivers -CRM to obtain guardianship information and make contact 1. Fall (W19.XXXA: Unspecified fall, initial encounter) Described as mechanical -CT head, CT cervical spine, CT pelvis: no acute process, chronic findings -R tib/fib, R foot, R femur xrays: no acute process, chronic findings -Raloxifene -PT/OT: SNF -> CRM to arrange -Fall precautions 2. Contusion of hip, right (S70.01XA: Contusion of right hip, initial encounter) 2/2 fall -Ice, lidoderm patch 3. Thrombocytopenia (D69.6: Thrombocytopenia, unspecified) -Chronic - baseline level 120 -140 range -No acute bleeding noted, hemodynamically stable -Pt. refusing labs this a.m. -Trend labs 4. Moderate intellectual disability (F71: Moderate intellectual disabilities) Baseline mentation: Alert, oriented x person, , town only, per caregiver she requires 05/01 supervision, and assistance with completing ADLs. -With dx. of Alzheimer in medical record -Donepezil, memantine, -Promote sleep/wake cycle -Supportive care 5. Behavior-irritability (R45.4: Irritability and anger) -Abilify, doxepin, escitalopram, melatonin -See above 6. Generalized seizure disorder (G40.309: Generalized idiopathic epilepsy and epileptic syndromes, not intractable, without status epilepticus) -Gabapentin, lamotrigine, -Seizure precautions 7. HLD (hyperlipidemia) (E78.5: Hyperlipidemia, unspecified) -Pravastatin 8. 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 Parkinson's disease (G20: Parkinson's disease) -Sinement 10. Insomnia (G47.00: Insomnia, unspecified) Melatonin 11. Depression (F32.A: Depression, unspecified) -Meds as above 12. Crohn disease (K50.90: Crohn's disease, unspecified, without complications) -Mesalamine 13. Chronic GERD (K21.9: Gastro-esophageal reflux disease without esophagitis) -PPI 14. Hemiparesis of right dominant side as late effect of cerebral infarction (I69.351: Hemiplegia and hemiparesis following cerebral infarction affecting right dominant side) -Asa, pravastatin -Per caregiver - pt. intermittently uses a walker 15. H/O: stroke (Z86.73: Personal history of transient ischemic attack (TIA), and cerebral infarction without residual deficits) See above 16. On deep vein thrombosis (DVT) prophylaxis (Z79.899: Other residential (current) drug therapy) -Add SCDs, early ambulation -Avoid heparin 2/2 thrombocytopenia Orders: lidocaine topical, 1 patch(es), Patch, TransDermal, Daily, Routine, Start date 02/12/23 9:00:00 EDT, Right hip remove patch, 1 patch(es), Patch, Topical, Bedtime, 02/12/23 21:00:00 EDT Below the Knee Intermittent Pneumatic Compression Device Pad Siderails Platelet Count -Plan discussed w/ patient, nursing staff and CRM. -Disposition: Patient unable to reposition without yelling out, unable to ambulate, she lives in a nursing home which requires ambulation in order for her to return there which is not possible in her current condition, she is unable to complete ADLs safely, she will require further PT and transition to inpatient status for ongoing evaluation as she will likely require SNF placement, therefore patient will be transition to inpatient status as she is unsafe to be discharged at this time. This report was transcribed using voice recognition software. Every effort was made to ensure accuracy, however, inadvertently computerized science center display builder mistakes may be present. Extracted from: Title:Admission H & P Author:Sara Morales Date:02/11/23 1. Contusion of hip, right ( S70.01XA: Contusion of right hip, initial encounter) Secondary to fall -Please have PT and OT evaluate for safety concern -May apply ice as needed for discomfort There are no active fractures observed on current radiographic studies Evaluate baseline laboratory studies today to ensure no electrolyte disturbances that cause the fall 2. Moderate intellectual disability (F71: Moderate intellectual disabilities) Supportive care 3. 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 Behavior-irritability (R45.4: Irritability and anger) Resume home behavioral medications Abilify, donepezil, doxepin, escitalopram, namenda Also on carbidopa-levodopa Primidone and melatonin at bedtime 5. Generalized seizure disorder (G40.309: Generalized idiopathic epilepsy and epileptic syndromes, not intractable, without status epilepticus) 6. Hemiparesis of right dominant side as late effect of cerebral infarction (I69.351: Hemiplegia and hemiparesis following cerebral infarction affecting right dominant side) 7. H/O: stroke (Z86.73: Personal history of transient ischemic attack (TIA), and cerebral infarction without residual deficits) Resumed home dosing of aspirin and rosuvastatin Orders: acetaminophen, 650 mg = 2 tab(s), Tab, Oral, q6hr PRN Pain, Routine, Start date 02/11/23 12:00:00 EDT, 02/11/23 12:00:00 EDT ondansetron, 4 mg = 2 mL, Injection, IV Push, q6hr PRN Nausea, Routine, Start date 02/11/23 12:00:00 EDT, 02/11/23 12:00:00 EDT Ambulate with Assistance CBC w/ Auto Diff Comprehensive Metabolic Panel Intake and Output Magnesium Level Notify Provider Vital Signs Notify Provider Vital Signs Occupational Therapy Evaluate Patient, Develop a Plan of Care and Implement Plan Physical Therapy Evaluate Patient, Develop a Plan of Care and Implement Plan Precautions Vital Signs Weight Extracted from: Title:ED Note Author:Tacho Meyer DO Date: Contusion of hip, right (S70 .01XA: Contusion of right hip, initial encounter) Orders: CT Head or Brain w/o Contrast CT Pelvis w/o Contrast CT Spine Cervical w/o Contrast ED Physician consult Hospitalist for continued care XR Femur Min 2 Views Right XR Foot 3+ Views Right XR Tib/Fib Right 2 View Future Appointments Appointment Date:04/23/2023 01:00:00 PM Scheduled Provider: Location:[facility] Appointment Type: Medicare Wellness Subsequent Appointment Date:04/23/2023 01:40:00 PM Scheduled Provider:Sukh JOHN DO, FAAFP Location:[facility] Appointment Type: Open Future Scheduled Tests Laboratory* Thyroid-stimulating Immunoglobulin (TSI) 01/15/23 * UA With Cult Reflex 11/06/22 * T3 Free 01/15/[address] [facility]08-30-2023 Hospital Discharge instructions Patient Education 02/11/2023 12:48:20 Fall Prevention in the Home, Adult Fall Prevention in the Home, Adult Falls can cause injuries and affect people of all ages. There are many simple things that you can do to make your home safe and to help prevent falls. Ask for help when making these changes, if needed. What actions can I take to prevent falls? General instructions Use good lighting in all rooms. Replace any light bulbs that burn out, turn on lights if it is dark, and use night-lights. Place frequently used items in wool-ws-swlyg places. Lower the shelves around your home if necessary. Set up furniture so that there are clear paths around it. Avoid moving your furniture around. Remove throw rugs and other tripping hazards from the floor. Avoid walking on wet floors. Fix any uneven floor surfaces. Add color or contrast paint or tape to grab bars and handrails in your home. Place contrasting color strips on the first and last steps of staircases. When you use a stepladder, make sure that it is completely opened and that the sides and supports are firmly locked. Have someone hold the ladder while you are using it. Do not climb a closed stepladder. Know where your pets are when moving through your home. What can I do in the bathroom? Keep the floor dry. Immediately clean up any water that is on the floor. Remove soap buildup in the tub or shower regularly. Use nonskid mats or decals on the floor of the tub or shower. Attach bath mats securely with double-sided, nonslip rug tape. If you need to sit down while you are in the shower, use a plastic, nonslip stool. Install grab bars by the toilet and in the tub and shower. Do not use towel bars as grab bars. What can I do in the bedroom? Make sure that a bedside light is easy to reach. Do not use oversized bedding that reaches the floor. Have a firm chair that has side arms to use for getting dressed. What can I do in the kitchen? Clean up any spills right away. If you need to reach for something above you, use a sturdy step stool that has a grab bar. Keep electrical cables out of the way. Do not use floor vietnamese or wax that makes floors slippery. If you must use wax, make sure that it is non-skid floor wax. What can I do with my stairs? Do not leave any items on the stairs. Make sure that you have a light switch at the top and the bottom of the stairs. Have them installedif you do not have them. Make sure that there are handrails on both sides of the stairs. Fix handrails that are broken or loose. Make sure that handrails are as long as the staircases. Install non-slip stair treads on all stairs in your home. Avoid having throw rugs at the top or bottom of stairs, or secure the rugs with carpet tape to prevent them from moving. Choose a carpet design that does not hide the edge of steps on the stairs. Check any carpeting to make sure that it is firmly attached to the stairs. Fix any carpet that is loose or worn. What can I do on the outside of my home? Use bright outdoor lighting. Regularly repair the edges of walkways and driveways and fix any cracks. Remove high doorway thresholds. Trim any shrubbery on the main path into your home. Regularly check that handrails are securely fastened and in good repair. Both sides of all steps should have handrails. Install guardrails along the edges of any raised decks or porches. Clear walkways of debris and clutter, including tools and rocks. Have leaves, snow, and ice cleared regularly. Use sand or salt on walkways during winter months. In the garage, clean up any spills right away, including grease or oil spills. What other actions can I take? Wear closed-toe shoes that fit well and support your feet. Wear shoes that have rubber soles or lowheels. Use mobility aids as needed, such as canes, walkers, scooters, and crutches. Review your medicines with your health care provider. Some medicines can cause dizziness or changesin blood pressure, which increase your risk of falling. Talk with your health care provider about other ways that you can decrease your risk of falls. Thismay include working with a physical therapist or puppy trainer to improve your strength, balance, and endurance. Where to find more information Centers for Disease Control and Prevention, [place]AD[employer]: www.cdc.gov National [place] on Aging: www.naun.nih.gov Contact a health care provider if: You are afraid of falling at home. You feel weak, drowsy, or dizzy at home. You fall at home. Summary There are many simple things that you can do to make your home safe and to help prevent falls. Ways to make your home safe include removing tripping hazards and installing grab bars in the bathroom. Ask for help when making these changes in your home. This information is not intended to replace advice given to you by your health care provider. Make sure you discuss any questions you have with your health care provider. Document Revised: 03/03/2022 Document Reviewed: 01/02/2021 [employer] Patient Education 2022 [employer]. 02/11/2023 12:48:20 Contusion Contusion A contusion is a deep bruise. Contusions are the result of a blunt injury to tissues and muscle fibers under the skin. The injury causes bleeding under the skin. The skin overlying the contusion may turn blue, purple, or yellow. Minor injuries will give you a painless contusion, but more severe injuries cause contusions that may stay painful and swollen for a few weeks. Follow these instructions at home: Pay attention to any changes in your symptoms. Let your health care provider know about them. Take these actions to relieve your pain. Managing pain, stiffness, and swelling Use resting, icing, applying pressure (compression), and raising (elevating) the injured area. Thisis often called the RICE strategy. ?Rest the injured area. Return to your normal activities as told by your health care provider. Ask your health care provider what activities are safe for you. ?If directed, put ice on the injured area: ?Put ice in a plastic bag. ?Place a towel between your skin and the bag. ?Leave the ice on for 20 minutes, 2 3 times per day. ?If directed, apply light compression to the injured area using an elastic bandage. Make sure the bandage is not wrapped too tightly. Remove and reapply the bandage as directed by your health care provider. ?If possible, raise (elevate) the injured area above the level of your heart while you are sitting or lying down. General instructions Take cogx-tkn-pcymemv and prescription medicines only as told by your health care provider. Keep all follow-up visits as told by your health care provider. This is important. Contact a health care provider if: Your symptoms do not improve after several days of treatment. Your symptoms get worse. You have difficulty moving the injured area. Get help right away if: You have severe pain. You have numbness in a hand or foot. Your hand or foot turns pale or cold. Summary A contusion is a deep bruise. Contusions are the result of a blunt injury to tissues and muscle fibers under the skin. It is treated with rest, ice, compression, and elevation. You may be given anii-hqu-tqtkyrb medicines for pain. Contact a health care provider if your symptoms do not improve, or get worse. Get help right away if you have severe pain, have numbness, or the area turns pale or cold. This information is not intended to replace advice given to you by your health care provider. Make sure you discuss any questions you have with your health care provider. Document Revised: 04/15/2022 Document Reviewed: 03/27/2022 [employer] Patient Education 2022 [employer]. Follow Up Care 02/11/2023 06:53:50 With:Sukh JOHN Address: [address] [facility] [place] [id number] [facility] (1) When:02/14/2023 09:03:53 Comments:Call the office of your primary care doctor to arrange for follow-up within the above-stated timeframe. Follow-up with your primary care doctor about this ED visit. You should review your labs, imaging, and diagnoses from this ED visit with your primary care physician. There are occasionally non-emergent findings that require additional follow-up after your ED visit. If you were prescribed medications you should discuss possible side-effects and drug interactions with your pharmacist. Call 911 or go to the nearest Emergency Department if you develop any new or worsening symptoms. [facility]08-22-2023 Hospital Discharge instructions Patient Education 02/03/2023 14:09:28 Seizure, Adult, Qqmc-fd-Nqsr Seizure, Adult A seizure is a sudden burst of abnormal electrical and chemical activity in the brain. Seizures usually last from 30 seconds to 2 minutes. What are the causes? Common causes of this condition include: Fever or infection. Problems that affect the brain. These may include: ?A brain or head injury. ?Bleeding in the brain. ?A brain tumor. Low levels of blood sugar or salt. Kidney problems or liver problems. Conditions that are passed from parent to child (are inherited). Problems with a substance, such as: ?Having a reaction to a drug or a medicine. ?Stopping the use of a substance all of a sudden (withdrawal). A stroke. Disorders that affect how you develop. Sometimes, the cause may not be known. What increases the risk? Having someone in your family who has epilepsy. In this condition, seizures happen again and again over time. They have no clear cause. Having had a tonic clonic seizure before. This type of seizure causes you to: ?Tighten the muscles of the whole body. ?Lose consciousness. Having had a head injury or strokes before. Having had a lack of oxygen at . What are the signs or symptoms? There are many types of seizures. The symptoms vary depending on the type of seizure you have. Symptoms during a seizure Shaking that you cannot control (convulsions) with fast, jerky movements of muscles. Stiffness of the body. Breathing problems. Feeling mixed up (confused). Staring or not responding to sound or touch. Head nodding. Eyes that blink, flutter, or move fast. Drooling, grunting, or making clicking sounds with your mouth Losing control of when you pee or poop. Symptoms before a seizure Feeling afraid, nervous, or worried. Feeling like you may vomit. Feeling like: ?You are moving when you are not. ?Things around you are moving when they are not. Feeling like you saw or heard something before (agata garcia). Odd tastes or smells. Changes in how you see. You may see flashing lights or spots. Symptoms after a seizure Feeling confused. Feeling sleepy. Headache. Sore muscles. How is this treated? If your seizure stops on its own, you will not need treatment. If your seizure lasts longer than 5 minutes, you will normally need treatment. Treatment may include: Medicines given through an IV tube. Avoiding things, such as medicines, that are known to cause your seizures. Medicines to prevent seizures. A device to prevent or control seizures. Surgery. A diet low in carbohydrates and high in fat (ketogenic diet). Follow these instructions at home: Medicines Take limu-wli-hvrwtkl and prescription medicines only as told by your doctor. Avoid foods or drinks that may keep your medicine from working, such as alcohol. Activity Follow instructions about driving, swimming, or doing things that would be dangerous if you had another seizure. Wait until your doctor says it is safe for you to do these things. If you live in the [place] ask your local department of motor vehicles when you can drive. Get a lot of rest. Teaching others Teach friends and family what to do when you have a seizure. They should: ?Help you get down to the ground. ?Protect your head and body. ?Loosen any clothing around your neck. ?Turn you on your side. ?Know whether or not you need emergency care. ?Stay with you until you are better. Also, tell them what not to do if you have a seizure. Tell them: ?They should not hold you down. ?They should not put anything in your mouth. General instructions Avoid anything that gives you seizures. Keep a seizure diary. Write down: ?What you remember about each seizure. ?What you think caused each seizure. Keep all follow-up visits. Contact a doctor if: You have another seizure or seizures. Call the doctor each time you have a seizure. The pattern of your seizures changes. You keep having seizures with treatment. You have symptoms of being sick or having an infection. You are not able to take your medicine. Get help right away if: You have any of these problems: ?A seizure that lasts longer than 5 minutes. ?Many seizures in a row and you do not feel better between seizures. ?A seizure that makes it harder to breathe. ?A seizure and you can no longer speak or use part of your body. You do not wake up right after a seizure. You get hurt during a seizure. You feel confused or have pain right after a seizure. These symptoms may be an emergency. Get help right away. Call your local emergency services (911 int [place] Do not wait to see if the symptoms will go away. Do not drive yourself to the hospital. Summary A seizure is a sudden burst of abnormal electrical and chemical activity in the brain. Seizures normally last from 30 seconds to 2 minutes. Causes of seizures include illness, injury to the head, low levels of blood sugar or salt, and certain conditions. Most seizures will stop on their own in less than 5 minutes. Seizures that last longer than 5 minutes are a medical emergency and need treatment right away. Many medicines are used to treat seizures. Take gjbz-lkz-zkvgpex and prescription medicines only astold by your doctor. This information is not intended to replace advice given to you by your health care provider. Make sure you discuss any questions you have with your health care provider. Document Revised: 12/07/2020 Document Reviewed: 12/07/2020 [employer] Patient Education 2022 [employer]. 02/03/2023 14:09:20 Epilepsy, Tnag-np-Zsdn Epilepsy Epilepsy is when a person keeps having seizures. A seizure is a burst of abnormal activity in the brain. This condition can cause problems such as: A change in how you think or behave. Trouble knowing what is happening. Falls, accidents, and injury. Sadness (depression). Poor memory. In rare cases, this condition can be life-threatening. But most people with epilepsy lead normal lives. What are the causes? A head injury or an injury that happens at . A high fever during childhood. A stroke. Bleeding into or around the brain. Some medicines and drugs. Having too little oxygen for a long time. Abnormal brain development. Conditions such as: ?Brain infection. ?Brain tumors. ?Conditions that are passed from parent to child. Many times, the cause is not known. What are the signs or symptoms? Symptoms of a seizure vary from person to person. They may include: Symptoms during a seizure Shaking with fast, jerky movements of muscles (convulsions). Stiffness of the body. Breathing problems. Being mixed up (confused). Staring or being hard to wake up (being unresponsive). Head nodding, eye blinking, eye twitching, or fast eye movements. Drooling, grunting, or making clicking sounds with your mouth. Not being able to control when you pee or poop. Symptoms before a seizure Feeling afraid, worried, or nervous. Feeling like you may vomit. Vertigo. This feels like: ?You are moving when you are not. ?Things around you are moving when they are not. Agata garcia. This is a feeling of having seen or heard something before. Odd tastes or smells. Changes in how you see, such as seeing flashing lights or spots. Symptoms after a seizure Being confused. Being sleepy. A headache. Sore muscles. How is this treated? Treatment can control seizures. It may include: Taking medicines. Having a device put in the chest (vagus nerve stimulator). Brain surgery. Having blood tests often. Eating foods that are low in carbohydrates and high in fat (ketogenic diet). If you are diagnosed with this condition, you should start treatment as soon as you can. Follow these instructions at home: Medicines Take nxnv-wlt-aghenfl and prescription medicines only as told by your doctor. Avoid anything that may keep your medicine from working, such as alcohol. Activity Get enough rest. Follow your doctor's advice about driving, swimming, and doing other things that would be dangerousif you had a seizure. If you live in the [place] ask your local department of motor vehicles about local driving laws for people with epilepsy. Teaching others Teach friends and family what to do if you have a seizure. Tell them to: ?Help you get down to the ground. ?Put a pillow under your head and body. ?Loosen any clothing around your neck. ?Turn you on your side. ?Stay with you until you are better. ?Know whether or not you need emergency care. Also, tell them what not to do if you have a seizure. Tell them: ?They should not hold you down. ?They should not put anything in your mouth. General instructions Avoid things that cause you to have seizures. Keep a seizure diary. Write down: ?What you remember about each seizure. ?What might have caused the seizure. Keep all follow-up visits. Where to find more information Epilepsy Foundation: epilepsy.com International League Against Epilepsy: ilae.org Contact a doctor if: You have a change in how often or when you have seizures. You get an infection or start to feel sick. You are not able to take your medicine. Get help right away if: A seizure does not stop after 5 minutes. You have more than one seizure in a row, and you do not have enough time between the seizures to feel better. A seizure makes it harder to breathe. A seizure is different from other seizures you have had. A seizure makes you unable to speak or use a part of your body. You did not wake up right away after a seizure. You feel sad, and this does not get better. These symptoms may be an emergency. Get help right away. Call your local emergency services (133 int [place] Do not wait to see if the symptoms will go away. Do not drive yourself to the hospital. Get help right awayif you feel like you may hurt yourself or others, or have thoughts about taking your own life. Go to your nearest emergency room or: Call your local emergency services (943 in the [place] Call the National Suicide Prevention Lifeline at or 796 in the [place] This is open 24 hours a day. Text the Crisis Text Line at 288786. Summary Epilepsy is when a person keeps having seizures. Seizures can cause many symptoms, such as brief staring and shaking or jerky muscle movements. Treatment can control seizures. Take mxox-bgc-tsknghz and prescription medicines only as told by your doctor. Follow your doctor's advice about driving, swimming, and doing other things that would be dangerousif you had a seizure. Teach friends and family what to do if you have a seizure. This information is not intended to replace advice given to you by your health care provider. Make sure you discuss any questions you have with your health care provider. Document Revised: 12/25/2021 Document Reviewed: 12/03/2020 [employer] Patient Education 2022 [employer]. Follow Up Care 09/02/2022 12:04:16 With:SHARAD GRIDER FAAFP, Sukh Lin, VARUN, PED Address: [address] [place] [address] [place] [address]- When:Within 3 Month(s) [facility] 08-03-2023 Hospital Discharge instructions Patient Education 01/15/2023 14:05:39 Intellectual Disability Intellectual Disability Intellectual disability (ID) is a defect in a person's mental abilities and behavior. It begins before age 18 and lasts for a lifetime. Intellectual disability used to be called mental retardation. That term is no longer used. Having an intellectual disability means that a person is limited in the ability to: Learn new skills, solve problems, and make certain decisions (intellectual functioning). Function well in daily life (adaptive functioning). People with an ID may have limited physical abilities (developmental disability). ID may also occurwith many other conditions, including Down syndrome, cerebral palsy, epilepsy, attention-deficit hyperactivity disorder (ADHD), autism, depression, and anxiety. ID can range from mild to severe. It is more common in boys than in girls. Most children with ID can learn to do many things, though it may take them longer to do so. Adults with ID can lead partially independent lives. What are the causes? There are many possible causes of this condition. It can develop: Before . Causes can include: ?Changes in the genes (genetic mutations). ?Problems during , like the mother's illness or drug use. ?Exposure of the mother to certain poisons (toxins). During labor and delivery. This can be caused by: ?Lack of oxygen. ?Infection. ?Failure to diagnose or maternal distress. These are problems that occur in the baby or mother during delivery. ?Umbilical cord problems. Before age 18. This can be caused by: ?Head injury or stroke. ?Infections, such as meningitis, whooping cough (pertussis), and measles. ?Exposure to toxins, such as mercury or lead. In some cases, the cause of this condition is not known. What are the signs or symptoms? Signs and symptoms of ID can vary from person to person and may depend on the age of the child. Some symptoms may not be seen until the child is older. For babies, symptoms may include delays in their ability to sit, crawl, walk, or talk. For older children, symptoms may include: ?Inability to dress, eat, or do other activities or chores of daily life. ?Problems at school or work. ?Difficulty solving problems, controlling behavior, or maintaining social relationships. ?Difficulty remembering and following rules or understanding the results of their actions or decisions. How is this diagnosed? ID is diagnosed by health care providers who specialize in intellectual disability. The health careprovider will: Talk to the parents, other family members, and the child. If the child is school age, the health care provider may also get reports from teachers. Give exams and tests. This may include a test to measure how well the child thinks and solves problems (IQ test). An IQ score of 70 to 75 may indicate an intellectual disability. Other tests may be given to confirm the diagnosis. These may include: Tests in language, reading, writing, math, reasoning, or memory. Tests to check social skills, such as judgment, independence, relationships, ability to follow rules, and ability to control behavior. Tests to check the child's ability to solve problems and do daily tasks of life. These include personal care, managing money, and job or school performance. How is this treated? There is no cure for this condition. Treatment for ID focuses on services and support to encourage independence. Early intervention to diagnose and treat the condition is guaranteed by federal law under the Individuals with Disabilities Education Act (IDEA). The level of services and support that are needed may depend on your child's symptoms and how severe they are. Treatment works best when started early and continued throughout life. Treatments may include: Infant and vehicle cost engineer services. Special education. Job or school coaching. Family support. Vocational training. Day programs. geographic information systems managergeographic information systems manager. Occupational therapy. Special housing options, such as group homes and special needs foster care. Follow these instructions at home: Learn as much as you can about intellectual disability. Ask other family members such as aunts, uncles, siblings, or grandparents to take part in learning about this condition. Give zoez-pdd-qhlmseb and prescription medicines only as told by your child's health care provider. Find support from federal and community services. As a caregiver, think about how you can meet the needs of your child. If you need support, try to find other resources that may better meet your child's needs. Work with a developmental malted milk mixer to identify your child's needs and to plan the best treatment for his or her condition. Keep all follow-up visits as told by your health care provider. This is important. Where to find more information [place] [employer] on Intellectual and Developmental Disabilities: aaidd.org Center for Parent Information & Resources: parentcenterhub.org Family Voices: Call or visit familyQUIQ.org Individuals with Disabilities Education Act: sites.ed.gov/idea Contact a health care provider if: You have questions about intellectual disability. You need more help or support to manage your child's condition. You are concerned that your child may harm himself or herself or others. You are feeling down and discouraged, and you feel that you need help yourself. Get help right away if: Your child becomes aggressive or violent toward himself or herself, you, or others. If you ever feel like your child may hurt himself or herself or others, or shares thoughts about taking his or her own life, get help right away. You can go to your nearest emergency department or call: Your local emergency services (911 in the [place] A suicide crisis helpline, such as the National Suicide Prevention Lifeline at or 402 in the [place] This is open 24 hours a day. Summary Intellectual disability (ID) is a defect in a person's mental abilities and behavior. It begins before age 18 and lasts for a lifetime. There are many causes of ID. In some cases, the cause is not known. There is no cure for this condition. Treatment for ID focuses on services and support to encourage independence. There are resources to help you and your child. Use them if available. Get help right away if you ever feel like your child may harm himself or herself or others. Go to the nearest emergency department or call your local emergency services. This information is not intended to replace advice given to you by your health care provider. Make sure you discuss any questions you have with your health care provider. Document Revised: 12/25/2021 Document Reviewed: 06/23/2019 [employer] Patient Education 2022 [employer] 01/15/2023 14:05:33 Insomnia Insomnia Insomnia is a sleep disorder that makes it difficult to fall asleep or stay asleep. Insomnia can cause fatigue, low energy, difficulty concentrating, mood swings, and poor performance at work or school. There are three different ways to classify insomnia: Difficulty falling asleep. Difficulty staying asleep. Waking up too early in the morning. Any type of insomnia can be long-term (chronic) or short-term (acute). Both are common. Short-term insomnia usually lasts for 3 months or less. Chronic insomnia occurs at least three times a week forlonger than 3 months. What are the causes? Insomnia may be caused by another condition, situation, or substance, such as: Having certain mental health conditions, such as anxiety and depression. Using caffeine, alcohol, tobacco, or drugs. Having gastrointestinal conditions, such as gastroesophageal reflux disease (GERD). Having certain medical conditions. These include: ?Asthma. ?Alzheimer's disease. ?Stroke. ?Chronic pain. ?An overactive thyroid gland (hyperthyroidism). Other sleep disorders, such as restless legs syndrome and sleep apnea. Menopause. Sometimes, the cause of insomnia may not be known. What increases the risk? Risk factors for insomnia include: Gender. Females are affected more often than males. Age. Insomnia is more common as people get older. Stress and certain medical and mental health conditions. Lack of exercise. Having an irregular work schedule. This may include working night shifts and traveling between different time zones. What are the signs or symptoms? If you have insomnia, the main symptom is having trouble falling asleep or having trouble staying asleep. This may lead to other symptoms, such as: Feeling tired or having low energy. Feeling nervous about going to sleep. Not feeling rested in the morning. Having trouble concentrating. Feeling irritable, anxious, or depressed. How is this diagnosed? This condition may be diagnosed based on: Your symptoms and medical history. Your health care provider may ask about: ?Your sleep habits. ?Any medical conditions you have. ?Your mental health. A physical exam. How is this treated? Treatment for insomnia depends on the cause. Treatment may focus on treating an underlying condition that is causing the insomnia. Treatment may also include: Medicines to help you sleep. Counseling or therapy. Lifestyle adjustments to help you sleep better. Follow these instructions at home: Eating and drinking Limit or avoid alcohol, caffeinated beverages, and products that contain nicotine and tobacco, especially close to bedtime. These can disrupt your sleep. Do not eat a large meal or eat spicy foods right before bedtime. This can lead to digestive discomfort that can make it hard for you to sleep. Sleep habits Keep a sleep diary to help you and your health care provider figure out what could be causing your insomnia. Write down: ?When you sleep. ?When you wake up during the night. ?How well you sleep and how rested you feel the next day. ?Any side effects of medicines you are taking. ?What you eat and drink. Make your bedroom a dark, comfortable place where it is easy to fall asleep. ?Put up shades or blackout curtains to block light from outside. ?Use a white noise machine to block noise. ?Keep the temperature cool. Limit screen use before bedtime. This includes: ?Not watching TV. ?Not using your smartphone, tablet, or computer. Stick to a routine that includes going to bed and waking up at the same times every day and night. This can help you fall asleep faster. Consider making a quiet activity, such as reading, part of your nighttime routine. Try to avoid taking naps during the day so that you sleep better at night. Get out of bed if you are still awake after 15 minutes of trying to sleep. Keep the lights down, but try reading or doing a quiet activity. When you feel sleepy, go back to bed. General instructions Take bbjf-jkx-xiaujhg and prescription medicines only as told by your health care provider. Exercise regularly as told by your health care provider. However, avoid exercising in the hours right before bedtime. Use relaxation techniques to manage stress. Ask your health care provider to suggest some techniques that may work well for you. These may include: ?Breathing exercises. ?Routines to release muscle tension. ?Visualizing peaceful scenes. Make sure that you drive carefully. Do not drive if you feel very sleepy. Keep all follow-up visits. This is important. Contact a health care provider if: You are tired throughout the day. You have trouble in your daily routine due to sleepiness. You continue to have sleep problems, or your sleep problems get worse. Get help right away if: You have thoughts about hurting yourself or someone else. Get help right away if you feel like you may hurt yourself or others, or have thoughts about takingyour own life. Go to your nearest emergency room or: Call 911. Call the National Suicide Prevention Lifeline at or 277. This is open 24 hours a day. Text the Crisis Text Line at 166405. Summary Insomnia is a sleep disorder that makes it difficult to fall asleep or stay asleep. Insomnia can be long-term (chronic) or short-term (acute). Treatment for insomnia depends on the cause. Treatment may focus on treating an underlying condition that is causing the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 seizure include: Being confused. Being sleepy. Having a headache. How is this treated? Treatment can control seizures. Treatment for this condition may involve: Taking medicines to control seizures. Having a device (vagus nerve stimulator) put in the chest. The device sends signals to a nerve and to the brain to prevent seizures. Brain surgery to stop seizures from happening or to reduce how often they happen. Having blood tests often to make sure you are getting the right amount of medicine. Once this condition has been diagnosed, it is important to start treatment as soon as possible. Forsome people, epilepsy goes away in time. Others will need treatment for the rest of their life. Follow these instructions at home: Medicines Take gbsr-rce-aedyyjl and prescription medicines only as told by your doctor. Avoid anything that may keep your medicine from working, such as alcohol. Activity Get enough rest. Lack of sleep can make seizures more likely to occur. Follow your doctor's advice about driving, swimming, and doing anything else that would be dangerous if you had a seizure. ?If you live in the [place] check with your local DMV (department of [employer]) to find out about local driving laws. Each state has rules about when you can return to driving. Teaching others Teach friends and family what to do if you have a seizure. They should: Lay you on the ground to prevent a fall. Cushion your head and body. Loosen any tight clothing around your neck. Turn you on your side. Stay with you until you are better. Not hold you down. Not put anything in your mouth. Know whether or not you need emergency care. General instructions Avoid anything that causes you to have seizures. Keep a seizure diary. Write down what you remember about each seizure. Be sure to include what might have caused it. Keep all follow-up visits as told by your doctor. This is important. Contact a doctor if: You have a change in how often or when you have seizures. You get an infection or start to feel sick. You may have more seizures when you are sick. Get help right away if: A seizure does not stop after 5 minutes. You have more than one seizure in a row, and you do not have enough time between the seizures to feel better. A seizure makes it harder to breathe. A seizure is different from other seizures you have had. A seizure makes you unable to speak or use a part of your body. You did not wake up right after a seizure. These symptoms may be an emergency. Do not wait to see if the symptoms will go away. Get medical help right away. Call your local emergency services (911 in the [place] Do not drive yourself to the hospital. Summary Epilepsy is when a person keeps having seizures. A seizure is a burst of abnormal activity in the brain. Treatment can control seizures. Teach friends and family what to do if you have a seizure. This information is not intended to replace advice given to you by your health care provider. Make sure you discuss any questions you have with your health care provider. Document Released: 03/29/2010 Document Revised: 01/24/2019 Document Reviewed: 01/24/2019 [employer] Patient Education 2020 [employer]. 04/08/2022 14:43:31 Epilepsy Epilepsy Epilepsy is a condition in which a person has repeated seizures over time. A seizure is a sudden burst of abnormal electrical and chemical activity in the brain. Seizures can cause a change in attention, behavior, or the ability to remain awake and alert (altered mental status). Epilepsy increases a person's risk of falls, accidents, and injury. It can also lead to complications, including: Depression. Poor memory. Sudden unexplained in epilepsy (SUDEP). This complication is rare, and its cause is not known. Most people with epilepsy lead normal lives. What are the causes? This condition may be caused by: A head injury. An injury that happens at . A high fever during childhood. A stroke. Bleeding that goes into or around the brain. Certain medicines and drugs. Having too little oxygen for a long period of time. Abnormal brain development. Certain infections, such as meningitis and encephalitis. Brain tumors. Conditions that are passed from parent to child (are hereditary). What are the signs or symptoms? Symptoms of a seizure vary greatly from person to person. They may include: Convulsions. Stiffening of the body. Involuntary movements of the arms or legs. Loss of consciousness. Breathing problems. Falling suddenly. Confusion. Head nodding. Eye blinking or fluttering. Lip smacking. Drooling. Rapid eye movements. Grunting. Loss of bladder control and bowel control. Staring. Unresponsiveness. Some people have symptoms right before a seizure happens (aura) and right after a seizure happens. Symptoms of an aura include: Fear or anxiety. Nausea. Feeling like the room is spinning (vertigo). A feeling of having seen or heard something before (agata garcia). Odd tastes or smells. Changes in vision, such as seeing flashing lights or spots. Symptoms that follow a seizure include: Confusion. Sleepiness. Headache. How is this diagnosed? This condition is diagnosed based on: Your symptoms. Your medical history. A physical exam. A neurological exam. A neurological exam is similar to a physical exam. It involves checking your strength, reflexes, coordination, and sensations. Tests, such as: ?A painless test that creates a diagram of your brain waves (electroencephalogram, orEEG). ?An MRI. ?A CT scan. ?A lumbar puncture, also called a spinal tap. ?Blood tests to check for signs of infection or abnormal blood chemistry. How is this treated? Treatment can control seizures. Some types of epilepsy will need lifelong treatment, and some typesgo away in time. Treatment for this condition may involve: Taking medicines to control seizures. Having a device called a vagus nerve stimulator implanted in the chest. The device sends electricalimpulses to the vagus nerve and to the brain to prevent seizures. This treatment may be recommendedif medicines do not help. Brain surgery. There are several kinds of surgeries that may be done to stop seizures from happening or to reduce how often seizures happen. Having regular blood tests. You may need to have blood tests regularly to check that you are getting the right amount of medicine. Once this condition has been diagnosed, it is important to begin treatment as soon as possible. Forsome people, epilepsy eventually goes away. Follow these instructions at home: Medicines Take qokm-iur-bqxvuyn and prescription medicines only as told by your health care provider. Avoid any substances that may prevent your medicine from working properly, such as alcohol. Activity Get enough rest. Lack of sleep can make seizures more likely to occur. Follow instructions from your health care provider about driving, swimming, and doing any other activities that would be dangerous if you had a seizure. ?If you live in the [place] check with your local DMV (department of motor vehicles) to find out about local driving laws. Each state has specific rules about when you can legally return to driving. Educating others Teach friends and family what to do if you have a seizure. They should: Lay you on the ground to prevent a fall. Cushion your head and body. Loosen any tight clothing around your neck. Turn you on your side. If vomiting occurs, this helps keep your airway clear. Stay with you until you recover. Not hold you down. Holding you down will not stop the seizure. Not put anything in your mouth. Know whether or not you need emergency care. General instructions Avoid anything that has ever triggered a seizure for you. Keep a seizure diary. Record what you remember about each seizure, especially anything that might have triggered the seizure. Keep all follow-up visits as told by your health care provider. This is important. Contact a health care provider if: Your seizure pattern changes. You have symptoms of infection or another illness. This might increase your risk of having a seizure. Get help right away if: You have: ?A seizure that does not stop after 5 minutes. ?Several seizures in a row without a complete recovery between seizures. ?A seizure that makes it harder to breathe. ?A seizure that is different from previous seizures. ?A seizure that leaves you unable to speak or use a part of your body. You did not wake up immediately after a seizure. These symptoms may represent a serious problem that is an emergency. Do not wait to see if the symptoms will go away. Get medical help right away. Call your local emergency services (911 in the [place] Do not drive yourself to the hospital. Summary Epilepsy is a condition in which a person has repeated seizures over time. Some types of epilepsy will need lifelong treatment, and some types go away in time. Seizures can cause many symptoms, from brief staring spells or involuntary movements of the arms orlegs to convulsions with loss of consciousness. Treatment is effective at controlling seizures. Take maqn-ans-dithzkl and prescription medicines only as told by your health care provider. Follow instructions from your health care provider about driving, swimming, and doing any other activities that would be dangerous if you had a seizure. Teach friends and family what to do if you have a seizure. This information is not intended to replace advice given to you by your health care provider. Make sure you discuss any questions you have with your health care provider. Document Released: 06/01/2006 Document Revised: 01/24/2019 Document Reviewed: 01/24/2019 [employer] Patient Education 2020 [employer]. Follow Up Care 10/29/2021 14:26:00 With:SHARAD GRIDER FAAFP, VARUN Hinojosa, PED Address: [address], [place] [address]- When:Within 3 Month(s) [facility] 10-17-2022 Hospital Discharge instructions Patient Education 03/31/2022 16:40:40 Hand Contusion Hand Contusion A hand contusion is a deep bruise to the hand. Contusions are the result of a blunt injury to tissues and muscle fibers under the skin. The injury causes bleeding under the skin. The skin overlying the contusion may turn blue, purple, or yellow. Minor injuries may cause a painless contusion, but more severe injuries may cause contusions that stay painful and swollen for a few weeks. What are the causes? This condition is usually caused by a hard hit or direct force to your hand, such as having a heavyobject fall on your hand. What are the signs or symptoms? Symptoms of this condition include: A swollen hand. Pain and tenderness in your hand. Discoloration of your hand. The area may have redness and then turn blue, purple, or yellow. How is this diagnosed? This condition is diagnosed based on: A physical exam. Your medical history. Imaging studies, such as: ?An X-ray. This may be needed to check for other injuries, such as broken bones (fractures). ?A CT scan or an MRI. This may be done if your health care provider thinks you have torn or injuredligaments. How is this treated? This condition may be treated with: Rest, ice, pressure (compression), and raising (elevating) the injured area. This is often called RICE therapy. An elastic wrap to support your hand. Zkrv-xwe-frjumhm medicines to control pain. Follow these instructions at home: RICE therapy Rest the injured area. If directed, put ice on the injured area. ?Put ice in a plastic bag. ?Place a towel between your skin and the bag. ?Leave the ice on for 20 minutes, 2 3 times a day. If directed, apply light compression to the injured area using an elastic wrap. ?Make sure the wrap is not too tight. ?If your fingers become numb or turn cold or blue, take the wrap off and reapply it more loosely. ?Remove and reapply the wrap as told by your health care provider. Raise (elevate) the injured area above the level of your heart while you are sitting or lying down. General instructions Take bfce-cyn-jgostuq and prescription medicines only as told by your health care provider. Protect your hand from getting injured further. Keep all follow-up visits as told by your health care provider. This is important. Contact a health care provider if: Your symptoms do not improve after several days of treatment. You have increased redness, swelling, or pain in your hand or fingers. You have difficulty moving the injured area. Your swelling or pain is not relieved with medicines. Get help right away if: You have severe pain. Your hand or fingers become numb. Your hand or fingers turn pale, blue, or cold. You cannot move your hand or wrist. Your hand is warm to the touch. Summary A hand contusion is a deep bruise to the hand. Contusions are the result of a blunt injury to tissues and muscle fibers under the skin. This injury is treated with rest, ice, compression and elevation. This information is not intended to replace advice given to you by your health care provider. Make sure you discuss any questions you have with your health care provider. Document Released: 11/21/2002 Document Revised: 03/30/2019 Document Reviewed: 03/30/2019 [employer] Patient Education 2020 [employer]. Follow Up Care 03/31/2022 15:23:06 With:Sukh JOHN Address: [address] [place] [address]- Business (1) When:04/03/2022 16:32:[address] [facility]10-17-2022 Evaluation + Plan noteExtracted from: Title:ED Note Author:González Almaraz PA-C te:03/31/22 Hand contusion (S60.229A: Co ntusion of unspecified hand, initial encounter) Orders: Tera Wrap Future Appointments Appointment Date:04/08/2022 02:20:00 PM Scheduled Provider:Sukh JOHN DO, FAAFP Location:[facility] Appointment Type: Open [facility]05-05-2022 Evaluation + Plan noteExtracted from: Title:Discharge Note Author:Eligio Solorio MD Date:10/17/21 1. Seizure (R56.9: Unspecified convulsions) 2. Weakness (R53.1: Weakness) 3. Moderate intellectual disability (F71: Moderate intellectual disabilities) 4. Mild recurrent major depression (F33.0: Major depressive disorder, recurrent, mild) 5. Parkinson's disease (G20: Parkinson's disease) 6. Familial hypercholesteremia (E78.01: Familial hypercholesterolemia) 7. Hypothyroid (E03.9: Hypothyroidism, unspecified) 8. DVT prophylaxis (Z29.9: Encounter for prophylactic measures, unspecified) Prescriptions Abilify 5 mg Tab, 2.5 mg= 0.5 tab(s), Oral, Bedtime, 1 refills aspirin 81 mg Oral EC Tab, 81 mg= 1 tab(s), Oral, Daily, 1 refills Booster Liners, See Instructions, 11 refills carbidopa-levodopa 25 mg-100 mg Tab, 1 tab(s), Oral, TID, 1 refills Depend Undergarment XL, See Instructions, 11 refills divalproex sodium 500 mg ER Tab, 500 mg= 1 tab(s), Oral, BID, 3 refills donepezil 10 mg Tab, 10 mg= 1 tab(s), Oral, BID, 3 refills escitalopram 20 mg Tab, 20 mg= 1 tab(s), Oral, Daily, 3 refills Evista 60 mg Tab, 60 mg= 1 tab(s), Oral, Daily, 3 refills gabapentin 100 mg Cap, 100 mg= 1 cap(s), Oral, BID, 3 refills Keppra 250 mg Tab, 250 mg= 1 tab(s), Oral, BID levothyroxine 100 mcg (0.1 mg) Tab, 100 mcg, Oral, Daily, 1 refills Myrbetriq 50 mg oral tablet, extended release, 50 mg= 1 tab(s), Oral, Daily, 1 refills Namenda XR 28 mg oral capsule, extended release, 28 mg= 1 cap(s), Oral, Daily, 1 refills omeprazole 20 mg Cap-DR, 20 mg= 1 tab(s), Oral, Daily, 3 refills pravastatin 20 mg Tab, 20 mg= 1 tab(s), Oral, Daily, 1 refills Systane Ultra preserved ophthalmic solution, 2 drop(s), Eye-Both, BID, PRN, 11 refills, Still taking, not as prescribed: Patient only takes PRN Vitamin D3 5000 intl units oral tab, 125 mcg= 1 tab(s), Oral, Daily, 3 refills Home Aptiom 800 mg oral tablet, 800 mg= 1 tab(s), Oral, Daily levetiracetam 1000 mg oral tablet, 1000 mg= 1 tab(s), Oral, BID Pentasa 500 mg oral capsule, extended release, 1000 mg= 2 cap(s), Oral, QID primidone 50 mg Tab, 50 mg= 1 tab(s), Oral, Once a day (at bedtime) With When Contact Information Joe SAINI, TY Sanchez Within 2 to 4 weeks [address] [address] [place] [address]- Additional Instructions: Epilepsy, Horj-mi-Lslq Extracted from: Title:APSO Note-neurology Author:Kemi RICHARD, Frantz harris Date:10/16/21 66-year-old woman with basel ine cognitive impairment, long history of seizure disorder, admitted for breakthrough seizures with worsened weakness and difficulty ambulating over the past few weeks. She is a patient of Dr. Diaz. MRI lumbar spine is generally unremarkable to my eyes; radiology read is pending. Does not look like it would be contributory to her weakness. Of note, she has a continuous restless nature to her legs and some possible orofacial dyskinesias. She is currently on Abilify which has a low risk for tardive dyskinesia. I do not know what other antipsychiatric medications she has been exposed to in the past. But I do have concern for tardive dyskinesia. PLAN: Continue the Keppra 1250 mg twice daily Continue the Depakote 500 mg twice daily Continue Aptiom 800 mg daily Continue the primidone at 50 mg daily Of note, she is on dopamine agonist and antagonist No other recommendations and she can be discharged from neurology standpoint. 1. Seizure (R56.9: Unspecified convulsions) 2. Weakness (R53.1: Weakness) 3. Moderate intellectual disability (F71: Moderate intellectual disabilities) 4. Mild recurrent major depression (F33.0: Major depressive disorder, recurrent, mild) 5. Parkinson's disease (G20: Parkinson's disease) 6. Familial hypercholesteremia (E78.01: Familial hypercholesterolemia) 7. Hypothyroid (E03.9: Hypothyroidism, unspecified) 8. DVT prophylaxis (Z29.9: Encounter for prophylactic measures, unspecified) Extracted from: Title:Consult Note-neurology Author:Kemi RICHARD N ichole Date:10/15/21 The patient is a 66-year-old right-handed white female with a history of baseline cognitive impairment, long history of intractable seizure disorder, who was admitted to the hospital for breakthrough seizure with worsening weakness and difficulty ambulating over the past several weeks. Patient likely has breakthrough seizures related to intractable epilepsy. The patient's difficulty ambulating may be due to a generalized process such as myopathy or myositis. I cannot exclude a peripheral nerve process including polyradiculopathy, lumbar radiculopathy, or an intraspinal canal lesion contributing to lumbar canal stenosis. Given the limited neurological exam and history I will pursue further evaluation to assess for underlying weakness. -I have reviewed the CT scan of the brain personally -I recommend obtaining an MRI scan of the bar spine to assess for an intraspinal canal lesion contributing to the patient's symptoms of lower extremity weakness -I sent blood work including CK and aldolase to assess for underlying myopathic process contributing to patient's symptoms -I recommend obtaining an EEG to assess for any epileptiform activity which may have contributed to the patient's clinical symptoms -I recommend increasing the patient's Keppra to 1250 p.o. twice daily -I recommend continuing the patient's Depakote 500 mg twice daily -I recommend continuing the patient's Aptiom 800 mg daily -I recommend continuing the patient's primidone 50 mg daily -I recommend the patient follow-up in outpatient adult neurology clinic for further recommendations and evaluation -I discussed the case with the hospitalist 1. Seizure (R56.9: Unspecified convulsions) 2. Weakness (R53.1: Weakness) 3. Moderate intellectual disability (F71: Moderate intellectual disabilities) 4. Mild recurrent major depression (F33.0: Major depressive disorder, recurrent, mild) 5. Parkinson's disease (G20: Parkinson's disease) 6. Familial hypercholesteremia (E78.01: Familial hypercholesterolemia) 7. Hypothyroid (E03.9: Hypothyroidism, unspecified) 8. DVT prophylaxis (Z29.9: Encounter for prophylactic measures, unspecified) Extracted from: Title:Admission H & P Author:RED Kristianjennie Holloway Date:10/14/21 1. Seizure (R56.9: Unspecifi ed convulsions) Will check valproic acid level. Keppra level. EEG. Consult neurology. We will check vitamin B12, vitamin D, TSH, folate. Head CT done in the emergency department is unremarkable. Will defer any further testing to neurology to order. 2. Weakness (R53.1: Weakness) Supportive care. Await physical therapy and Occupational Therapy evaluation. 3. Moderate intellectual disability (F71: Moderate intellectual disabilities) Supportive care 4. Mild recurrent major depression (F33.0: Major depressive disorder, recurrent, mild) Resume home medications once reconciled. 5. Parkinson's disease (G20: Parkinson's disease) Resume home medications once reconciled. 6. Familial hypercholesteremia (E78.01: Familial hypercholesterolemia) Resume home medications once reconciled. 7. Hypothyroid (E03.9: Hypothyroidism, unspecified) Resume home medications once reconciled. 8. DVT prophylaxis (Z29.9: Encounter for prophylactic measures, unspecified) SCD, heparin Orders: acetaminophen, 650 mg = 2 tab(s), Tab, Oral, q6hr PRN Pain, Routine, Start date 10/14/21 23:44:00 EDT, 10/14/21 23:44:00 EDT aripiprazole, 2.5 mg = 0.5 tab(s), Tab, Oral, Bedtime, NOW, Start date 10/14/21 23:38:00 EDT, 10/14/21 23:38:00 EDT aspirin, 81 mg = 1 tab(s), Tab-EC, Oral, Daily, Routine, Start date 10/15/21 9:00:00 EDT, 10/14/21 23:38:00 EDT carbidopa-levodopa, 1 tab(s), Tab, Oral, TID, NOW, Start date 10/14/21 23:38:00 EDT cholecalciferol, 125 mcg = 1 tab(s), Tab, Oral, Daily, Routine, Start date 10/15/21 9:00:00 EDT, 10/14/21 23:38:00 EDT divalproex sodium, 500 mg = 1 tab(s), Tab-ER, Oral, BID, NOW, Start date 10/14/21 23:38:00 EDT, 10/14/21 23:38:00 EDT donepezil, 10 mg = 1 tab(s), Tab, Oral, BID, NOW, Start date 10/14/21 23:38:00 EDT, 10/14/21 23:38:00 EDT escitalopram, 20 mg = 2 tab(s), Tab, Oral, Daily, Routine, Start date 10/15/21 9:00:00 EDT, 10/14/21 23:38:00 EDT gabapentin, 100 mg = 1 cap(s), Cap, Oral, BID, NOW, Start date 10/14/21 23:38:00 EDT, 10/14/21 23:38:00 EDT heparin, 5,000 unit(s) = 1 mL, Injection, SubCutaneous, BID for 30 day(s), Stop date 11/14/21 8:59:00 EDT, Routine, Start date 10/15/21 9:00:00 EDT, 10/14/21 23:44:00 EDT hydrALAZINE, 10 mg = 0.5 mL, Injection, IV Push, q6hr PRN Other (see comment), Routine, Start date 10/14/21 23:44:00 EDT, 10/14/21 23:44:00 EDT ibuprofen, 800 mg = 1 tab(s), Tab, Oral, TID PRN Pain, Routine, Start date 10/14/21 23:44:00 EDT, 10/14/21 23:44:00 EDT levetiracetam, 1,000 mg = 2 tab(s), Tab, Oral, BID, NOW, Start date 10/14/21 23:38:00 EDT, 10/14/21 23:38:00 EDT levothyroxine, 100 mcg = 1 tab(s), Tab, Oral, Daily, Routine, Start date 10/15/21 6:30:00 EDT, 10/14/21 23:39:00 EDT memantine, 28 mg = 4 cap(s), Cap-ER, Oral, Daily, Routine, Start date 10/15/21 9:00:00 EDT, 10/14/21 23:39:00 EDT mesalamine, 1,000 mg = 2 cap(s), Cap-ER, Oral, QID, NOW, Start date 10/14/21 23:39:00 EDT, 10/14/21 23:39:00 EDT ocular lubricant, 1 drop(s), Soln-Opth, OPTH, BID PRN Dry eyes, Routine, Start date 10/14/21 23:39:00 EDT ondansetron, 4 mg = 2 mL, Injection, IV Push, q6hr PRN Nausea, Routine, Start date 10/14/21 23:44:00 EDT, 10/14/21 23:44:00 EDT oxybutynin, 5 mg = 1 tab(s), Tab-ER, Oral, Daily, Routine, Start date 10/15/21 9:00:00 EDT, 10/14/21 23:39:00 EDT pantoprazole, 40 mg = 1 tab(s), Tab-DR, Oral, Daily, Routine, Start date 10/15/21 9:00:00 EDT, 10/14/21 23:40:00 EDT pravastatin, 20 mg = 1 tab(s), Tab, Oral, Daily, Routine, Start date 10/15/21 9:00:00 EDT, 10/14/21 23:40:00 EDT primidone, 50 mg = 1 tab(s), Tab, Oral, Once a day (at bedtime), NOW, Start date 10/14/21 23:40:00 EDT, 10/14/21 23:40:00 EDT promethazine, 12.5 mg = 0.5 mL, Injection, IV Push, q6hr PRN Nausea, Routine, Start date 10/14/21 23:44:00 EDT, 10/14/21 23:44:00 EDT raloxifene, 60 mg = 1 tab(s), Tab, Oral, Daily, Routine, Start date 10/15/21 9:00:00 EDT, 10/14/21 23:40:00 EDT Ambulate with Assistance Below the Knee Intermittent Pneumatic Compression Device Consult to Neurology Education Fall Risk EEG Folate Level Magnesium Level Notify Provider Vital Signs Notify Provider Vital Signs Occupational Therapy Evaluate Patient, Develop a Plan of Care and Implement Plan Oxygen Protocol Physical Therapy Evaluate Patient, Develop a Plan of Care and Implement Plan Place in Status Precautions Precautions Precautions Regular Diet Resuscitation Status - Full Saline Lock Convert From IV TSH With T4fr Reflex Vital Signs Vitamin B12 Level Vitamin D 25 Hydroxy Weight Anticipated stay less than 2 midnights. Patient will be observation status. Extracted from: Title:ED Note Author:Booker GRIDEROlvin Date:10/14 Seizure (R56.9: Unspecified convulsions) Weakness (R53.1: Weakness) Orders: Sodium Chloride 0.9% intravenous solution 1,000 mL, 1,000 mL, IV, 20 mL/hr, STAT, Start date 10/14/21 17:20:00 EDT, 50 hour(s), Total volume (mL): 1,000, 93 kg, 2.1, m2 Automated Diff Basic Metabolic Panel CBC w/ Auto Diff CT Head or Brain w/o Contrast eGFR Hepatic Function Panel Troponin 0 Hr. Troponin 3 Hr. Troponin 6 Hr. Troponin 9 Hr. UA With Cult Reflex XR Chest Single View Addendum by Fatou Huertas DO on October 14, 2021 20:29:22 EDT UA Without any signs of infection. Patient is admitted to the hospitalist for further evaluation management. Future Appointments Appointment Date:10/29/2021 01:20:00 PM Scheduled Provider:Sukh JOHN DO, FAAFP Location:[facility] Appointment Type:FM Open Diagnostic Tests Pending * Sebastián Lvl 10/14/[address] [facility]05-03-2022 Hospital Discharge instructions Patient Education 10/15/2021 11:36:44 Epilepsy, Pkoz-tp-Vauo Epilepsy Epilepsy is when a person keeps having seizures. A seizure is a burst of abnormal activity in the brain. A seizure can change how you think or behave, and it can make it hard to be aware of what is happening. This condition can cause problems such as: Falls, accidents, and injury. Sadness (depression). Poor memory. Sudden unexplained in epilepsy (SUDEP). This is rare. Its cause is not known. Most people with epilepsy lead normal lives. What are the causes? This condition may be caused by: A head injury. An injury that happens at . A high fever during childhood. A stroke. Bleeding that goes into or around the brain. Certain medicines and drugs. Having too little oxygen for a long period of time. Abnormal brain development. Certain infections. Brain tumors. Conditions that are passed from parent to child (are hereditary). What are the signs or symptoms? Symptoms of a seizure vary from person to person. They may include: Jerky movements of muscles (convulsions). Stiffening of the body. Movements of the arms or legs that you are not able to control. Passing out (loss of consciousness). Breathing problems. Sudden falls. Confusion. Head nodding. Eye blinking or twitching. Lip smacking. Drooling. Fast eye movements. Grunting. Not being able to control when you pee or poop. Staring. Being hard to wake up (unresponsiveness). Some people have symptoms right before a seizure happens (aura) and right after a seizure happens. These symptoms include: Fear or anxiety. Feeling sick to your stomach (nauseous). Feeling like the room is spinning (vertigo). A feeling of having seen or heard something before (agata garcia). Odd tastes or smells. Changes in how you see (vision), such as seeing flashing lights or spots. Symptoms that follow a seizure include: Being confused. Being sleepy. Having a headache. How is this treated? Treatment can control seizures. Treatment for this condition may involve: Taking medicines to control seizures. Having a device (vagus nerve stimulator) put in the chest. The device sends signals to a nerve and to the brain to prevent seizures. Brain surgery to stop seizures from happening or to reduce how often they happen. Having blood tests often to make sure you are getting the right amount of medicine. Once this condition has been diagnosed, it is important to start treatment as soon as possible. Forsome people, epilepsy goes away in time. Others will need treatment for the rest of their life. Follow these instructions at home: Medicines Take upkr-hvl-vilposb and prescription medicines only as told by your doctor. Avoid anything that may keep your medicine from working, such as alcohol. Activity Get enough rest. Lack of sleep can make seizures more likely to occur. Follow your doctor's advice about driving, swimming, and doing anything else that would be dangerous if you had a seizure. ?If you live in the [place] check with your local DMV (department of [employer]) to find out about local driving laws. Each state has rules about when you can return to driving. Teaching others Teach friends and family what to do if you have a seizure. They should: Lay you on the ground to prevent a fall. Cushion your head and body. Loosen any tight clothing around your neck. Turn you on your side. Stay with you until you are better. Not hold you down. Not put anything in your mouth. Know whether or not you need emergency care. General instructions Avoid anything that causes you to have seizures. Keep a seizure diary. Write down what you remember about each seizure. Be sure to include what might have caused it. Keep all follow-up visits as told by your doctor. This is important. Contact a doctor if: You have a change in how often or when you have seizures. You get an infection or start to feel sick. You may have more seizures when you are sick. Get help right away if: A seizure does not stop after 5 minutes. You have more than one seizure in a row, and you do not have enough time between the seizures to feel better. A seizure makes it harder to breathe. A seizure is different from other seizures you have had. A seizure makes you unable to speak or use a part of your body. You did not wake up right after a seizure. These symptoms may be an emergency. Do not wait to see if the symptoms will go away. Get medical help right away. Call your local emergency services (911 in the [place] Do not drive yourself to the hospital. Summary Epilepsy is when a person keeps having seizures. A seizure is a burst of abnormal activity in the brain. Treatment can control seizures. Teach friends and family what to do if you have a seizure. This information is not intended to replace advice given to you by your health care provider. Make sure you discuss any questions you have with your health care provider. Document Released: 03/29/2010 Document Revised: 01/24/2019 Document Reviewed: 01/24/2019 [employer] Patient Education 2019 [employer] Follow Up Care 10/14/2021 16:53:56 With:Joe SAINI, TY Sanchez [facility] [address] [place] [address]- When:2 to [address] [facility]05-02-2022 Hospital Discharge instructions Patient Education 10/14/2021 16:38:50 Epilepsy, Oayw-rv-Ibhi Epilepsy Epilepsy is when a person keeps having seizures. A seizure is a burst of abnormal activity in the brain. A seizure can change how you think or behave, and it can make it hard to be aware of what is happening. This condition can cause problems such as: Falls, accidents, and injury. Sadness (depression). Poor memory. Sudden unexplained in epilepsy (SUDEP). This is rare. Its cause is not known. Most people with epilepsy lead normal lives. What are the causes? This condition may be caused by: A head injury. An injury that happens at . A high fever during childhood. A stroke. Bleeding that goes into or around the brain. Certain medicines and drugs. Having too little oxygen for a long period of time. Abnormal brain development. Certain infections. Brain tumors. Conditions that are passed from parent to child (are hereditary). What are the signs or symptoms? Symptoms of a seizure vary from person to person. They may include: Jerky movements of muscles (convulsions). Stiffening of the body. Movements of the arms or legs that you are not able to control. Passing out (loss of consciousness). Breathing problems. Sudden falls. Confusion. Head nodding. Eye blinking or twitching. Lip smacking. Drooling. Fast eye movements. Grunting. Not being able to control when you pee or poop. Staring. Being hard to wake up (unresponsiveness). Some people have symptoms right before a seizure happens (aura) and right after a seizure happens. These symptoms include: Fear or anxiety. Feeling sick to your stomach (nauseous). Feeling like the room is spinning (vertigo). A feeling of having seen or heard something before (agata garcia). Odd tastes or smells. Changes in how you see (vision), such as seeing flashing lights or spots. Symptoms that follow a seizure include: Being confused. Being sleepy. Having a headache. How is this treated? Treatment can control seizures. Treatment for this condition may involve: Taking medicines to control seizures. Having a device (vagus nerve stimulator) put in the chest. The device sends signals to a nerve and to the brain to prevent seizures. Brain surgery to stop seizures from happening or to reduce how often they happen. Having blood tests often to make sure you are getting the right amount of medicine. Once this condition has been diagnosed, it is important to start treatment as soon as possible. Forsome people, epilepsy goes away in time. Others will need treatment for the rest of their life. Follow these instructions at home: Medicines Take hiky-esj-elltlvz and prescription medicines only as told by your doctor. Avoid anything that may keep your medicine from working, such as alcohol. Activity Get enough rest. Lack of sleep can make seizures more likely to occur. Follow your doctor's advice about driving, swimming, and doing anything else that would be dangerous if you had a seizure. ?If you live in the [place] check with your local DMV (department of [employer]) to find out about local driving laws. Each state has rules about when you can return to driving. Teaching others Teach friends and family what to do if you have a seizure. They should: Lay you on the ground to prevent a fall. Cushion your head and body. Loosen any tight clothing around your neck. Turn you on your side. Stay with you until you are better. Not hold you down. Not put anything in your mouth. Know whether or not you need emergency care. General instructions Avoid anything that causes you to have seizures. Keep a seizure diary. Write down what you remember about each seizure. Be sure to include what might have caused it. Keep all follow-up visits as told by your doctor. This is important. Contact a doctor if: You have a change in how often or when you have seizures. You get an infection or start to feel sick. You may have more seizures when you are sick. Get help right away if: A seizure does not stop after 5 minutes. You have more than one seizure in a row, and you do not have enough time between the seizures to feel better. A seizure makes it harder to breathe. A seizure is different from other seizures you have had. A seizure makes you unable to speak or use a part of your body. You did not wake up right after a seizure. These symptoms may be an emergency. Do not wait to see if the symptoms will go away. Get medical help right away. Call your local emergency services (911 in the [place] Do not drive yourself to the hospital. Summary Epilepsy is when a person keeps having seizures. A seizure is a burst of abnormal activity in the brain. Treatment can control seizures. Teach friends and family what to do if you have a seizure. This information is not intended to replace advice given to you by your health care provider. Make sure you discuss any questions you have with your health care provider. Document Released: 03/29/2010 Document Revised: 01/24/2019 Document Reviewed: 01/24/2019 [employer] Patient Education 2020 [employer]. Follow Up Care 10/11/2021 09:50:34 With:Sukh JOHN DO, FAAFP, FAM, PED Address: [place] [address]- When:Within 2 Week(s) Comments:Anna will take to ED now [facility] Evaluation + Plan note Future Appointments Appointment Date:10/10/2021 12:20:00 PM Scheduled Provider:Sukh JOHN DO, FAAFP Location[facility] Future Appointments Appointment Date:10/29/2021 01:20:00 PM Scheduled Provider:Sukh JOHN DO, FAAFP Location:[facility] Appointment Type:[facility] + Plan note Future Appointments Appointment Date:02/04/2022 01:40:00 PM Scheduled Provider:Sukh JOHN DO, FAAFP Location:[facility] Appointment Type: Open Future Scheduled Tests Radiology* BD Bone Density DEXA 10/29/21 [facility] + Plan note Future Appointments Appointment Date:02/04/2022 01:40:00 PM Scheduled Provider:Sukh JOHN DO, FAAFP Location:[facility] Appointment Type: [facility] Future Appointments Appointment Date:07/08/2022 12:20:00 PM Scheduled Provider:Sukh JOHN DO, FAAFP Location:[facility] Appointment Type:[facility] + Plan note Future Appointments Appointment Date:07/08/2022 12:20:00 PM Scheduled Provider:Sukh JOHN DO, FAAFP Location:[facility] Appointment Type: Open Diagnostic Tests Pending * Urine Culture 04/11/[address] [facility] [address] [facility] Future Appointments Appointment Date:09/02/2022 11:00:00 AM Scheduled Provider:Sukh JOHN DO, FAAFP Location:[facility] Future Appointments Appointment Date:12/08/2022 02:20:00 PM Scheduled Provider:Sukh JOHN DO, FAAFP Location:[facility] Appointment Type:[facility] + Plan note Future Appointments Appointment Date:02/03/2023 01:20:00 PM Scheduled Provider:Sukh JOHN DO, FAAFP Location:[facility] Appointment Type: Open Future Scheduled Tests Laboratory* Thyroid-stimulating Immunoglobulin (TSI) 01/15/23 * UA With Cult Reflex 11/06/22 * T3 Free 01/15/23 [facility] + Plan note Future Appointments Appointment Date:04/23/2023 01:00:00 PM Scheduled Provider: Location:[facility] Appointment Type: Medicare Wellness Subsequent Appointment Date:04/23/2023 01:40:00 PM Scheduled Provider:Sukh JOHN DO, FAAFP Location:[facility] Appointment Type: Open Future Scheduled Tests Laboratory* Thyroid-stimulating Immunoglobulin (TSI) 01/15/23 * UA With Cult Reflex 11/06/22 * T3 Free 01/15/23 [facility] Evaluation + Plan note Future Appointments Appointment Date:05/19/2023 01:00:00 PM Scheduled Provider:Sukh JOHN DO, FAAFP Location:[facility] Appointment Type:FM Open Appointment Date:05/02/2024 09:30:00 AM Scheduled Provider: Location:[facility] Appointment Type: Medicare Wellness Subsequent Future Scheduled Tests Laboratory* Thyroid-stimulating Immunoglobulin (TSI) 01/15/23 * UA With Cult Reflex 11/06/22 * T3 Free 01/15/23 [facility] evaluation + Plan note Future Appointments Appointment Date:05/19/2023 01:00:00 PM Scheduled Provider:Sukh JOHN DO, FAAFP Location:[facility] Appointment Type: Open Appointment Date:08/20/2023 08:40:00 AM Scheduled Provider:Sukh JOHN DO, FAAFP Location:[facility] Appointment Type: Open Appointment Date:05/02/2024 09:30:00 AM Scheduled Provider: Location:[facility] Appointment Type:FM Medicare Wellness Subsequent Future Scheduled Tests Laboratory* Thyroid-stimulating Immunoglobulin (TSI) 01/15/23 * UA With Cult Reflex 11/06/22 * T3 Free 01/15/23 [facility] evaluation + Plan note Future Appointments Appointment Date:08/20/2023 08:40:00 AM Scheduled Provider:Sukh JOHN DO, FAAFP Location:[facility] Appointment Type: Open Appointment Date:05/02/2024 09:30:00 AM Scheduled Provider: Location:[facility] Appointment Type:FM Medicare Wellness Subsequent Diagnostic Tests Pending * Urine Culture 06/17/23 Future Scheduled Tests Laboratory* Thyroid-stimulating Immunoglobulin (TSI) 01/15/23 * UA With Cult Reflex 11/06/22 * T3 Free 01/15/23 [facility] note* Diagnosis Generalized epilepsy (HCC)- Primary Unspecified epilepsy without mention of intractable epilepsy documented in this encounter [facility] note* Diagnosis Convulsions, unspecified convulsion type (HCC)- Primary documented in this encounter [facility] note* Diagnosis Convulsions, unspecified convulsion type (HCC)- Primary documented in this encounter [facility] note* Diagnosis Convulsions, unspecified convulsion type (HCC)- Primary documented in this encounter [facility] note* Diagnosis Convulsions, unspecified convulsion type (HCC)- Primary documented in this encounter [facility] note* Diagnosis Encounter for screening mammogram for malignant neoplasm of breast Other screening mammogram [facility] Diagnosis Abnormal mammogram Abnormal mammogram, unspecified documented in this encounter [facility] course Narrative No data available for this section [facility] Discharge instructions No data available for this section [facility] No data available for this section [facility] (narrative) , Neurology - [facility], [facility] office is okay Mentally handicap patient with caregiver. Would like second opinion regarding seizure medication dosing or if they can stop seizure medication. Referred by: Sukh JOHN DO, FAAFP [facility] reason for referral (narrative)* Outpatient Procedure (Routine) - Pending Review Specialty Diagnoses / Procedures Referred By Xiomy quiroga Referred To [facility] Diagnoses Generalized epilepsy (HCC) Procedures EPIL EEG LEAD PLACEMENT EEG EXTENDED MONITORING 61-119 MINUTES ELECTROENCEPHALOGRAM REC COMA/SLEEP ONLY Yusra Fofana APRN.DINORAH [address] [place] [address] [address] [place] [address] Referral ID Status Reason Start Date Expiration Date Visits Requested Visits Authorized [id number] Pending Review Auto-Generat ed Referral 04/21/2022 04/21/[address] [facility] for referral (narrative) , PT suggested brace as her current one is rubbing her skin. I question the need for brace at all. Second opinion for orthopedic surgery as he has brace necessary. Arthritis of right knee Referred by: Sukh JOHN DO, FAAFP [facility] reason for referral (narrative) , Affiliated with [facility] Watts in [place] office Referred by: Sukh JOHN DO, FAAFP [facility] reason for visit Narrative* Other (Routine) - Closed Specialty Diagnoses / Procedures Referred By Xiomy quiroga Referred To Contact Radiology Diagnoses Encounter for screening mammogram for malignant neoplasm of breast Procedures AMANDA LUZ ELENA DIGITAL SCREEN BILATERAL Leonides Da Silva, POSTAL CARRIER [address] [facility] [place] [address] Phone: tel: fax: Referral ID Status Reason Start Date Expiration Date Visits Re quested Visits Authorized [id number] Closed 08/11/2024 08/11/2025 1 1 [facility] N[facility]ative* Imaging (Routine) - Open Specialty Diagnoses / Procedures Referred By Xiomy t Referred To Contact Radiology Diagnoses Abnormal mammogram Procedures US BREAST LIMITED RIGHT Leonides Da Silva, POSTAL CARRIER [address] [facility] [place] [address] Phone: tel: fax: Referral ID Status Reason Start Date Expiration Date Visits Re quested Visits Authorized [id number] Open 11/04/2024 11/04/2025 1 1 [facility] Concerns Infection Onset Date Last Indicated Resolved Time COVID-19 Rule-Out 05/15/2022 05/15/2022 05/15/2022 6:21 PM EST Summary Purpose Family History No Family History Records Found Advance Directives No Advanced Directives Records Found Date Activated Date Inactivated Comments 10/03/2016 11:20 AM 10/05/2016 7:58 PM Documents on File Type Date Recorded Patient Ostomy Nurse Expl anation ACP-Guardianship 05/30/2024 2:12 PM APS g aurdianship papers received 05.30.2024 Documents on File Type Date Recorded Patient Ostomy Nurse Expl anation ACP-Guardianship 05/30/2024 2:12 PM APS g aurdianship papers received 05.30.2024 Date Activated Date Inactivated Comments 10/03/2016 11:20 AM 10/05/2016 7:58 PM Additional Source Comments Patient Care team informatio n (unrecognized section and content) Office Correspondent Relationship Specialty Start Date End Date Holly Martines MD [address] [facility] [address] [place] [address] PCP - General Family Medicine 08/05/13 Sukh John, [address] [place] [address] Referring Family Medicine 12/04/21 Office Correspondent Relationship Specialty Start Date End Date Holly Martines MD [address] [address] PCP - General Family Medicine 08/05/13 Sukh John, DO [address] [place] [address] Referring Family Medicine 12/04/21 Office Correspondent Relationship Specialty Start Date End Date Holly Martines MD [address] [address] PCP - General Family Medicine 08/05/13 Sukh John, [address] [facility] [address] Referring Family Medicine 12/04/21 Office Correspondent Relationship Specialty Start Date End Date Holly Martines MD [address] [address] PCP - General Family Medicine 08/05/13 Sukh John, [address] [facility] [address] Referring Family Medicine 12/04/21 Office Correspondent Relationship Specialty Start Date End Date Holyl Martines MD [address] [address] PCP - General Family Medicine 08/05/13 Sukh John, DO [address] [place] [facility] [place] [address] Referring Family Medicine 12/04/21 Office Correspondent Relationship Specialty Start Date End Date Holly Martines MD [address] [place] [address] [place] [address] PCP - General Family Medicine 08/05/13 Sukh John, DO [address] [place] [address] Referring Family Medicine 12/04/21 Office Correspondent Relationship Specialty Start Date End Date Holly Martines MD [address] [place] [address] [place] [address] PCP - General Family Medicine 08/05/13 Sukh John, [address] [place] [address] Referring Family Medicine 12/04/21 Office Correspondent Relationship Specialty Start Date End Date Holly Martines MD [address] [place] [address] [place] [address] PCP - General Family Medicine 08/05/13 Sukh John DO [address] [place] [address] Referring Family Medicine 12/04/21 Office Correspondent Relationship Specialty Start Date End Date Sukh John DO PCP - General Family Medicine 10/03/16 Office Correspondent Relationship Specialty Start Date End Date Sukh John DO PCP - General Family Medicine 10/03/16 Office Correspondent Relationship Specialty Start Date End Date Sukh John DO PCP - General Family Medicine 10/03/16 Office Correspondent Relationship Specialty Start Date End Date Sukh John DO PCP - General Family Medicine 10/03/16 Office Correspondent Relationship Specialty Start Date End Date Sukh John DO PCP - General Family Medicine 10/03/16 Office Correspondent Relationship Specialty Start Date End Date Sukh John DO PCP - General Family Medicine 10/03/16 Source Comments (unrecognize d section and content) In the event this informatio n is protected by the Federal Confidentiality of Alcohol and Drug Abuse Patient Records regulations: The Federal rules restrict any use of the information to criminally investigate or prosecute any alcohol or drug abuse patient.[facility] the event this information is protected by the Federal Confidentiality of Alcohol and Drug Abuse Patient Records regulations: The Federal rules restrict any use of the information to criminally investigate or prosecute any alcohol or drug abuse patient.[facility] Campus[facility] the event this information is protected by the Federal Confidentiality of Alcohol and Drug Abuse Patient Records regulations: The Federal rules restrict any use of the information to criminally investigate or prosecute any alcohol or drug abuse patient.[facility] Campus[facility] the event this information is protected by the Federal Confidentiality of Alcohol and Drug Abuse Patient Records regulations: The Federal rules restrict any use of the information to criminally investigate or prosecute any alcohol or drug abuse patient.[facility] CampusIn the event this information is protected by the Federal Confidentiality of Alcohol and Drug Abuse Patient Records regulations: The Federal rules restrict any use of the information to criminally investigate or prosecute any alcohol or drug abuse patient.[facility] Campus[facility] the event this information is protected by the Federal Confidentiality of Alcohol and Drug Abuse Patient Records regulations: The Federal rules restrict any use of the information to criminally investigate or prosecute any alcohol or drug abuse patient.[facility] CampusIn the event this information is protected by the Federal Confidentiality of Alcohol and Drug Abuse Patient Records regulations: The Federal rules restrict any use of the information to criminally investigate or prosecute any alcohol or drug abuse patient.[facility] CampusIn the event this information is protected by the Federal Confidentiality of Alcohol and Drug Abuse Patient Records regulations: The Federal rules restrict any use of the information to criminally investigate or prosecute any alcohol or drug abuse patient.[facility] CampusIn the event this information is protected by the Federal Confidentiality of Alcohol and Drug Abuse Patient Records regulations: The Federal rules restrict any use of the information to criminally investigate or prosecute any alcohol or drug abuse patient.[facility] CampusIn the event this information is protected by the Federal Confidentiality of Alcohol and Drug Abuse Patient Records regulations: The Federal rules restrict any use of the information to criminally investigate or prosecute any alcohol or drug abuse patient.[facility] Reason for Visit (unrecogniz ed section and content) Reason Comments Future Appointment [place], [place], Any Reason Comments New Patient Reason Comments medication concern gabapentin Reason Comments Medication Problem Keppra - Pharmacy Ne eds Confirmation Reason Comments Follow Up Established Patient Reason Comments medication concern aptiom Reason Comments Refill Request Reason Comments Forms Home slaterus INFORMATION SOURCE (unrecogn ized section and content) DATE CREATED AUTHOR 07/11/2023 [facility] DATE CREATED AUTHOR AUTHOR'S ORGANIZ ATION 07/19/2023 [facility] DATE CREATED AUTHOR AUTHOR'S ORGANIZ ATION 08/19/2023 [facility] DATE CREATED AUTHOR AUTHOR'S ORGANIZ ATION 10/01/2024 [facility] DATE CREATED AUTHOR AUTHOR'S ORGANIZ ATION 11/10/2024 [facility] DATE CREATED AUTHOR AUTHOR'S ORGANIZ ATION 11/17/2024 [facility] DATE CREATED AUTHOR AUTHOR'S ORGANIZ ATION 11/17/2024 [facility] FOR RECORDS PERTAINING TO PATIENTS WHO ARE OR HAVE BEEN ENROLLED IN A CHEMICAL DEPENDENCY/SUBSTANCEABUSE PROGRAM, SOME INFORMATION MAY BE OMITTED. This clinical summary was aggregated from multiple sources. Caution should be exercised in using it in the provision of clinical care. This summary normalizes information from multiple sources, and as a consequence, information in this document may materially change the coding, format and clinical context of patient data. In addition, data may be omitted in some cases. CLINICAL DECISIONS SHOULD BE BASED ON THE PRIMARY CLINICAL RECORDS. [facility]. provides no warranty or guarantee of the accuracy or completeness of information in this document.
[2024-11-19 18:48] LABS: Glucometer 130 mg/dL (74-106)
[2024-11-19] MEDS: DIAZEPAM 10 MG/2 ML SYRINGE 2.5 MG IV (18:52)
--- NOTE | 2024-11-19 18:56 | ED.GENADUL1 ---
Documented by User: Alexandra Stein NP 11/19/24 21:08 HPI HPI - General Adult General Chief complaint: Altered Mental Status Stated complaint: WHEEZING Time Seen by Provider: 11/19/24 18:31 Source: other Source information: EMS Mode of arrival: ambulance Limitations: altered mental status History of Present Illness HPI narrative: Patient is a 69-year-old female and a resident of a [facility] facility who presents to the ER today for evaluation concerns for vague complaints of possible increased confusion. On arrival to the ER patient is not able to provide any history. There is no additional history provided by the custodial from EMS. It appears patient was started on azithromycin and prednisone within the past few days for concern for wheezing . Related Data Home Medications ?Medication ?Instructions ?Recorded ?Confirmed aripiprazole 10 mg tablet (Abilify) 10 mg PO DAILY 04/13/24 11/19/24 aspirin 81 mg tablet,delayed 81 mg PO DAILY 04/13/24 11/19/24 release (Adult Low Dose Aspirin) carbidopa 25 mg-levodopa 100 mg 1 tab PO TID 04/13/24 11/19/24 tablet (Sinemet) calcium phosphate,dibasic 77 1 tab PO DAILY 11/19/24 11/19/24 mg-vitamin D3 400 unit tablet docusate sodium 100 mg capsule 100 mg PO DAILY 11/19/24 11/19/24 (Colace) donepezil 10 mg tablet (Aricept) 10 mg PO BID 11/19/24 11/19/24 doxepin 10 mg capsule 10 mg PO TID 11/19/24 11/19/24 escitalopram oxalate 20 mg tablet 20 mg PO DAILY 11/19/24 11/19/24 gabapentin 400 mg capsule 400 mg PO TID 11/19/24 11/19/24 lamotrigine 100 mg tablet 100 mg PO BID 11/19/24 11/19/24 (Lamictal) levothyroxine 100 mcg tablet 100 mcg PO DAILY 11/19/24 11/19/24 (Euthyrox) loratadine 10 mg capsule (Allergy 10 mg PO DAILY 11/19/24 11/19/24 Relief (loratadine)) melatonin 10 mg capsule 10 mg PO HS 11/19/24 11/19/24 memantine 10 mg tablet 10 mg PO BID 11/19/24 11/19/24 mirabegron 50 mg tablet,extended 50 mg PO DAILY 11/19/24 11/19/24 release 24 hr (Myrbetriq) omeprazole 20 mg capsule,delayed 20 mg PO DAILY 11/19/24 11/19/24 release pravastatin 20 mg tablet 20 mg PO DAILY 11/19/24 11/19/24 raloxifene 60 mg tablet 60 mg PO DAILY 11/19/24 11/19/24 trazodone 150 mg tablet 150 mg PO DAILY 11/19/24 11/19/24 Allergies Allergy/AdvReac Type Severity Reaction Status Date / Time adhesive tape Allergy Mild rash Verified 04/13/24 22:33 Latex, Natural Rubber Allergy Mild rash Verified 04/13/24 22:33 Sulfa (Sulfonamide Allergy Mild rash Verified 04/13/24 22:33 Antibiotics) Review of Systems ROS Status of ROS 10 or more systems reviewed and unremarkable except as noted in history and below Exam Narrative Exam Narrative: Constituational: Awake/ alert, no apparent distress, well hydrated HENMT: normocephalic, external ears normal, moist oral mucous membranes and oropharynx normal Eyes: EOMI and conjunctivae normal Neck: ROM intact Chest: inspection of chest normal Respiratory: Normal respiratory effort, coarse breath sounds bilaterally with good/fair aeration throughout Cardio: regular rate and regular rhythm GI: soft to palpation and non-tender Back: nontender MSK: ROM intact, +NVI Skin: no rashes or petechiae Neuro: Arousable to tactile stimuli, alert and oriented to self Psych: Will yell out at times, at times combative and uncooperative Constitutional Vital Signs, click to edit/add: Last Vital Signs Temp 98.1 F 11/19/24 18:24 Pulse 79 11/19/24 23:32 Resp 22 H 11/19/24 23:32 BP 112/86 11/19/24 23:32 Pulse Ox 95 11/19/24 23:32 O2 Del Method Room Air 11/19/24 18:24 Course Vital Signs Vital signs: Vital Signs Blood Pressure 148/61 H 11/19/24 18:23 Temperature 98.1 F 11/19/24 18:24 Pulse Rate 79 11/19/24 23:32 Respiratory Rate 22 H 11/19/24 23:32 Blood Pressure 112/86 11/19/24 23:32 Pulse Oximetry 95 11/19/24 23:32 Oxygen Delivery Method Room Air 11/19/24 18:24 Medical Decision Making MDM Narrative Medical decision making narrative: Patient is a nontoxic-appearing 69-year-old female who presented to the ER today for evaluation of concerns for vague complaints of altered mental status. Shortly following patient's arrival to the ER patient was accompanied by hydrotreater operator from the nursing facility who explained to the patient had gone to dinner and following this was not acting per her norm and that she was not able to stand to change her clothing or toilet. She reports shortly following this she began yelling and calling out becoming more agitated and restless which is not her norm. Examination patient is awake and will open her eyes to tactile stimuli. She is yelling and calling out and kicking her arms and legs. She did receive initial supportive measures of Valium by the ER attending provider Dr. Lyon and she subsequent received Haldol due to ongoing agitation and calling out. She otherwise does not appear to be exhibiting any ischemic symptoms and does overall appear euvolemic on exam. Labs stable and showed no significant leukocytosis, anemia, thrombocytopenia. Electrolytes including renal and hepatic function overall stable. Is concerning for UTI as evidenced by leukocytes and bacteria in the urine. Receive additional supportive measures of IVPB ceftriaxone. Chest x-ray otherwise appears stable per ER interpretation and EKG without acute changes. CT of head is pending due to concern for altered mental status/behavior this was delayed due to patient agitation. Patient was reevaluated multiple times while in the emergency department and is otherwise remained hemodynamically stable. Her agitation did improve with supportive measures as above. Did discuss patient's condition with hospitalist TIAGO Asher -> accepts patient for admission. Bed is pending. Care endorsed to ER attending Dr. Us 2200p to follow-up on pending CT imaging and relay any critical findings to the hospitalist on admission. Medical Records Medical records reviewed: Yes I reviewed the patient's medical records Lab Data Lab results reviewed: Yes I reviewed the patient's lab results Labs: Lab Results 11/19/24 11/19/24 11/19/24 Range/Units 18:37 18:52 20:16 WBC 7.7 (4.0-11.0) 10^3/uL RBC 4.30 (4.20-5.40) 10^6/uL Hgb 13.0 (12.0-16.0) g/dL Hct 38.9 (36.0-48.0) % MCV 90.5 (81.0-99.0) fL MCH 30.2 (26.7-34.0) pg MCHC 33.4 (29.9-35.2) g/dL RDW 13.2 (11.0-15.0) % Plt Count 102 L (150-450) 10^3/uL MPV 13.0 (9.5-13.5) fL Neut % (Auto) 60.6 (43.0-75.0) % Lymph % (Auto) 29.2 (20.5-60.0) % [place] % (Auto) 8.3 (1.7-12.0) % Eos % (Auto) 0.5 L (0.9-7.0) % Baso % (Auto) 0.5 (0.2-2.0) % Neut # (Auto) 4.6 (1.4-6.5) 10^3/uL Lymph # (Auto) 2.2 (1.2-3.8) 10^3/uL [place] # (Auto) 0.6 (0.3-0.8) 10^3/uL Eos # (Auto) 0.0 (0.0-0.7) 10^3/uL Baso # (Auto) 0.0 (0.0-0.1) 10^3/uL Abs Immat Gran (auto) 0.07 H (0.00-0.03) 10^3/uL Imm/Tot Granulo (auto) 0.9 H (0.0-0.5) % Sodium 146 H (136-145) mmol/L Potassium 3.9 (3.5-5.1) mmol/L Chloride 105 (98-107) mmol/L Carbon Dioxide 33.9 H (21.0-32.0) mmol/L Anion Gap 11.0 BUN 21.0 H (7.0-18.0) mg/dL Creatinine 0.55 (0.55-1.02) mg/dL Est GFR ( Amer) >60 (>=60 mL/min/1.73m^2) Est GFR (Non-Af Amer) >60 (>=60 mL/min/1.73m^2) BUN/Creatinine Ratio 38.2 Glucose 141 H (74-106) mg/dL Calcium 8.9 (8.5-10.1) mg/dL Total Bilirubin 0.4 (0.2-1.0) mg/dL AST 19 (15-37) U/L ALT 9 L (14-59) U/L Alkaline Phosphatase 52 (46-116) U/L C-Reactive Protein 1.76 H (<=0.50) mg/dL NT-Pro-B Natriuret Pep 254.0 (<=900.0) pg/mL Total Protein 6.9 (6.4-8.2) g/dL Albumin 3.0 L (3.4-5.0) g/dL Globulin 3.9 g/dL Albumin/Globulin Ratio 0.8 Urine Color Yellow (YELLOW) Urine Clarity Cloudy A (CLEAR) Urine pH 6.5 (5.0-9.0) Ur Specific [place] 1.015 (1.005-1.025) Urine Protein Negative (NEG/TRACE) mg/dL Urine Glucose (UA) Negative (NEGATIVE) mg/dL Urine Ketones Negative (NEGATIVE) mg/dL Urine Occult Blood Small A (NEGATIVE) Urine Nitrite Negative (NEGATIVE) Urine Bilirubin Negative (NEGATIVE) Urine Urobilinogen 1.0 (0.2-1.0) EU/dL Ur Leukocyte Esterase Trace A (NEGATIVE) Urine RBC 20-50 A (0-2) #/HPF Urine WBC 10-20 A (NONE SEEN) #/HPF Ur Squamous Epith Cells Few A (NONE/RARE) #/LPF Urine Crystals None seen (None Seen) #/HPF Amorphous Sediment Moderate Urine Bacteria Moderate A (NONE SEEN) #/HPF Urine Casts None seen (NONE SEEN) #/LPF Urine Mucus Moderate A (NONE SEEN) Ur Culture Indicated? Yes-[facility] [place] POC Glucose 130 H (74-106) mg/dL Imaging Data CT scan - head: My impression: pending Chest x-ray: Attestation: I personally reviewed and interpreted this imaging study as follows: My impression: No pneumonia ECG Data Attestation: I personally reviewed and interpreted this ECG as follows: (EKG shows SR with HR 61, no acute/ischemic changes) Discharge Plan Discharge Patient Disposition: Still a Patient Documented by User: Tapan Us MD 11/19/24 23:43 HPI HPI - General Adult General Chief complaint: Altered Mental Status Stated complaint: WHEEZING Time Seen by Provider: 11/19/24 18:31 Related Data Home Medications ?Medication ?Instructions ?Recorded ?Confirmed aripiprazole 10 mg tablet (Abilify) 10 mg PO DAILY 04/13/24 11/19/24 aspirin 81 mg tablet,delayed 81 mg PO DAILY 04/13/24 11/19/24 release (Adult Low Dose Aspirin) carbidopa 25 mg-levodopa 100 mg 1 tab PO TID 04/13/24 11/19/24 tablet (Sinemet) calcium phosphate,dibasic 77 1 tab PO DAILY 11/19/24 11/19/24 mg-vitamin D3 400 unit tablet docusate sodium 100 mg capsule 100 mg PO DAILY 11/19/24 11/19/24 (Colace) donepezil 10 mg tablet (Aricept) 10 mg PO BID 11/19/24 11/19/24 doxepin 10 mg capsule 10 mg PO TID 11/19/24 11/19/24 escitalopram oxalate 20 mg tablet 20 mg PO DAILY 11/19/24 11/19/24 gabapentin 400 mg capsule 400 mg PO TID 11/19/24 11/19/24 lamotrigine 100 mg tablet 100 mg PO BID 11/19/24 11/19/24 (Lamictal) levothyroxine 100 mcg tablet 100 mcg PO DAILY 11/19/24 11/19/24 (Euthyrox) loratadine 10 mg capsule (Allergy 10 mg PO DAILY 11/19/24 11/19/24 Relief (loratadine)) melatonin 10 mg capsule 10 mg PO HS 11/19/24 11/19/24 memantine 10 mg tablet 10 mg PO BID 11/19/24 11/19/24 mirabegron 50 mg tablet,extended 50 mg PO DAILY 11/19/24 11/19/24 release 24 hr (Myrbetriq) omeprazole 20 mg capsule,delayed 20 mg PO DAILY 11/19/24 11/19/24 release pravastatin 20 mg tablet 20 mg PO DAILY 11/19/24 11/19/24 raloxifene 60 mg tablet 60 mg PO DAILY 11/19/24 11/19/24 trazodone 150 mg tablet 150 mg PO DAILY 11/19/24 11/19/24 Allergies Allergy/AdvReac Type Severity Reaction Status Date / Time adhesive tape Allergy Mild rash Verified 04/13/24 22:33 Latex, Natural Rubber Allergy Mild rash Verified 04/13/24 22:33 Sulfa (Sulfonamide Allergy Mild rash Verified 04/13/24 22:33 Antibiotics) Exam Constitutional Vital Signs, click to edit/add: Last Vital Signs Temp 98.1 F 11/19/24 18:24 Pulse 79 11/19/24 23:32 Resp 22 H 11/19/24 23:32 BP 112/86 11/19/24 23:32 Pulse Ox 95 11/19/24 23:32 O2 Del Method Room Air 11/19/24 18:24 Course Vital Signs Vital signs: Vital Signs Blood Pressure 148/61 H 11/19/24 18:23 Temperature 98.1 F 11/19/24 18:24 Pulse Rate 79 11/19/24 23:32 Respiratory Rate 22 H 11/19/24 23:32 Blood Pressure 112/86 11/19/24 23:32 Pulse Oximetry 95 11/19/24 23:32 Oxygen Delivery Method Room Air 11/19/24 18:24 Medical Decision Making MDM Narrative Medical decision making narrative: Patient is a nontoxic-appearing 69-year-old female who presented to the ER today for evaluation of concerns for vague complaints of altered mental status. Shortly following patient's arrival to the ER patient was accompanied by hydrotreater operator from the nursing facility who explained to the patient had gone to dinner and following this was not acting per her norm and that she was not able to stand to change her clothing or toilet. She reports shortly following this she began yelling and calling out becoming more agitated and restless which is not her norm. Examination patient is awake and will open her eyes to tactile stimuli. She is yelling and calling out and kicking her arms and legs. She did receive initial supportive measures of Valium by the ER attending provider Dr. Lyon and she subsequent received Haldol due to ongoing agitation and calling out. She otherwise does not appear to be exhibiting any ischemic symptoms and does overall appear euvolemic on exam. Labs stable and showed no significant leukocytosis, anemia, thrombocytopenia. Electrolytes including renal and hepatic function overall stable. Is concerning for UTI as evidenced by leukocytes and bacteria in the urine. Receive additional supportive measures of IVPB ceftriaxone. Chest x-ray otherwise appears stable per ER interpretation and EKG without acute changes. CT of head is pending due to concern for altered mental status/behavior this was delayed due to patient agitation. Patient was reevaluated multiple times while in the emergency department and is otherwise remained hemodynamically stable. Her agitation did improve with supportive measures as above. Did discuss patient's condition with hospitalist TIAGO Asher -> accepts patient for admission. Bed is pending. Care endorsed to ER attending Dr. Us 2200p to follow-up on pending CT imaging and relay any critical findings to the hospitalist on admission. CT returned with chronic findings. Patient admitted to the hospital Lab Data Labs: Lab Results 11/19/24 11/19/24 11/19/24 Range/Units 18:37 18:52 20:16 WBC 7.7 (4.0-11.0) 10^3/uL RBC 4.30 (4.20-5.40) 10^6/uL Hgb 13.0 (12.0-16.0) g/dL Hct 38.9 (36.0-48.0) % MCV 90.5 (81.0-99.0) fL MCH 30.2 (26.7-34.0) pg MCHC 33.4 (29.9-35.2) g/dL RDW 13.2 (11.0-15.0) % Plt Count 102 L (150-450) 10^3/uL MPV 13.0 (9.5-13.5) fL Neut % (Auto) 60.6 (43.0-75.0) % Lymph % (Auto) 29.2 (20.5-60.0) % [place] % (Auto) 8.3 (1.7-12.0) % Eos % (Auto) 0.5 L (0.9-7.0) % Baso % (Auto) 0.5 (0.2-2.0) % Neut # (Auto) 4.6 (1.4-6.5) 10^3/uL Lymph # (Auto) 2.2 (1.2-3.8) 10^3/uL [place] # (Auto) 0.6 (0.3-0.8) 10^3/uL Eos # (Auto) 0.0 (0.0-0.7) 10^3/uL Baso # (Auto) 0.0 (0.0-0.1) 10^3/uL Abs Immat Gran (auto) 0.07 H (0.00-0.03) 10^3/uL Imm/Tot Granulo (auto) 0.9 H (0.0-0.5) % Sodium 146 H (136-145) mmol/L Potassium 3.9 (3.5-5.1) mmol/L Chloride 105 (98-107) mmol/L Carbon Dioxide 33.9 H (21.0-32.0) mmol/L Anion Gap 11.0 BUN 21.0 H (7.0-18.0) mg/dL Creatinine 0.55 (0.55-1.02) mg/dL Est GFR ( Amer) >60 (>=60 mL/min/1.73m^2) Est GFR (Non-Af Amer) >60 (>=60 mL/min/1.73m^2) BUN/Creatinine Ratio 38.2 Glucose 141 H (74-106) mg/dL Calcium 8.9 (8.5-10.1) mg/dL Total Bilirubin 0.4 (0.2-1.0) mg/dL AST 19 (15-37) U/L ALT 9 L (14-59) U/L Alkaline Phosphatase 52 (46-116) U/L C-Reactive Protein 1.76 H (<=0.50) mg/dL NT-Pro-B Natriuret Pep 254.0 (<=900.0) pg/mL Total Protein 6.9 (6.4-8.2) g/dL Albumin 3.0 L (3.4-5.0) g/dL Globulin 3.9 g/dL Albumin/Globulin Ratio 0.8 Urine Color Yellow (YELLOW) Urine Clarity Cloudy A (CLEAR) Urine pH 6.5 (5.0-9.0) Ur Specific [place] 1.015 (1.005-1.025) Urine Protein Negative (NEG/TRACE) mg/dL Urine Glucose (UA) Negative (NEGATIVE) mg/dL Urine Ketones Negative (NEGATIVE) mg/dL Urine Occult Blood Small A (NEGATIVE) Urine Nitrite Negative (NEGATIVE) Urine Bilirubin Negative (NEGATIVE) Urine Urobilinogen 1.0 (0.2-1.0) EU/dL Ur Leukocyte Esterase Trace A (NEGATIVE) Urine RBC 20-50 A (0-2) #/HPF Urine WBC 10-20 A (NONE SEEN) #/HPF Ur Squamous Epith Cells Few A (NONE/RARE) #/LPF Urine Crystals None seen (None Seen) #/HPF Amorphous Sediment Moderate Urine Bacteria Moderate A (NONE SEEN) #/HPF Urine Casts None seen (NONE SEEN) #/LPF Urine Mucus Moderate A (NONE SEEN) Ur Culture Indicated? Yes-[facility] [place] POC Glucose 130 H (74-106) mg/dL Discharge Plan Discharge Patient Disposition: Still a Patient
[2024-11-19 19:08] LABS: Basophils Percent Auto 0.5 % (0.2-2.0); Eosinophils Percent Auto 0.5 % (0.9-7.0); Hematocrit 38.9 % (36.0-48.0); Immature Granulocytes Abs Auto 0.07 10^3/uL (0.00-0.03); Immature Granulocytes Pct Auto 0.9 % (0.0-0.5); Lymphocytes Absolute Auto 2.2 10^3/uL (1.2-3.8); Lymphocytes Percent Auto 29.2 % (20.5-60.0); Mean Corpuscular HGB Conc 33.4 g/dL (29.9-35.2); Mean Corpuscular Hemoglobin 30.2 pg (26.7-34.0); Mean Corpuscular Volume 90.5 fL (81.0-99.0); Monocytes Absolute Auto 0.6 10^3/uL (0.3-0.8); Monocytes Percent Auto 8.3 % (1.7-12.0); Neutrophils Absolute Auto 4.6 10^3/uL (1.4-6.5); Neutrophils Percent Auto 60.6 % (43.0-75.0); Platelet Count 102 10^3/uL (150-450); Red Cell Distribution Width 13.2 % (11.0-15.0); White Blood Count 7.7 10^3/uL (4.0-11.0)
[2024-11-19 19:22] LABS: Alanine Aminotransferase 9 U/L (14-59); Albumin Globulin Ratio 0.8; Alkaline Phosphatase 52 U/L (46-116); Aspartate Amino Transferase 19 U/L (15-37); BUN Creatinine Ratio 38.2; Bilirubin Total 0.4 mg/dL (0.2-1.0); Calcium 8.9 mg/dL (8.5-10.1); Carbon Dioxide 33.9 mmol/L (21.0-32.0); Chloride 105 mmol/L (98-107); Estimated GFR (African America >60 (>=60 mL/min/1.73m^2); Estimated GFR (Non-African Ame >60 (>=60 mL/min/1.73m^2); Globulin 3.9 g/dL; Glucose 141 mg/dL (74-106); Potassium 3.9 mmol/L (3.5-5.1); Sodium 146 mmol/L (136-145); Total Protein 6.9 g/dL (6.4-8.2)
[2024-11-19] MEDS: HALOPERIDOL LACTATE 5 MG/ML VIAL 2 MG IV (19:39)
[2024-11-19 20:23] LABS: Bilirubin Urine NEGATIVE (NEGATIVE); Blood Urine SMALL (NEGATIVE); Clarity Urine CLOUDY (CLEAR); Color Urine YELLOW (YELLOW); Glucose Urine UA NEGATIVE (NEGATIVE); Ketones Urine NEGATIVE (NEGATIVE); Leukocyte Esterase Urine TRACE (NEGATIVE); Nitrite Urine NEGATIVE (NEGATIVE); Protein Urine NEGATIVE (NEG/TRACE); Specific Gravity Urine 1.015 (1.005-1.025); pH Urine 6.5 (5.0-9.0)
[2024-11-19 20:24] LABS: Urine Microscopic Indicated YES
[2024-11-19 20:28] LABS: Amorphous Sediment Urine MODERATE; Bacteria Urine MODERATE #/HPF (NONE SEEN); Cast Seen? NONE SEEN #/LPF (NONE SEEN); Crystals Seen? None Seen #/HPF (None Seen); Mucus Urine MODERATE (NONE SEEN); RBC Urine 20-50 #/HPF (0-2); Squamous Epithelial Cell Urine FEW #/LPF (NONE/RARE); Urine Culture Indicated YES-FRMC
[2024-11-19] MEDS: CEFTRIAXONE 1,000 MG in 0.9 % SODIUM CHLORIDE 50 ML 100 MG IV (21:21)
[2024-11-19 21:53] LABS: C Reactive Protein 1.76 mg/dL (<=0.50)
[2024-11-19] MEDS: DEXTROSE 5 %-0.45 % SOD CHLORD 1,000 ML 100 ML IV (23:24)
[2024-11-19] MEDS: HALOPERIDOL LACTATE 5 MG/ML VIAL IV (23:27)
--- OUTSIDE RECORDS SUMMARY | 2024-11-20 00:05 | XMS_ITS | CCD ---
Author Organization [facility] Care Team Providers Care Simplex Operator Name Role Phone Sukh JOHN Primary Care Physician Shivani Franco Unavailable Unavailable Zidarin, Yue Unavailable Unavailable Holly Martines MD Primary Care Provider Sukh John DO Unavailable Holly Martines MD Primary Care Provider Sukh John DO Unavailable HOLLY MARTINES [facility] Unav[facility]ab WILBERTO Beebe R Attending Unavailable HOLLY MARTINES [facility] Un[facility] WILBERTO Beebe R Attending Unavailable HOLLY MARTINES [facility] Unavailab adelaide SOSA, WILBERTO R Admitting Unavailable MAYA ORDOÑEZ Attending Unavailable HOLLY MARTINES [facility] Unavailab le TULIO, LEONIDES Primary Care Unavailable KIARA ZEPEDA Attending Unavailable LORENA CASTRO Admitting Unavailable PROVIDER, UNKNOWN Consulting Unavailable MITALI BARNES Consulting Unavailable DIVISION OF INFECTIOUS DISEASE, [facility] Consulting Unavailable SNOW CAMERON Attending Unavailable TULIO, LEONIDES Referring Unavailable TULIO, LEONIDES Primary Care Unavailable Sukh John DO Primary Care Provider [phone] CINDY LAWTON Referring Unavailable TULIO, LEONIDES Primary [...] adverse reactions to substance Unknown (qualifier value) [facility] (20 sources) Latex; Translations: [LATEX] Drug allergy 6 Unknown (qualifier value), Unknown [facility] (20 sources) Sulfamethoxazole ; Translations: [sulfamethoxazol e] Drug Allergy Unknown (qualifier value) [facility] (20 sources) Sulfonamides (Antibiotic); Translations: [sulfa drugs] Drug allergy Unknown (qualifier value) [facility] (10 sources) Penicillins; Translations: [PENICILLINS] Drug Allergy 2 Other: See Comments [facility] (20 sources) Sulfonamides (Antibiotic); Translations: [SULFA (SULFONAMIDE ANTIBIOTICS)] Drug Allergy 6 Other: See Comments [facility] (20 sources) Neomycin; Translations: [neomycin] Drug Allergy 4 Contact dermatitis (disorder) [facility] (4 sources) Adhesive agent; Translations: [ADHESIVE] Propensity to adverse reactions to drug (disorder) 4 [facility] (4 sources) Sulfamethizole; Translations: [SULFAMETHIZOLE] Drug Allergy 4 [facility] (3 sources) Silicone adhesive tape Propensity to adverse reactions to drug 4 [facility] Medications Current Medications Medication Drug [...] 120 tab(s), Refills(s) 3, Pharmacy: [facility], 170, cm, 09/02/22 11:07:00 EDT, Height/Length Dosing, 92, kg, 09/02/22 11:07:00 EDT, Weight Dosing Start Date: 09/02/22 Status: Ordered Start: 02-22-2019 End: 05-15-2022 acetaminophen (TYLENOL) 500 mg tablet Take by mouth. 0 02/22/2019 05/15/2022 Discontinued Start: 02-22-2019 take 2 tablets by mo [facility] once daily Tylenol Extra Strength 500 mg oral tablet 1,000 mg = 2 tab(s), Oral, Daily, Refills(s) 0 Start Date: 02/22/19 Status: Ordered Comment on above: Take by mouth. [id number] 200 actuat albuterol 0.09 mg/actuat metered dose [...] Daily, # 90 tab(s), Refills(s) 3, [facility], [facility], 02/11/23 7:04:00 EDT, Height/Length [...] Ordered Start: 11-21-2022 take 1 tablet by [facility] once daily Abilify 5 mg Tab 5 [...] EA, 11, qid urninary pads Dx N39.3, [facility], Supply Start Date: 06/16/19 Status: Ordered carbidopa [...] 28 cap(s), Refills(s) 0, [facility]acy: [id number], 157.2, cm, 05/03/23 13:21:00 EST, Height/Length Dosing, [...] / neomycin 3.5 mg/ml / polymyxin b 96296 unt/ml ophthalmic suspension (9 sources) Aminoglycoside Antibacterial, Polymyxin-class Antibacterial, Corticosteroid take 2 drop(s) into the eye(s) four times daily wjztcidd-exdpjfaif-nujcefda (MAXITROL) 3.5-42765-0.[address] 2 drops into both eyes 4 times daily Active End: 05-15-2022 [id number] 3.5 MG/ML-10,000 UNIT/ML-0.1% EYE DROPS 2 Drops. [...] Start: 01-15-2023 take 1 capsule by mo [facility] three times daily doxepin 10 mg [...] # 90 tab(s), Refills(s) 3, Pharmacy: [facility], 167, cm, 02/11/23 7:04:00 EDT, Height/Length [...] BID, # 180 cap(s), Refills(s) 3, Pharmacy: [facility], 170, cm, 10/29/21 13:36:00 EDT, Height/Length Dosing, 92.4, kg, 10/29/21 13:36:00 EDT, Weight Dosing Start Date: 12/05/21 Status: Ordered Start: 01-11-[address] [facility] twice daily gabapentin 100 mg Cap 100 mg = 1 cap(s), Oral, BID, # 180 cap(s), Refills(s) 3, [facility], 170, cm, 12/27/20 8:28:00 EDT, Height/Length Dosing, 89, kg, 12/27/20 8:28:00 EDT, Weight Dosing Start Date: 01/11/21 Status: Ordered Comment on above: Take 100 mg by mouth twice daily. Take [address] [facility] three times daily for 180 days. TAKE 1 CAPSULE BY [facility] THREE TIMES DAILY High Potency Vitamin D3 [...] 8pm, # 120 cap(s), Refills(s) 5, Pharmacy: [facility]/pharmacy #[id number], 157.5, cm, 05/18/23 10:28:00 EST, Height/Length [...] 60 cap(s), Refills(s) 0, Pharmacy: [facility] #[id number], 170, cm, 04/08/22 14:33:00 EDT, Height/Length Dosing, [...] 1 EA, 2, K[employer], [facility] #37, Supply, 170, cm, 09/02/22 11:07:00 [...] # 30 tab(s), Refills(s) 11, Pharmacy: [facility], 157.2, cm, 05/03/23 13:21:00 EST, Height/Length Dosing, 77.4, kg, 05/03/23 13:21:00 EST, Weight Dosing Start Date: 05/06/23 Status: Ordered Start: 07-03-2021 End: 06-28-2022 take 1 tablet by mouth once daily loratadine 10 mg Tab 10 mg = 1 tab(s), Oral, Daily, # 30 tab(s), Refills(s) 11, [facility], [facility], cm, 04/08/22 14:33:00 EDT, Height/Length [...] 1 EA, 2, Dx: I87.2, [facility] #[id number], Supply, 170, cm, 09/02/22 11:07:00 EDT, Height/Length [...] mg extended release oral capsule (20 sources) E-sawrdy-Q-aspartate Receptor Antagonist Start: 05-26-2023 take 1 capsule by mouth once daily Namenda XR 28 mg oral capsule, extended release 28 mg = 1 cap(s), Oral, Daily, # 90 cap(s), Refills(s) 1, Pharmacy: [facility], 157.5, cm, 05/18/23 10:28:00 EST, Height/Length Dosing, 77.6, kg, 05/18/23 10:28:00 EST, Weight Dosing Start Date: 05/26/23 Status: Ordered Start: 11-26-[address] [facility] once daily Namenda XR 28 mg oral [...] sleep, # 90 tab(s), Refills(s) 0, Pharmacy: [facility], 157.5, cm, 04/23/23 13:42:00 EST, Height/Length Dosing, 80.3, kg, 04/23/23 13:42:00 EST, Weight Dosing Start Date: 04/23/23 Status: Ordered Completed/Discontinued Medications Medication Drug Class(es) Dates Sig (Normalized) Sig (Original) Depend Undergarment XL (20 sources) Start: 06-16-2019 Depend Undergarment XL Depend Undergarment XL, See Instructions, 120 EA, 11, Change 4 times daily DX N39.3, [facility], Supply Start Date: 06/16/19 Status: Ordered eslicarbazepine [...] current use of drug therapy; Translations: [Other long goods drier (current) drug therapy] Onset: 02-13-20 Episodic Other [...] 10-08-2020 Episodic Other aftercare (2 sources) Other longterm (current) drug therapy; Translations: [Other longterm (current) drug therapy] Onset: 03-07-2024 Episodic Other [...] Craig MD on 11/15/2024 9:45 AM Normal [facility] No Panel InformationOrdered By: Snow Belle on 11-04-2024 Interpretation and review of laboratory results Abnormal Simple Work Phone: Simple Work Phone: No Panel Informationon 11-04 1. [...] sent to the patient regarding the results. [facility] EXAMINATION: TARGETED ULTRASOUND OF THE RIGHT BREAST; TARGETED ULTRASOUND OF THE LEFT BREAST 11/04/2024 COMPARISON: 10/19/2024 HISTORY: ORDERING SYSTEM PROVIDED HISTORY: Abnormal mammogram [facility] patient with limited mobility in the wheelchair. [...] lesions. There is no left axillary adenopathy. [facility] Radiology Study observation (narrative) [facility] US BREAST LIMITED LEFTon US BREAST LIMITED LEFT EXAMINATION: TARGETED ULTRASOUND OF THE RIGHT BREAST; TARGETED ULTRASOUND OF THE LEFT BREAST 11/04/2024 COMPARISON: 10/19/2024 HISTORY: ORDERING SYSTEM PROVIDED HISTORY: Abnormal mammogram [facility] patient with limited mobility in the wheelchair. [...] Snow Belle MD 11/04/24 Final result Normal [facility] US BREAST LIMITED RIGHTon US BREAST LIMITED RIGHT EXAMINATION: TARGETED ULTRASOUND OF THE RIGHT BREAST; TARGETED ULTRASOUND OF THE LEFT BREAST 11/04/2024 COMPARISON: 10/19/2024 HISTORY: ORDERING SYSTEM PROVIDED HISTORY: Abnormal mammogram [facility] patient with limited mobility in the wheelchair. [...] Snow Belle MD 11/04/24 Final result Normal [facility] DBT Breast - bilateral scree marvin [...] posterior depth. No suspicious calcification either breast. [facility] Radiology Study observation (narrative) [facility] DBT Breast - bilateral scree chilogOrdered By: Godwin Schmidt on 10-19-2024 [facility] Work Phone: [facility] LUZ ELENA DIGITAL SCREEN BILA TERALoanne marie 10-19-2024 [facility] LUZ ELENA DIGITAL SCREEN BILATERAL EXAMINATION: SCREENING [...] INCOMPLETE: NEED ADDITIONAL IMAGING EVALUATION. Performing Facility: [place] [address] Interpreted by: Godwin Schmidt DO Signed by: Godwin Schmidt DO 10/19/24 Final result Normal [facility] CBC with Auto Differentialon 09-01-2024 Basophils (Bld) [#/Vol] 0.06 10*3/uL [facility] Basophils/100 WBC (Bld) 1 % 0 - 2 % [facility] Eosinophils (Bld) [#/Vol] 0.22 10*3/uL [facility] Eosinophils/100 WBC (Bld) 3 % 1 - 4 % [facility] Erythrocyte distribution width (RBC) [Ratio] 13 % 11.8 - 14.4 % [facility] Hematocrit (Bld) [Volume fraction] 39.5 % 36.3 - 47.1 % [facility] Hemoglobin (Bld) [Mass/Vol] 12.9 g/dL 11.9 - 15.1 g/dL [facility] Immature granulocytes (Bld) [#/Vol] [facility] Immature granulocytes/100 WBC (Bld) 0 % 0 [facility] Interpretation and review of laboratory results Abnormal [facility] Lymphocytes/100 WBC (Bld) 41 % 24 - 43 % [facility] Lymphocytes/100 WBC (Bld) 2.67 % [facility] MCH (RBC) [Entitic mass] 29.6 pg 25.2 - 33.5 pg [facility] MCHC (RBC) [Mass/Vol] 32.7 g/dL 28.4 - 34.8 g/dL [facility] MCV (RBC) [Entitic vol] 90.6 fL 82.6 - 102.9 fL [facility] Monocytes/100 WBC (Bld) 10 % 3 - 12 % [facility] Monocytes/100 WBC (Bld) 0.63 % [facility] Neutrophils/100 WBC (Bld) 45 % 36 - 65 % [facility] Nucleated RBC/100 WBC (Bld) [Ratio] 0 % 0.0 per 100 WBC [facility] Platelet mean volume (Bld) [Entitic vol] 13.8 fL High 8.1 - 13.5 fL [facility] Platelets (Bld) [#/Vol] 130 10*3/uL Low [facility] RBC (Bld) [#/Vol] 4.36 10*6/uL 3.95 - 5.1 1 m/uL [facility] Segmented neutrophils/100 WBC (Bld) 2.92 % [facility] WBC other (Bld) [#/Vol] 6.5 [facility] CBC with Diffon 09-01-2024 Abs. Basophil 0.06 k/uL Normal 0.00-0.20 [facility] Comment on above: Performed By: #### U MAREK UA #### [facility] [address] [place] [address] Assembly Detailer: Bradley Warren MD Abs.Imm.Granulocyte <0.03 Normal 0.00-0.30 [facility] Comment on above: Performed By: #### Alessio JARA UA #### [address] [place] [address] Assembly Detailer: Bradley Warren MD Abs.Neutrophil (Seg) 2.92 k/uL Normal 1.50-8.10 [facility] Comment on above: Performed By: #### Alessio JARA UA #### [address] [place], [place] [address] Assembly Detailer: Bradley Warren MD Basophils/100 WBC (Bld) 1 % Normal 0-2 [facility] Comment on above: Performed By: #### Alessio JARA UA #### [address] [place], [place] [address] Assembly Detailer: Bradley Warren MD Eosinophils (Bld) [#/Vol] 0.22 10*3/uL Normal 0.00-0.44 [facility] Comment on above: Performed By: #### U MAREK UA #### [address] [place], [facility] Assembly Detailer: Bradley Warren MD Eosinophils/100 WBC (Bld) 3 % Normal 1-4 [facility] Comment on above: Performed By: #### Alessio JARA UA #### [facility] [address] [place], [place] [id number] Assembly Detailer: Bradley Warren MD Erythrocyte distribution width (RBC) [Ratio] 13.0 % Normal 11.8-14.4 [facility] Comment on above: Performed By: #### U MICAO, UA #### [facility] [address] [place], [place] [id number] Assembly Detailer: Bradley Warren MD Hematocrit (Bld) [Volume fraction] 39.5 % Normal 36.3-47.1 [facility] Comment on above: Performed By: #### U ERICO, UA #### [address] [place], [facility] Assembly Detailer: Bradley Warren MD Hemoglobin (Bld) [Mass/Vol] 12.9 g/dL Normal 11.9-15.1 [facility] Comment on above: Performed By: #### U ERICO, UA #### [facility] [address] [place] [address] Dr[address] [place], [place] [id number] Assembly Detailer: Bradley Warren MD Immature granulocytes/100 WBC (Bld) 0 % Normal 0 [facility] Comment on above: Performed By: #### U ERICO, UA #### [address] [place], [place] [id number] Assembly Detailer: Bradley Warren MD Lymphocytes (Bld) [#/Vol] 2.67 10*3/uL Normal 1.10-3.70 [facility] Comment on above: Performed By: #### U MICAO, UA #### [facility] [address] [place], [place] [id number] Assembly Detailer: Bradley Warren MD Lymphocytes/100 WBC (Bld) 41 % Normal 24-43 [facility] Comment on above: Performed By: #### U ERICO, UA #### [facility] [address] [place], [place] [address] Assembly Detailer: Bradley Warren MD MCH (RBC) [Entitic mass] 29.6 pg Normal 25.2-33.5 [facility] Comment on above: Performed By: #### U MAREK UA #### [facility] [address] [place], [place] [id number] Assembly Detailer: Bradley Warren MD MCHC (RBC) [Mass/Vol] 32.7 g/dL Normal 28.4-34.8 [facility] Comment on above: Performed By: #### U MAREK, UA #### [facility] [address] [place] [address] Assembly Detailer: Bradley Warren MD MCV (RBC) [Entitic vol] 90.6 fL Normal 82.6-102.9 [facility] Comment on above: Performed By: #### Alessio JARA UA #### [facility] [address] [place] [address] Dr[address] [place], [place] [id number] Assembly Detailer: Bradley Warren MD Monocytes (Bld) [#/Vol] 0.63 10*3/uL Normal 0.10-1.20 [facility] Comment on above: Performed By: #### Alessio JARA, UA #### [address] [place], [place] [address] Assembly Detailer: Bradley Warren MD Monocytes/100 WBC (Bld) 10 % Normal 3-12 [facility] Comment on above: Performed By: #### U MAREK, UA #### [facility] [address] [place], [place] [address] Assembly Detailer: Bradley Warren MD Neutrophil (Seg) 45 % Normal 36-65 [facility] Comment on above: Performed By: #### U MAREK, UA #### [facility] [address] [place], [place] [id number] Assembly Detailer: Bradley Warren MD NRBC Automated 0.0 per 100 WBC Normal 0.0 [facility] Comment on above: Performed By: #### U MAREK, UA #### [facility] [address] [place] [address] Assembly Detailer: Bradley aWrren MD Platelet mean volume (Bld) [Entitic vol] 13.8 fL High 8.1-13.5 [facility] Comment on above: Performed By: #### U MAREK, UA #### [facility] [address] [place] [address] Assembly Detailer: Bradley Warren MD Platelets (Bld) [#/Vol] 130 10*3/uL Low 138-453 [facility] Comment on above: Performed By: #### U MAREK, UA #### [facility] [address] [place], [place] [id number] Assembly Detailer: Bradley Warren MD RBC (Bld) [#/Vol] 4.36 10*6/uL Normal 3.95-5.11 [facility] Comment on above: Performed By: #### U MAREK, UA #### [facility] [address] [place] [address] Assembly Detailer: Bradley Warren MD WBC (Bld) [#/Vol] 6.5 10*3/uL Normal 3.5-11.3 [facility] Comment on above: Performed By: #### U MAREK, UA #### [facility] [address] [place] [address] Assembly Detailer: Bradley Warren MD Comp Metabolic Profon 2024 Albumin [Mass/Vol] 3.8 g/dL Normal 3.5-5.2 [facility] Comment on above: Performed By: #### U MAREK, UA #### [facility] [address] [place], [place] [id number] Assembly Detailer: Bradley Warren MD Albumin/Glob Ratio 1.4 Normal 1.0-2.5 [facility] Comment on above: Performed By: #### U MICAO, UA #### [facility] [address] [place], [place] [id number] Assembly Detailer: Bradley Warren MD Alkaline Phos 54 U/L Normal 35-104 [facility] Comment on above: Performed By: #### U MICAO, UA #### [facility] [address] [place], [place] [address] Assembly Detailer: Bradley Warren MD ALT [Catalytic activity/Vol] 8 U/L Low 10-35 [facility] Comment on above: Performed By: #### U MICAO, UA #### [facility] [address] [place], [place] [address] Assembly Detailer: Bradley Warren MD Anion gap [Moles/Vol] 8 mmol/L Low 9-16 [facility] Comment on above: Performed By: #### U MICAO, UA #### [facility] [address] [place], [place] [address]83 Assembly Detailer: Bradley Warren MD AST [Catalytic activity/Vol] 19 U/L Normal 10-35 [facility] Comment on above: Performed By: #### U MICAO, UA #### [facility] [address] [place], [place] [id number] Assembly Detailer: Bradley Warren MD Bilirubin [Mass/Vol] 0.3 mg/dL Normal 0.00-1.20 [facility] Comment on above: Performed By: #### U MICAO, UA #### [facility] [address] [place], [place] [phone] Assembly Detailer: Bradley Warren MD BUN/CRE Ratio 35 High 9-20 [facility] Comment on above: Performed By: #### U MICAO, UA #### [facility] [address] [place], [place] [phone] Assembly Detailer: Bradley Warren MD Calcium [Mass/Vol] 9.1 mg/dL Normal 8.6-10.4 [facility] Comment on above: Performed By: #### U MAREK, UA #### [facility] [address] [place] [address] Assembly Detailer: Bradley Warren MD Chloride [Moles/Vol] 108 mmol/L High 98-107 [facility] Comment on above: Performed By: #### U MAREK, UA #### [facility] [address] [place] [address] Assembly Detailer: Bradley Warren MD CO2 [Moles/Vol] 27 mmol/L Normal 20-31 [facility] Comment on above: Performed By: #### Alessio JARA, UA #### [facility] [address] [place] [address] Assembly Detailer: Bradley Warren MD Creatinine [Mass/Vol] 0.6 mg/dL Normal 0.50-0.90 [facility] Comment on above: Performed By: #### U MAREK, UA #### [facility] [address] [place] [address] Assembly Detailer: Bradley Warren MD GFR/1.73 sq M.predicted among non-blacks MDRD (S/P/Bld) [Vol rate/Area] mL/min/{1.73_m2} Normal >60 [facility] Comment on above: Result Comment: These [...] Performed By: #### U ERICO, UA #### [facility] [address] [place] [address] Assembly Detailer: Bradley Warren MD Glucose [Mass/Vol] 84 mg/dL Normal 74-99 [facility] Comment on above: Performed By: #### U MAREK UA #### [facility] [address] [place] [address] Assembly Detailer: Bradley Warren MD Potassium [Moles/Vol] 4.3 mmol/L Normal 3.7-5.3 [facility] Comment on above: Performed By: #### U MAREK UA #### [facility] [address] [place] [address] Assembly Detailer: Bradley Warren MD Protein [Mass/Vol] 6.6 g/dL Normal 6.6-8.7 [facility] Comment on above: Performed By: #### Alessio JARA UA #### [facility] [address] [place] [address] Assembly Detailer: Bradley Warren MD Sodium [Moles/Vol] 143 mmol/L Normal 136-145 [facility] Comment on above: Performed By: #### U MAREK UA #### [facility] [address] [place] [address] Assembly Detailer: Bradley Warren MD Urea nitrogen [Mass/Vol] 21 mg/dL Normal 8-23 [facility] Comment on above: Performed By: #### U MAREK UA #### [facility] [address] [place] [address] Assembly Detailer: Bradley Warren MD Comprehensive Metabolic Pane memo 09-01-2024 Albumin [Mass/Vol] 3.8 g/dL 3.5 - 5.2 g/dL [facility] Albumin/Globulin [Mass ratio] 1.4 {ratio} 1.0 - 2.5 [facility] ALP [Catalytic activity/Vol] 54 U/L 35 - 104 U/L [facility] ALT [Catalytic activity/Vol] 8 U/L Low 10 - 35 U/L [facility] Anion gap [Moles/Vol] 8 mmol/L Low 9 - 16 mmol/L [facility] AST [Catalytic activity/Vol] 19 U/L 10 - 35 U/L [facility] Bilirubin [Mass/Vol] 0.3 mg/dL 0.00 - 1.20 mg/dL [facility] Calcium [Mass/Vol] 9.1 mg/dL 8.6 - 10. 4 mg/dL [facility] Chloride [Moles/Vol] 108 mmol/L High 98 - 10 7 mmol/L [facility] CO2 [Moles/Vol] 27 mmol/L 20 - 31 mmol/L [facility] Creatinine [Mass/Vol] 0.6 mg/dL 0.50 - 0.90 mg/dL [facility] Comment on above: These results are [...] [Mass/Vol] 84 mg/dL 74 - 99 mg/dL [facility] Interpretation and review of laboratory results Abnormal [facility] Potassium [Moles/Vol] 4.3 mmol/L 3.7 - 5.3 mmol/L [facility] Protein [Mass/Vol] 6.6 g/dL 6.6 - 8.7 g/dL [facility] Sodium [Moles/Vol] 143 mmol/L 136 - 145 mmol/L [facility] Urea nitrogen [Mass/Vol] 21 mg/dL 8 - 23 mg/dL [facility] Urea nitrogen/Creatinine [Mass ratio] 35 mg/mg High - 20 [facility] Lipid Panelon 09-01-2024 Cholesterol [Mass/Vol] 158 mg/dL 0 - 199 mg/dL [facility] Comment on above: Cholesterol Guidelines: <200 Desirable 200-240 Borderline >240 Undesirable Cholesterol in HDL [Mass/Vol] 52 mg/dL 40 - PINF mg/dL [facility] Comment on above: HDL Guidelines: <40 Undesirable 40-59 Borderline >59 Desirable Cholesterol in LDL [Mass/Vol] 91 mg/dL 0 - 100 mg/dL [facility] Comment on above: LDL Guidelines: <100 Desirable 100-129 Near to/above Desirable 130-159 Borderline >159 Undesirable Direct (measured) LDL and calculated LDL are not interchangeable tests. Cholesterol in VLDL [Mass/Vol] 15 mg/dL 1 - 30 mg/dL [facility] [facility] Cholesterol.total/Cho lesterol in HDL [Mass ratio] 3.0 {ratio} [facility] Triglyceride [Mass/Vol] 75 mg/dL NINF - 150 mg/dL [facility] Comment on above: Triglyceride Guidelines: <150 Desirable 150-199 Borderline 200-499 High >499 Very high Based on AHA Guidelines for fasting triglyceride, March 2012. Lipid Profileon 09-01-2024 Cholesterol [Mass/Vol] 158 mg/dL Normal 0-199 [facility] Comment on above: Result Comment: Cholesterol Guidelines: <200 Desirable 200-240 Borderline >240 Undesirable Performed By: #### U MAREK, UA #### [facility] [address] [place] [place] [address] Assembly Detailer: Bradley Warren MD Cholesterol in HDL [Mass/Vol] 52 mg/dL Normal >40 [facility] Comment on above: Result Comment: HDL Guidelines: <40 Undesirable 40-59 Borderline >59 Desirable Performed By: #### U MAREK, UA #### [facility] [address] [place] [place] [address] Assembly Detailer: Bradley Warren MD Cholesterol in LDL [Mass/Vol] 91 mg/dL Normal 0-100 [facility] Comment on above: Result Comment: LDL Guidelines: <100 Desirable 100-129 Near to/above Desirable 130-159 Borderline >159 Undesirable Direct (measured) LDL and calculated LDL are not interchangeable tests. Performed By: #### U ERICO, UA #### [facility] [address] [place] [place] [address] Assembly Detailer: Bradley Warren MD Cholesterol in VLDL [Mass/Vol] 15 mg/dL Normal 1-30 [facility] Comment on above: Performed By: #### ANDRY KAPLAN #### [facility] [address] [place] [address] Assembly Detailer: Bradley Warren MD Cholesterol.total/Cho lesterol in HDL [Mass ratio] 3.0 {ratio} Normal [facility] Comment on above: Performed By: #### Alessio JARA UA #### [facility] [address] [place] [address] Assembly Detailer: Bradley Warren MD Triglyceride [Mass/Vol] 75 mg/dL Normal <150 [facility] Comment on above: Result Comment: Triglyceride Guidelines: <150 Desirable 150-199 Borderline 200-499 High >499 Very high Based on AHA Guidelines for fasting triglyceride, March 2012. Performed By: #### ANDRY KAPLAN #### [facility] [address] [place] [address] Assembly Detailer: Bradley Warren MD No Panel Informationon 09-01 [facility] T4, Freeon 09-01-2024 Free T4 [Mass/Vol] 1.3 ng/dL 0.9 - 1.7 ng/dL [facility] TSHon 09-01-2024 TSH Qn 1.83 m[IU]/L [facility] Thyroid Stim. Horm.on 2024 Thyroid Stim. Horm. 1.83 uIU/mL Normal 0.27-4.20 [facility] Comment on above: Performed By: #### ANDRY KAPLAN #### [facility] [address] [place] [address] Assembly Detailer: Bradley Warren MD Thyroxine, Freeon 09-01-2024 Thyroxine, Free 1.3 ng/dL Normal 0.9-1.7 [facility] Comment on above: Performed By: #### ANDRY KAPLAN #### [facility] [address] [place] [place] [address] Assembly Detailer: Bradley Warren MD Vitamin D 25 Hydroxyon 09-01 25-hydroxyvitamin D3 [Mass/Vol] 65.4 ng/mL 30.0 - 100.0 ng/mL [facility] Comment on above: Reference Range: Vitamin D status Range Deficiency <20 ng/mL Mild Deficiency 20-30 ng/mL Sufficiency 30-100 ng/mL Toxicity >100 ng/mL Vitamin D 25 OHon 09-01-2024 Vitamin D 25 OH 65.4 ng/mL Normal 30.0-100.0 [facility] Comment on above: Result Comment: Reference Range: Vitamin D status Range Deficiency <20 ng/mL Mild Deficiency 20-30 ng/mL Sufficiency 30-100 ng/mL Toxicity >100 ng/mL Performed By: #### U MAREK, UA #### [facility] [address] [place] [address] Assembly Detailer: Bradley Warren MD CT BRAIN WO CONTon [...] Sheehan MD on 07/29/2024 9:53 PM Normal [facility] CT CERVICAL SPINE WO CONTon 07-29-2024 CT [...] Rooney MD on 07/29/2024 10:02 PM Normal [facility] XR PELVIS 1 OR 2 VWSon 07-29 [...] Sheehan MD on 07/29/2024 9:52 PM Normal [facility] Cult,Urineon 05-11-2024 Cult,Urine Specimen Description .CATHETERIZED URINE Culture VANCOMYCIN RESISTANT ENTEROCOCCUS FAECIUM 50 TO 100,000 CFU/ML Report Status FINAL 05/11/2024 SUSCEPTIBILITY Organism VANCOMYCIN RESISTANT ENTEROCOCCUS FAECIUM Method MARLA Ampicillin >=32 RESISTANT Ciprofloxacin >=8 RESISTANT Levofloxacin >=8 RESISTANT Linezolid 2 SUSCEPTIBLE Nitrofurantoin 128 RESISTANT Tetracycline >=16 RESISTANT Vancomycin >=32 RESISTANT Resistant [facility] Comment on above: Performed By: #### U MICAO, UA #### [facility] [address] [place], [place] [id number] Assembly Detailer: Bradley Warren MD Urinalysis w/ Microon 2023 Bacteria TRACE Abnormal NONE [facility] Comment on above: Performed By: #### U MICAO, UA #### [facility] [address] [place], [place] [id number] Assembly Detailer: Bradley Warren MD Bilirubin, SemiQt,Ur Negative Normal NEG [facility] Comment on above: Performed By: #### U MICAO, UA #### [address] [place], [place] [id number] Assembly Detailer: Bradley Warren MD Blood, Urine TRACE Abnormal NEG [facility] Comment on above: Performed By: #### U MICAO, UA #### [facility] [address] [place], [place] [id number] Assembly Detailer: Bradley Warren MD Clarity (U) Clear Normal CLEAR [facility] Comment on above: Performed By: #### U MICAO, UA #### [facility] [address] [place] [address] Dr[address] [place], [place] [id number] Assembly Detailer: Bradley Warren MD Color (U) Yellow Normal YEL [facility] Comment on above: Performed By: #### U MICAO, UA #### [facility] [address] [place], [place] [id number] Assembly Detailer: Bradley Warren MD Epithelial cells LM Ql (Urine sed) 0 TO 2 Normal 0-25 [facility] Comment on above: Performed By: #### U MICAO, UA #### [facility] [address] [place], [place] [phone] Assembly Detailer: Bradley Warren MD Glucose Ql (U) Negative Normal NEG [facility] Comment on above: Performed By: #### U MICAO, UA #### [facility] [address] [place], [place] [phone] Assembly Detailer: Bradley Warren MD Ketones Ql (U) Negative Normal NEG [facility] Comment on above: Performed By: #### U MICAO, UA #### [facility] [address] [place], [place] [id number] Assembly Detailer: Bradley Warren MD Leukocyte esterase Test strip Ql (U) Negative Normal NEG [facility] Comment on above: Performed By: #### U MICAO, UA #### [facility] [address] [place] [address] Dr. [place], [place] [phone] Assembly Detailer: Bradley Warren MD Mucus Strands TRACE Abnormal NONE [facility] Comment on above: Performed By: #### U MICAO, UA #### [facility] [address] [place] [address] [place] [address] Assembly Detailer: Bradley Warren MD Nitrite,Ur Negative Normal [facility] Comment on above: Performed By: #### U MICAO, UA #### [facility] [address] [place] [address] Dr. [place], [place] [phone] Assembly Detailer: Bradley Warren MD PH,Ur 6.0 Normal 5.0-9.0 [facility] Comment on above: Performed By: #### U MICAO, UA #### [facility] [address] [place] [address] Dr[address] [place], [place] [phone] Assembly Detailer: Bradley Warren MD Protein Ql (U) Negative Normal NEG [facility] Comment on above: Performed By: #### U MICAO, UA #### [facility] [address] [place] [address] Dr[place], [place] [phone] Assembly Detailer: rBadley Warren MD Spec. Sumner,Ur >1.030 High 1.010-1.020 [facility] Comment on above: Performed By: #### U MICAO, UA #### [facility] [address] [place] [address] Assembly Detailer: Bradley Warren MD Urine RBC's 2 TO 5 Normal 0-2 [facility] Comment on above: Performed By: #### U MICAO, UA #### [facility] [address] [place] [address] Assembly Detailer: Bradley Warren MD Urine WBC's 2 TO 5 Normal 0-5 [facility] Comment on above: Performed By: #### U MICAO, UA #### [facility] [address] [place] [address] Assembly Detailer: Bradley Warren MD Urobilinogen,Ur Normal Normal 0.0-1.0 [facility] Comment on above: Performed By: #### U MICAO, UA #### [facility] [address] [place] [address] Assembly Detailer: Bradley Warren MD Urinalysis with Microscopico n 05-09-2024 Bacteria LM Ql (Urine sed) TRACE Abnormal None [facility] Bilirubin Ql (U) Negative NEGATIVE [facility] Clarity (U) Clear Clear [facility] Color (U) Yellow Yellow [facility] Epithelial cells LM.HPF (Urine sed) [#/Area] 0 TO 2 [facility] Glucose Test strip (U) [Mass/Vol] Negative NEGATIVE mg/dL [facility] Hemoglobin Auto test strip Ql (U) TRACE Abnormal NEGATIVE [facility] Interpretation and review of laboratory results Abnormal [facility] Ketones (U) [Mass/Vol] Negative NEGATIVE mg/dL [facility] Leukocyte esterase Test strip Ql (U) Negative NEGATIVE [facility] Mucus Ql (Urine sed) TRACE Abnormal None [facility] Nitrite Ql (U) Negative NEGATIVE [facility] pH (U) 6.0 [pH] 5.0 - 9.0 [facility] Protein (U) [Mass/Vol] Negative NEGATIVE mg/dL [facility] RBC LM.HPF (Urine sed) [#/Area] 2 TO 5 [facility] Specific gravity (U) [Rel density] High 1.010 - 1.020 [facility] Urobilinogen Qn (U) Normal 0.0 - 1. 0 EU/dL [facility] WBC LM.HPF (Urine sed) [#/Area] 2 TO 5 [facility] Cult,Urineon 05-05-2024 Cult,Urine Specimen Description .VOIDED URINE Culture Several types of bacteria were identified in this specimen. Further ID and susceptibility testing is generally not helpful in this circumstance and has not been performed. Consider recollection if clinically indicated. Report Status FINAL 05/05/2024 Normal [facility] Comment on above: Performed By: #### U RC ####[facility] [id number] [place], [place] 1864308 Lab Director: Yusef Hood, [facility] [place] [address] Lab Director: Bradley Warren MD Microscopic Urinalysison Bacteria LM Ql (Urine sed) 2+ Abnormal None [facility] Epithelial cells LM.HPF (Urine sed) [#/Area] None [facility] Interpretation and review of laboratory results Abnormal [facility] RBC LM.HPF (Urine sed) [#/Area] None [facility] WBC LM.HPF (Urine sed) [#/Area] 2 TO 5 [facility] Urinalysison 05-04-2024 Bilirubin Ql (U) Negative NEGATIVE [facility] Clarity (U) Clear Clear [facility] Color (U) Yellow Yellow [facility] Glucose Test strip (U) [Mass/Vol] Negative NEGATIVE mg/dL [facility] Hemoglobin Auto test strip Ql (U) 1+ Abnormal NEGATIVE [facility] Interpretation and review of laboratory results Abnormal [facility] Ketones (U) [Mass/Vol] Negative NEGATIVE mg/dL [facility] Leukocyte esterase Test strip Ql (U) TRACE Abnormal NEGATIVE [facility] Nitrite Ql (U) Positive Abnormal NEGATIVE [facility] pH (U) 7.0 [pH] 5.0 - 9.0 [facility] Protein (U) [Mass/Vol] Negative NEGATIVE mg/dL [facility] Specific gravity (U) [Rel density] 1.025 High 1.010 - 1.020 [facility] Urobilinogen Qn (U) Normal 0.0 - 1. 0 EU/dL [facility] Urinalysis, Routineon 2023 Bilirubin, SemiQt,Ur Negative Normal NEG [facility] Comment on above: Performed By: #### U MICAO, UA #### [facility] [address] [place] [address] Assembly Detailer: Bradley Warren MD Blood, Urine 1+ Abnormal NEG [facility] Comment on above: Performed By: #### U MICAO, UA #### [facility] [address] [place] [address] Assembly Detailer: Bradley Warren MD Clarity (U) Clear Normal CLEAR [facility] Comment on above: Performed By: #### U MICAO, UA #### [facility] [address] [place] [address] Assembly Detailer: Bradley Warren MD Color (U) Yellow Normal YEL [facility] Comment on above: Performed By: #### U MICAO, UA #### [facility] [address] [place] [address] Assembly Detailer: Bradley Warren MD Glucose Ql (U) Negative Normal NEG [facility] Comment on above: Performed By: #### U MICAO, UA #### [facility] [address] [place] [address] Assembly Detailer: Bradley Warren MD Ketones Ql (U) Negative Normal NEG [facility] Comment on above: Performed By: #### U MICAO, UA #### [facility] [address] [place] [address] Dr. [place], [place] [phone] Assembly Detailer: Bradley Warren MD Leukocyte esterase Test strip Ql (U) TRACE Abnormal NEG [facility] Comment on above: Performed By: #### U MICAO, UA #### [facility] [address] [place] [address] Dr. [place], [place] [phone] Assembly Detailer: Bradley Warren MD Nitrite,Ur Positive Abnormal NEG [facility] Comment on above: Performed By: #### U MICAO, UA #### [address] [place], [place] [phone] Assembly Detailer: Bradley Warren MD PH,Ur 7.0 Normal 5.0-9.0 [facility] Comment on above: Performed By: #### U MICAO, UA #### [facility] [address] [place] [address] Dr[place], [place] [phone] Assembly Detailer: Bradley Warern MD Protein Ql (U) Negative Normal NEG [facility] Comment on above: Performed By: #### U MICAO, UA #### [address] [place], [place] [id number] Assembly Detailer: Bradley Warren MD Spec. Sumner,Ur 1.025 High 1.010-1.020 [facility] Comment on above: Performed By: #### U MICAO, UA #### [facility] [address] [place] [address] Dr. [place], [place] [phone] Assembly Detailer: Bradley Warren MD Urobilinogen,Ur Normal Normal 0.0-1.0 [facility] Comment on above: Performed By: #### U MICAO, UA #### [facility] [address] [place] [address] Dr[place], [place] [phone] Assembly Detailer: Bradley Warren MD Urinalysis,Microon 11-20-202 4 Bacteria 2+ Abnormal NONE [facility] Comment on above: Performed By: #### U MAREK UA #### [facility] [address] [place] [address] Assembly Detailer: Bradley Warren MD Epithelial cells LM Ql (Urine sed) None Normal 0-25 [facility] Comment on above: Performed By: #### U MAREK, UA #### [facility] [address] [place] [address] Assembly Detailer: Bradley Warren MD Urine RBC's None Normal 0-2 [facility] Comment on above: Performed By: #### U MAREK UA #### [facility] [address] [place] [address] Assembly Detailer: Bradley Warren MD Urine WBC's 2 TO 5 Normal 0-5 [facility] Comment on above: Performed By: #### U MAREK UA #### [facility] [address] [place] [address] Assembly Detailer: Bradley Warren MD Lamotrigineon 04-16-2024 Lamotrigine 10.2 ug/mL Normal 3.0-15.0 [facility] Comment on above: Result Comment: (NOT E) INTERPRETIVE INFORMATION: Lamotrigine Therapeutic Range: 3.0-15.0 ug/mL Toxic: Greater than or equal to 20 ug/mL Pharmacokinetics varies widely, particularly with co-medications and/or compromised renal function. Adverse effects may include dizziness, somnolence, nausea and vomiting. Performed By: [facility] [address] [place] [id number] Professor Criminal Justice: Rc Barragan MD, PhD CLIA Number: [id number] Performed By: #### C P, TSH, CDP ####[facility] [place] [address] Lab Director: Bradley Warren MD#### FT4, LIPR, VD25 ####[facility] [address] [place] [address] Lab Director: Yusef Hood MD#### VERONICA ####[facility] [address] [place] [address] lab Director: Zac Cabrera MD CBC with Auto Differentialon 04-14-2024 Basophils (Bld) [#/Vol] 0.05 10*3/uL [facility] Basophils/100 WBC (Bld) 1 % 0 - 2 % [facility] Eosinophils (Bld) [#/Vol] 0.11 10*3/uL [facility] Eosinophils/100 WBC (Bld) 2 % 1 - 4 % [facility] Erythrocyte distribution width (RBC) [Ratio] 12.8 % 11.8 - 14.4 % [facility] Hematocrit (Bld) [Volume fraction] 40.1 % 36.3 - 47.1 % [facility] Hemoglobin (Bld) [Mass/Vol] 12.8 g/dL 11.9 - 15.1 g/dL [facility] Immature granulocytes (Bld) [#/Vol] [facility] Immature granulocytes/100 WBC (Bld) 0 % 0 [facility] Interpretation and review of laboratory results Abnormal [facility] Lymphocytes/100 WBC (Bld) 41 % 24 - 43 % [facility] Lymphocytes/100 WBC (Bld) 2.50 % [facility] MCH (RBC) [Entitic mass] 29.5 pg 25.2 - 33.5 pg [facility] MCHC (RBC) [Mass/Vol] 31.9 g/dL 28.4 - 34.8 g/dL [facility] MCV (RBC) [Entitic vol] 92.4 fL 82.6 - 102.9 fL [facility] Monocytes/100 WBC (Bld) 11 % 3 - 12 % [facility] Monocytes/100 WBC (Bld) 0.66 % [facility] Neutrophils/100 WBC (Bld) 45 % 36 - 65 % [facility] Nucleated RBC/100 WBC (Bld) [Ratio] 0.0 % 0.0 per 100 WBC [facility] Platelet, Fluorescence 139 [facility] Platelets (Bld) [#/Vol] See Reflexed IPF Result [facility] Platelets reticulated/100 platelets Auto (Bld) 14.7 % High 1.1 - 10.3 % [facility] RBC (Bld) [#/Vol] 4.34 10*6/uL 3.95 - 5.1 1 m/uL [facility] Segmented neutrophils/100 WBC (Bld) 2.72 % [facility] WBC other (Bld) [#/Vol] 6.1 [facility] CBC with Diffon 04-14-2024 Abs. Basophil 0.05 k/uL Normal 0.00-0.20 [facility] Comment on above: Performed By: #### C P, TSH, CDP #### [facility] [address] [place] [address] [place] [address] Assembly Detailer: Bradley Warren MD #### EDMAR OTERO VD25 #### [facility] [address] [place] [address] [id number] Assembly Detailer: Yusef Hood MD #### ALAMO #### [facility] [address] [place] [address] Assembly Detailer: Zac Cabrera MD Abs.Imm.Granulocyte <0.03 Normal 0.00-0.30 [facility] Comment on above: Performed By: #### C P, TSH, CDP #### [facility] [address] [place] [address] [place] [address] Assembly Detailer: Bradley Warren MD #### FTEDMAR Mancilla VD25 #### [address] [address] Assembly Detailer: Yusef Hood MD #### ALAMO #### [facility] [address] [place], [place] [id number] Assembly Detailer: Zac Cabrera MD Abs.Neutrophil (Seg) 2.72 k/uL Normal 1.50-8.10 [facility] Comment on above: Performed By: #### C P, TSH, CDP #### [address] [place] [id number] Assembly Detailer: Bradley Warren MD #### FT4, LIPR, VD25 #### [facility] [address] [place] [address] Assembly Detailer: Yusef Hood MD #### ALAMO #### [facility] [address] [place], [place] [id number] Assembly Detailer: Zac Cabrera MD Basophils/100 WBC (Bld) 1 % Normal 0-2 [facility] Comment on above: Performed By: #### C P, TSH, CDP #### [address] [place], [place] [address] Assembly Detailer: Bradley Warren MD #### FT4, LIPR, VD25 #### [address] [address] Assembly Detailer: Yusef Hood MD #### ALAMO #### [facility] [address] [place], [place] [id number] Assembly Detailer: Zac Cabrera MD Eosinophils (Bld) [#/Vol] 0.11 10*3/uL Normal 0.00-0.44 [facility] Comment on above: Performed By: #### C P, TSH, CDP #### [address] [place], [facility] Assembly Detailer: Bradley Warren MD #### FT4, LIPR, VD25 #### [facility] [address] [place] [address] Assembly Detailer: Yusef Hood MD #### ALAMO #### [facility] [address] [place] [address] Assembly Detailer: Zac Cabrera MD Eosinophils/100 WBC (Bld) 2 % Normal 1-4 [facility] Comment on above: Performed By: #### C P, TSH, CDP #### [facility] [address] [place], [place] 6435183 Assembly Detailer: Bradley Warren MD #### FT4, LIPR, VD25 #### [facility] [address] [place] [address] Assembly Detailer: Yusef Hood MD #### ALAMO #### [facility] [address] [place], [place] [id number] Assembly Detailer: Zac Cabrera MD Erythrocyte distribution width (RBC) [Ratio] 12.8 % Normal 11.8-14.4 [facility] Comment on above: Performed By: #### C P, TSH, CDP #### [facility] [address] [place] [address] [address]. [place], [place] [id number] Assembly Detailer: Bradley Warren MD #### FT4, LIPR, VD25 #### [facility] [address] [place] [address] Assembly Detailer: Yusef Hood MD #### ALAMO #### [facility] [address] [place], [place] [id number] Assembly Detailer: Zac Cabrera MD Hematocrit (Bld) [Volume fraction] 40.1 % Normal 36.3-47.1 [facility] Comment on above: Performed By: #### C P, TSH, CDP #### [address] [place], [place] 8279583 Assembly Detailer: Bradley Warren MD #### FT4, LIPR, VD25 #### [facility] [address] [place] [address] Assembly Detailer: Yusef Hood MD #### ALAMO #### [facility] [address] [place] [address] Assembly Detailer: Zac Cabrera MD Hemoglobin (Bld) [Mass/Vol] 12.8 g/dL Normal 11.9-15.1 [facility] Comment on above: Performed By: #### C P, TSH, CDP #### [facility] [address] [place], [place] 7074083 Assembly Detailer: Bradley Warren MD #### FT4, LIPR, VD25 #### [facility] [address] [place] [address] Assembly Detailer: Yusef Hood MD #### ALAMO #### [facility] [address] [place] [address] Assembly Detailer: Zac Cabrera MD Immature granulocytes/100 WBC (Bld) 0 % Normal 0 [facility] Comment on above: Performed By: #### C P, TSH, CDP #### [address] [place], [place] 6846283 Assembly Detailer: Bradley Warren MD #### FT4, LIPR, VD25 #### [facility] [address] [place] [address] Assembly Detailer: Yusef Hood MD #### ALAMO #### [facility] [address] [place] [address] Assembly Detailer: Zac Cabrera MD Lymphocytes (Bld) [#/Vol] 2.50 10*3/uL Normal 1.10-3.70 [facility] Comment on above: Performed By: #### C P, TSH, CDP #### [address] [place], [place] 96[address]383 Assembly Detailer: Bradley Warren MD #### FT4, LIPR, VD25 #### [address] [address] Assembly Detailer: Yusef Hood MD #### ALAMO #### [facility] [address] [place], [place] [id number] Assembly Detailer: Zac Cabrera MD Lymphocytes/100 WBC (Bld) 41 % Normal 24-43 [facility] Comment on above: Performed By: #### C P, TSH, CDP #### [facility] [address] [place], [place] 0604683 Assembly Detailer: Bradley Warren MD #### FT4, LIPR, VD25 #### [facility] [address] [place] [address] Assembly Detailer: Yusef Hood MD #### ALAMO #### [facility] [address] [place], [place] [id number] Assembly Detailer: Zac Cabrera MD MCH (RBC) [Entitic mass] 29.5 pg Normal 25.2-33.5 [facility] Comment on above: Performed By: #### C P, TSH, CDP #### [facility] [address] [place], [place] 6518083 Assembly Detailer: Bradley Warren MD #### FT4, LIPR, VD25 #### [facility] [address] [place] [address] Assembly Detailer: Yusef Hood MD #### ALAMO #### [facility] [address] [place], [place] [id number] Assembly Detailer: Zac Cabrera MD MCHC (RBC) [Mass/Vol] 31.9 g/dL Normal 28.4-34.8 [facility] Comment on above: Performed By: #### C P, TSH, CDP #### [facility] [address] [place], [place] 8101683 Assembly Detailer: Bradley Warren MD #### FT4, LIPR, VD25 #### [facility] [address] [place] [address] Assembly Detailer: Yusef Hood MD #### ALAMO #### [facility] [address] [place] [address] Assembly Detailer: Zac Cabrera MD MCV (RBC) [Entitic vol] 92.4 fL Normal 82.6-102.9 [facility] Comment on above: Performed By: #### C P, TSH, CDP #### [facility] [address] [place] [id number] Assembly Detailer: Bradley Warren MD #### FT4, LIPR, VD25 #### [address] [address] Assembly Detailer: Yusef Hood MD #### ALAMO #### [facility] [address] [place], [place] [id number] Assembly Detailer: Zac Cabrera MD Monocytes (Bld) [#/Vol] 0.66 10*3/uL Normal 0.10-1.20 [facility] Comment on above: Performed By: #### C P, TSH, CDP #### [address] [place], [place] 3900783 Assembly Detailer: Bradley Warren MD #### FT4, LIPR, VD25 #### [address] [address] Assembly Detailer: Yuesf Hood MD #### ALAMO #### [facility] [address] [place] [address] Assembly Detailer: Zac Cabrera MD Monocytes/100 WBC (Bld) 11 % Normal 3-12 [facility] Comment on above: Performed By: #### C P, TSH, CDP #### [facility] [address] [place] [address] Assembly Detailer: Bradley Warren MD #### FT4, LIPR, VD25 #### [address] [address] Assembly Detailer: Yusef Hood MD #### ALAMO #### [facility] [address] [place], [place] [id number] Assembly Detailer: Zac Cabrera MD Neutrophil (Seg) 45 % Normal 36-65 [facility] Comment on above: Performed By: #### C P, TSH, CDP #### [facility] [address] [place] [address] Assembly Detailer: Bradley Warren MD #### FT4, LIPR, VD25 #### [address] [address] Assembly Detailer: Yusef Hood MD #### ALAMO #### [facility] [address] [place], [place] [id number] Assembly Detailer: Zac Cabrera MD NRBC Automated 0.0 per 100 WBC Normal 0.0 [facility] Comment on above: Performed By: #### C P, TSH, CDP #### [facility] [address] [place], [place] 2977483 Assembly Detailer: Bradley Warren MD #### FT4, LIPR, VD25 #### [address] [address] Assembly Detailer: Yusef Hood MD #### ALAMO #### [facility] [address] [place] [address] Assembly Detailer: Zac Cabrera MD Platelet Count See Reflexed IPF Result Normal 138-453 [facility] Comment on above: Performed By: #### C P, TSH, CDP #### [facility] [address] [place], [place] 1451183 Assembly Detailer: Bradley Warren MD #### FT4, LIPR, VD25 #### [address] [address] Assembly Detailer: Yusef Hood MD #### ALAMO #### [facility] [address] [place] [address] Assembly Detailer: Zac Cabrera MD Platelet, Fluoresc. 139 k/uL Normal 138-453 [facility] Comment on above: Performed By: #### C P, TSH, CDP #### [facility] [address] [place] [id number] Assembly Detailer: Bradley Warren MD #### FT4, LIPR, VD25 #### [address] [address] Assembly Detailer: Yusef Hood MD #### ALAMO #### [facility] [address] [place] [address] Assembly Detailer: Zac Cabrera MD PLT, Immature Fract. 14.7 % High 1.1-10.3 [facility] Comment on above: Performed By: #### C P, TSH, CDP #### [address] [place], [place] [address] Assembly Detailer: Bradley Warren MD #### FT4, LIPR, VD25 #### [address] [address] Assembly Detailer: Yusef Hood MD #### ALAMO #### [facility] [address] [place] [address] Assembly Detailer: Zac Cabrera MD RBC (Bld) [#/Vol] 4.34 10*6/uL Normal 3.95-5.11 [facility] Comment on above: Performed By: #### C P, TSH, CDP #### [facility] [address] [place] [address] Assembly Detailer: Bradley Warren MD #### FT4, LIPR, VD25 #### [address] [address] Assembly Detailer: Yusef Hood MD #### ALAMO #### [facility] [address] [place], [place] [id number] Assembly Detailer: Zac Cabrera MD WBC (Bld) [#/Vol] 6.1 10*3/uL Normal 3.5-11.3 [facility] Comment on above: Performed By: #### C P, TSH, CDP #### [facility] [address] [place] [address] Assembly Detailer: Bradley Warren MD #### FT4EDMAR VD25 #### [address] [address] Assembly Detailer: Yusef Hood MD #### ALAMO #### [facility] [address] [place], [place] [id number] Assembly Detailer: Zac Cabrera MD Comp Metabolic Profon 2023 Albumin [Mass/Vol] 4.0 g/dL Normal 3.5-5.2 [facility] Comment on above: Performed By: #### C P, TSH, CDP #### [address] [place] [address] Assembly Detailer: Bradley Warren MD #### FT4EDMAR VD25 #### [address] [address] Assembly Detailer: Yusef Hood MD #### ALAMO #### [facility] [address] [place], [place] [id number] Assembly Detailer: Zac Cabrera MD Albumin/Glob Ratio 1.4 Normal 1.0-2.5 [facility] Comment on above: Performed By: #### C P, TSH, CDP #### [facility] [address] [place] [address] Assembly Detailer: Bradley Warren MD #### FT4, LIPR, VD25 #### [facility] [place] [address] Assembly Detailer: Yusef Hood MD #### ALAMO #### [facility] [address] [place] [address] Assembly Detailer: Zac Cabrera MD Alkaline Phos 60 U/L Normal 35-104 [facility] Comment on above: Performed By: #### C P, TSH, CDP #### [facility] [address] [place], [place] 7102383 Assembly Detailer: Bradley Warren MD #### FT4, LIPR, VD25 #### [facility] [address] [place] [address] Assembly Detailer: Yusef Hood MD #### ALAMO #### [facility] [address] [place] [address] Assembly Detailer: Zac Cabrera MD ALT [Catalytic activity/Vol] 6 U/L Low 10-35 [facility] Comment on above: Performed By: #### C P, TSH, CDP #### [address] [place], [place] 4670783 Assembly Detailer: Bradley Warren MD #### FT4, LIPR, VD25 #### [address] [address] Assembly Detailer: Yusef Hood MD #### ALAMO #### [facility] [address] [place] [address] Assembly Detailer: Zac Cabrera MD Anion gap [Moles/Vol] 9 mmol/L Normal 9-16 [facility] Comment on above: Performed By: #### C P, TSH, CDP #### [facility] [address] [place], [place] 0262483 Assembly Detailer: Bradley Warren MD #### FT4, LIPR, VD25 #### [place] [address] [place] [address] Assembly Detailer: Yusef Hood MD #### ALAMO #### [facility] [address] [place] [address] Assembly Detailer: Zac Cabrera MD AST [Catalytic activity/Vol] 16 U/L Normal 10-35 [facility] Comment on above: Performed By: #### C P, TSH, CDP #### [facility] [address] [place], [place] 3718283 Assembly Detailer: Bradley Warren MD #### FT4, LIPR, VD25 #### [address] [address] Assembly Detailer: Yusef Hood MD #### ALAMO #### [facility] [address] [place] [address] Assembly Detailer: Zac Cabrera MD Bilirubin [Mass/Vol] 0.3 mg/dL Normal 0.00-1.20 [facility] Comment on above: Performed By: #### C P, TSH, CDP #### [facility] [address] [place], [place] 7984783 Assembly Detailer: Bradley Warren MD #### FT4, LIPR, VD25 #### [address] [address] Assembly Detailer: Yusef Hood MD #### ALAMO #### [facility] [address] [place] [address] Assembly Detailer: Zac Cabrera MD BUN/CRE Ratio 33 High 9-20 [facility] Comment on above: Performed By: #### C P, TSH, CDP #### [facility] [address] [place], [place] 1127083 Assembly Detailer: Bradley Warren MD #### FT4, LIPR, VD25 #### [address] [address] Assembly Detailer: Yusef Hood MD #### ALAMO #### [facility] [address] [place] [address] Assembly Detailer: Zac Cabrera MD Calcium [Mass/Vol] 9.4 mg/dL Normal 8.6-10.4 [facility] Comment on above: Performed By: #### C P, TSH, CDP #### [facility] [address] [place], [place] 1858883 Assembly Detailer: Bradley Warren MD #### FT4, LIPR, VD25 #### [address] [address] Assembly Detailer: Yusef Hood MD #### ALAMO #### [facility] [address] [place], [place] [id number] Assembly Detailer: Zac Cabrera MD Chloride [Moles/Vol] 104 mmol/L Normal 98-107 [facility] Comment on above: Performed By: #### C P, TSH, CDP #### [facility] [address] [place], [place] 1310583 Assembly Detailer: Bradley Warren MD #### FT4, LIPR, VD25 #### [address] [address] Assembly Detailer: Yusef Hood MD #### ALAMO #### [facility] [address] [place], [place] [id number] Assembly Detailer: Zac Cabrera MD CO2 [Moles/Vol] 29 mmol/L Normal 20-31 [facility] Comment on above: Performed By: #### C P, TSH, CDP #### [facility] [address] [place], [place] 2861183 Assembly Detailer: Bradley Warren MD #### FT4, LIPR, VD25 #### [facility] [place] [address] Assembly Detailer: Yusef Hood MD #### ALAMO #### [facility] [address] [place] [address] Assembly Detailer: Zac Cabrera MD Creatinine [Mass/Vol] 0.6 mg/dL Normal 0.50-0.90 [facility] Comment on above: Performed By: #### C P, TSH, CDP #### [facility] [address] [place] [address] Assembly Detailer: Bradley Warren MD #### FT4, LIPR, VD25 #### [address] [address] Assembly Detailer: Yusef Hood MD #### ALAMO #### [facility] [address] [place] [address] Assembly Detailer: Zac Cabrera MD GFR/1.73 sq M.predicted among non-blacks MDRD (S/P/Bld) [Vol rate/Area] mL/min/{1.73_m2} Normal >60 [facility] Comment on above: Result Comment: These [...] By: #### C P, TSH, CDP #### [facility] [address] [place] [address] Assembly Detailer: Bradley Warren MD #### FT4, LIPR, VD25 #### [address] [id number] Assembly Detailer: Yusef Hood MD #### ALAMO #### [facility] [address] [place] [address] Assembly Detailer: Zac Cabrera MD Glucose [Mass/Vol] 80 mg/dL Normal 74-99 [facility] Comment on above: Performed By: #### C P, TSH, CDP #### [facility] [address] [place], [place] 0840583 Assembly Detailer: Bradley Warren MD #### FT4, LIPR, VD25 #### [facility] [address] [place] [address] Assembly Detailer: Yusef Hood MD #### ALAMO #### [facility] [address] [place] [address] Assembly Detailer: Zac aCbrera MD Potassium [Moles/Vol] 3.9 mmol/L Normal 3.7-5.3 [facility] Comment on above: Performed By: #### C P, TSH, CDP #### [address] [place], [place] 7468483 Assembly Detailer: Bradley Warren MD #### FT4, LIPR, VD25 #### [facility] [address] [place] [address] Assembly Detailer: Yusef Hood MD #### ALAMO #### [facility] [address] [place] [address] Assembly Detailer: Zac Cabrera MD Protein [Mass/Vol] 7.0 g/dL Normal 6.6-8.7 [facility] Comment on above: Performed By: #### C P, TSH, CDP #### [facility] [address] [place], [place] 2094783 Assembly Detailer: Bradley Warren MD #### FT4, LIPR, VD25 #### [facility] [address] [place] [address] Assembly Detailer: Yusef Hood MD #### ALAMO #### [facility] [address] [place], [place] [id number] Assembly Detailer: Zac Cabrera MD Sodium [Moles/Vol] 142 mmol/L Normal 136-145 [facility] Comment on above: Performed By: #### C P, TSH, CDP #### [facility] [address] [place] [address] Assembly Detailer: Bradley Warren MD #### FT4, LIPR, VD25 #### [facility] [address] [place], [place] 2252108 Assembly Detailer: Yusef Hood MD #### ALAMO #### [facility] [address] [place], [place] [id number] Assembly Detailer: Zac Cabrera MD Urea nitrogen [Mass/Vol] 20 mg/dL Normal 8-23 [facility] Comment on above: Performed By: #### C P, TSH, CDP #### [facility] [address] [place] [address] Assembly Detailer: Bradley Warren MD #### FT4, LIPR, VD25 #### [facility] [address] [place], [place] [id number] Assembly Detailer: Yusef Hood MD #### ALAMO #### [facility] [address] [place], [place] [id number] Assembly Detailer: Zac Cabrera MD Comprehensive Metabolic Pane [facility] 04-14-2024 Albumin [Mass/Vol] 4.0 g/dL 3.5 - 5.2 g/dL [facility] Albumin/Globulin [Mass ratio] 1.4 {ratio} 1.0 - 2.5 [facility] ALP [Catalytic activity/Vol] 60 U/L 35 - 104 U/L [facility] ALT [Catalytic activity/Vol] 6 U/L Low 10 - 35 U/L [facility] Anion gap [Moles/Vol] 9 mmol/L 9 - 16 mmol/L [facility] AST [Catalytic activity/Vol] 16 U/L 10 - 35 U/L [facility] Bilirubin [Mass/Vol] 0.3 mg/dL 0.00 - 1.20 mg/dL [facility] Calcium [Mass/Vol] 9.4 mg/dL 8.6 - 10. 4 mg/dL [facility] Chloride [Moles/Vol] 104 mmol/L 98 - 10 7 mmol/L [facility] CO2 [Moles/Vol] 29 mmol/L 20 - 31 mmol/L [facility] Creatinine [Mass/Vol] 0.6 mg/dL 0.50 - 0.90 mg/dL [facility] Est, Varinder Padillat Rate - PINF [facility] Comment on above: These results are [...] [Mass/Vol] 80 mg/dL 74 - 99 mg/dL [facility] Interpretation and review of laboratory results Abnormal [facility] Potassium [Moles/Vol] 3.9 mmol/L 3.7 - 5.3 mmol/L [facility] Protein [Mass/Vol] 7.0 g/dL 6.6 - 8.7 g/dL [facility] Sodium [Moles/Vol] 142 mmol/L 136 - 145 mmol/L [facility] Urea nitrogen [Mass/Vol] 20 mg/dL 8 - 23 mg/dL [facility] Urea nitrogen/Creatinine [Mass ratio] 33 mg/mg High 9 - 20 [facility] Lipid Panelon 04-14-2024 Cholesterol [Mass/Vol] 169 mg/dL 0 - 199 mg/dL [facility] Comment on above: Cholesterol Guidelines: <200 Desirable 200-240 Borderline >240 Undesirable Cholesterol in HDL [Mass/Vol] 54 mg/dL 40 - PINF mg/dL [facility] Comment on above: HDL Guidelines: <40 Undesirable 40-59 Borderline >59 Desirable Cholesterol in LDL [Mass/Vol] 99 mg/dL 0 - 100 mg/dL [facility] Comment on above: LDL Guidelines: <100 Desirable 100-129 Near to/above Desirable 130-159 Borderline >159 Undesirable Direct (measured) LDL and calculated LDL are not interchangeable tests. Cholesterol in VLDL [Mass/Vol] 16 mg/dL 1 - 30 mg/dL [facility] Cholesterol.total/Cho lesterol in HDL [Mass ratio] 3.1 {ratio} [facility] Triglyceride [Mass/Vol] 79 mg/dL NINF - 150 mg/dL [facility] Comment on above: Triglyceride Guidelines: <150 Desirable 150-199 Borderline 200-499 High >499 Very high Based on AHA Guidelines for fasting triglyceride, March 2012. Lipid Profileon 04-14-2024 Cholesterol [Mass/Vol] 169 mg/dL Normal 0-199 [facility] Comment on above: Result Comment: Cholesterol Guidelines: <200 Desirable 200-240 Borderline >240 Undesirable Performed By: #### C P, TSH, CDP #### [facility] [address] [place] [address] Assembly Detailer: Bradley Warren MD #### FT4 LIPR, VD25 #### [facility] [address] [place] [address] Assembly Detailer: Yusef Hood MD #### ALAMO #### [facility] [address] [place] [address] Assembly Detailer: Zac Cabrera MD Cholesterol in HDL [Mass/Vol] 54 mg/dL Normal >40 [facility] Comment on above: Result Comment: HDL Guidelines: <40 Undesirable 40-59 Borderline >59 Desirable Performed By: #### C P, TSH, CDP #### [facility] [address] [place] [address] Assembly Detailer: Bradley Warren MD #### FT4, LIPR, VD25 #### [employer] [address] [place] [address] Assembly Detailer: Yusef Hood MD #### ALAMO #### [facility] [address] [place], [place] [id number] Assembly Detailer: Zac Cabrera MD Cholesterol in LDL [Mass/Vol] 99 mg/dL Normal 0-100 [facility] Comment on above: Result Comment: LDL Guidelines: <100 Desirable 100-129 Near to/above Desirable 130-159 Borderline >159 Undesirable Direct (measured) LDL and calculated LDL are not interchangeable tests. Performed By: #### C P, TSH, CDP #### [facility] [address] [place] [address] [place] [address] Assembly Detailer: Bradley Warren MD #### FT4, LIPR, VD25 #### [address] [address] Assembly Detailer: Yusef Hood MD #### ALAMO #### [facility] [address] [place], [place] [id number] Assembly Detailer: Zac Cabrera MD Cholesterol in VLDL [Mass/Vol] 16 mg/dL Normal 1-30 [facility] Comment on above: Performed By: #### C P, TSH, CDP #### [address] [place] [address] Assembly Detailer: Bradley Warren MD #### FT4, LIPR, VD25 #### [address] [address] Assembly Detailer: Yusef Hood MD #### ALAMO #### [facility] [address] [place], [place] [id number] Assembly Detailer: Zac Cabrera MD Cholesterol.total/Cho lesterol in HDL [Mass ratio] 3.1 {ratio} Normal [facility] Comment on above: Performed By: #### C P, TSH, CDP #### [facility] [address] [place] [address] Assembly Detailer: Bradley Warren MD #### FT4, LIPR, VD25 #### [facility] [address] [place], [place] [id number] Assembly Detailer: Yusef Hood MD #### ALAMO #### [facility] [address] [place], [place] [id number] Assembly Detailer: Zac Cabrera MD Triglyceride [Mass/Vol] 79 mg/dL Normal <150 [facility] Comment on above: Result Comment: Triglyceride Guidelines: <150 Desirable 150-199 Borderline 200-499 High >499 Very high Based on AHA Guidelines for fasting triglyceride, March 2012. Performed By: #### C P, TSH, CDP #### [facility] [address] [place] [address] [place] [address] Assembly Detailer: Bradley Warren MD #### FT4, LIPR, VD25 #### [address] [id number] Assembly Detailer: Yusef Hood MD #### ALAMO #### [facility] [address] [place] [address] Assembly Detailer: Zac Cabrera MD No Panel Informationon 04-14 [facility] T4, Freeon 04-14-2024 Free T4 [Mass/Vol] 1.5 ng/dL 0.92 - 1. 68 ng/dL [facility] TSHon 04-14-2024 TSH Qn 0.51 m[IU]/L [facility] Thyroid Stim. Horm.on 2023 Thyroid Stim. Horm. 0.51 uIU/mL Normal 0.27-4.20 [facility] Comment on above: Performed By: #### C P, TSH, CDP #### [facility] [address] [place] [address] Assembly Detailer: Bradley Warren MD #### FT4, LIPR, VD25 #### [facility] [address] [place] [address] Assembly Detailer: Yusef Hood MD #### SUNITHAMO #### [facility] [address] [place] [address] Assembly Detailer: Zac Cabrera MD Thyroxine, Freeon 04-14-2024 Thyroxine, Free 1.5 ng/dL Normal 0.92-1.68 [facility] Comment on above: Performed By: #### C P, TSH, CDP #### [facility] [address] [place] [address] Assembly Detailer: Bradley Warren MD #### FT4, LIPR, VD25 #### [address] [address] Assembly Detailer: Yusef Hood MD #### SUNITHAMO #### [facility] [address] [place] [address] Assembly Detailer: Zac Cabrera MD Vitamin D 25 Hydroxyon 04-14 25-hydroxyvitamin D3 [Mass/Vol] 61.8 ng/mL 30.0 - 100.0 ng/mL [facility] Comment on above: Reference Range: Vitamin D status Range Deficiency <20 ng/mL Mild Deficiency 20-30 ng/mL Sufficiency 30-100 ng/mL Toxicity >100 ng/mL Vitamin D 25 OHon 04-14-2024 Vitamin D 25 OH 61.8 ng/mL Normal 30.0-100.0 [facility] Comment on above: Result Comment: Reference Range: Vitamin D status Range Deficiency <20 ng/mL Mild Deficiency 20-30 ng/mL Sufficiency 30-100 ng/mL Toxicity >100 ng/mL Performed By: #### C P, TSH, CDP #### [facility] [address] [place], [place] 0987383 Assembly Detailer: Bradley Warren MD #### FT4, LIPR, VD25 #### [address] [address] Assembly Detailer: Yusef Hood MD #### ALAUT #### [facility] [address] [place] [address] Assembly Detailer: Zac Cabrera MD Cult,Urineon 03-24-2024 Cult,Urine Specimen Description .CLEAN CATCH URINE Culture Several types of bacteria were identified in this specimen. Further ID and susceptibility testing is generally not helpful in this circumstance and has not been performed. Consider recollection if clinically indicated. Report Status FINAL 03/24/2024 Normal [facility] Comment on above: Performed By: #### U ####[facility] [address] [place], [place] [id number] Lab Director: Yusef Hood, [facility] [place] [address] Lab Director: Bradley Warren MD Microscopic Urinalysison Bacteria LM Ql (Urine sed) 2+ Abnormal None [facility] Epithelial cells LM.HPF (Urine sed) [#/Area] 2 TO 5 [facility] Interpretation and review of laboratory results Abnormal [facility] RBC LM.HPF (Urine sed) [#/Area] None [facility] WBC LM.HPF (Urine sed) [#/Area] 20 TO 50 [facility] Urinalysis[facility] 03-22-2024 Bilirubin Ql (U) Negative NEGATIVE [facility] Clarity (U) Clear Clear [facility] Nitrite Ql (U) Negative NEGATIVE [facility] pH (U) 6.0 [pH] 5.0 - 9.0 [facility] Protein (U) [Mass/Vol] Negative NEGATIVE mg/dL [facility] Specific gravity (U) [Rel density] 1.020 1.010 - 1.020 [facility] Urobilinogen Qn (U) Normal 0.0 - 1. 0 EU/dL [facility] Urinalysis, Routineon 2023 Bilirubin, SemiQt,Ur Negative Normal NEG [facility] Comment on above: Performed By: #### U MICAO, UA ####[facility] [place] , [place] [id number] Lab Director: Bradley Warren MD Blood, Urine Negative Normal NEG [facility] Comment on above: Performed By: #### U MICAO, UA ####[address] , [place] [id number] Lab Director: Bradley Warren MD Clarity (U) Clear Normal CLEAR [facility] Comment on above: Performed By: #### U MICAO, UA ####[address] , [place] [id number] Lab Director: Bradley Warren MD Color (U) Yellow Normal YEL [facility] Comment on above: Performed By: #### U MICAO, UA ####[address] , [place] [phone] Lab Director: Bradley Warren MD Glucose Ql (U) Negative Normal NEG [facility] Comment on above: Performed By: #### U MICAO, UA ####[facility] [place] [address] , [place] [phone] Lab Director: Bradley Warren MD Ketones Ql (U) Negative Normal NEG [facility] Comment on above: Performed By: #### U MICAO, UA ####[facility] [place] [address] Lab Director: Bradley Warren MD Leukocyte esterase Test strip Ql (U) TRACE Abnormal NEG [facility] Comment on above: Performed By: #### U MICAO, UA ####[address] , [place] [phone] Lab Director: Bradley Warren MD Nitrite,Ur Negative Normal NEG [facility] Comment on above: Performed By: #### U MICAO, UA ####[address] , [place] 0500683 lab Director: Bradley Warren MD PH,Ur 6.0 Normal 5.0-9.0 [facility] Comment on above: Performed By: #### U MICAO, UA ####[address] , [place] [id number] lab Director: Bradley Warren MD Protein Ql (U) Negative Normal NEG [facility] Comment on above: Performed By: #### U MICAO, UA ####[address] , [place] [phone] lab Director: Bradley Warren MD Spec. Sumner,Ur 1.020 Normal 1.010-1.020 [facility] Comment on above: Performed By: #### U MICAO, UA ####[address] , [place] 8327083 lab Director: Bradley Warren MD Urobilinogen,Ur Normal Normal 0.0-1.0 [facility] Comment on above: Performed By: #### U MICAO, UA ####[address] , [place] [phone] lab Director: Bradley Warren MD Urinalysis,Microon 4 Bacteria 2+ Abnormal NONE [facility] Comment on above: Performed By: #### U MICAO, UA ####[address] , [place] [phone] lab Director: Bradley Warren MD Epithelial cells LM Ql (Urine sed) 2 TO 5 Normal 0-25 [facility] Comment on above: Performed By: #### U ERICO, UA ####[facility] [place] [address] lab Director: Bradley Warren MD Urine RBC's None Normal 0-2 [facility] Comment on above: Performed By: #### U ERICO, UA ####[facility] [place] [address] lab Director: Bradley Warren MD Urine WBC's 20 TO 50 Normal 0-5 [facility] Comment on above: Performed By: #### U MAREK, UA ####[facility] [place] [address] lab Director: Bradley Warren MD Cult,Urineon 03-11-2024 Cult,Urine Specimen Description .CLEAN CATCH URINE Culture Several types of bacteria were identified in this specimen. Further ID and susceptibility testing is generally not helpful in this circumstance and has not been performed. Consider recollection if clinically indicated. Report Status FINAL 03/11/2024 Normal [facility] Comment on above: Performed By: #### U RC ####[address] [place] [address] lab Director: Yusef Hood, [address] [place] [address] lab Director: Bradley Warren MD Lamotrigineon 03-11-2024 Lamotrigine 6.6 ug/mL Normal 3.0-15.0 [facility] Comment on above: Result Comment: (NOT E) INTERPRETIVE INFORMATION: Lamotrigine Therapeutic Range: 3.0-15.0 ug/mL Toxic: Greater than or equal to 20 ug/mL Pharmacokinetics varies widely, particularly with co-medications and/or compromised renal function. Adverse effects may include dizziness, somnolence, nausea and vomiting. Performed By: [facility] [address] [place] [id number] Professor Criminal Justice: Rc Barragan MD, PhD CLIA Number: [id number] Performed By: #### U MAREK, UA #### [facility] [address] [place] [address] Assembly Detailer: Bradley Warren MD CBC with Auto Differentialon 03-09-2024 Basophils (Bld) [#/Vol] 0.08 10*3/uL [facility] Basophils/100 WBC (Bld) 1 % 0 - 2 % [facility] Eosinophils (Bld) [#/Vol] 0.00 10*3/uL [facility] Eosinophils/100 WBC (Bld) 0 % Low 1 - 4 % [facility] Erythrocyte distribution width (RBC) [Ratio] 12.9 % 11.8 - 14.4 % [facility] Hematocrit (Bld) [Volume fraction] 41.2 % 36.3 - 47.1 % [facility] Hemoglobin (Bld) [Mass/Vol] 13.7 g/dL 11.9 - 15.1 g/dL [facility] Immature granulocytes (Bld) [#/Vol] 0.00 10*3/uL [facility] Immature granulocytes/100 WBC (Bld) 0 % 0 [facility] Interpretation and review of laboratory results Abnormal [facility] Lymphocytes/100 WBC (Bld) 47 % High 24 - 43 % [facility] Lymphocytes/100 WBC (Bld) 3.86 % High [facility] MCH (RBC) [Entitic mass] 30.0 pg 25.2 - 33.5 pg [facility] MCHC (RBC) [Mass/Vol] 33.3 g/dL 28.4 - 34.8 g/dL [facility] MCV (RBC) [Entitic vol] 90.2 fL 82.6 - 102.9 fL [facility] Monocytes/100 WBC (Bld) 7 % 3 - 12 % [facility] Monocytes/100 WBC (Bld) 0.57 % [facility] Morphology Josr (Bld) [Interp] Normal [facility] Neutrophils/100 WBC (Bld) 45 % 36 - 65 % [facility] Nucleated RBC/100 WBC (Bld) [Ratio] 0.0 % 0.0 per 100 WBC [facility] Platelet, Fluorescence 170 [facility] Platelets (Bld) [#/Vol] See Reflexed IPF Result [facility] Platelets reticulated/100 platelets Auto (Bld) 13.5 % High 1.1 - 10.3 % [facility] RBC (Bld) [#/Vol] 4.57 10*6/uL 3.95 - 5.1 1 m/uL [facility] Segmented neutrophils/100 WBC (Bld) 3.69 % [facility] WBC other (Bld) [#/Vol] 8.2 [facility] CBC with Diffon 03-09-2024 Abs. Basophil 0.08 k/uL Normal 0.0-0.2 [facility] Comment on above: Performed By: #### U MAREK UA #### [facility] [address] [place] [address] Assembly Detailer: Bradley Warren MD Abs.Imm.Granulocyte 0.00 k/uL Normal 0.00-0.30 [facility] Comment on above: Performed By: #### U ERICO, UA #### [facility] [address] [place] [address] [place], [place] [phone] Assembly Detailer: Bradley Warren MD Abs.Neutrophil (Seg) 3.69 k/uL Normal 1.50-8.10 [facility] Comment on above: Performed By: #### U ERICO, UA #### [facility] [address] [place] [address] Assembly Detailer: Bradley Warren MD Basophils/100 WBC (Bld) 1 % Normal 0-2 [facility] Comment on above: Performed By: #### U ERICO, UA #### [facility] [address] [place] [address] Assembly Detailer: Bradley Warren MD Eosinophils (Bld) [#/Vol] 0.00 10*3/uL Normal 0.00-0.44 [facility] Comment on above: Performed By: #### U MAREK UA #### [facility] [address] [place] [address] Assembly Detailer: Bradley Warren MD Eosinophils/100 WBC (Bld) 0 % Low 1-4 [facility] Comment on above: Performed By: #### U MAREK, UA #### [facility] [address] [place] [address] Assembly Detailer: Bradley Warren MD Immature granulocytes/100 WBC (Bld) 0 % Normal 0 [facility] Comment on above: Performed By: #### Alessio JARA UA #### [facility] [address] [place], [place] [phone] Assembly Detailer: Bradley Warren MD Lymphocytes (Bld) [#/Vol] 3.86 10*3/uL High 1.10-3.70 [facility] Comment on above: Performed By: #### Alessio JARA UA #### [facility] [address] [place], [place] [phone] Assembly Detailer: Bradley Warren MD Lymphocytes/100 WBC (Bld) 47 % High 24-43 [facility] Comment on above: Performed By: #### U MAREK, UA #### [facility] [address] [place], [place] 9338083 Assembly Detailer: Bradley Warren MD Monocytes (Bld) [#/Vol] 0.57 10*3/uL Normal 0.10-1.20 [facility] Comment on above: Performed By: #### U ERICO, UA #### [facility] [address] [place], [place] [phone] Assembly Detailer: Bradley Warren MD Monocytes/100 WBC (Bld) 7 % Normal 3-12 [facility] Comment on above: Performed By: #### U ERICO, UA #### [facility] [address] [place], [place] [phone] Assembly Detailer: Bradley Warren MD Morphology Josr (Bld) [Interp] Normal Normal [facility] Comment on above: Performed By: #### U ERICO, UA #### [facility] [address] [place], [facility]83 Assembly Detailer: Bradley Warren MD Neutrophil (Seg) 45 % Normal 36-65 [facility] Comment on above: Performed By: #### U MAREK UA #### [facility] [address] [place], [facility]83 Assembly Detailer: Bradley Warren MD Erythrocyte distribution width (RBC) [Ratio] 12.9 % Normal 11.8-14.4 [facility] Comment on above: Performed By: #### U MAREK UA #### [address] [place], [place] 9148983 Assembly Detailer: Bradley Warren MD Hematocrit (Bld) [Volume fraction] 41.2 % Normal 36.3-47.1 [facility] Comment on above: Performed By: #### U MAREK UA #### [address] [place], [facility]83 Assembly Detailer: Bradley Warren MD Hemoglobin (Bld) [Mass/Vol] 13.7 g/dL Normal 11.9-15.1 [facility] Comment on above: Performed By: #### U MAREK, UA #### [address] [place], [place] 6124583 Assembly Detailer: Bradley Warren MD MCH (RBC) [Entitic mass] 30.0 pg Normal 25.2-33.5 [facility] Comment on above: Performed By: #### U ERICO, UA #### [address] [place], [place] 1342383 Assembly Detailer: Bradley Warren MD MCHC (RBC) [Mass/Vol] 33.3 g/dL Normal 28.4-34.8 [facility] Comment on above: Performed By: #### U MAREK UA #### [facility] [address] [place], [place] 2175983 Assembly Detailer: Bradley Warren MD MCV (RBC) [Entitic vol] 90.2 fL Normal 82.6-102.9 [facility] Comment on above: Performed By: #### ANDRY KAPLAN #### [address] [place], [place] [phone] Assembly Detailer: Bradley Warren MD NRBC Automated 0.0 per 100 WBC Normal 0.0 [facility] Comment on above: Performed By: #### Alessio JARA UA #### [address] [place], [place] 1123683 Assembly Detailer: Bradley Warren MD Platelet Count See Reflexed IPF Result Normal 138-453 [facility] Comment on above: Performed By: #### Alessio JARA, UA #### [address] [place], [place] 1895283 Assembly Detailer: Bradley Warren MD Platelet, Fluoresc. 170 k/uL Normal [address] [place] [address] Comment on above: Performed By: #### U MAREK, UA #### [facility] [address] [place], [place] 1919983 Assembly Detailer: Bradley Warren MD PLT, Immature Fract. 13.5 % High 1.1-10.3 [facility] Comment on above: Performed By: #### U MAREK, UA #### [facility] [address] [place], [place] 0376183 Assembly Detailer: Bradley Warren MD RBC (Bld) [#/Vol] 4.57 10*6/uL Normal 3.95-5.11 [facility] Comment on above: Performed By: #### U MRAEK UA #### [facility] [address] [place] [address] Assembly Detailer: Bradley Warren MD WBC (Bld) [#/Vol] 8.2 10*3/uL Normal 3.5-11.3 [facility] Comment on above: Performed By: #### Alessio JARA UA #### [facility] [address] [place], [place] 1057983 Assembly Detailer: Bradley Warren MD Comp Metabolic Profon 2023 Albumin [Mass/Vol] 4.1 g/dL Normal 3.5-5.2 [facility] Comment on above: Performed By: #### V D25, LIPR ####[facility] [address] [place], [place] [phone] Director: Yusef Hood MD#### TSHJULIÁN, CDP ####[address] , [place] 9686083 Lab Director: Bradley Warren MD#### ALAMO ####[facility] [address] [place], [place] [id number] Lab Director: Zac Cabrera MD Albumin/Glob Ratio 1.3 Normal 1.0-2.5 [facility] Comment on above: Performed By: #### V D25, LIPR ####[facility] [address] [place] [address] Lab Director: Yusef Hood MD#### TSH, CP, CDP ####[address] , [place] 2911783 Lab Director: Bradley Warren MD#### ALAMO ####[facility] [address] [place], [place] 52[address] Lab Director: Zac Cabrera MD Alkaline Phos 64 U/L Normal 35-104 [facility] Comment on above: Performed By: #### V D25, LIPR ####[facility] [address] [place], [place] [phone] Director: Yusef Hood MD#### TSH, CP, CDP ####[address] , [place] 1137183 Lab Director: Bradley Warren MD#### ALAMO ####[facility] [address] [place] [address] Lab Director: Zac Cabrera MD ALT [Catalytic activity/Vol] 8 U/L Low 10-35 [facility] Comment on above: Performed By: #### V D25, LIPR ####[facility] [address] [place] [address] Lab Director: Yusef Hood MD#### TSH, CP, CDP ####[address] , [place] [phone] Lab Director: Bradley Warren MD#### ALAMO ####[facility] [address] [place] [address] [id number] Lab Director: Zac Cabrera MD Anion gap [Moles/Vol] 7 mmol/L Low 9-16 [facility] Comment on above: Performed By: #### V D25, LIPR ####[facility] [address] [place], [place] [phone] Director: Yusef Hood MD#### TSH, CP, CDP ####[address] , [place] 3683883 Lab Director: Bradley Warren MD#### ALAMO ####[facility] [address] [place] [address] Lab Director: Zac Cabrera MD AST [Catalytic activity/Vol] 20 U/L Normal 10-35 [facility] Comment on above: Performed By: #### V D25, LIPR ####[facility] [place] [address] Lab Director: Yusef Hood MD#### TSH, CP, CDP ####[address] , [place] 3800083 Lab Director: Bradley Warren MD#### ALAMO ####[facility] [address] [place] [address] Lab Director: Zac Cabrera MD Bilirubin [Mass/Vol] 0.2 mg/dL Normal 0.00-1.20 [facility] Comment on above: Performed By: #### V D25, LIPR ####[address] [address] Lab Director: Yusef Hood MD#### TSH, CP, CDP ####[address] , [place] 0062983 Lab Director: Bradley Warren MD#### ALAMO ####[facility] [address] [place] [address] [id number] Lab Director: Zac Cabrera MD BUN/CRE Ratio 19 Normal 9-20 [facility] Comment on above: Performed By: #### V D25, LIPR ####[facility] [place] [address] Lab Director: Yusef Hood MD#### TSH, CP, CDP ####[address] , [place] 8978483 Lab Director: Bradley Warren MD#### ALAMO ####[facility] [address] [place], [place] [id number] Lab Director: Zac Cabrera MD Calcium [Mass/Vol] 9.8 mg/dL Normal 8.6-10.4 [facility] Comment on above: Performed By: #### V D25, LIPR ####[facility] [place], [place] [phone] Director: Yusef Hood MD#### TSH, CP, CDP ####[address] , [place] [phone] Lab Director: Bradley Warren MD#### ALAMO ####[facility] [address] [place] [address] Lab Director: Zac Cabrera MD Chloride [Moles/Vol] 104 mmol/L Normal 98-107 [facility] Comment on above: Performed By: #### V D25, LIPR ####[address] [place] [address] Lab Director: Yusef Hood MD#### TSH, CP, CDP ####[address] , [place] 4884883 Lab Director: Bradley Warren MD#### ALAMO ####[facility] [address] [place] [address] Lab Director: Zac Cabrera MD CO2 [Moles/Vol] 30 mmol/L Normal 20-31 [facility] Comment on above: Performed By: #### V D25, LIPR ####[facility] [place], [place] [phone] Director: Yusef Hood MD#### TSH, CP, CDP ####[address] [place] [address] Lab Director: Bradley Warren MD#### ALAMO ####[facility] [address] [place] [address] Lab Director: Zac Cabrera MD Creatinine [Mass/Vol] 0.7 mg/dL Normal 0.50-0.90 [facility] Comment on above: Performed By: #### V D25, LIPR ####[facility] [address] [place] [address] Lab Director: Yusef Hood MD#### JULIÁN SOTO, CDP ####[address] , [place] [phone] Lab Director: Bradley Warren MD#### ALAMO ####[facility] [address] [place] [address] [phone] Lab Director: Zac Cabrera MD GFR/1.73 sq M.predicted among non-blacks MDRD (S/P/Bld) [Vol rate/Area] mL/min/{1.73_m2} Normal >60 [facility] Comment on above: Result Comment: These [...] secretion. Performed By: #### Kimo D25, LIPR ####[facility] [address] [place] [address] Lab Director: Yusef Hood MD#### JULIÁN SOTO, CDP ####[address] , [place] 2290783 Lab Director: Bradley Warren MD#### ALAMO ####[facility] [address] [place] [address] [id number] Lab Director: Zac Cabrera MD Glucose [Mass/Vol] 86 mg/dL Normal 74-99 [facility] Comment on above: Performed By: #### V D25, LIPR ####[facility] [address] [place] [address] Lab Director: Yusef Hood MD#### TSH, CP, CDP ####[address] , [place] [phone] Lab Director: Bradley Warren MD#### ALAMO ####[facility] [address] [place] [address] Lab Director: Zac Cabrera MD Potassium [Moles/Vol] 4.5 mmol/L Normal 3.7-5.3 [facility] Comment on above: Performed By: #### V D25, LIPR ####[facility] [address] [place] [address] Lab Director: Yusef Hood MD#### TSH, CP, CDP ####[address] , [place] 4362983 Lab Director: Bradley Warren MD#### ALAMO ####[facility] [address] [place] [address] Lab Director: Zac Cabrera MD Protein [Mass/Vol] 7.1 g/dL Normal 6.6-8.7 [facility] Comment on above: Performed By: #### V D25, LIPR ####[facility] [address] [place] [address] Lab Director: Yusef Hood MD#### TSH, CP, CDP ####[address] [place] [address] Lab Director: Bradley Warren MD#### ALAMO ####[facility] [address] [place], [place] [id number] Lab Director: Zac Cabrera MD Sodium [Moles/Vol] 141 mmol/L Normal 136-145 [facility] Comment on above: Performed By: #### V D25, LIPR ####[facility] [address]em[address] [place] [address] Lab Director: Yusef Hood MD#### TSH, CP, CDP ####[facility] [place] [address] Lab Director: Bradley Warren MD#### SUNITHAMO ####[facility] [address] [place], [place] [id number] Lab Director: Zac Cabrera MD Urea nitrogen [Mass/Vol] 13 mg/dL Normal 8-23 [facility] Comment on above: Performed By: #### V D25, LIPR ####[facility] [address] [place], [place] 2775508 Lab Director: Yusef Hood MD#### JULIÁN SOTO, CDP ####[facility] [place] [address] Lab Director: Bradley Warren MD#### SUNITHAMO ####[facility] [address] [place] [address] Lab Director: Zac Cabrera MD Comprehensive Metabolic Pane [facility] 03-09-2024 Albumin [Mass/Vol] 4.1 g/dL 3.5 - 5.2 g/dL [facility] Albumin/Globulin [Mass ratio] 1.3 {ratio} 1.0 - 2.5 [facility] ALP [Catalytic activity/Vol] 64 U/L 35 - 104 U/L [facility] ALT [Catalytic activity/Vol] 8 U/L Low 10 - 35 U/L [facility] Anion gap [Moles/Vol] 7 mmol/L Low 9 - 16 mmol/L [facility] AST [Catalytic activity/Vol] 20 U/L 10 - 35 U/L [facility] Bilirubin [Mass/Vol] 0.2 mg/dL 0.00 - 1.20 mg/dL [facility] Calcium [Mass/Vol] 9.8 mg/dL 8.6 - 10. 4 mg/dL [facility] Chloride [Moles/Vol] 104 mmol/L 98 - 10 7 mmol/L [facility] CO2 [Moles/Vol] 30 mmol/L 20 - 31 mmol/L [facility] Creatinine [Mass/Vol] 0.7 mg/dL 0.50 - 0.90 mg/dL [facility] Varinder Benites Rate - PINF [facility] Comment on above: These results are not [...] [Mass/Vol] 86 mg/dL 74 - 99 mg/dL [facility] Interpretation and review of laboratory results Abnormal [facility] Potassium [Moles/Vol] 4.5 mmol/L 3.7 - 5.3 mmol/L [facility] Protein [Mass/Vol] 7.1 g/dL 6.6 - 8.7 g/dL [facility] Sodium [Moles/Vol] 141 mmol/L 136 - 145 mmol/L [facility] Urea nitrogen [Mass/Vol] 13 mg/dL 8 - 23 mg/dL [facility] Urea nitrogen/Creatinine [Mass ratio] 19 mg/mg 9 - 20 [facility] Lipid Panelon 03-09-2024 Cholesterol [Mass/Vol] 167 mg/dL 0 - 199 mg/dL [facility] Comment on above: Cholesterol Guidelines: <200 Desirable 200-240 Borderline >240 Undesirable Cholesterol in HDL [Mass/Vol] 56 mg/dL 40 - PINF mg/dL [facility] Comment on above: HDL Guidelines: <40 Undesirable 40-59 Borderline >59 Desirable Cholesterol in LDL [Mass/Vol] 91 mg/dL 0 - 100 mg/dL [facility] Comment on above: LDL Guidelines: <100 Desirable 100-129 Near to/above Desirable 130-159 Borderline >159 Undesirable Direct (measured) LDL and calculated LDL are not interchangeable tests. Cholesterol in VLDL [Mass/Vol] 21 mg/dL [facility] Cholesterol.total/Cho lesterol in HDL [Mass ratio] 3.0 {ratio} [facility] Triglyceride [Mass/Vol] 103 mg/dL NINF - 150 mg/dL [facility] Comment on above: Triglyceride Guidelines: <150 Desirable 150-199 Borderline 200-499 High >499 Very high Based on AHA Guidelines for fasting triglyceride, March 2012. [facility] Lipid Profileon 03-09-2024 Cholesterol [Mass/Vol] 167 mg/dL Normal 0-199 [facility] Comment on above: Result Comment: Cholesterol Guidelines: <200 Desirable 200-240 Borderline >240 Undesirable Performed By: #### U MAREK, UA #### [facility] [address] [place] [address] Assembly Detailer: Bradley Warren MD Cholesterol in HDL [Mass/Vol] 56 mg/dL Normal >40 [facility] Comment on above: Result Comment: HDL Guidelines: <40 Undesirable 40-59 Borderline >59 Desirable Performed By: #### Alessio JARA UA #### [facility] [address] [place] [address] Assembly Detailer: Bradley Warren MD Cholesterol in LDL [Mass/Vol] 91 mg/dL Normal 0-100 [facility] Comment on above: Result Comment: LDL Guidelines: <100 Desirable 100-129 Near to/above Desirable 130-159 Borderline >159 Undesirable Direct (measured) LDL and calculated LDL are not interchangeable tests. Performed By: #### Alessio JARA UA #### [facility] [address] [place] [address] Assembly Detailer: Bradley Warren MD Cholesterol in VLDL [Mass/Vol] 21 mg/dL Normal [facility] Comment on above: Performed By: #### Alessio JARA UA #### [facility] [address] [place] [address] Assembly Detailer: Bradley Warren MD Cholesterol.total/Cho lesterol in HDL [Mass ratio] 3.0 {ratio} Normal [facility] Comment on above: Performed By: #### Alessio JARA, UA #### [facility] [address] [place] [id number] Assembly Detailer: Bradley Warren MD Triglyceride [Mass/Vol] 103 mg/dL Normal <150 [facility] Comment on above: Result Comment: Triglyceride Guidelines: <150 Desirable 150-199 Borderline 200-499 High >499 Very high Based on AHA Guidelines for fasting triglyceride, March 2012. Performed By: #### Alessio JARA UA #### [facility] [address] [place] [place] [address] Assembly Detailer: Bradley Warren MD Microscopic Urinalysison Bacteria LM Ql (Urine sed) 1+ Abnormal None [facility] Epithelial cells LM.HPF (Urine sed) [#/Area] 0 TO 2 [facility] Interpretation and review of laboratory results Abnormal [facility] RBC LM.HPF (Urine sed) [#/Area] 2 TO 5 [facility] WBC LM.HPF (Urine sed) [#/Area] 10 TO 20 [facility] No Panel Informationon 03-09 [facility] TSHon 03-09-2024 TSH Qn 1.69 m[IU]/L [facility] Thyroid Stim. Horm.on 2023 Thyroid Stim. Horm. 1.69 uIU/mL Normal 0.27-4.20 [facility] Comment on above: Performed By: #### V D25, LIPR ####[facility] [id number] [place], [place] [id number] Lab Director: Yusef Hood MD#### TSH, CP, CDP ####[facility] [place] [address] Lab Director: Bradley Warren MD#### ALANAMRATA ####[facility] [id number] [place] [address] Lab Director: Zac Cabrera MD UA w/Reflex Cultureon 2023 Bilirubin, SemiQt,Ur Negative Normal NEG [facility] Comment on above: Performed By: #### U MICAO, UAX ####[address] , [place] [id number] Lab Director: Bradley Warren MD Blood, Urine TRACE Abnormal NEG [facility] Comment on above: Performed By: #### U MICAO, UAX ####[address] , [place] [address] Lab Director: Bradley Warren MD Clarity (U) Clear Normal CLEAR [facility] Comment on above: Performed By: #### U MICAO, UAX ####[address] [place] [address] Lab Director: Bradley Warren MD Color (U) Yellow Normal YEL [facility] Comment on above: Performed By: #### U MICAO, UAX ####[address] [place] [address] Lab Director: Bradley Warren MD Glucose Ql (U) Negative Normal NEG [facility] Comment on above: Performed By: #### U MICAO, UAX ####[address] [place] [address] Lab Director: Bradley Warren MD Ketones Ql (U) Negative Normal NEG [facility] Comment on above: Performed By: #### U MICAO, UAX ####[address] [place] [address] Lab Director: Bradley Warren MD Leukocyte esterase Test strip Ql (U) SMALL Abnormal NEG [facility] Comment on above: Performed By: #### U MICAO, UAX ####[address] , [place] [id number] Lab Director: Bradley Warren MD Nitrite,Ur Positive Abnormal NEG [facility] Comment on above: Performed By: #### U MICAO, UAX ####[facility] , [place] [id number] [facility] Director: Bradley Warren MD PH,Ur 6.0 Normal 5.0-9.0 [facility] Comment on above: Performed By: #### U MICAO, UAX ####[facility] , [place] [id number] [facility] Director: Bradley Warren MD Protein Ql (U) Negative Normal NEG [facility] Comment on above: Performed By: #### U MICAO, UAX ####[address] , [place] [id number] lab Director: Bradley Warren MD Spec. [place],Ur 1.020 Normal 1.010-1.020 [facility] Comment on above: Performed By: #### U MICAO, UAX ####[address] , [place] [address] [facility] Director: Bradley Warren MD Urobilinogen,Ur Normal Normal 0.0-1.0 [facility] Comment on above: Performed By: #### U MICAO, UAX ####[address] , [place] [id number] lab Director: Bradley Warren MD Urinalysis with Reflex to Cu ltureon 03-09-2024 Bilirubin Ql (U) Negative NEGATIVE [facility] Clarity (U) Clear Clear [facility] Color (U) Yellow Yellow [facility] Glucose Test strip (U) [Mass/Vol] Negative NEGATIVE mg/dL [facility] Hemoglobin Auto test strip Ql (U) TRACE Abnormal NEGATIVE [facility] Interpretation and review of laboratory results Abnormal [facility] Ketones (U) [Mass/Vol] Negative NEGATIVE mg/dL [facility] Leukocyte esterase Test strip Ql (U) SMALL Abnormal NEGATIVE [facility] Nitrite Ql (U) Positive Abnormal NEGATIVE [facility] pH (U) 6.0 [pH] 5.0 - 9.0 [facility] Protein (U) [Mass/Vol] Negative NEGATIVE mg/dL [facility] Specific gravity (U) [Rel density] 1.020 1.010 - 1.020 [facility] Urobilinogen Qn (U) Normal 0.0 - 1. 0 EU/dL [facility] Urinalysis,Microon 4 Bacteria 1+ Abnormal NONE [facility] Comment on above: Performed By: #### U MICAO, UAX ####[facility] [place] [address] Lab Director: Bradley Warren MD Epithelial cells LM Ql (Urine sed) 0 TO 2 Normal 0-25 [facility] Comment on above: Performed By: #### U ERICO, UAX ####[address] , [place] [address] Lab Director: Bradley Warren MD Urine RBC's 2 TO 5 Normal 0-2 [facility] Comment on above: Performed By: #### U ERICO, UAX ####[address] [place] [address] lab Director: Bradley Warren MD Urine WBC's 10 TO 20 Normal 0-5 [facility] Comment on above: Performed By: #### U ERICO, UAX ####[address] , [place] [id number] lab Director: Bradley Warren MD Vitamin D 25 Hydroxyon 03-09 25-hydroxyvitamin D3 [Mass/Vol] 55.4 ng/mL 30.0 - 100.0 ng/mL [facility] Comment on above: Reference Range: Vitamin D status Range Deficiency <20 ng/mL Mild Deficiency 20-30 ng/mL Sufficiency 30-100 ng/mL Toxicity >100 ng/mL [facility] Vitamin D 25 OHon 03-09-2024 Vitamin D 25 OH 55.4 ng/mL Normal 30.0-100.0 [facility] Comment on above: Result Comment: Reference Range: Vitamin D status Range Deficiency <20 ng/mL Mild Deficiency 20-30 ng/mL Sufficiency 30-100 ng/mL Toxicity >100 ng/mL Performed By: #### U ANDRY JARA #### [facility] [address] [place] [address] Assembly Detailer: Bradley Warren MD CBC AND AUTO DIFFon 07-17-19 24 Eosinophils (Bld) [#/Vol] 0.5 10*3/uL High 0.0-0.4 [facility] Comment on above: Performed By: #### C KIRILL, CBCA #### [facility] ([id number]) [address] [place] [address], [place] [address] Eosinophils/100 WBC (Bld) 3.0 % Normal [facility] Comment on above: Performed By: #### C KIRILL, CBCA #### [facility] ([id number]) [address] [place] [address] [place] [address] Erythrocyte distribution width (RBC) [Ratio] 14.7 % Normal 11.5-15.0 [facility] Comment on above: Performed By: #### C MP, CBCA #### [facility] ([id number]) [address] [place] [address] 17844 Hematocrit (Bld) [Volume fraction] 29.6 % Low 35-47 [facility] Comment on above: Performed By: #### C MP, CBCA #### [facility] ([id number]) [address] [place] [address]257 Hemoglobin (Bld) [Mass/Vol] 10.0 g/dL Low 11.7-15.5 [facility] Comment on above: Performed By: #### C MP, CBCA #### [facility] ([id number]) [address] [place] [address] 05326 LYMPHOCYTE, ATYPICAL 4.0 % Normal [facility] Comment on above: Performed By: #### C MP, CBCA #### [facility] ([id number]) [address] [place] [address] 33072 Lymphocytes (Bld) [#/Vol] 2.4 10*3/uL Normal 1.0-3.5 [facility] Comment on above: Performed By: #### C MP, CBCA #### [facility] ([id number]) [address] [place] [address] 78372 Lymphocytes/100 WBC (Bld) 12.0 % Normal [facility] Comment on above: Performed By: #### C MP, CBCA #### [facility] ([id number]) [address] [place] [address] 96122 MCH (RBC) [Entitic mass] 29.4 pg Normal 27-34 [facility] Comment on above: Performed By: #### C MP, CBCA #### [facility] ([id number]) [address] [place] [address] 82274 MCHC (RBC) [Mass/Vol] 33.8 g/dL Normal 32-36 [facility] Comment on above: Performed By: #### C MP, CBCA #### [facility] ([id number]) [address] [place] [address] 10069 MCV (RBC) [Entitic vol] 87 fL Normal 80-100 [facility] Comment on above: Performed By: #### C MP, CBCA #### [facility] ([id number]) [address] [place] [address] 63519 Monocytes (Bld) [#/Vol] 0.8 10*3/uL Normal 0-0.9 [facility] Comment on above: Performed By: #### C MP, CBCA #### [facility] ([id number]) [address] [place] [address] 79996 Monocytes/100 WBC (Bld) 5.0 % Normal [facility] Comment on above: Performed By: #### C MP, CBCA #### [facility] ([id number]) [address] [place] [address] 15755 Neutrophils (Bld) [#/Vol] 11.7 10*3/uL High 1.5-6.6 [facility] Comment on above: Performed By: #### C MP, CBCA #### [facility] ([id number]) [address] [place] [address] 00598 NUCLEATED RBC 1.0 /100 WBC Normal 0.0-1.0 [facility] Comment on above: Performed By: #### C MP, CBCA #### [facility] ([id number]) [address] [place] [address] 91256 Platelet mean volume (Bld) [Entitic vol] 11.6 fL Normal 7-12 [facility] Comment on above: Performed By: #### C MP, CBCA #### [facility] ([id number]) [address] [place] [address] 69081 Platelets (Bld) [#/Vol] 69 10*3/uL Low 150-450 [facility] Comment on above: Performed By: #### C MP, CBCA #### [facility] ([id number]) [address] [place] [address] 25974 RBC COUNT 3.40 X10E12/L Low 3.80-5.20 [facility] Comment on above: Performed By: #### C MP, CBCA #### [facility] ([id number]) [address] [place] [address] 98648 RBC morphology finding Nom (Bld) REVIEWED Normal [facility] Comment on above: Performed By: #### C MP, CBCA #### [facility] ([id number]) [address] [place] [address] 57815 SEG NEUTROPHIL 76.0 % Normal [facility] Comment on above: Performed By: #### C KIRILL CBCA #### [facility] ([id number]) [address] [place] [address] 20688 WBC (Bld) [#/Vol] 15.4 10*3/uL High 4.0-11.0 [facility] Comment on above: Performed By: #### C KIRILL CBCA #### [facility] ([id number]) [address] [place] [address] 11400 COMPREHENSIVE METABOLIC PANE Memo 07-17-2023 Albumin [Mass/Vol] 2.1 g/dL Low 3.2-5.3 [facility] Comment on above: Performed By: #### C KIRILL CBCA #### [facility] ([id number]) [address] [place] [address] 22415 ALP [Catalytic activity/Vol] 155 U/L High 39-130 [facility] Comment on above: Performed By: #### C KIRILL, CBCA #### [facility] ([id number]) [address] [place] [address] 67277 ALT [Catalytic activity/Vol] 8 U/L Normal 0-31 [facility] Comment on above: Performed By: #### C KIRILL, CBCA #### [facility] ([id number]) [address] [place] [address] 57354 Anion gap [Moles/Vol] 5 mmol/L Normal 5-15 [facility] Comment on above: Performed By: #### C KIRILL, CBCA #### [facility] ([id number]) [address] [place] [address] 67572 AST [Catalytic activity/Vol] 32 U/L Normal 0-41 [facility] Comment on above: Performed By: #### C KIRILL CBCA #### [facility] ([id number]) [address] [place] [address] 31171 Bilirubin [Mass/Vol] 0.8 mg/dL Normal 0.3-1.2 [facility] Comment on above: Performed By: #### C KIRILL CBCA #### [facility] ([id number]) [address] [place] [address] 48223 Calcium [Mass/Vol] 8.2 mg/dL Low 8.5-10.5 [facility] Comment on above: Performed By: #### C KIRILL CBCA #### [facility] ([id number]) [address] [place] [address] 08407 Chloride [Moles/Vol] 111 mmol/L High 98-109 [facility] Comment on above: Performed By: #### C KIRILL CBCRiley #### [facility] ([id number]) [address] [place] [address] 47098 CO2 [Moles/Vol] 27 mmol/L Normal 22-32 [facility] Comment on above: Performed By: #### C KIRILL CBCA #### [facility] ([id number]) [address] [place] [address] 68746 Creatinine [Mass/Vol] 0.60 mg/dL Normal 0.40-1.00 [facility] Comment on above: Result Comment: METH OD TRACEABLE TO IDMS STANDARD Performed By: #### C KIRILL CBCA #### [facility] ([id number]) [address] [place] [address] 67278 eGFR (CKD-EPI) NON-RACE DEPENDENT >90 Normal >59 [facility] Comment on above: Result Comment: Reported eGFR is based on the CKD-EPI 2020 equation that does not use a race coefficient. Performed By: #### C KIRILL CBCA #### [facility] ([id number]) [address] [place] [address] 24212 Glucose [Mass/Vol] 89 mg/dL Normal 65-99 [facility] Comment on above: Performed By: #### C KIRILL, CBCA #### [facility] ([id number]) [address] [place] [address] 90833 Potassium [Moles/Vol] 3.6 mmol/L Normal 3.5-5.0 [facility] Comment on above: Performed By: #### C KIRILL, CBCA #### [facility] ([id number]) [address] [place] [address] 52961 Protein [Mass/Vol] 4.8 g/dL Low 6.0-8.0 [facility] Comment on above: Performed By: #### C KIRILL, CBCA #### [facility] ([id number]) [address] [place] [address] 61253 Sodium [Moles/Vol] 143 mmol/L Normal 134-146 [facility] Comment on above: Performed By: #### C KIRILL CBCA #### [facility] ([id number]) [address] [place] [address] 89109 Urea nitrogen [Mass/Vol] 17 mg/dL Normal 5-27 [facility] Comment on above: Performed By: #### C KIRILL, CBCA #### [facility] ([id number]) [address] [place] [address] 94025 MAGNESIUMon 07-17-2023 Magnesium [Mass/Vol] 1.4 mg/dL Low 1.8-2.6 [facility] Comment on above: Performed By: #### C KIRILL, CBCA #### [facility] ([id number]) [address] [place] [address] 81777 CBC AND AUTO DIFFon 07-16-19 24 ABSOLUTE BASOPHIL 0.2 X10E9/L Normal 0.0-0.2 [facility] Comment on above: Performed By: #### C MP, CBCA #### [facility] ([id number]) [address] [place] [address] 78084 Basophils/100 WBC (Bld) 1.0 % Normal [facility] Comment on above: Performed By: #### C MP, CBCA #### [facility] ([id number]) [address] [place] [address] 07626 Erythrocyte distribution width (RBC) [Ratio] 15.1 % High 11.5-15.0 [facility] Comment on above: Performed By: #### C MP, CBCA #### [facility] ([id number]) [address] [place] [address] 81463 Hematocrit (Bld) [Volume fraction] 29.3 % Low 35-47 [facility] Comment on above: Performed By: #### C MP, CBCA #### [facility] ([id number]) [address] [place] [address] 56607 Hemoglobin (Bld) [Mass/Vol] 9.6 g/dL Low 11.7-15.5 [facility] Comment on above: Performed By: #### C MP, CBCA #### [facility] ([id number]) [address] [place] [address] 55468 LYMPHOCYTE, ATYPICAL 1.0 % Normal [facility] Comment on above: Performed By: #### C MP, CBCA #### [facility] ([id number]) [address] [place] [address] 80263 Lymphocytes (Bld) [#/Vol] 1.8 10*3/uL Normal 1.0-3.5 [facility] Comment on above: Performed By: #### C MP, CBCA #### [facility] ([id number]) [address] [place] [address] 98624 Lymphocytes/100 WBC (Bld) 10.0 % Normal [facility] Comment on above: Performed By: #### C MP, CBCA #### [facility] ([id number]) [address] [place] [address] 16026 MCH (RBC) [Entitic mass] 29.1 pg Normal 27-34 [facility] Comment on above: Performed By: #### C MP, CBCA #### [facility] ([id number]) [address] [place] [address] 40782 MCHC (RBC) [Mass/Vol] 32.7 g/dL Normal 32-36 [facility] Comment on above: Performed By: #### C MP, CBCA #### [facility] ([id number]) [address] [place] [address] 26052 MCV (RBC) [Entitic vol] 89 fL Normal 80-100 [facility] Comment on above: Performed By: #### C MP, CBCA #### [facility] ([id number]) [address] [place] [address] 47264 Monocytes (Bld) [#/Vol] 0.6 10*3/uL Normal 0-0.9 [facility] Comment on above: Performed By: #### C MP, CBCA #### [facility] ([id number]) [address] [place] [address] 97233 Monocytes/100 WBC (Bld) 4.0 % Normal [facility] Comment on above: Performed By: #### C MP, CBCA #### [facility] ([id number]) [address] [place] [address] 65272 Neutrophils (Bld) [#/Vol] 13.0 10*3/uL High 1.5-6.6 [facility] Comment on above: Performed By: #### C MP, CBCA #### [facility] ([id number]) [address] [place] [address] 55313 NUCLEATED RBC 1.0 /100 WBC Normal 0.0-1.0 [facility] Comment on above: Performed By: #### C MP, CBCA #### [facility] ([id number]) [address] [place] [address] 40274 OVALOCYTE 1+ Abnormal NONE [facility] Comment on above: Performed By: #### C MP, CBCA #### [facility] ([id number]) [address] [place] [address] 42389 Platelet mean volume (Bld) [Entitic vol] 11.2 fL Normal 7-12 [facility] Comment on above: Performed By: #### C MP, CBCA #### [facility] ([id number]) [address] [place] [address] 88048 Platelets (Bld) [#/Vol] 62 10*3/uL Low 150-450 [facility] Comment on above: Performed By: #### C MP, CBCA #### [facility] ([id number]) [address] [place] [address] 74508 RBC COUNT 3.29 X10E12/L Low 3.80-5.20 [facility] Comment on above: Performed By: #### C MP, CBCA #### [facility] ([id number]) [address] [place] [address] 17169 SEG NEUTROPHIL 84.0 % Normal [facility] Comment on above: Performed By: #### C MP, CBCA #### [facility] ([id number]) [address] [place] [address] 92136 WBC (Bld) [#/Vol] 15.5 10*3/uL High 4.0-11.0 [facility] Comment on above: Performed By: #### C MP, CBCA #### [facility] ([id number]) [address] [place] [address] 47088 COMPREHENSIVE METABOLIC PANE Memo 07-16-2023 Albumin [Mass/Vol] 2.1 g/dL Low 3.2-5.3 [facility] Comment on above: Performed By: #### C KIRILL, CBCA #### [facility] ([id number]) [address] [place] [address] 28894 ALP [Catalytic activity/Vol] 131 U/L High 39-130 [facility] Comment on above: Performed By: #### C KIRILL CBCA #### [facility] ([id number]) [address] [place] [address] 34486 ALT [Catalytic activity/Vol] 15 U/L Normal 0-31 [facility] Comment on above: Performed By: #### C KIRILL CBCA #### [facility] ([id number]) [address] [place] [address] 09021 Anion gap [Moles/Vol] 5 mmol/L Normal 5-15 [facility] Comment on above: Performed By: #### C KIRILL, CBCA #### [facility] ([id number]) [address] [place] [address] 52826 AST [Catalytic activity/Vol] 36 U/L Normal 0-41 [facility] Comment on above: Performed By: #### C KIRILL, CBCA #### [facility] ([id number]) [address] [place] [address] 99274 Bilirubin [Mass/Vol] 0.9 mg/dL Normal 0.3-1.2 [facility] Comment on above: Performed By: #### C KIRILL, CBCA #### [facility] ([id number]) [address] [place] [address] 77225 Calcium [Mass/Vol] 8.0 mg/dL Low 8.5-10.5 [facility] Comment on above: Performed By: #### C KIRILL, CBCA #### [facility] ([id number]) [address] [place] [address] 27905 Chloride [Moles/Vol] 113 mmol/L High 98-109 [facility] Comment on above: Performed By: #### C KIRILL, CBCA #### [facility] ([id number]) [address] [place] [address] 36281 CO2 [Moles/Vol] 24 mmol/L Normal 22-32 [facility] Comment on above: Performed By: #### C KIRILL, CBCA #### [facility] ([id number]) [address] [place] [address] 27358 Creatinine [Mass/Vol] 0.81 mg/dL Normal 0.40-1.00 [facility] Comment on above: Result Comment: METH OD TRACEABLE TO IDMS STANDARD Performed By: #### C KIRILL, CBCA #### [facility] ([id number]) [address] [place] [address] 27289 GFR/1.73 sq M.predicted among non-blacks MDRD (S/P/Bld) [Vol rate/Area] 80 mL/min/{1.73_m2} Normal >59 [facility] Comment on above: Result Comment: Reported eGFR is based on the CKD-EPI 2020 equation that does not use a race coefficient. Performed By: #### C KIRILL, CBCA #### [facility] ([id number]) [address] [place] [address] 91315 Glucose [Mass/Vol] 99 mg/dL Normal 65-99 [facility] Comment on above: Performed By: #### C KIRILL, CBCA #### [facility] ([id number]) [address] [place] [address] 73190 Potassium [Moles/Vol] 3.5 mmol/L Normal 3.5-5.0 [facility] Comment on above: Performed By: #### C MP, CBCA #### [facility] ([id number]) [address] [place] [address] 65289 Protein [Mass/Vol] 4.9 g/dL Low 6.0-8.0 [facility] Comment on above: Performed By: #### C MP, CBCA #### [facility] ([id number]) [address] [place] [address] 71843 Sodium [Moles/Vol] 142 mmol/L Normal 134-146 [facility] Comment on above: Performed By: #### C MP, CBCA #### [facility] ([id number]) [address] [place] [address] 23964 Urea nitrogen [Mass/Vol] 34 mg/dL High 5-27 [facility] Comment on above: Performed By: #### C MP, CBCA #### [facility] ([id number]) [address] [place] [address] [id number] MAGNESIUMon 07-16-2023 Magnesium [Mass/Vol] 2.1 mg/dL Normal 1.8-2.6 [facility] Comment on above: Performed By: #### C MP, CBCA #### [facility] ([id number]) [address] [place] [address] [id number] CBC AND AUTO DIFFon 07-15-19 24 Band form neutrophils/100 WBC (Bld) 11.4 % Normal [facility] Comment on above: Performed By: #### C MP, CBCA #### [facility] ([id number]) [address] [place] [address] [id number] PATRICIA 1+ Abnormal NONE [facility] Comment on above: Performed By: #### C MP, CBCA #### [facility] ([id number]) [address] [place] [address] [id number] Erythrocyte distribution width (RBC) [Ratio] 15.0 % Normal 11.5-15.0 [facility] Comment on above: Performed By: #### C MP, CBCA #### [facility] ([id number]) [address] [place] [address] [id number] FRAGMENT 1+ Abnormal NONE [facility] Comment on above: Performed By: #### C MP, CBCA #### [facility] ([id number]) [address] [place] [address] [id number] Hematocrit (Bld) [Volume fraction] 30.4 % Low 35-47 [facility] Comment on above: Performed By: #### C MP, CBCA #### [facility] ([id number]) [address] [place] [address] [id number] Hemoglobin (Bld) [Mass/Vol] 9.9 g/dL Low 11.7-15.5 [facility] Comment on above: Performed By: #### C MP, CBCA #### [facility] ([id number]) [address] [place] [address] 37121 LYMPHOCYTE, ATYPICAL 1.9 % Normal [facility] Comment on above: Performed By: #### C MP, CBCA #### [facility] ([id number]) [address] [place] [address] 52637 Lymphocytes (Bld) [#/Vol] 2.6 10*3/uL Normal 1.0-3.5 [facility] Comment on above: Performed By: #### C MP, CBCA #### [facility] ([id number]) [address] [place] [address] 00141 Lymphocytes/100 WBC (Bld) 10.5 % Normal [facility] Comment on above: Performed By: #### C MP, CBCA #### [facility] ([id number]) [address] [place] [address] 63878 MCH (RBC) [Entitic mass] 29.3 pg Normal 27-34 [facility] Comment on above: Performed By: #### C MP, CBCA #### [facility] ([id number]) [address] [place] [address] 74003 MCHC (RBC) [Mass/Vol] 32.7 g/dL Normal 32-36 [facility] Comment on above: Performed By: #### C MP, CBCA #### [facility] ([id number]) [address] [place] [address] 15737 MCV (RBC) [Entitic vol] 90 fL Normal 80-100 [facility] Comment on above: Performed By: #### C KIRILL, CBCA #### [facility] ([id number]) [address] [place] [address] 16957 Monocytes (Bld) [#/Vol] 0.6 10*3/uL Normal 0-0.9 [facility] Comment on above: Performed By: #### C KIRILL, CBCA #### [facility] ([id number]) [address] [place] [address] 33156 Monocytes/100 WBC (Bld) 2.9 % Normal [facility] Comment on above: Performed By: #### C MP, CBCA #### [facility] ([id number]) [address] [place] [address] 42106 Neutrophils (Bld) [#/Vol] 17.4 10*3/uL High 1.5-6.6 [facility] Comment on above: Performed By: #### C MP, CBCA #### [facility] ([id number]) [address] [place] [address] 26960 OVALOCYTE 1+ Abnormal NONE [facility] Comment on above: Performed By: #### C KIRILL, CBCA #### [facility] ([id number]) [address] [place] [address] 80579 Platelet mean volume (Bld) [Entitic vol] 12.2 fL High 7-12 [facility] Comment on above: Performed By: #### C MP, CBCA #### [facility] ([id number]) [address] [place] [address] 84460 Platelets (Bld) [#/Vol] 74 10*3/uL Low 150-450 [facility] Comment on above: Performed By: #### C MP, CBCA #### [facility] ([id number]) [address] [place] [address] 01345 RBC COUNT 3.39 X10E12/L Low 3.80-5.20 [facility] Comment on above: Performed By: #### C MP, CBCA #### [facility] ([id number]) [address] [place] [address] 06587 SEG NEUTROPHIL 73.3 % Normal [facility] Comment on above: Performed By: #### C MP, CBCA #### [facility] ([id number]) [address] [place] [address] 65888 WBC (Bld) [#/Vol] 20.6 10*3/uL High 4.0-11.0 [facility] Comment on above: Performed By: #### C MP, CBCA #### [facility] ([id number]) [address] [place] [address] 10350 COMPREHENSIVE METABOLIC PANE Memo 07-15-2023 Albumin [Mass/Vol] 2.2 g/dL Low 3.2-5.3 [facility] Comment on above: Performed By: #### C MP, CBCA #### [facility] ([id number]) [address] [place] [address] 75999 ALP [Catalytic activity/Vol] 94 U/L Normal 39-130 [facility] Comment on above: Performed By: #### C MP, CBCA #### [facility] ([id number]) [address] [place] [address] 24823 ALT [Catalytic activity/Vol] 13 U/L Normal 0-31 [facility] Comment on above: Performed By: #### C MP, CBCA #### [facility] ([id number]) [address] [place] [address] 71712 Anion gap [Moles/Vol] 5 mmol/L Normal 5-15 [facility] Comment on above: Performed By: #### C KIRILL, CBCA #### [facility] ([id number]) [address] [place] [address] 96874 AST [Catalytic activity/Vol] 34 U/L Normal 0-41 [facility] Comment on above: Performed By: #### C KIRILL, CBCA #### [facility] ([id number]) [address] [place] [address] [place] [address] Bilirubin [Mass/Vol] 0.8 mg/dL Normal 0.3-1.2 [facility] Comment on above: Performed By: #### C KIRILL, CBCA #### [facility] ([id number]) [address] [place] [address] 58936 Calcium [Mass/Vol] 7.5 mg/dL Low 8.5-10.5 [facility] Comment on above: Performed By: #### C MP, CBCA #### [facility] ([id number]) [address] [place] [address] 03311 Chloride [Moles/Vol] 113 mmol/L High 98-109 [facility] Comment on above: Performed By: #### C MP, CBCA #### [facility] ([id number]) [address] [place] [address] 77088 CO2 [Moles/Vol] 22 mmol/L Normal 22-32 [facility] Comment on above: Performed By: #### C KIRILL, CBCA #### [facility] ([id number]) [address] [place] [address] 19416 Creatinine [Mass/Vol] 1.47 mg/dL High 0.40-1.00 [facility] Comment on above: Result Comment: METH OD TRACEABLE TO IDMS STANDARD Performed By: #### C KIRILL, CBCA #### [facility] ([id number]) [address] [place] [address] 41595 GFR/1.73 sq M.predicted among non-blacks MDRD (S/P/Bld) [Vol rate/Area] 39 mL/min/{1.73_m2} Low >59 [facility] Comment on above: Result Comment: Reported eGFR is based on the CKD-EPI 2020 equation that does not use a race coefficient. Performed By: #### C KIRILL, CBCA #### [facility] ([id number]) [address] [place] [address] 91505 Glucose [Mass/Vol] 88 mg/dL Normal 65-99 [facility] Comment on above: Performed By: #### C KIRILL, CBCA #### [facility] ([id number]) [address] [place] [address] 41384 Potassium [Moles/Vol] 3.7 mmol/L Normal 3.5-5.0 [facility] Comment on above: Performed By: #### C KIRILL, CBCA #### [facility] ([id number]) [address] [place] [address] 91782 Protein [Mass/Vol] 5.1 g/dL Low 6.0-8.0 [facility] Comment on above: Performed By: #### C KIRILL, CBCA #### [facility] ([id number]) [address] [place] [address] 24345 Sodium [Moles/Vol] 140 mmol/L Normal 134-146 [facility] Comment on above: Performed By: #### C LUIS ALFREDO ROY #### [facility] ([id number]) [address] [place] [address] 22140 Urea nitrogen [Mass/Vol] 51 mg/dL High 5-27 [facility] Comment on above: Performed By: #### C LUIS ALFREDO ROY #### [facility] ([id number]) [address] [place] [address] 10820 Calcium.ionized (Bld) [Moles /Vol]on 07-15-2023 PORTABLE ICA 4.6 mg/dL Normal 4.5-5.3 [facility] Comment on above: Performed By: #### 1 994-3 ####[facility] ([id number])[address] [place] [address] 01613 MAGNESIUMon 07-15-2023 Magnesium [Mass/Vol] 2.9 mg/dL High 1.8-2.6 [facility] Comment on above: Performed By: #### C LUIS ALFREDO ROY #### [facility] ([id number]) [address] [place] [address] 40780 Magnesium [Mass/Vol] 3.0 mg/dL High 1.8-2.6 [facility] Comment on above: Performed By: #### 1 9123-9 ####[facility] ([id number])[address] [place] [address] 07559 POTASSIUMon 07-15-2023 Potassium [Moles/Vol] 3.8 mmol/L Normal 3.5-5.0 [facility] Comment on above: Performed By: #### C LUIS ALFREDO ROY #### [facility] ([id number]) [address] [place] [address] 60138 Vancomycin trough [Mass/Vol] on 07-15-2023 VANCOMYCIN TROUGH 9.0 ug/mL Normal 5.0-20.0 [facility] Comment on above: Performed By: #### C MP, CBCA #### [facility] ([id number]) [address] [place] [address] 10049 ARTERIAL BLOOD GASon 024 MARA'S TEST Normal [facility] Comment on above: Performed By: #### A BG #### [facility] ([id number]) [address] [place] [address] 08565 BASE,DEFICIT 7.0 MMOL/L High 0.0-2.0 [facility] Comment on above: Performed By: #### A BG #### [facility] ([id number]) [address] [place] [address] 01781 Body temperature 98.6 [degF] Normal 37.0 [facility] Comment on above: Performed By: #### A BG #### [facility] ([id number]) [address] [place] [address] 31975 HCO3 (Bld) [Moles/Vol] 18.6 mmol/L Low 22-26 [facility] Comment on above: Performed By: #### A BG #### [facility] ([id number]) [address] [place] [address] 92108 Oxygen (Bld) [Partial pressure] 71 mm[Hg] Low 80-100 [facility] Comment on above: Performed By: #### A BG #### [facility] ([id number]) [address] [place] [address] 01212 Oxygen saturation in Blood 93.0 % Normal >90 [facility] Comment on above: Performed By: #### A BG #### [facility] ([id number]) [address] [place] [address] 47027 OXYGEN SOURCE RoomAir Normal [facility] Comment on above: Performed By: #### A BG #### [facility] ([id number]) [address] [place] [address] [place] [address] PCO2 35.5 MMHG Normal 35-45 [facility] Comment on above: Performed By: #### A BG #### [facility] ([id number]) [address] [place] [address] 03320 pH (Bld) 7.326 [pH] Low 7.350-7.450 [facility] Comment on above: Performed By: #### A BG #### [facility] ([id number]) [address] [place] [address] 57553 SAMPLE SITE Andrea [facility] Comment on above: Performed By: #### A BG #### [facility] ([id number]) [address] [place] [address] 60453 SAMPLE TYPE ARTERIAL Normal [facility] Comment on above: Performed By: #### A BG #### [facility] ([id number]) [address] [place] [address] 97214 BLOOD CULTUREon 07-14-2023 Bacteria identified Aer cx Nom (Bld) SPECIMEN NOTES CENTRAL LINE CULTURE RESULTS PROTEUS MIRABILIS FOR SUSCEPTIBILITY, SEE PREVIOUS REPORT. [facility] Comment on above: Performed By: #### 1 7928-3 ####[facility] ([id number])[address] [place] [address] 26413[facility] ([id number])[address] [facility], [place] [address] Bacteria identified Aer cx Nom (Bld) SPECIMEN [...] <=4 F TOBRAMYCIN S <=1 F Susceptible [facility] Comment on above: Performed By: #### 1 7928-3 ####[facility] ([id number])[address] [place] [address] 04488[facility] ([id number])[address] [facility], [address], [place] [address] CBC AND AUTO DIFFon 07-14-19 24 ABSOLUTE BASOPHIL 0.8 X10E9/L High 0.0-0.2 [facility] Comment on above: Performed By: #### C KIRILL, , CBCA ####[facility] ([id number])[address] [place] [address] 55928 Band form neutrophils/100 WBC (Bld) 1.9 % Normal [facility] Comment on above: Performed By: #### C KIRILL, , CBCA ####[facility] ([id number])[address] [place] [address] 54103 Basophils/100 WBC (Bld) 2.9 % Normal [facility] Comment on above: Performed By: #### C KIRILL, , CBCA ####[facility] ([id number])[address] [place] [address] 86316 PATRICIA 2+ Abnormal NONE [facility] Comment on above: Performed By: #### C KIRILL, , CBCA ####[facility] ([id number])[address] [place] [address] 92357 Erythrocyte distribution width (RBC) [Ratio] 14.5 % Normal 11.5-15.0 [facility] Comment on above: Performed By: #### C KIRILL, , CBCA ####[facility] ([id number])[address] [place] [address] 62971 Hematocrit (Bld) [Volume fraction] 31.5 % Low 35-47 [facility] Comment on above: Performed By: #### C KIRILL, , CBCA ####[facility] ([id number])[address] [place] [address] 82144 Hemoglobin (Bld) [Mass/Vol] 10.3 g/dL Low 11.7-15.5 [facility] Comment on above: Performed By: #### C KIRILL, , CBCA ####[facility] ([id number])[address] [place] [address] 45487 LYMPHOCYTE, ATYPICAL 1.0 % Normal [facility] Comment on above: Performed By: #### C KIRILL, , CBCA ####[facility] ([id number])[address] [place] [address] 40799 Lymphocytes (Bld) [#/Vol] 1.7 10*3/uL Normal 1.0-3.5 [facility] Comment on above: Performed By: #### C KIRILL, , CBCA ####[facility] ([id number])[address] [place] [address] 10769 Lymphocytes/100 WBC (Bld) 4.9 % Normal [facility] Comment on above: Performed By: #### C KIRILL, , CBCA ####[facility] ([id number])[address] [place] [address] 15760 MCH (RBC) [Entitic mass] 29.3 pg Normal 27-34 [facility] Comment on above: Performed By: #### C KIRILL, , CBCA ####[facility] ([id number])[address] [place] [address] 21835 MCHC (RBC) [Mass/Vol] 32.6 g/dL Normal 32-36 [facility] Comment on above: Performed By: #### C KIRILL, , CBCA ####[facility] ([id number])[address] [place] [address] 76557 MCV (RBC) [Entitic vol] 90 fL Normal 80-100 [facility] Comment on above: Performed By: #### C KIRILL, , CBCA ####[facility] ([id number])[address] [place] [address] 42255 Monocytes (Bld) [#/Vol] 4.8 10*3/uL High 0-0.9 [facility] Comment on above: Performed By: #### C KIRILL, , CBCA ####[facility] ([id number])[address] [place] [address] 30554 Monocytes/100 WBC (Bld) 16.5 % Normal [facility] Comment on above: Performed By: #### C KIRILL, , CBCA ####[facility] ([id number])[address] [place] [address] 99247 Neutrophils (Bld) [#/Vol] 21.9 10*3/uL High 1.5-6.6 [facility] Comment on above: Performed By: #### C KIRILL, , CBCA ####[facility] ([id number])[address] [place] [address] 77699 OVALOCYTE 1+ Abnormal NONE [facility] Comment on above: Performed By: #### C KIRILL, , CBCA ####[facility] ([id number])[address] [place] [address], [place] [address] Platelet mean volume (Bld) [Entitic vol] 12.2 fL High 7-12 [facility] Comment on above: Performed By: #### C KIRILL, , CBCA ####[facility] ([id number])[address] [place] [address] 59406 Platelets (Bld) [#/Vol] 85 10*3/uL Low 150-450 [facility] Comment on above: Performed By: #### C KIRILL, , CBCA ####[facility] ([id number])[address] [place] [address] 49992 RBC COUNT 3.51 X10E12/L Low 3.80-5.20 [facility] Comment on above: Performed By: #### C KIRILL, , CBCA ####[facility] ([id number])[address] [place] [address] 38366 SEG NEUTROPHIL 72.8 % Normal [facility] Comment on above: Performed By: #### Nori ROY, , CBCA ####[facility] ([id number])[address] [place] [address] 19993 WBC (Bld) [#/Vol] 29.3 10*3/uL High 4.0-11.0 [facility] Comment on above: Performed By: #### C KIRILL, , CBCA ####[facility] ([id number])[address] [place] [address] 48770 COMPREHENSIVE METABOLIC PANE Memo 07-14-2023 Albumin [Mass/Vol] 2.7 g/dL Low 3.2-5.3 [facility] Comment on above: Performed By: #### C KIRILL, , CBCA ####[facility] ([id number])[address], [place] [address] ALP [Catalytic activity/Vol] 90 U/L Normal 39-130 [facility] Comment on above: Performed By: #### C KIRILL, , CBCA ####[facility] ([id number])[address] [place] [address] 42801 ALT [Catalytic activity/Vol] 13 U/L Normal 0-31 [facility] Comment on above: Performed By: #### C KIRILL, , CBCA ####[facility] ([id number])[address] [place] [address] [place] [address] Anion gap [Moles/Vol] 14 mmol/L Normal 5-15 [facility] Comment on above: Performed By: #### C KIRILL, , CBCA ####[facility] ([id number])[address] [place] [address] [place] [address] AST [Catalytic activity/Vol] 45 U/L High 0-41 [facility] Comment on above: Performed By: #### C KIRILL, , CBCA ####[facility] ([id number])[address] [place] [address] [place] [address] Bilirubin [Mass/Vol] 1.3 mg/dL High 0.3-1.2 [facility] Comment on above: Performed By: #### C KIRILL, , CBCA ####[facility] ([id number])[address] [place] [address] [place] [address] Calcium [Mass/Vol] 7.7 mg/dL Low 8.5-10.5 [facility] Comment on above: Performed By: #### C KIRILL, , CBCA ####[facility] ([id number])[address] [place] [address] [place] [address] Chloride [Moles/Vol] 108 mmol/L Normal 98-109 [facility] Comment on above: Performed By: #### C KIRILL, , CBCA ####[facility] ([id number])[address] [place] [address] 69501 CO2 [Moles/Vol] 19 mmol/L Low 22-32 [facility] Comment on above: Performed By: #### C KIRILL, , CBCA ####[facility] ([id number])[address] [place] [address] [place] [address] Creatinine [Mass/Vol] 2.49 mg/dL High 0.40-1.00 [facility] Comment on above: Result Comment: METH OD TRACEABLE TO IDMS STANDARD Performed By: #### C KIRILL, , CBCA ####[facility] ([id number])[address] [place] [address] 19376 GFR/1.73 sq M.predicted among non-blacks MDRD (S/P/Bld) [Vol rate/Area] 21 mL/min/{1.73_m2} Low >59 [facility] Comment on above: Result Comment: Reported eGFR is based on the CKD-EPI 2020 equation that does not use a race coefficient. Performed By: #### C KIRILL, , CBCA ####[facility] ([id number])[address] [place] [address] 26272 Glucose [Mass/Vol] 83 mg/dL Normal 65-99 [facility] Comment on above: Performed By: #### C KIRILL, , CBCA ####[facility] ([id number])[address] [place] [address] 96235 Potassium [Moles/Vol] 3.9 mmol/L Normal 3.5-5.0 [facility] Comment on above: Performed By: #### C KIRILL, , CBCA ####[facility] ([id number])[address] [place] [address] 36206 Protein [Mass/Vol] 5.7 g/dL Low 6.0-8.0 [facility] Comment on above: Performed By: #### [place], [address]-7, CBCA ####[facility] ([id number])[address] [place] [address] 70502 Sodium [Moles/Vol] 141 mmol/L Normal 134-146 [facility] Comment on above: Performed By: #### [place], [address]-6, CBCA ####[facility] ([id number])[address] [place] [address] 91204 Urea nitrogen [Mass/Vol] 44 mg/dL High 5-27 [facility] Comment on above: Performed By: #### [place] MP, 02756-8, CBCA ####[facility] ([id number])[address] [place] [address] ABDOMEN AND PELVIS WO CON Ton [...] Whiting MD on 07/14/2023 3:32 AM Normal [facility] Lactate (P nicko) [Moles/Vol]o n 07-14-2023 Lactate [Moles/Vol] 2.3 mmol/L High 0.4-2.0 [facility] Comment on above: Performed By: #### 3 2133-1 ####[facility] ([id number])[address] [place] [address] 73285 LACTATE W/REFLEX 3.4 mmol/L High 0.4-2.0 [facility] Comment on above: Performed By: #### 3 2133-1 ####[facility] ([id number])[address] [place] [address] 89450 Lactate [Moles/Vol] 5.1 mmol/L Critically high 0.4-2.0 [facility] Comment on above: Performed By: #### 3 2133-1 #### [facility] ([id number]) [address] [place] [address] 13438 LACTATE W/REFLEX 6.0 mmol/L Critically high 0.4-2.0 [facility] Comment on above: Performed By: #### 3 3-1 #### [facility] ([id number]) [address] [place] [address] 90074 MAGNESIUMon 07-14-2023 Magnesium [Mass/Vol] 1.6 mg/dL Low 1.8-2.6 [facility] Comment on above: Performed By: #### C KIRILL, 97757-8, CBCA ####[facility] ([id number])[address] [place] [address] 55263 URINE CULTUREon 07-14-2023 Bacteria identified Cx Nom [...] F TRIMETH/SULFAMETHOXA ZOLE S <=1/19 F Susceptible [facility] Comment on above: Performed By: #### C KIRILL, CBCA #### [facility] ([id number]) [address] [place] [address] 04360 URN MACROSCOPIC NURon 2023 BILIRUBIN BETTY MODERATE Abnormal NEG [facility] Comment on above: Performed By: #### N UM #### [facility] ([id number]) [address] [place] [address] 18717 BLOOD/HGB BETTY Trace Abnormal NEG [facility] Comment on above: Performed By: #### N UM #### [facility] ([id number]) [address] [place] [address] 27569 GLUCOSE BETTY Negative Normal NEG [facility] Comment on above: Performed By: #### N UM #### [facility] ([id number]) [address] [place] [address] [place] [address] KETONES BETTY Trace Abnormal NEG [facility] Comment on above: Performed By: #### N UM #### [facility] ([id number]) [address] [place] [address] [id number] LEUKOCYTE ESTERASE BETTY Large Abnormal NEG [facility] Comment on above: Performed By: #### N UM #### [facility] ([id number]) [address] [place] [address] [place] [address] NITRITE BETTY Positive Abnormal NEG [facility] Comment on above: Performed By: #### N UM #### [facility] ([id number]) [address] [place] [address] [id number] PH BETTY 5.0 Normal 5.0-8.5 [facility] Comment on above: Performed By: #### N UM #### [facility] ([id number]) [address] [place] [address] [place] [address] PROTEIN BETTY 100 mg/dL Abnormal NEG [facility] Comment on above: Performed By: #### N UM #### [facility] ([id number]) [address] [place] [address] [place] [address] SPECIFIC GRAVITY BETTY >=1.030 Normal 1.003-1.035 [facility] Comment on above: Performed By: #### N UM #### [facility] ([id number]) [address] [place] [address] [place] [address] UROBILINOGEN BETTY 2.0 eu/dL High <1.1 [facility] Comment on above: Performed By: #### N UM #### [facility] ([id number]) [address] [place] [id number] XR ABDOMEN AP 1 VWon 024 XR [...] Sheehan MD on 07/14/2023 10:49 AM Normal [facility] XR CHEST 1 VWon 07-14-2023 XR CHEST [...] Whiting MD on 07/14/2023 3:27 AM Normal [facility] CBC AND AUTO DIFFon 07-13-19 24 Band form neutrophils/100 WBC (Bld) 1.0 % Normal [facility] Comment on above: Performed By: #### C KIRILL, CBCA #### [facility] ([id number]) [address] [place] [id number] Erythrocyte distribution width (RBC) [Ratio] 14.7 % Normal 11.5-15.0 [facility] Comment on above: Performed By: #### C MP, CBCA #### [facility] ([id number]) [address] [place] [address] [id number] Hematocrit (Bld) [Volume fraction] 31.8 % Low 35-47 [facility] Comment on above: Performed By: #### C MP, CBCA #### [facility] ([id number]) [address] [place] [address] [phone] Hemoglobin (Bld) [Mass/Vol] 10.3 g/dL Low 11.7-15.5 [facility] Comment on above: Performed By: #### C MP, CBCA #### [facility] ([id number]) [address] [place] [address] [phone] Lymphocytes (Bld) [#/Vol] 1.8 10*3/uL Normal 1.0-3.5 [facility] Comment on above: Performed By: #### C MP, CBCA #### [facility] ([id number]) [address] [place] [address] [phone] Lymphocytes/100 WBC (Bld) 10.0 % Normal [facility] Comment on above: Performed By: #### C KIRILL, CBCA #### [facility] ([id number]) [address] [place] [address] 49471 MCH (RBC) [Entitic mass] 29.2 pg Normal 27-34 [facility] Comment on above: Performed By: #### C MP, CBCA #### [facility] ([id number]) [address] [place] [address] 94900 MCHC (RBC) [Mass/Vol] 32.4 g/dL Normal 32-36 [facility] Comment on above: Performed By: #### C MP, CBCA #### [facility] ([id number]) [address] [place] [address] 63674 MCV (RBC) [Entitic vol] 90 fL Normal 80-100 [facility] Comment on above: Performed By: #### C MP, CBCA #### [facility] ([id number]) [address] [place] [address] 05426 Monocytes (Bld) [#/Vol] 1.1 10*3/uL High 0-0.9 [facility] Comment on above: Performed By: #### C MP, CBCA #### [facility] ([id number]) [address] [place] [address] 48059 Monocytes/100 WBC (Bld) 6.0 % Normal [facility] Comment on above: Performed By: #### C MP, CBCA #### [facility] ([id number]) [address] [place] [address] 49437 Neutrophils (Bld) [#/Vol] 15.1 10*3/uL High 1.5-6.6 [facility] Comment on above: Performed By: #### C MP, CBCA #### [facility] ([id number]) [address] [place] [address] 49504 Platelet mean volume (Bld) [Entitic vol] 11.4 fL Normal 7-12 [facility] Comment on above: Performed By: #### C MP, CBCA #### [facility] ([id number]) [address] [place] [address] 83700 Platelets (Bld) [#/Vol] 81 10*3/uL Low 150-450 [facility] Comment on above: Performed By: #### C MP, CBCA #### [facility] ([id number]) [address] [place] [address] 57847 POLYCHROMASIA 1+ Abnormal NONE [facility] Comment on above: Performed By: #### C MP, CBCA #### [facility] ([id number]) [address] [place] [address] 32680 RBC COUNT 3.53 X10E12/L Low 3.80-5.20 [facility] Comment on above: Performed By: #### C MP, CBCA #### [facility] ([id number]) [address] [place] [address] 96504 SEG NEUTROPHIL 83.0 % Normal [facility] Comment on above: Performed By: #### C MP, CBCA #### [facility] ([id number]) [address] [place] [address] 79308 WBC (Bld) [#/Vol] 18.0 10*3/uL High 4.0-11.0 [facility] Comment on above: Performed By: #### C KIRILL, CBCA #### [facility] ([id number]) [address] [place] [address] 81815 COMPREHENSIVE METABOLIC PANE Memo 07-13-2023 Albumin [Mass/Vol] 2.5 g/dL Low 3.2-5.3 [facility] Comment on above: Performed By: #### C KIRILL, CBCA #### [facility] ([id number]) [address] [place] [address] 21260 ALP [Catalytic activity/Vol] 159 U/L High 39-130 [facility] Comment on above: Performed By: #### C KIRILL, CBCA #### [facility] ([id number]) [address] [place] [address] 97751 ALT [Catalytic activity/Vol] 8 U/L Normal 0-31 [facility] Comment on above: Performed By: #### C KIRILL, CBCA #### [facility] ([id number]) [address] [place] [address] 81199 Anion gap [Moles/Vol] 15 mmol/L Normal 5-15 [facility] Comment on above: Performed By: #### C KIRILL, CBCA #### [facility] ([id number]) [address] [place] [address] 31049 AST [Catalytic activity/Vol] 42 U/L High 0-41 [facility] Comment on above: Performed By: #### C LUIS ALFREDO ROY #### [facility] ([id number]) [address] [place] [address] 54450 Bilirubin [Mass/Vol] 1.3 mg/dL High 0.3-1.2 [facility] Comment on above: Performed By: #### C LUIS ALFREDO ROY #### [facility] ([id number]) [address] [place] [address] 56675 Calcium [Mass/Vol] 7.6 mg/dL Low 8.5-10.5 [facility] Comment on above: Performed By: #### C LUSI ALFREDO ROY #### [facility] ([id number]) [address] [place] [address] 55753 Chloride [Moles/Vol] 107 mmol/L Normal 98-109 [facility] Comment on above: Performed By: #### C LUIS ALFREDO ROY #### [facility] ([id number]) [address] [place] [address] 28489 CO2 [Moles/Vol] 20 mmol/L Low 22-32 [facility] Comment on above: Performed By: #### C LUIS ALFREDO ROY #### [facility] ([id number]) [address] [place] [address] 72739 Creatinine [Mass/Vol] 2.68 mg/dL High 0.40-1.00 [facility] Comment on above: Result Comment: METH OD TRACEABLE TO IDMS STANDARD Performed By: #### C LUIS ALFREDO ROY #### [facility] ([id number]) [address] [place] [address] 04978 GFR/1.73 sq M.predicted among non-blacks MDRD (S/P/Bld) [Vol rate/Area] 19 mL/min/{1.73_m2} Low >59 [facility] Comment on above: Result Comment: Reported eGFR is based on the CKD-EPI 2020 equation that does not use a race coefficient. Performed By: #### C LUIS ALFREDO ROY #### [facility] ([id number]) [address] [place] [address] 98198 Glucose [Mass/Vol] 74 mg/dL Normal 65-99 [facility] Comment on above: Performed By: #### C KIRILL CBCA #### [facility] ([id number]) [address] [place] [address] 70715 Potassium [Moles/Vol] 3.2 mmol/L Low 3.5-5.0 [facility] Comment on above: Performed By: #### C LUIS ALFREDO ROY #### [facility] ([id number]) [address] [place] [address] 01861 Protein [Mass/Vol] 5.4 g/dL Low 6.0-8.0 [facility] Comment on above: Performed By: #### C KIRILL CBCRiley #### [facility] ([id number]) [address] [place] [address] 05119 Sodium [Moles/Vol] 142 mmol/L Normal 134-146 [facility] Comment on above: Performed By: #### C LUIS ALFREDO ROY #### [facility] ([id number]) [address] [place] [address] 72156 Urea nitrogen [Mass/Vol] 36 mg/dL High 5-27 [facility] Comment on above: Performed By: #### C KIRILL CBCA #### [facility] ([id number]) [address] [place] [address] BRAIN WO CONTon 4 CT BRAIN [...] Craig MD on 07/13/2023 9:08 PM Normal [facility] XR KNEE RT 3 VWSon 4 XR KNEE RT 3 VWS XR KNEE RT 3 VWS CLINICAL INFORMATION: trauma TECHNIQUE: XR KNEE RT 3 VWS 3 views right knee were obtained. Tibial intramedullary chani in place. Osteophytic changes appreciated. There is no obvious acute fracture. No joint effusion. IMPRESSION: No acute findings. Finalized by Sid Craig MD on 07/13/2023 9:07 PM Normal [facility] CHEMISTRYOrdered By: SYSTEM SYSTEM on 06-17-2023 Troponin [...] PM) Normal Negative [facility] UA Auto SS [place].plasma/Lithiu m.RBC (Bld) [Mass ratio] 0-3 /HPF Normal [...] Desc Clean Catch (06/17/23 8:50 PM) Normal [facility] UA Auto SS Urobilinogen Qn (U) 1.5549432 {Iglesia'U}/dL Normal 0.0 - 1.0 EU/dL FT [...] 27.8 s Normal 25.1 - 36.5 second(s) [facility] Auto Coag Comment on above: Interpretive Data: [...] the same coagulation reagent and instrumentation as [facility]. Currently there are no coagulation studies available worldwide for children to 14 days, and no normal ranges. Heparin therapeutic range (represented by Anti-Factor Xa activity of 0.2 - 0.4 U/mL) corresponds to PTT of 56.6 - 109.0 sec. INR Coag (PPP) [Relative time] 1.2 {INR} Invalid Interpretation Code [facility] Auto Coag Comment on above: Interpretive Data: I NR results are specifically intended to assess patients stabilized on long-term Anticoagulation therapy suggested INR s Less Intensive Anticoagulation 2.0 3.0 Conventional Range 3.0 4.5 PT Coag (PPP) [Time] 12.9 s High 9.4 - 1 2.5 second(s) [facility] Auto Coag Comment on above: Interpretive Data: [...] the same coagulation reagent and instrumentation as [facility]. Currently there are no coagulation studies available [...] Interpretation Code Negative [facility] UA Auto SS [place].plasma/Lithiu m.RBC (Bld) [Mass ratio] 21-30 /HPF Invalid [...] [facility] UA Auto SS Urobilinogen Qn (U) 1.7298838 {Iglesia'U}/dL Normal 0.0 - 1.0 EU/dL [facility] [...] Cefepime MARLA [Susc] 50,000 cfu/ml Proteus mirabilis [facility] CHEMISTRYOrdered By: Meg Elliott on 04-10-2023 Troponin [...] Sensitivity Troponin I Instructions For Use, [employer] [place], January 2018) CHEMISTRYOrdered By: SYSTEM SYSTEM on [...] 62 mL/min/1.73 m2 Normal >=59mL/min/1 .73 m2 [facility] Chem S Comment on above: Interpretive Data: [...] Vince on 04-10-2023 Proteus mirabilis Proteus mirabilis [facility] HEMATOLOGYOrdered By: SYSTEM SYSTEM on 04-10-2023 Basophils/100 [...] PM) Normal Negative [facility] UA Auto SS [place].plasma/Lithiu m.RBC (Bld) [Mass ratio] 0-3 /HPF Normal [...] ta ected specimen collection Urobilinogen Qn (U) 4.1852449 {Iglesia'U}/dL Invalid Interpretation Code 0.0 - 1.0 EU/dL [facility] UA Auto SS WBC Auto Ql (U) Trace *ABN* (04/10/23 7:18 PM) Invalid Interpretation Code Negative [facility] UA Auto SS WBC LM.HPF (Urine sed) [#/Area] 26-30 /HPF Invalid Interpretation Code 0-5/HPF [facility] UA Auto SS Miguel 03-23-2023 DINORAHN Telephone (NE50MN) PABLO ORDONEZ ([id number]) 1955 F Date Time Provider Department 03/23/23 WILBERTO SOSA NE50MN During your visit today, we recorded the following information about you: Judy Field 03/23/2023 12:33 PM Signed Form received: From (agency / facility / parent): Home garcia fleet salesperson (if given): Pablo Ordonez Phone #: [phone] (home) Fax # : [phone] Email: Information requested: physician order form Patient of Andres Romeo RN 03/24/2023 4:26 PM Signed Form routed to Dr. Sosa for signature thru docusign One copy faxed to Day [phone] Andres Cortez RN Allergies As of Date: [...] Status:Closed by ANDRES CORTEZ on 03/24/23 Normal [facility] CHEMISTRYOrdered By: SYSTEM SYSTEM on 02-15-2023 Anion [...] 11-19-2022 CNOV Office Visit (NE50MN) PABLO ORDONEZ ([id number]) 1955 F Date Time Provider Department 11/19/22 2:00 PM WILBERTO SOSA NE50MN During your visit today, we recorded the following information about you: Pulse Blood pressure Weight Height 78/minute 106/54 95.3 kg 1.676 m lA De La Cruz APRN.CNP 11/20/2022 12:16 PM Signed [facility] Patient Name: Pablo Ordonez Date of : 1955 ESTABLISHED EPILEPSY CLINIC NOTE 11/19/2022 2:00 PM Reason for Visit: Established Patient, Follow Up, and Side Effect Management Clinical Summary: Ms. Ordonez is a 67 year old left-handed Unclear (writes with left; eats with right) female seen in [facility]. At today's visit, the patient [...] 28mg twice daily. She lives in a shelter and is a wolf of the [facility]. Her neurologist is Daniel Diaz MD. Interval [...] daily) Alexe (more content not included)... Normal [facility] 11-05-2022 [facility] Telephone (NE50MN) PABLO ORDONEZ ([id number]) 1955 F Date Time Provider Department 11/05/22 WILBERTO SOSA NE50MN During your visit today, we recorded the following information about you: Judy Askew PSS 11/05/2022 9:10 AM Signed General call : Full name of person calling: anna marcelino Relationship to patient: customer care agent Phone # : [phone] Reason for call: SHE BEEN VERY MEAN [...] was taking 400mg TID per MAR history. [facility] I spoke with patients caregiver and recommended that GBP be restarted. She verbalized agreement. JOSE MANUEL Douglas APRN.CLINICAL RESEARCH MANAGER 11/07/2022 1:56 PM Signed Patient's request for medication is as follows: Requested Prescriptions Signed Prescriptions Disp Refills gabapentin (NEURONTIN) 400 mg capsule 270 capsule 2 Sig: Take 1 capsule by mouth three times daily for 90 days. Authorizing Provider: MONICA GILMORE Approved the above prescription and sent electronically to [facility] pharmacy. Monica Gilmore APRN.CLINICAL RESEARCH MANAGER Allergies As of Date: 11/05/2022 Noted Allergy [...] Status:Closed by MONICA GILMORE on 11/07/22 Normal [facility] CNDSon 10-08-2022 [facility] HNO ID: [id number] Author: Gema Uriostegui APRN.CLINICAL RESEARCH MANAGER Service: Neurology Adult Epilepsy Author Type: Nurse Practitioner Type: Discharge Summary Filed: 10/08/2022 11:30 AM Note Text: Attestation signed by Maya Ordoñez MD at 10/08/2022 6:04 PM EPILEPSY CENTER ATTENDING NOTE Date of Service: October 08, 2022 [facility] STAFF PHYSICIAN NOTE OF PERSONAL INVOLVEMENT IN CARE I have reviewed the discharge note obtained and documented by DINORAH Uriostegui as above. Please see the separate phase report for details of history, EEG interpretation, and overall impression. The MARVA, acting on behalf of the attending physician, has completed the substantive portion of the patient discharge encounter. Maya Ordoñez MD, [facility] Staff Physician [facility] [address] [place] [address] Office My Hospital Stay and Summary This is a summary of your hospital stay. Please read it carefully and share it with your family and healthcare providers. Date of Admission: 10/05/2022 Date of Discharge: October 08, 2022 Where I Will be Going after Discharge: Home with Home Health (current weight loss consultant, Anna) My Condition at Discharge: Stable My [...] These instructions explain what you or your customer care agent need to do to continue your care at home or at another healthcare facility Please go over these instructions with your nurse and customer care agent. If you are not sure about something, [...] you can visit the web site: [email or web address] [email or web address]/ You can also download [facility]'s MyEpilepsy marva through the [employer] store. This free educational interactive iPad tool [...] and Exerci (more content not included)... Normal [facility] NURSING PROGon 10-08-2022 NURSING PROG HNO ID: [id number] Author: Brandi Hensley RN Service: ? Author Type: Registered Nurse Type: Nursing Progress Note Filed: 10/08/2022 4:44 PM Note Text: Discharge instructions presented to pt. Pt and family verbalized understanding. Pt assisted safely off the unit via staff. Normal [facility] CASE MGT INIT ASSESon 2022 CASE MGT INIT ASSES HNO ID: [id number] Author: HOMERO Nicolas Service: Social Work Author Type: Brim Greaser Operator Type: Care Mgt Initial Assessment Filed: 10/07/2022 5:12 PM Note Text: CARE MANAGEMENT: ASSESSMENT AND DISCHARGE PLAN SERVICE DATE: October 07, 2022 SERVICE TIME: 4:40 PCP: Holly Martines MD Primary Contact: Extended Emergency Contact Information Primary Emergency Contact: Anna Law Mobile Relation: Addiction Social Worker Secondary Emergency Contact: Elier Paulino Mobile Relation: None Admission Status: Inpatient Insurance Provider: MEDICARE A AND B Discharge Planning requested by: Attending Provider Potential Transition Plans Skilled Nursing/Supervised Living Advance Directives Current Advance Directive: Other [...] Post-Acute Care Goal(s): Wean off of medications [place] of Choice Explained: [place] of Choice Given: No Reason Not Given: No placements necessary Are you interested in bedside delivery of your medications? No Discharge Planning Participant(s): Patient;Guardian;Car egiver Patient/Family Comments: Caregiver Assessment: Caregiver is ready, willing and able to meet the patient's needs as recommended by the inter-professional team: Yes Name of Caregiver: Anna Thanh ([phone]) Transport at Discharge: Transportation Arrangements: Car Needs [...] caregiver, Anna. Patient is known to this service writer advisor from previous admission. Please see note from 05/16/22 and 05/20/22 for full patient history. Patient continues to reside in the shelter/apartment with one roommate. Anna continues to be her primary weight loss consultant. Anna identifies a desire to wean Pablo [...] Olvin is on medical leave and any transportation services representative on duty is able to provide consent for medical information such as medication changes made during the admission. SW will continue to follow as needed and provide updates to caregiver and APSI. SIGNATURE: HOMERO Nicolas PATIENT NAME: Pablo Ordonez DATE: October 07, 2022 TIME: 4:59 PM CONTACT #: [id number] Normal [facility] CBC W Auto Differential pane l (Bld)on 10-05-2022 Basophils (Bld) [#/Vol] 0.05 10*3/uL Normal <0.11 [facility] Comment on above: Order Comment: Speci men Type: BLOOD SPECIMENOrdering Facility: [facility] Address: [address] [address] Performed By: #### 5 7021-8 ####[facility] LABCLIA [id number] [place] [address] [place] Basophils/100 WBC (Bld) 0.6 % Normal [facility] Comment on above: Order Comment: Speci men Type: BLOOD SPECIMENOrdering Facility: [facility] Address: [address] [place] [address] Performed By: #### 5 7021-8 ####[facility] LABCLIA [id number] [place] [address] [place] Differential cell count method Nom (Bld) Auto Normal [facility] Comment on above: Order Comment: Speci men Type: BLOOD SPECIMENOrdering Facility: [facility] Address: [address] [address] Performed By: #### 5 7021-8 ####[facility] LABCLIA [id number] [place] [address] [place] Eosinophils (Bld) [#/Vol] 0.21 10*3/uL Normal <0.46 [facility] Comment on above: Order Comment: Speci men Type: BLOOD SPECIMENOrdering Facility: [facility] Address: [address] [address] Performed By: #### 5 7021-8 ####[facility] LABCLIA [id number] [address] [place] Eosinophils/100 WBC (Bld) 2.3 % Normal [facility] Comment on above: Order Comment: Speci men Type: BLOOD SPECIMENOrdering Facility: [facility] Address: [address] Performed By: #### 5 7021-8 ####[facility] LABCLIA [id number] [place] [address] [place] Erythrocyte distribution width (RBC) [Ratio] 13.1 % Normal 11.5-15.0 [facility] Comment on above: Order Comment: Speci men Type: BLOOD SPECIMENOrdering Facility: [facility] Address: [address] Performed By: #### 5 7021-8 ####[facility] LABCLIA [id number] [address] [place] Hematocrit (Bld) [Volume fraction] 41.4 % Normal 36.0-46.0 [facility] Comment on above: Order Comment: Speci men Type: BLOOD SPECIMENOrdering Facility: [facility] Address: [address] Performed By: #### 5 7021-8 ####[facility] LABCLIA [id number] [place] [address] [place] Hemoglobin (Bld) [Mass/Vol] 13.8 g/dL Normal 11.5-15.5 [facility] Comment on above: Order Comment: Speci men Type: BLOOD SPECIMENOrdering Facility: [facility] Address: [address] [place] [address] Performed By: #### 5 7021-8 ####[facility] LABCLIA [id number] [place] [address] [place] Immature granulocytes (Bld) [#/Vol] 0.06 10*3/uL Normal <0.10 [facility] Comment on above: Order Comment: Speci men Type: BLOOD SPECIMENOrdering Facility: [facility] Address: [address] [place] [address] Performed By: #### 5 7021-8 ####[facility] LABCLIA [id number] [place] [address] [place] Immature granulocytes/100 WBC (Bld) 0.7 % Normal [facility] Comment on above: Order Comment: Speci men Type: BLOOD SPECIMENOrdering Facility: [facility] Address: [address] [place], [place] [address] Performed By: #### 5 7021-8 ####[facility] LABCLIA [id number] [place] [address] [place] Lymphocytes (Bld) [#/Vol] 4.52 10*3/uL High 1.00-4.00 [facility] Comment on above: Order Comment: Speci men Type: BLOOD SPECIMENOrdering Facility: [facility] Address: [address] [place], [place] [address] Performed By: #### 5 7021-8 ####[facility] LABCLIA [id number] [place] [address] [place] Lymphocytes/100 WBC (Bld) 50.6 % Normal [facility] Comment on above: Order Comment: Speci men Type: BLOOD SPECIMENOrdering Facility: [facility] Address: [address] [place], [place] [address] Performed By: #### 5 7021-8 ####[facility] LABIA [id number] [address] [place] MCH (RBC) [Entitic mass] 32.3 pg Normal 26.0-34.0 [facility] Comment on above: Order Comment: Speci men Type: BLOOD SPECIMENOrdering Facility: [facility] Address: [address] [place], [place] [address] Performed By: #### 5 7021-8 ####[facility] [id number] [address] [place] MCHC (RBC) [Mass/Vol] 33.3 g/dL Normal 30.5-36.0 [facility] Comment on above: Order Comment: Speci men Type: BLOOD SPECIMENOrdering Facility: [facility] Address: [address] [place], [place] [address] Performed By: #### 5 7021-8 ####[facility] [id number] [address] [place] MCV (RBC) [Entitic vol] 97.0 fL Normal 80.0-100.0 [facility] Comment on above: Order Comment: Speci men Type: BLOOD SPECIMENOrdering Facility: [facility] Address: [address] Performed By: #### 5 7021-8 ####[facility] LABIA [id number] [place] [address] [place] Monocytes (Bld) [#/Vol] 1.35 10*3/uL High <0.87 [facility] Comment on above: Order Comment: Speci men Type: BLOOD SPECIMENOrdering Facility: [facility] Address: [address] [place] [address] Performed By: #### 5 7021-8 ####[facility] LABCLIA [id number] [place] [address] [place] Monocytes/100 WBC (Bld) 15.1 % Normal [facility] Comment on above: Order Comment: Speci men Type: BLOOD SPECIMENOrdering Facility: [facility] Address: [address] Performed By: #### 5 7021-8 ####[facility] LABCLIA [id number] [place] [address] [place] Neutrophils (Bld) [#/Vol] 2.75 10*3/uL Normal 1.45-7.50 [facility] Comment on above: Order Comment: Speci men Type: BLOOD SPECIMENOrdering Facility: [facility] Address: [address] Performed By: #### 5 7021-8 ####[facility] LABCLIA [id number] [place] [address] [place] Neutrophils/100 WBC (Bld) 30.7 % Normal [facility] Comment on above: Order Comment: Speci men Type: BLOOD SPECIMENOrdering Facility: [facility] Address: [address] [place], [place] [address] Performed By: #### 5 7021-8 ####[facility] LABCLIA [id number] [place] [address] [place] Nucleated RBC (Bld) [#/Vol] 10*3/uL Normal <0.01 [facility] Comment on above: Order Comment: Speci men Type: BLOOD SPECIMENOrdering Facility: [facility] Address: [address] Performed By: #### 5 7021-8 ####[facility] LABCLIA [id number] [place] [address] [place] Nucleated RBC/100 WBC (Bld) [Ratio] 0.0 /100 WBC Normal [facility] Comment on above: Order Comment: Speci men Type: BLOOD SPECIMENOrdering Facility: [facility] Address: [address] [place], [place] [id number] Performed By: #### 5 7021-8 ####[facility] LABCLIA [id number] [place] [address] [place] Platelet mean volume (Bld) [Entitic vol] 13.0 fL High 9.0-12.7 [facility] Comment on above: Order Comment: Speci men Type: BLOOD SPECIMENOrdering Facility: [facility] Address: [address] [place], [place] [id number] Performed By: #### 5 7021-8 ####[facility] LABCLIA [id number] [place] [address] [place] Platelets (Bld) [#/Vol] 116 10*3/uL Low 150-400 [facility] Comment on above: Order Comment: Speci men Type: BLOOD SPECIMENOrdering Facility: [facility] Address: [address] [place], [place] [id number] Performed By: #### 5 7021-8 ####[facility] LABCLIA [id number] [place] [address] [place] RBC (Bld) [#/Vol] 4.27 10*6/uL Normal 3.90-5.20 [facility] Comment on above: Order Comment: Speci men Type: BLOOD SPECIMENOrdering Facility: [facility] Address: [address] [place] [phone] Performed By: #### 5 7021-8 ####[facility] LABCLIA [id number] [place] [address] [place] WBC (Bld) [#/Vol] 8.94 10*3/uL Normal 3.70-11.00 [facility] Comment on above: Order Comment: Speci men Type: BLOOD SPECIMENOrdering Facility: [facility] Address: [address] [phone] Performed By: #### 5 7021-8 ####[facility] LABCLIA [id number] [address] [address] [place] Comprehensive metabolic 2000 panelon 10-05-2022 Albumin [Mass/Vol] 3.7 g/dL Low 3.9-4.9 [facility] Comment on above: Order Comment: Speci men Type: BLOOD SPECIMENOrdering Facility: [facility] Address: [address] [phone] Performed By: #### 2 777-1, 6-3, 08087-1, ####[facility] LABCLIA [id number] [place] [address] [place] ALP [Catalytic activity/Vol] 38 U/L Normal 34-123 [facility] Comment on above: Order Comment: Speci men Type: BLOOD SPECIMENOrdering Facility: [facility] Address: [address] Performed By: #### 2 777-1, 3015-3, 29422-8, ####[facility] LABCLIA [id number] [place] [address] [place] ALT [Catalytic activity/Vol] 11 U/L Normal 7-38 [facility] Comment on above: Order Comment: Speci men Type: BLOOD SPECIMENOrdering Facility: [facility] Address: [address] [phone] Result Comment: Resu lts may be falsely increased due to interference from hemolysis. Suggest reorder as clinically indicated. Performed By: #### 2 777-1, 6-3, 62722-1, ####[facility] LABCLIA [id number] [place] [id number] [place] Anion gap [Moles/Vol] 10 mmol/L Normal 9-18 [facility] Comment on above: Order Comment: Speci men Type: BLOOD SPECIMENOrdering Facility: [facility] Address: [address] [place] [address] Performed By: #### 2 777-1, 3016-3, 16150-3, 74409-0 ####[facility] LABCLIA [id number] [place] [address] [place] AST [Catalytic activity/Vol] 28 U/L Normal 13-35 [facility] Comment on above: Order Comment: Speci men Type: BLOOD SPECIMENOrdering Facility: [facility] Address: [address] [place] [address] Result Comment: Resu lts may be falsely increased due to interference from hemolysis. Suggest reorder as clinically indicated. Performed By: #### 2 777-1, 6-3, 98012-4, ####[facility] LABCLIA [id number] [place] [address] [place] Bilirubin [Mass/Vol] 0.2 mg/dL Normal 0.2-1.3 [facility] Comment on above: Order Comment: Speci men Type: BLOOD SPECIMENOrdering Facility: [facility] Address: [address] [place] [address] Performed By: #### 2 777-1, 3015-3, , 80645-1 ####[facility] LABCLIA [id number] [place] [id number] [place] Calcium [Mass/Vol] 9.4 mg/dL Normal 8.5-10.2 [facility] Comment on above: Order Comment: Speci men Type: BLOOD SPECIMENOrdering Facility: [facility] Address: [address] [place] [address] Performed By: #### 2 777-1, 6-3, 34327-2, 56767-9 ####[facility] LABCLIA [id number] [place] [address] [place] Chloride [Moles/Vol] 106 mmol/L High 97-105 [facility] Comment on above: Order Comment: Speci men Type: BLOOD SPECIMENOrdering Facility: [facility] Address: [address] [place] [address] Performed By: #### 2 777-1, 3016-3, 12221-9, 59628-1 ####[facility] LABCLIA [id number] [place] [address] [place] CO2 [Moles/Vol] 26 mmol/L Normal 22-30 [facility] Comment on above: Order Comment: Speci men Type: BLOOD SPECIMENOrdering Facility: [facility] Address: [address] [place] [address] Performed By: #### 2 777-1, 3016-3, 25986-4, 69291-9 ####[facility] LABCLIA [id number] [place] [address] [place] Creatinine [Mass/Vol] 0.64 mg/dL Normal 0.58-0.96 [facility] Comment on above: Order Comment: Speci men Type: BLOOD SPECIMENOrdering Facility: [facility] Address: [address] [place] [address] Performed By: #### 2 777-1, 3016-3, 65854-4, 80971-4 ####[facility] LABIA [id number] [place] [address] [place] ESTIMATED GLOMERULAR FILTRATION RATE 98 mL/min/1.73m??? Normal >=60 [facility] Comment on above: Order Comment: Speci men Type: BLOOD SPECIMENOrdering Facility: [facility] Address: [address] [place] [address] Result Comment: Enedelia mated Glomerular Filtration Rate [...] GFR. Performed By: #### 2 777-1, 3016-3, 49561-6, 62203-9 ####[facility] LABCLIA [id number] [address] [address] [place] Glucose [Mass/Vol] 91 mg/dL Normal 74-99 [facility] Comment on above: Order Comment: Speci men Type: BLOOD SPECIMENOrdering Facility: [facility] Address: [address] [address] Result Comment: The [place] Diabetes Association (ADA) provides guidance for cutoff [...] Standards of Medical Care in Diabetes 2016, [place] [employer]. Diabetes Care. 2016.39(Suppl 1). Performed By: #### 2 777-1, 3016-3, 95474-9, ####[facility] LABCLIA [id number] [address] [address] [place] Potassium [Moles/Vol] Normal [facility] Comment on above: Order Comment: Speci men Type: BLOOD SPECIMENOrdering Facility: [facility] Address: [address] [phone] Result Comment: Unab le to assay due to interference from hemolysis. Suggest reorder as clinically indicated. Performed By: #### 2 777-1, 3016-3, 59781-4, ####[facility] LABCLIA [id number] [address] [address] [place] Protein [Mass/Vol] 6.0 g/dL Low 6.3-8.0 [facility] Comment on above: Order Comment: Speci men Type: BLOOD SPECIMENOrdering Facility: [facility] Address: [address] [place], [place] [phone] Performed By: #### 2 777-1, 3016-3, 21629-6, 10698-4 ####[facility] LABIA [id number] [place] [address] [place] Sodium [Moles/Vol] 142 mmol/L Normal 136-144 [facility] Comment on above: Order Comment: Speci men Type: BLOOD SPECIMENOrdering Facility: [facility] Address: [address] [place], [place] [phone] Performed By: #### 2 777-1, 3016-3, 87002-5, 85539-7 ####[facility] [id number] [place] [address] [place] Urea nitrogen [Mass/Vol] 21 mg/dL Normal 7-21 [facility] Comment on above: Order Comment: Speci men Type: BLOOD SPECIMENOrdering Facility: [facility] Address: [address] [place], [place] [phone] Performed By: #### 2 777-1, 3016-3, 74478-5, 90573-3 ####[facility] LABIA [id number] [address] [address] [place] HISTORY PHYSICALon HISTORY PHYSICAL HNO ID: [id number] Author: Wilberto Sosa MD Service: Neurology Adult Epilepsy Author Type: Physician Type: HANDP Filed: 10/06/2022 9:55 AM Note Text: NEURO EPILEPSY ADMIT NOTE SERVICE DATE: 10/05/2022 SERVICE TIME: 3:04 PM NIGHT AND WEEKEND COVERAGE: After 5 pm and over the weekends, please page [phone] to contact the epilepsy 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 Wilberto Sosa [facility]: M[facility] - Adult Epilepsy Monitoring Unit [...] 28mg twice daily. She lives in a shelter and is a wolf of the [employer]. Her neurologist is Daniel Diaz MD. EMU hospital course, 05/15/2022-05/21/2022: Pablo Ordonez is a 66 year old female who presented to the [facility] on 05/15/2022 for diagnosis. Medications [...] Infectious work up was negative. Upon DC weight loss consultant was instructed to follow up with her PCP if fever worsened. Interval history per Dr. Wilberto Sosa, 06/25/2022: She continues to have episodes of head drop and her legs come up. She may run if she is having one of these episodes. Her customer care agent, Anna, showed me a video of these [...] Episodes o (more content not included)... Normal [facility] Magnesium SerPl-mCncon 10-05 Magnesium [Mass/Vol] 2.1 mg/dL Normal 1.7-2.3 [facility] Comment on above: Order Comment: Speci men Type: BLOOD SPECIMENOrdering Facility: [facility] Address: [address] [place], [place] [phone] Performed By: #### 2 777-1, 3016-3, 82791-7, 72608-2 ####[facility] LABCLIA [id number] [place] [address] [place] NURSING PROGon 10-05-2022 NURSING PROG HNO ID: [id number] Author: Alda Rosen, JOSE MANUEL Service: Nursing Author Type: Registered Nurse Type: Nursing Progress Note Filed: 10/05/2022 3:39 PM Note Text: Patient admitted to [facility] Patients caregiver at bedside, patient is alert and oriented x 2, pleasant and cooperative, cognitive impairment noted. Patient and caregiver oriented to unit and safety protocols. Normal [facility] POTASSIUM BLDon 10-05-2022 Potassium [Moles/Vol] 4.4 mmol/L Normal 3.7-5.1 [facility] Comment on above: Order Comment: Speci men Type: BLOOD SPECIMENOrdering Facility: [facility] Address: [address] [place] [phone] Performed By: #### K 1 ####[facility] LABCLIA [id number] [address] [place] PT panel Coag (PPP)on 2022 INR Coag (PPP) [Relative time] 1.1 {INR} Normal 0.9-1.3 [facility] Comment on above: Order Comment: Speci men Type: BLOOD SPECIMENOrdering Facility: [facility] Address: [address] [place], [place] [phone] Result Comment: Elizabeth min K Antagonist (VKA) Therapeutic Range: INR 2 to 3 (Target INR of 2.5) Note: For patients treated with VKA drugs, such as warfarin, the [place] [employer] 2012 Guideline recommends [...] Chest 2012, 141:7S-47S Ernesto RA, et al. [facility] 2017, 70: 252-289 Performed By: #### 3 4528-0, 34215-8 ####[facility] [id number] [place] [address] [place] PT Coag (PPP) [Time] 11.4 s Normal 9.7-13.0 [facility] Comment on above: Order Comment: Unique jacob Type: BLOOD SPECIMENOrdering Facility: [facility] Address: [address] [place], [place] [id number] Performed By: #### 3 4528-0, 47761-6 ####[facility] [id number] [place] [address] [place] Phosphate SerPl-mCncon 10-05 Phosphate [Mass/Vol] 3.1 mg/dL Normal 2.7-4.8 [facility] Comment on above: Order Comment: Unique jacob Type: BLOOD SPECIMENOrdering Facility: [facility] Address: [address] [place], [place] [id number] Performed By: #### 2 777-1, 3016-3, 35548-1, 07775-4 ####[facility] [id number] [address] [place] SARS-CoV-2 RNA Resp Ql DOUG+p robeon 10-05-2022 SARS-CoV-2 (COVID-19) RNA DOUG+probe Ql (Resp) COVID 19 RESULT: Not detected The method used is RT-PCR or an equivalent NAAT method. Reference Range(the expected result in uninfected individuals): Not detected Normal [facility] Comment on above: Performed By: #### 9 4500-6 ####[facility] [id number] [address] [place] TSH SerPl-aCncon 10-05-2022 TSH Qn 0.488 m[IU]/L Normal 0.270-4.200 [facility] Comment on above: Order Comment: Speci men Type: BLOOD SPECIMENOrdering Facility: [facility] Address: [address] [phone] Performed By: #### 2 777-1, 3016-3, 79310-8, 90308-6 ####[facility] [id number] [address] OF [facility] Valproate Free SerPl-mCncon 10-05-2022 Valproate Free [Mass/Vol] 7.3 ug/mL Normal 4.0-30.0 [facility] Comment on above: Order Comment: Speci men Type: BLOOD SPECIMENOrdering Facility: [facility] Address: [address] [phone] Result Comment: Refe rence ranges and high/low indicator flags are provided as general guidelines only. The treating physician must determine appropriate target levels/dosing based on the specific clinical situation. This test was developed and its performance characteristics determined by [facility] Pathology and Laboratory Medicine [place] (RTPLMI). It has not been cleared or approved by the FDA. [facility] is regulated under CLIA as qualified to perform high-complexity testing. This test is used for clinical purposes. It should not be regarded as investigational or for research. Performed By: #### 4 087-3 ####[facility] LABCLIA [id number] [address] Valproate SerPl-mCncon 10-05 Valproate [Mass/Vol] 60.3 ug/mL Normal 50.0-100.0 [facility] Comment on above: Order Comment: Unique jacob Type: BLOOD SPECIMENOrdering Facility: [facility] Address: [address] [address] Result Comment: Refe rence ranges and high/low indicator flags are provided as general guidelines only. The treating physician must determine appropriate target levels/dosing based on the specific clinical situation. Performed By: #### 4 086-5 ####[facility] [id number] [address] aPTT PPPon 10-05-2022 aPTT Coag (PPP) [Time] 21.9 s Low 23.0-32.4 [facility] Comment on above: Order Comment: Unique jacob Type: BLOOD SPECIMENOrdering Facility: [facility] Address: [address] [address] Performed By: #### 3 4528-0, 26556-9 ####[facility] [id number] [address] CNOVon 09-24-2022 CNOV Office Visit (NE50MN) PABLO ORDONEZ ([id number]) 1955 F Date Time Provider Department 09/24/22 1:30 PM WILBERTO SOSA NE50MN During your visit today, we recorded the following information about you: Pulse Blood pressure Weight Height 95/minute 136/105 93 kg 1.676 graham Panchal PA-C 09/25/2022 9:32 AM Signed [facility] Patient Name: Pablo Ordonez Date of : 1955 Referring Provider: SELF ESTABLISHED EPILEPSY CLINIC NOTE 09/24/2022 1:30 PM Reason for Visit: Established Patient, Follow Up, and Epilepsy Clinical Summary: Ms. Ordonez is a 67 year old left-handed Unclear (writes with left; eats with right) female seen in [facility]. At today's visit, the patient [...] 28mg twice daily. She lives in a shelter and is a wolf of the [employer]. Her neurologist is Daniel Diaz MD. Interval [...] 1 to (more content not included)... Normal [facility] URINALYSISOrdered By: Hu lowery on 04-11-2022 Bilirubin [...] Interpretation Code Negative [facility] UA Auto SS [place].plasma/Lithiu m.RBC (Bld) [Mass ratio] 0-3 /HPF Normal [...] [facility] UA Auto SS Urobilinogen Qn (U) 0.7079607 {Iglesia'U}/dL Normal 0.0 - 1.0 EU/dL [facility] [...] rate/Area] mL/min/1.73 m2 Normal >=59mL/min/1 .73 m2 [facility] Chem S GFR/1.73 sq M.predicted among non-blacks MDRD (S/P/Bld) [Vol rate/Area] mL/min/1.73 m2 Normal >=59mL/min/1 .73 m2 [facility] Chem S Globulin (S) [Mass/Vol] 3.2 g/dL [...] PM) Normal Negative [facility] UA Auto SS [place].plasma/Lithiu m.RBC (Bld) [Mass ratio] 0-3 /HPF Normal 0-3/HPF [facility]A Auto SS Mucus Ql (Urine sed) Trace (10/14/21 8:03 PM) Normal [facility]A Auto SS Nitrite Ql (U) Negative (10/14/21 8:03 PM) Normal Negative [facility] UA Auto SS pH (U) 5.5 *NA* (10/14/21 8:03 PM) Invalid Interpretation Code 5.0 - 9.0 [facility] UA Auto SS Protein (U) [Mass/Vol] Negative (10/14/21 8:03 PM) Normal Negative [facility] UA Auto SS Specific gravity (U) [Rel density] >=1.030 *NA* (10/14/21 8:03 PM) Invalid Interpretation Code 1.005 - 1.030 [facility] UA Auto SS UA Spec Desc Clean Catch (10/14/21 8:03 PM) Normal [facility] UA Auto SS Urobilinogen Qn (U) 0.8868663 {Iglesia'U}/dL Normal 0.0 - 1.0 EU/dL FT [...] POS Ctl Pass (06/20/21 9:54 AM) Normal [facility] Man Sero SARS-CoV+SARS-CoV-2 (COVID-19) Ag IA.rapid Ql (Resp) Detected 1 *CRIT* (06/20/21 9:54 AM) Invalid Interpretation Code Not Detected [facility] Comment on above: Result Comment: no c all new covid protocol Vital Signs Date Time Vital Sign Value Performing Clinician Facility 06-18-2023 18:45-0500 Diastolic blood pressure 60 mm[Hg] [facility] 06-18-2023 18:45-0500 Heart rate 68 /min [facility] 06-18-2023 18:45-0500 Mean blood pressure 82 mm[Hg] [facility] 06-18-2023 18:45-0500 Respiratory rate 16 /min [facility] 06-18-2023 18:45-0500 SaO2% (BldA) [Mass fraction] 93 % [facility] 06-18-2023 18:45-0500 Systolic blood pressure 127 mm[Hg] [facility] 06-18-2023 18:00-0500 Diastolic blood pressure 52 mm[Hg] [facility] 06-18-2023 18:00-0500 Heart rate 74 /min [facility] 06-18-2023 18:00-0500 Mean blood pressure 77 mm[Hg] [facility] 06-18-2023 18:00-0500 SaO2% (BldA) [Mass fraction] 94 % [facility] 06-18-2023 18:00-0500 Systolic blood pressure 128 mm[Hg] [facility] 06-18-2023 17:00-0500 Diastolic blood pressure 56 mm[Hg] [facility] 06-18-2023 17:00-0500 Heart rate 67 /min [facility] 06-18-2023 17:00-0500 Respiratory rate 18 /min [facility] 06-18-2023 17:00-0500 SaO2% (BldA) [Mass fraction] 96 % [facility] 06-18-2023 17:00-0500 Systolic blood pressure 119 mm[Hg] [facility] 06-18-2023 10:18-0500 Body temperature 97.88 [degF] [facility] 06-18-2023 10:18-0500 Heart rate 72 /min [facility] 06-17-2023 22:00-0500 Hourly Rounding Tacho Meyer [facility] 06-17-2023 22:00-0500 Promise to Return Tacho Mitch [facility] 06-17-2023 21:45-0500 Diastolic blood pressure 55 mm[Hg] Tacho Mitch [facility] 06-17-2023 21:45-0500 Heart rate 79 /min Tacho Mitch [facility] 06-17-2023 21:45-0500 Mean blood pressure 80 mm[Hg] Tacho Mitch [facility] 06-17-2023 21:45-0500 Respiratory rate 18 /min Tacho Mitch [facility] 06-17-2023 21:45-0500 SaO2% (BldA) [Mass fraction] 95 % Tacho Mitch [facility] 06-17-2023 21:45-0500 Systolic blood pressure 129 mm[Hg] Tacho Mitch [facility] 06-17-2023 21:00-0500 Diastolic blood pressure 66 mm[Hg] Tacho Mitch [facility] 06-17-2023 21:00-0500 Hourly Rounding Tacho Mitch [facility] 06-17-2023 21:00-0500 Mean blood pressure 86 mm[Hg] Tacho Mitch [facility] 06-17-2023 21:00-0500 Promise to Return Tacho Mitch [facility] 06-17-2023 21:00-0500 Systolic blood pressure 125 mm[Hg] Tacho Mitch [facility] 06-17-2023 20:00-0500 Diastolic blood pressure 51 mm[Hg] Tacho Mitch [facility] 06-17-2023 20:00-0500 Heart rate 80 /min Tacho Meyer [facility] 06-17-2023 20:00-0500 Hourly Rounding Tacho Meyer [facility] 06-17-2023 20:00-0500 Mean blood pressure 73 mm[Hg] Tacho Mitch [facility] 06-17-2023 20:00-0500 Promise to Return Tacho Meyer [facility] 06-17-2023 20:00-0500 SaO2% (BldA) [Mass fraction] 94 % Tacho Meyer [facility] 06-17-2023 20:00-0500 Systolic blood pressure 118 mm[Hg] Tacho Mitch [facility] 06-17-2023 17:21-0500 Body temperature 98.24 [degF] Tacho Mitch [facility] 06-17-2023 17:21-0500 Heart rate 83 /min Tacho Meyer [facility] 05-18-2023 10:21-0500 Blood Pressure Location Sukh KAPLE [facility] 05-18-2023 10:21-0500 Body temperature 98.6 [degF] Sukh KAPLE [facility] 05-18-2023 10:21-0500 Diastolic blood pressure 72 mm[Hg] Sukh KAPLE [facility] 05-18-2023 10:21-0500 Heart rate 74 /min Sukh KAPLE [facility] 05-18-2023 10:21-0500 Respiratory rate 18 /min Sukh KAPLE [facility] 05-18-2023 10:21-0500 SaO2% (BldA) [Mass fraction] 100 % Sukh KAPLE [facility] 05-18-2023 10:21-0500 Systolic blood pressure 122 mm[Hg] Sukh KAPLE [facility] 05-03-2023 16:15-0500 Diastolic blood pressure 70 mm[Hg] Tacho Mitch [facility] 05-03-2023 16:15-0500 Heart rate 79 /min Tacho Mitch [facility] 05-03-2023 16:15-0500 Mean blood pressure 95 mm[Hg] Tacho Mitch [facility] 05-03-2023 16:15-0500 Respiratory rate 18 /min Tacho Mitch [facility] 05-03-2023 16:15-0500 SaO2% (BldA) [Mass fraction] 98 % Tacho Mitch [facility] 05-03-2023 16:15-0500 Systolic blood pressure 145 mm[Hg] Tacho Mitch [facility] 05-03-2023 15:15-0500 Diastolic blood pressure 75 mm[Hg] Tacho Mitch [facility] 05-03-2023 15:15-0500 Heart rate 80 /min Tacho Mitch [facility] 05-03-2023 15:15-0500 Hourly Rounding Tacho Mitch [facility] 05-03-2023 15:15-0500 Mean blood pressure 96 mm[Hg] Tacho Mitch [facility] 05-03-2023 15:15-0500 Promise to Return Tacho Mitch [facility] 05-03-2023 15:15-0500 Respiratory rate 18 /min Tacho Mitch [facility] 05-03-2023 15:15-0500 SaO2% (BldA) [Mass fraction] 98 % Tacho Mitch [facility] 05-03-2023 15:15-0500 Systolic blood pressure 138 mm[Hg] Tacho Mitch [facility] 05-03-2023 14:15-0500 Diastolic blood pressure 73 mm[Hg] Tacho Mitch [facility] 05-03-2023 14:15-0500 Heart rate 83 /min Tacho Mitch [facility] 05-03-2023 14:15-0500 Hourly Rounding Tacho Mitch [facility] 05-03-2023 14:15-0500 Mean blood pressure 97 mm[Hg] Tacho Mitch [facility] 05-03-2023 14:15-0500 Promise to Return Tacho Mitch [facility] 05-03-2023 14:15-0500 Respiratory rate 18 /min Tacho Meyer [facility] 05-03-2023 14:15-0500 SaO2% (BldA) [Mass fraction] 96 % Tacho Meyer [facility] 05-03-2023 14:15-0500 Systolic blood pressure 145 mm[Hg] Tacho Meyer [facility] 05-03-2023 13:15-0500 Body temperature 98.96 [degF] Tacho Meyer [facility] 05-03-2023 13:15-0500 Heart rate 72 /min Tacho Meyer [facility] 04-23-2023 13:39-0500 Blood Pressure Location Skuh KAPLE [facility] 04-23-2023 13:39-0500 Body temperature 98.96 [degF] Sukh KAPLE [facility] 04-23-2023 13:39-0500 Diastolic blood pressure 64 mm[Hg] Sukh KAPLE [facility] 04-23-2023 13:39-0500 Heart rate 87 /min Sukh KAPLE [facility] 04-23-2023 13:39-0500 Respiratory rate 16 /min Sukh KAPLE [facility] 04-23-2023 13:39-0500 SaO2% (BldA) [Mass fraction] 95 % Sukh KAPLE [facility] 04-23-2023 13:39-0500 Systolic blood pressure 122 mm[Hg] Sukh KAPLE [facility] 04-23-2023 13:04-0500 Blood Pressure Location Sukh KAPLE [facility] 04-23-2023 13:04-0500 Body temperature 98.96 [degF] Sukh KAPLE [facility] 04-23-2023 13:04-0500 Diastolic blood pressure 64 mm[Hg] Sukh KAPLE [facility] 04-23-2023 13:04-0500 Heart rate 87 /min Sukh KAPLE [facility] 04-23-2023 13:04-0500 Systolic blood pressure 122 mm[Hg] Sukh KAPLE [facility] 04-13-2023 11:33-0400 Heart rate 83 /min [facility] 04-13-2023 11:33-0400 SaO2% (BldA) [Mass fraction] 95 % [facility] 04-13-2023 11:32-0400 Body temperature 97.7 [degF] [facility] 04-13-2023 11:32-0400 Diastolic blood pressure 74 mm[Hg] [facility] 04-13-2023 11:32-0400 Mean blood pressure 93 mm[Hg] [facility] 04-13-2023 11:32-0400 Systolic blood pressure 131 mm[Hg] [facility] 04-13-2023 10:00-0400 Hourly Rounding [facility] 04-13-2023 10:00-0400 Promise to Return [facility] 04-13-2023 09:00-0400 Hourly Rounding [facility] 04-13-2023 09:00-0400 Promise to Return [facility] 04-13-2023 08:00-0400 Promise to Return [facility] 04-13-2023 07:58-0400 Heart rate 76 /min [facility] 04-13-2023 07:58-0400 SaO2% (BldA) [Mass fraction] 94 % [facility] 04-13-2023 07:57-0400 Body temperature 98.06 [degF] [facility] 04-13-2023 07:57-0400 Diastolic blood pressure 69 mm[Hg] [facility] 04-13-2023 07:57-0400 Mean blood pressure 80 mm[Hg] [facility] 04-13-2023 07:57-0400 Systolic blood pressure 104 mm[Hg] [facility] 04-13-2023 01:00-0400 Body temperature 98.24 [degF] [facility] 04-13-2023 01:00-0400 Diastolic blood pressure 78 mm[Hg] [facility] 04-13-2023 01:00-0400 Heart rate 72 /min [facility] 04-13-2023 01:00-0400 SaO2% (BldA) [Mass fraction] 95 % [facility] 04-13-2023 01:00-0400 Systolic blood pressure 132 mm[Hg] [facility] 04-12-2023 21:15-0400 Blood Pressure Location [facility] 04-12-2023 21:15-0400 Body temperature 97.88 [degF] [facility] 04-12-2023 21:15-0400 Respiratory rate 16 /min [facility] 04-12-2023 16:43-0400 Mean blood pressure 85 mm[Hg] [facility] 04-12-2023 16:43-0400 Body temperature 97.88 [degF] [facility] 04-12-2023 08:00-0400 Body temperature 98.6 [degF] [facility] 04-12-2023 08:00-0400 Heart rate 74 /min [facility] 04-12-2023 08:00-0400 Mean blood pressure 89 mm[Hg] [facility] 04-11-2023 20:15-0400 Mean blood pressure 93 mm[Hg] [facility] 04-11-2023 06:00-0400 Mean blood pressure 101 mm[Hg] [facility] 04-10-2023 17:15-0400 Heart rate 84 /min [facility] 03-27-2023 12:47-0400 Blood Pressure Location Sukh KAPLE [facility] 03-27-2023 12:47-0400 Body temperature 98.42 [degF] Sukh KAPLE [facility] 03-27-2023 12:47-0400 Diastolic blood pressure 70 mm[Hg] Sukh KAPLE [facility] 03-27-2023 12:47-0400 Heart rate 61 /min Sukh KAPLE [facility] 03-27-2023 12:47-0400 Respiratory rate 16 /min Sukh KAPLE [facility] 03-27-2023 12:47-0400 SaO2% (BldA) [Mass fraction] 95 % Sukh KAPLE [facility] 03-27-2023 12:47-0400 Systolic blood pressure 120 mm[Hg] Sukh KAPLE [facility] 03-18-2023 11:12-0400 Body temperature 98.42 [degF] [facility] 03-18-2023 11:12-0400 Diastolic blood pressure 73 mm[Hg] [facility] 03-18-2023 11:12-0400 Heart rate 63 /min [facility] 03-18-2023 11:12-0400 Respiratory rate 16 /min [facility] 03-18-2023 11:12-0400 SaO2% (BldA) [Mass fraction] 99 % [facility] 03-18-2023 11:12-0400 Systolic blood pressure 114 mm[Hg] [facility] 02-15-2023 11:00-0400 Hourly Rounding Hasan AMIR [facility] 02-15-2023 11:00-0400 Promise to Return Hasan AMIR [facility] 02-15-2023 10:50-0400 Heart rate 78 /min Hasan AMIR [facility] 02-15-2023 10:50-0400 SaO2% (BldA) [Mass fraction] 93 % Hasan AMIR [facility] 02-15-2023 10:50-0400 Diastolic blood pressure 55 mm[Hg] Hasan AMIR [facility] 02-15-2023 10:50-0400 Mean blood pressure 82 mm[Hg] Hasan AMIR [facility] 02-15-2023 10:50-0400 Systolic blood pressure 135 mm[Hg] Hasan AMIR [facility] 02-15-2023 10:49-0400 Body temperature 98.42 [degF] Hasan AMIR [facility] 02-15-2023 10:00-0400 Hourly Rounding Hasan AMIR [facility] 02-15-2023 10:00-0400 Promise to Return Hasan AMIR [facility] 02-15-2023 09:45-0400 Hourly Rounding Hasan AMIR [facility] 02-15-2023 09:45-0400 Promise to Return Hasan AMIR [facility] 02-15-2023 07:41-0400 Heart rate 62 /min Hasan AMIR [facility] 02-15-2023 07:41-0400 SaO2% (BldA) [Mass fraction] 97 % Hasan AMIR [facility] 02-15-2023 07:40-0400 Diastolic blood pressure 66 mm[Hg] Hasan AMIR [facility] 02-15-2023 07:40-0400 Mean blood pressure 93 mm[Hg] Hasan AMIR [facility] 02-15-2023 07:40-0400 Systolic blood pressure 147 mm[Hg] Hasan AMIR [facility] 02-15-2023 07:40-0400 Body temperature 98.24 [degF] Hasan AMIR [facility] 02-15-2023 07:00-0400 Respiratory rate 18 /min Hasan AMIR [facility] 02-15-2023 00:02-0400 Blood Pressure Location Hasan AMIR [facility] 02-15-2023 00:02-0400 Body temperature 98.78 [degF] Hasan AMIR [facility] 02-15-2023 00:02-0400 Diastolic blood pressure 79 mm[Hg] Hasan AMIR [facility] 02-15-2023 00:02-0400 Heart rate 90 /min Hasan AMIR [facility] 02-15-2023 00:02-0400 SaO2% (BldA) [Mass fraction] 93 % Hasan AMIR [facility] 02-15-2023 00:02-0400 Systolic blood pressure 127 mm[Hg] Hasan AMIR [facility] 02-14-2023 19:30-0400 Body temperature 97.7 [degF] Hasan AMIR [facility] 02-14-2023 19:30-0400 Mean blood pressure 97 mm[Hg] Hasan AMIR [facility] 02-14-2023 16:00-0400 Respiratory rate 17 /min Hasan AMIR [facility] 02-14-2023 11:40-0400 Respiratory rate 18 /min Hasan AMIR [facility] 02-13-2023 00:45-0400 Blood Pressure Location Hasan AMIR [facility] 02-13-2023 00:45-0400 Body temperature 98.24 [degF] Hasan AMIR [facility] 02-13-2023 00:45-0400 Mean blood pressure 81 mm[Hg] Hasan AMIR [facility] 02-11-2023 16:00-0400 Body temperature 98.06 [degF] Hasan AMIR [facility] 02-11-2023 13:25-0400 Heart rate 67 /min Hasan AMIR [facility] 02-11-2023 12:29-0400 Mean blood pressure 81 mm[Hg] Hasan AMIR [facility] 02-11-2023 11:30-0400 Mean blood pressure 81 mm[Hg] Hasan AMIR [facility] 02-11-2023 07:10-0400 Heart rate 68 /min Hasan AMIR [facility] 02-03-2023 13:28-0400 Blood Pressure Location Sukh KAPLE [facility] 02-03-2023 13:28-0400 Body temperature 97.7 [degF] Sukh KAPLE [facility] 02-03-2023 13:28-0400 Diastolic blood pressure 78 mm[Hg] Sukh KAPLE [facility] 02-03-2023 13:28-0400 Heart rate 79 /min Sukh KAPLE [facility] 02-03-2023 13:28-0400 Respiratory rate 18 /min Sukh KAPLE [facility] 02-03-2023 13:28-0400 SaO2% (BldA) [Mass fraction] 98 % Sukh KAPLE [facility] 02-03-2023 13:28-0400 Systolic blood pressure 128 mm[Hg] Sukh KAPLE [facility] 01-15-2023 12:59-0400 Blood Pressure Location Marta Joaquin [facility] 01-15-2023 12:59-0400 Diastolic blood pressure 76 mm[Hg] Marta Joaquin [facility] 01-15-2023 12:59-0400 Heart rate 84 /min Marta Joaquin [facility] 01-15-2023 12:59-0400 Respiratory rate 18 /min Marta Joaquin [facility] 01-15-2023 12:59-0400 SaO2% (BldA) [Mass fraction] 94 % Marta Joaquin [facility] 01-15-2023 12:59-0400 Systolic blood pressure 118 mm[Hg] Marta Joaquin [facility] 09-02-2022 10:58-0400 Blood Pressure Location Sukh KAPLE [facility] 09-02-2022 10:58-0400 Body temperature 97.7 [degF] Sukh KAPLE [facility] 09-02-2022 10:58-0400 Diastolic blood pressure 72 mm[Hg] Sukh KAPLE [facility] 09-02-2022 10:58-0400 Heart rate 82 /min Sukh KAPLE [facility] 09-02-2022 10:58-0400 Respiratory rate 18 /min Sukh KAPLE [facility] 09-02-2022 10:58-0400 SaO2% (BldA) [Mass fraction] 97 % Sukh KAPLE [facility] 09-02-2022 10:58-0400 Systolic blood pressure 124 mm[Hg] Sukh KAPLE [facility] 06-25-2022 13:10-0500 Body height 167.6 cm Wilberto Sosa MD Work Phone: [facility] 06-25-2022 13:10-0500 Diastolic blood pressure 64 mm[Hg] Wilberto Sosa MD Work Phone: [facility] 06-25-2022 13:10-0500 Heart rate 85 /min Wilberto Sosa MD Work Phone: [facility] 06-25-2022 13:10-0500 Respiratory rate 15 /min Wilberto Sosa MD Work Phone: [facility] 06-25-2022 13:10-0500 SaO2% (BldA) [Mass fraction] 95 % Wilberto Sosa MD Work Phone: [facility] 06-25-2022 13:10-0500 Systolic blood pressure 117 mm[Hg] Wilberto Sosa MD Work Phone: [facility] 05-15-2022 12:49-0500 Body height 167.6 cm Con Jean Baptiste MD Work Phone: [facility] 05-15-2022 12:49-0500 Diastolic blood pressure 66 mm[Hg] Con Jean Baptiste MD Work Phone: [facility] 05-15-2022 12:49-0500 Heart rate 80 /min Con Jean Baptiste MD Work Phone: [facility] 05-15-2022 12:49-0500 Respiratory rate 18 /min Con Jean Baptiste MD Work Phone: [facility] 05-15-2022 12:49-0500 SaO2% (BldA) [Mass fraction] 96 % Con Jean Baptiste MD Work Phone: [facility] 05-15-2022 12:49-0500 Systolic blood pressure 130 mm[Hg] Con Jean Baptiste MD Work Phone: [facility] 04-08-2022 14:22-0400 Blood Pressure Location Sukh JOHN [facility] 04-08-2022 14:22-0400 Body temperature 98.24 [degF] Sukh KAPLE [facility] 04-08-2022 14:22-0400 Diastolic blood pressure 72 mm[Hg] Sukh KAPLE [facility] 04-08-2022 14:22-0400 Heart rate 82 /min Sukh KAPLE [facility] 04-08-2022 14:22-0400 Respiratory rate 18 /min Sukh KAPLE [facility] 04-08-2022 14:22-0400 SaO2% (BldA) [Mass fraction] 95 % Sukh KAPLE [facility] 04-08-2022 14:22-0400 Systolic blood pressure 128 mm[Hg] Sukh KAPLE [facility] 03-31-2022 15:42-0400 Body temperature 98.24 [degF] [facility] 03-31-2022 15:42-0400 Diastolic blood pressure 85 mm[Hg] [facility] 03-31-2022 15:42-0400 Heart rate 73 /min [facility] 03-31-2022 15:42-0400 Respiratory rate 18 /min [facility] 03-31-2022 15:42-0400 SaO2% (BldA) [Mass fraction] 97 % [facility] 03-31-2022 15:42-0400 Systolic blood pressure 133 mm[Hg] [facility] 10-29-2021 13:30-0400 Body temperature 98.6 [degF] Sukh KAPLE [facility] 10-29-2021 13:30-0400 Diastolic blood pressure 64 mm[Hg] Sukh KAPLE [facility] 10-29-2021 13:30-0400 Heart rate 83 /min Sukh KAPLE [facility] 10-29-2021 13:30-0400 Respiratory rate 18 /min Sukh KAPLE [facility] 10-29-2021 13:30-0400 SaO2% (BldA) [Mass fraction] 95 % Sukh KAPLE [facility] 10-29-2021 13:30-0400 Systolic blood pressure 118 mm[Hg] Sukh KAPLE [facility] 10-17-2021 12:08-0400 Blood Pressure Location Ronobir RED [facility] 10-17-2021 12:08-0400 Body temperature 99.5 [degF] Ronobir RED [facility] 10-17-2021 12:08-0400 BP/Pulse Patient Position Ronobir RED [facility] 10-17-2021 12:08-0400 Diastolic blood pressure 77 mm[Hg] Ronobir RED [facility] 10-17-2021 12:08-0400 Heart rate 89 /min Ronobir RED [facility] 10-17-2021 12:08-0400 Mean blood pressure 98 mm[Hg] Ronobir RED [facility] 10-17-2021 12:08-0400 Respiratory rate 18 /min Ronobir RED [facility] 10-17-2021 12:08-0400 SaO2% (BldA) [Mass fraction] 95 % Ronobir RED [facility] 10-17-2021 12:08-0400 Systolic blood pressure 139 mm[Hg] Ronobir RED [facility] 10-17-2021 10:00-0400 Hourly Rounding Ronobir RED [facility] 10-17-2021 10:00-0400 Promise to Return Ronobir RED [facility] 10-17-2021 08:10-0400 Blood Pressure Location Ronobir RED [facility] 10-17-2021 08:10-0400 Body temperature 99.14 [degF] Ronobir RED [facility] 10-17-2021 08:10-0400 BP/Pulse Patient Position Ronobir RED [facility] 10-17-2021 08:10-0400 Diastolic blood pressure 78 mm[Hg] Ronobir RED [facility] 10-17-2021 08:10-0400 Heart rate 80 /min Ronobir RED [facility] 10-17-2021 08:10-0400 Mean blood pressure 94 mm[Hg] Ronobir RED [facility] 10-17-2021 08:10-0400 Respiratory rate 16 /min Ronobir RED [facility] 10-17-2021 08:10-0400 SaO2% (BldA) [Mass fraction] 93 % Ronobir RED [facility] 10-17-2021 08:10-0400 Systolic blood pressure 128 mm[Hg] Ronobir RED [facility] 10-17-2021 00:15-0400 Blood Pressure Location Ronobir RED [facility] 10-17-2021 00:15-0400 Body temperature 98.96 [degF] Ronobir RED [facility] 10-17-2021 00:15-0400 BP/Pulse Patient Position Ronobir RED [facility] 10-17-2021 00:15-0400 Diastolic blood pressure 71 mm[Hg] Ronobir RED [facility] 10-17-2021 00:15-0400 Heart rate 91 /min Ronobir RED [facility] 10-17-2021 00:15-0400 Mean blood pressure 88 mm[Hg] Ronobir RED [facility] 10-17-2021 00:15-0400 Respiratory rate 18 /min Ronobir RED [facility] 10-17-2021 00:15-0400 SaO2% (BldA) [Mass fraction] 94 % Ronobir RED [facility] 10-17-2021 00:15-0400 Systolic blood pressure 123 mm[Hg] Ronobir RED [facility] 10-16-2021 19:48-0400 Body temperature 98.6 [degF] Ronobir RED [facility] 10-16-2021 19:48-0400 Mean blood pressure 105 mm[Hg] Ronobir RED [facility] 10-16-2021 01:34-0400 Mean blood pressure 91 mm[Hg] Ronobir RED [facility] 10-15-2021 17:00-0400 Mean blood pressure 92 mm[Hg] Ronobir RED [facility] 10-14-2021 22:34-0400 Heart rate 73 /min Ronobir RED [facility] 10-14-2021 20:00-0400 Respiratory rate 22 /min Ronobir RED [facility] 10-14-2021 19:00-0400 Respiratory rate 17 /min Ronobir RED [facility] 10-14-2021 16:58-0400 Heart rate 84 /min Ronobir RED [facility] 10-14-2021 15:26-0400 Blood Pressure Location Sukh KAPLE [facility] 10-14-2021 15:26-0400 Body temperature 98.24 [degF] Sukh KAPLE [facility] 10-14-2021 15:26-0400 Diastolic blood pressure 62 mm[Hg] Sukh KAPLE [facility] 10-14-2021 15:26-0400 Heart rate 84 /min Sukh KAPLE [facility] 10-14-2021 15:26-0400 Respiratory rate 16 /min Sukh KAPLE [facility] 10-14-2021 15:26-0400 SaO2% (BldA) [Mass fraction] 96 % Sukh BILLYADELAIDE [facility] 10-14-2021 15:26-0400 Systolic blood pressure 112 mm[Hg] Sukh JOHN [facility] Encounters Encounter Date Encounter Type Care Provider Facility Start: 12-15-2024 ambulatory Guillermo Telles [facility]vonda:[facility] Start: 11-15-2024 End: 11-15-2024 ambulatory [facility] Start: 11-04-2024 End: 11-06-2024 Subsequent hospital visit by physician [facility] Ultrasound Room [facility] Ultrasound Comment on above: Abnormal mammogram Start: 11-04-2024 End: 11-06-2024 ambulatory [facility] Start: 10-19-2024 End: 10-21-2024 ambulatory LEONIDES L TULIO [facility] Start: 10-19-2024 End: 10-21-2024 Subsequent hospital visit by physician [facility] Mammography Room At [facility] Mammography Comment on above: Encounter for screen ing mammogram for malignant neoplasm of breast Start: 09-28-2024 End: 09-28-2024 [facility] Start: 09-01-2024 End: 09-01-2024 ambulatory [facility]UL[facility] Start: 09-01-2024 End: 09-01-2024 Subsequent hospital visit by physician Sukh John DO Work Phone: [facility] Start: 07-30-2024 End: 07-30-2024 Emergency department patient visit [facility] Start: 07-29-2024 End: 07-30-2024 Emergency department patient visit [facility] Start: 05-09-2024 End: 05-09-2024 ambulatory LEONIDES L TULIO [facility] Start: 05-09-2024 End: 05-09-2024 Subsequent hospital visit by physician Sukh John DO Work Phone: [facility] Start: 05-04-2024 End: 05-04-2024 ambulatory LEONIDES L TULIO [facility] Start: 05-04-2024 End: 05-04-2024 Subsequent hospital visit by physician Sukh John DO Work Phone: [facility] Start: 05-02-2024 ambulatory Sukh JOHN Facility: [facility] Start: 04-14-2024 End: 04-14-2024 ambulatory LEONIDES L TULIO [facility] Start: 04-14-2024 End: 04-14-2024 Subsequent hospital visit by physician Sukh Mederos Phone: [facility] Start: 03-22-2024 End: 03-22-2024 ambulatory LEONIDES L TULIO [facility] Start: 03-22-2024 End: 03-22-2024 Subsequent hospital visit by physician Sukh John DO Work Phone: [facility] Start: 03-09-2024 End: 03-09-2024 ambulatory LEONIDES L TULIO [facility] Start: 03-09-2024 End: 03-09-2024 Subsequent hospital visit by physician Sukh John DO Work Phone: [facility] Start: 03-07-2024 End: 03-07-2024 ambulatory LEONIDES L TULIO [facility] Start: 2023 End: 2023 ambulatory SNOW G [facility] Start: 07-13-2023 End: 07-17-2023 Evaluation and management of inpatient [facility] Start: 06-18-2023 End: 06-18-2023 Emergency department patient visit Suzie Barillas [facility] Start: 06-17-2023 End: 06-17-2023 Emergency department patient visit Tacho Meyer [facility] Start: 05-18-2023 End: 05-18-2023 Patient encounter procedure Sukh JOHN [facility] Start: 05-03-2023 End: 05-03-2023 Emergency department patient visit Tacho Meyer [facility] Start: 04-23-2023 End: 04-23-2023 Patient encounter procedure Sukh JOHN [facility] Start: 04-23-2023 End: 04-23-2023 Well adult monitoring check done Sukh JOHN [facility] Start: 04-10-2023 End: 04-13-2023 Evaluation and management of inpatient Karyn Escamilla [facility] Start: 03-27-2023 End: 03-27-2023 Patient encounter procedure Sukh JOHN [facility] Start: 03-23-2023 Telephone encounter Wilberto heller MD Work Phone: Neurology Comment on above: Forms ([facility]) Start: 03-18-2023 End: 03-18-2023 Emergency department patient visit Suzie Barillas [facility] Start: 03-13-2023 End: 03-13-2023 [facility] Start: 02-18-2023 End: 02-18-2023 [facility] Start: 02-11-2023 End: 02-15-2023 Evaluation and management of inpatient Gibson ABRAHAM [facility] Start: 02-03-2023 End: 02-03-2023 Patient encounter procedure Sukh JOHN [facility] Start: 01-15-2023 End: 01-15-2023 Patient encounter procedure Marta Joaquin [facility] Start: 11-19-2022 End: 11-20-2022 ambulatory [facility] Facility:[facility] Start: 10-08-2022 End: 10-08-2022 ambulatory [facility] Facility:[facility] Start: 10-05-2022 End: 10-08-2022 Evaluation and management of inpatient [facility] Facility:[facility] Start: 09-26-2022 Refill Yusra Juilo Work Phone: [facility] [id number] Comment on above: Refill Request Start: 09-24-2022 End: 09-25-2022 ambulatory [facility] Facility:[facility] Start: 09-24-2022 Chart abstracting Melissa estrella PA-C Work Phone: Neurology Start: 09-02-2022 End: 09-02-2022 Patient encounter procedure Sukh JOHN [facility] Start: 07-08-2022 Telephone encounter Wilberto [...] End: 08-10-2022 Patient encounter procedure Sukh JOHN [facility] Start: 04-18-2022 Patient encounter procedure Amy Noble MD Work Phone: Neurology Comment on above: Generalized epilepsy (HCC) (Primary Dx) Start: 04-16-2022 Telephone encounter Amy Noble MD Work Phone: Neurology Comment on above: Future Appointment ( [place], [place], Any ) Start: 04-11-2022 End: 04-11-2022 Patient encounter procedure Sukh JOHN [facility] Start: 04-08-2022 End: 04-08-2022 Patient encounter procedure Sukh JOHN [facility] Start: 03-31-2022 End: 03-31-2022 Emergency department patient visit Suzie Barillas [facility] Start: 11-07-2021 End: 11-07-2021 Patient encounter procedure Sukh JOHN [facility] Start: 10-29-2021 End: 10-29-2021 Patient encounter procedure Sukh JOHN [facility] Start: 10-18-2021 End: 10-18-2021 [facility]-Site [facility] Start: 10-14-2021 End: 10-17-2021 Evaluation and management of inpatient Emperatriz MOON [facility] Start: 10-14-2021 End: 10-14-2021 Patient encounter procedure Sukh JOHN [facility] Start: 10-10-2021 End: 10-10-2021 Patient encounter procedure Sukh JOHN [facility] Start: 06-19-2021 End: 09-18-2021 Recurring Sukh JOHN [facility] Procedures Date Procedure Procedure Detail Performing Clinician Start: 11-04-2024 Us breast uni real t moraima with image limited Leonides Da Silva SEWING DEPARTMENT SUPERVISOR Work Phone: Start: 10-19-2024 Screening mammograph y bi 2-view breast inc cad Leonides Da Silva SEWING DEPARTMENT SUPERVISOR Work Phone: Start: 09-01-2024 Comprehensive metabo lic panel Leonides Da Silva SEWING DEPARTMENT SUPERVISOR Work Phone: Start: 09-01-2024 Lipid panel Leonides Scottie cano SEWING DEPARTMENT SUPERVISOR Work Phone: Start: 05-09-2024 Urnls dip stick/tabl et reagent auto microscopy Leonides De Leónuger SEWING DEPARTMENT SUPERVISOR Work Phone: Start: 05-04-2024 Urinalysis microscopic only Leonides De Leónuger SEWING DEPARTMENT SUPERVISOR Work Phone: Start: 05-04-2024 Urnls dip stick/tabl et rgnt auto w/o microscopy Leonides De Leónuger SEWING DEPARTMENT SUPERVISOR Work Phone: Start: 04-14-2024 Comprehensive metabo lic panel Leonides De Leónuger SEWING DEPARTMENT SUPERVISOR Work Phone: Start: 04-14-2024 Lipid panel Leonides De León uger SEWING DEPARTMENT SUPERVISOR Work Phone: Start: 03-22-2024 Urinalysis microscopic only Leonides Akersr SEWING DEPARTMENT SUPERVISOR Work Phone: Start: 03-22-2024 Urnls dip stick/tabl et rgnt auto w/o microscopy Leonides De Leónuger SEWING DEPARTMENT SUPERVISOR Work Phone: Start: 03-09-2024 Comprehensive metabo lic panel Leonides De Leónuger SEWING DEPARTMENT SUPERVISOR Work Phone: Start: 03-09-2024 Lipid panel Leonides De León uger SEWING DEPARTMENT SUPERVISOR Work Phone: Start: 03-09-2024 Urinalysis microscopic only Leonides Akersr SEWING DEPARTMENT SUPERVISOR Work Phone: Start: 03-09-2024 Urnls dip stick/tabl et rgnt auto w/o microscopy Leonides Akersr SEWING DEPARTMENT SUPERVISOR Work Phone: Start: 02-04-2019 Fracture of tibia [...] ant neoplasm of breast Breast cancer screen Simple Start: 10-05-2025 [facility] Start: 09-01-2025 Lipid panel Lipids [employer] Start: 06-01-2025 Depression Screen Depression Screen [facility] Start: 05-21-2025 DIABETES SCREEN DIABETES SCREEN [facility] Start: 05-15-2025 [facility] Start: 04-14-2025 Lipid panel Lipids [employer] Start: 03-09-2025 Lipid panel Lipids [employer] Start: 01-13-2025 Influenza vaccination Flu vacc ine (Season Ended) Simple Start: 11-04-2024 End: 11-04-2024 Patient encounter procedure [facility] Comment on above: Fax [phone] [facility] nurse [facility] Start: 09-14-2024 End: 09-14-2024 Patient encounter procedure 09/14/2024 11:00 AM EDT Appointment [facility] [address] [phone] Media/Nursing facility/[facility]. Unknown were previous mammogram was performed. Was a previous resident of [facility] Comment on above: Media/Nursing facili ty/[facility]. Unknown were previous mammogram was performed. Was a previous resident of [facility] Start: 03-07-2024 Annual Wellness Visi t (Medicare) Annual Wellness Visit (Medicare) [facility] Start: 02-14-2024 COVID-19 Vaccine ( season) COVID-19 Vaccine ( season) [facility] Start: 02-14-2024 COVID-19 Vaccine ( season) COVID-19 Vaccine ( season) [facility] Start: 01-14-2024 Influenza vaccination Flu vaccine (# 1) [facility] Start: 02-13-2023 Covid-19 Vaccine ( season) Covid-19 Vaccine ( season) [facility] Start: 02-13-2023 Influenza vaccination Influenza Vacc ine (#1) [facility] Start: 09-24-2022 End: 01-24-2023 SARS-CoV-2 (COVID-19) RNA [Presence] in Respiratory specimen by DOUG with probe detection INTERMEDIATE RAPID COVID Microbiology Routine Convulsions, unspecified convulsion type (HCC) Expected: 09/24/2022, Expires: 01/24/2023 [facility] Work Phone: Comment on above: Expected: 09/24/2022 , Expires: 01/24/2023 Start: 06-15-2022 ADVANCE DIRECTIVE DISCUSSION ADVANCE DIRECTIVE DISCUSSION [facility] Start: 04-21-2022 End: 04-21-2023 SARS-CoV-2 (COVID-19) RNA [Presence] in Respiratory specimen by DOUG with probe detection PRE-PROCEDURE & PRE-OPERATIVE COVID Microbiology Routine Generalized epilepsy (HCC) Expected: 04/21/2022, Expires: 04/21/2023 [facility] Work Phone: Comment on above: Expected: 04/21/2022 , Expires: 04/21/2023 Start: 02-13-2022 Influenza vaccination INFLUENZA (#1) [facility] Start: 2021 ADVANCE DIRECTIVE DISCUSSION ADVANCE DIRECTIVE DISCUSSION [facility] Start: 2021 BONE DENSITY BONE DENSITY [facility] Start: 2021 Bone Density Screening Bone Density Screening [facility] Start: 2021 Pneumococcal 65+ yea rs Vaccine (1 of 1 - PCV) Pneumococcal 65+ years Vaccine (1 of 1 - PCV) [facility] Start: 2021 Pneumococcal Vaccine : 65+ (1 - PCV) Pneumococcal Vaccine: 65+ (1 - PCV) [facility] Start: 2021 PNEUMOCOCCAL: 65+ (1 - PCV) PNEUMOCOCCAL: 65+ (1 - PCV) [facility] Start: 08-05-2021 COVID-19 VACCINE (5 - Booster) COVID-19 VACCINE (5 - Booster) [facility] Start: 2016 Respiratory Syncytia l Virus (RSV) or age 60 yrs+ (1 - 1-dose 60+ series) Respiratory Syncytial Virus (RSV) or age 60 yrs+ (1 - 1-dose 60+ series) [facility] Start: 2016 Respiratory Syncytia l Virus (RSV) or age 60 yrs+ (1 - Risk 60-74 years 1-dose series) Respiratory Syncytial Virus (RSV) or age 60 yrs+ (1 - Risk 60-74 years 1-dose series) [facility] Start: 08-19-2011 Screening for osteoporosis DEXA (modify frequency per FRAX score) [facility] Start: 2006 Pneumococcal 50+ yea rs Vaccine (1 of 1 - PCV) Pneumococcal 50+ years Vaccine (1 of 1 - PCV) [facility] Start: 2006 Shingles vaccine (1 of 2) Shingles vaccine (1 of 2) [facility] Start: 2006 SHINGRIX VACCINE (1 of 2) SHINGRIX VACCINE (1 of 2) [facility] Start: 2001 COLOGUARD (FIT-DNA) COLOGUARD (FIT-D NA) [facility] Start: 2001 Colonoscopy COLONOSCOPY [facility] Start: 2001 COLORECTAL CANCER SCREENING COLORECTAL CANCER SCREENING [facility] Start: [address] COLONOGRAPHY [facility] Start: 2001 FECAL OCCULT BLOOD FECAL OCCULT BLOO D [facility] Start: 2001 Lipid 1996 panel - Serum or Plasma Lipid Screening [facility] Start: 2001 LIPID SCREEN LIPID SCREEN [facility] Start: 2001 Screening for malign ant neoplasm of colon [facility] Start: 2001 SIGMOIDOSCOPY SIGMOIDOSCOPY [facility] Start: 1996 Mammography [facility] Start: 1996 Screening for malign ant neoplasm of breast Breast cancer screen Simple Start: 08-19-1975 DTaP/Tdap/Td vaccine (1 - Tdap) DTaP/Tdap/Td vaccine (1 - Tdap) [facility] Start: 08-19-1975 Urine microalbumin profile [facility] Start: 1974 ANNUAL PCP TEAM TARGETING ACQUISITION OFFICER WHITNEY DISEASE VISIT ANNUAL PCP TEAM CHRONIC DISEASE VISIT [facility] Start: 1974 HEPATITIS C SCREENING HEPATITIS C SC REENING [facility] Start: 1974 Hepatitis C screening Hepatitis C sc reen [facility] Start: 1974 HIV SCREENING HIV SCREENING [facility] Start: 1968 Depression Screen Depression Screen [facility] Start: 1966 Lipid panel Lipids [facility] [employer] End: 03-22-2024 Culture, Urine Simple Work Phone: Comment on above: Once for 1 Occurrenc es starting 03/22/2024 until 03/22/2024 End: 05-04-2024 Culture, Urine Simple Work Phone: Comment on above: Once for 1 Occurrenc es starting 05/04/2024 until 05/04/2024 End: 05-09-2024 Culture, Urine Simple Work Phone: Comment on above: Once for 1 Occurrenc es starting 05/09/2024 until 05/09/2024 End: 03-09-2024 Culture, Urine [employer] Comment on above: Once for 1 Occurrenc es starting 03/09/2024 until 03/09/2024 End: 04-21-2023 EPIL EEG LEAD PLACEMENT EPIL EEG LEAD PLACEMENT NEUROLOGY Routine Generalized epilepsy (HCC) 1 Occurrences starting 04/21/2022 until 04/21/2023 [facility] Work Phone: Comment on above: 1 Occurrences starti ng 04/21/2022 until 04/21/2023 EPIL VEEG ADMIT TO EMU/PMU EPIL VEEG ADMIT TO EMU/PMU NEUROLOGY Routine Generalized epilepsy (HCC) Ordered: 04/21/2022 [facility] Work Phone: Comment on above: Ordered: 04/21/2022 EPIL VEEG ADMIT TO EMU/PMU EPIL VEEG ADMIT TO EMU/PMU NEUROLOGY Routine Convulsions, unspecified convulsion type (HCC) Ordered: 09/24/2022 [facility] Work Phone: Comment on above: Ordered: 09/24/2022 End: 04-14-2024 Lamotrigine Level Simple Work Phone: Comment on above: Once for 1 Occurrenc es starting 04/14/2024 until 04/14/2024 End: 03-09-2024 Lamotrigine Level [employer] Work Phone: Comment on above: Once for 1 Occurrenc es starting 03/09/2024 until 03/09/2024 [facility] Immunizations Immunization Date Immunization Notes Care Provider Fa [facility] 04-23-2023 influenza, injectabl e, quadrivalent, preservative free Sukh JOHN [facility] 04-23-2023 Pneumococcal conjuga te PCV20, polysaccharide [id number] conjugate, adjuvant, PF Sukh JOHN [facility] 05-03-2022 influenza virus vaccine, unspecified formulation Sukh JOHN [facility] 06-10-2021 influenza virus vaccine, unspecified formulation Sukh JOHN [facility] 06-10-2021 SARS-CoV-2 (COVID-19 ) mRNA-1273 vaccine Sukh AlphaStripeADELAIDE [facility] 07-16-2020 SARS-CoV-2 (COVID-19 ) mRNA BNT-162b2 vax Sukh JOHN [facility] 06-28-2020 SARS-CoV-2 (COVID-19 ) mRNA BNT-162b2 vax Sukh JOHN [facility] Comment on above: Result Comment: [facility] 06-19-2020 SARS-CoV-2 (COVID-19 ) mRNA-1273 vaccine Sukh JOHN [facility] 07-18-2019 influenza, injectabl e, quadrivalent, preservative free Sukh JOHN [facility] 04-09-2009 influenza, whole; Translations: [influenza, whole] Sukh JOHN [facility] NEGATED: Highlighted row has not occurred!04-08-2022 influenza virus vaccine, unspecified formulation Sukh JOHN [facility] NEGATED: Highlighted row has not occurred!04-18-2019 influenza virus vaccine, unspecified formulation Sukh JOHN [facility] NEGATED: Highlighted row has not occurred!12-13-2014 pneumococcal polysaccharide vaccine, 23 valent Sukh JOHN [facility] NEGATED: Highlighted row has not occurred!03-26-2014 influenza, seasonal, injectable Sukh JOHN [facility] Payers Date Payer Category Payer Medicaid [facility] MEDICAID [id number] 2016-Present [phone] [address] [place] [address] Medicaid [id number] 2014 Medicaid [id number] 2014 Medicare [id number] 1989 Medicare MEDICARE MEDICAR E A AND B [id number] 1989-Present [phone] [address] [address] [place] [address] Medicare [id number] 1989 Medicare [id number] 1955 Unknown [id number] 1956 Unknown [id number] [id number] 1956 Unknown [id number] [id number]86 1956 Unknown [id number] [id number]3 1956 Unknown [id number] 2.16.840.1.496369.3.579.2.173 1956 Unknown [id number] 2.16.840.1.216290.3.579.2.173 1956 Unknown [id number] 2.16.840.1.347481.3.579.2.173 1956 Unknown [id number] 2.16.840.1.337147.3.579.2.173 1956 Unknown [id number] 2.16.840.1.600594.3.579.2.173 1956 Unknown [id number] 2.16.840.1.373549.3.579.2.173 1956 Unknown [id number] 2.16.840.1.146833.3.579.2.173 1956 Unknown [id number] 2.16.840.1.743257.3.579.2.173 1956 Unknown [id number] 2.16.840.1.585208.3.579.2.173 1956 Unknown [id number] 2.16.840.1.877485.3.579.2.1286 1956 Unknown [id number] 2.16.840.1.094693.3.579.2.1286 1956 Unknown [id number] 2.16.840.1.832034.3.579.2.1286 1956 Unknown [id number] [id number] 1956 Unknown [id number] [id number] Social History Date Type Detail Facility Start: 06-20-2021 End: 06-01-2024 Tobacco smoking status Never smoked tobacco (finding) [facility] Tobacco smoking status Never [facility] Start: 11-19-2022 End: 06-01-2024 Sex Assigned At Female [facility] Tobacco smoking status ALIS Tobacco smoking consumption unknown [facility] Start: 1955 Sex Assigned At Not on file [facility] Start: 05-15-2022 Tobacco use and exposure Smokeless tobacco non-user [facility] Start: 05-15-2022 End: 11-19-2022 Alcohol intake Lifetime non-drinker (finding) [facility] Start: 05-05-2022 End: 05-15-2022 Exposure to SARS-CoV-2 (event) Not sure [facility] Start: 05-16-2022 History SDOH Financial 4 [facility] Start: 05-16-2022 History SDOH Food Worry 1 [facility] Start: 05-16-2022 History SDOH Transport Med 2 [facility] Start: 11-19-2022 End: 06-01-2024 History of Social function [facility] (I/We) worried whether (my/our) food would run out before (I/we) got money to buy more. Never true [facility] In the past 12 months, was there a time when you were not able to pay the mortgage or rent on time? No [facility] Start: 10-28-2016 End: 06-01-2024 Alcoholic beverage intake Current non-drinker of alcohol (finding) [facility] Start: 07-25-2012 Sex Female (finding) [place] [facility] NEGATED: Highlighted rowStart: NINF History of tobacco use Passive smoker [facility] Functional Status Date Assessment Result Facility 06-18-2023 Functional Status N/A [facility] 06-17-2023 Functional Status N/A [facility] 05-18-2023 Functional Status N/A [facility] 05-03-2023 Functional Status N/A [facility] 04-23-2023 Functional Status N/A [facility] 04-10-2023 Functional Status N/A [facility] 04-10-2023 Functional Status [facility] 03-27-2023 Functional Status N/A [facility] 03-18-2023 Functional Status N/A [facility] 02-11-2023 Functional Status No [facility] 02-11-2023 Functional Status [facility] 02-03-2023 Functional Status N/A [facility] 01-15-2023 Functional Status N/A [facility] 09-02-2022 Functional Status N/A [facility] 04-08-2022 Functional Status N/A [facility] 03-31-2022 Functional Status N/A [facility] Clinical Notes 10-14-2021 to 10-19-2024 Note Date & Type Note Facility 10-19-2024 Note Bilateral breast asy mmetries. Recommend mammographic workup with possible progression to ultrasound. BIRADS: BIRADS - CATEGORY 0 Incomplete: Need Additional Imaging Evaluation OVERALL ASSESSMENT - INCOMPLETE: NEED ADDITIONAL IMAGING EVALUATION. Performing Facility: [address] [address] [facility] 07-07-2023 Note HNO ID: [id number] Author: MARK JEFF APRN.RAG INSPECTOR Service: ? Author Type: Nurse Specialist Type: Progress Notes Filed: 07/10/2023 07:09 Note Text: [facility] NOTE NAME: LORENA ORDONEZ NO.: [id number] DATE OF SERVICE: 07/07/2023 [facility] DATE OF : 1955 REASON FOR VISIT: The patient is a resident of [facility]. This is a discharge visit for recurrent falls and other medical concerns. The patient had been admitted to [facility] from [facility]. The patient originally was sent to [facility] from shelter after staff reported the patient had recurrent falls and appeared to be weak. The patient's evaluation in the emergency room was unremarkable. The patient did have events while at [facility]. The patient did have behavioral issues, yelling out and fighting with staff, swinging at staff. The patient did refuse her lab work on 2 occasions and lab work was subsequently not drawn due to patient's refusals. The patient is being looked upon to return to her shelter. The patient states does want to go [...] discharge. The patient will return back to shelter with current medications, current treatments. No labs were drawn on patient's stay at [facility]. The patient will follow with primary care physician in 7 to 10 days. The patient is authorized to be discharged home. Time spent doing discharge greater than 31 minutes. DICTATED BY: DINORAH Knott JOB# [id number] cc:[facility] 07-02-2023 Note HNO ID: [id number] Author: MARK JEFF APRN.RAG INSPECTOR Service: ? Author Type: Nurse Specialist Type: Progress Notes Filed: 07/06/2023 07:05 Note Text: [facility] NOTE NAME: LORENA ORDONEZ NO.: [id number] DATE OF SERVICE: 07/02/2023 [facility] DATE OF : 1955 REASON FOR VISIT: The patient is resident of [facility]. This is a skilled visit for [...] disability. The patient will most likely be longterm on escitalopram, hydroxyzine, lamotrigine, doxepin, and Abilify. 2. Vitamin D deficiency, on supplement. 3. Parkinson's, on carbidopa-levodopa. 4. History of cerebrovascular accident, continue to monitor for neurologic changes, on aspirin. 5. Ulcerative colitis, on Pentasa. DICTATED BY: DINORAH Knott JOB# [id number] cc:[facility] 06-25-2023 Note HNO ID: [id number] Author: MARK JEFF APRN.RAG INSPECTOR Service: ? Author Type: Nurse Specialist Type: Progress Notes Filed: 06/29/2023 06:59 Note Text: [facility] NOTE NAME: LORENA ORDONEZ NO.: [id number] DATE OF SERVICE: 06/25/2023 [facility] DATE OF : 1955 REASON FOR VISIT: The patient is a resident of [facility]. This is a skilled visit for [...] on Pentasa. DICTATED BY: DINORAH Knott JOB# [id number] cc:[facility] 06-23-2023 Note HNO ID: [id number] Author: MARK JEFF APRN.RAG INSPECTOR Service: ? Author Type: Nurse Specialist Type: Progress Notes Filed: 06/25/2023 07:01 Note Text: [facility] NOTE NAME: LORENA ORDONEZ NO.: [id number] DATE OF SERVICE: 06/23/2023 [facility] DATE OF : 1955 REASON FOR VISIT: The patient is a resident of [facility]. This is a monthly visit for [...] on Pentasa. DICTATED BY: DINORAH Knott JOB# [id number] cc:[facility] 06-19-2023 Note HNO ID: [id number] Author: LESLIE CONWAY, ? Service: ? Author Type: Physician Type: Progress Notes Filed: 06/22/2023 06:09 Note Text: [facility] NOTE NAME: LORENA ORDONEZ NO.: [id number] DATE OF SERVICE: 06/19/2023 [facility] DATE OF : 1955 New Patient History and Physical HISTORY OF PRESENT ILLNESS: The patient is a 67-year-old female who was admitted to us from a shelter via [facility] Emergency Room with a diagnosis of recurrent falls, MRDD intellectual disability, cognitive impairment, history of depression, Parkinson's disease, Crohn's disease, osteoporosis, previous cerebral infarction, degenerative osteoarthritis, vitamin D deficiency, hypothyroidism, hyperlipidemia, past history of thrombocytopenia, pedal edema, gait ataxia, and generalized weakness. She was initially sent to the emergency room by her caregiver at the shelter due to multiple recent falls. Her last [...] again, she had been living at the shelter. MEDICATIONS: Abilify 10 mg at bedtime, aspirin [...] here for long-term care. DICTATED BY: MD YORDNA Meraz/Juliocesar JOB# [id number] cc:[facility] 06-18-2023 Evaluation + Plan note Extrac alejo from: Title:ED Note Author:González Almaraz PA-C te:06/18/23 Dementia (F03.90: Unspecifie d dementia, unspecified severity, without behavioral disturbance, psychotic disturbance, mood disturbance, and anxiety) Recurrent falls (R29.6: Repeated falls) Orders: ED Physician consult Hospitalist for continued care Future Appointments Appointment Date:08/20/2023 08:40:00 AM Scheduled Provider:Sukh JOHN DO, FAAFP Location:[facility] Appointment Type: Open Appointment Date:05/02/2024 09:30:00 AM Scheduled Provider: Location:[facility] Appointment Type: Medicare Wellness Subsequent Future Scheduled Tests Laboratory* Thyroid-stimulating Immunoglobulin (TSI) 01/15/23 * UA With Cult Reflex 11/06/22 * T3 Free 01/15/23 [facility]01-04-2024 Hospital Discharge instructions Patient Education 06/17/2023 22:29:03 Urinary Tract Infection, Adult, Ajen-ea-Xyiq Urinary Tract Infection, Adult A urinary tract [...] Follow these instructions at home: Medicines Take zfor-odv-jcncnjo and prescription medicines only as told by [...] provider. Document Revised: 01/11/2021 Document Reviewed: 01/11/2021 [facility] [employer] Patient Education 2022 [employer] Follow Up Care 06/17/2023 17:13:21 With:Sukh JOHN Address: [address], [place] [address]- Business (1) When:06/20/2023 21:53:03 [facility]12-04-2023 Hospital Discharge instructions Patient Education 05/18/2023 10:42:02 [...] Treatment for this condition includes: Antibiotic medicine. Jkox-ztu-vgdiodo medicines to treat discomfort. Drinking enough water [...] Follow these instructions at home: Medicines Take rcmf-vcv-nqgqhko and prescription medicines only as told by [...] provider. Document Revised: 01/11/2021 Document Reviewed: 01/11/2021 [facility] [employer] Patient Education 2022 [employer] Follow Up Care 05/06/2023 11:22:07 With:SHARAD GRIDER FAAFP, VARUN Hinojosa, PED Address: [address], [facility] [place] [address]- When:Within 3 Month(s) [facility] 11-19-2023 Hospital Discharge instructions Patient [...] Treatment for this condition includes: Antibiotic medicine. Mgxx-mch-bwwuvro medicines to treat discomfort. Drinking enough water [...] Follow these instructions at home: Medicines Take hwsb-fpe-fnkwgzn and prescription medicines only as told by [...] provider. Document Revised: 01/11/2021 Document Reviewed: 01/11/2021 [employer] Patient Education 2022 [employer] Follow Up Care 05/03/2023 12:57:18 With:Sukh JOHN Address: [address] [place] [address] [place] [id number] [facility] (1) When:05/06/2023 16:27:56 Comments:Call the office [...] weakness, or any new or worsening symptoms. [facility]11-19-2023 Evaluation + Plan noteExtracted from: Title:ED Note Author:Tacho Meyer DO Date:07/03/22 Acute UTI (N39.0: Urinary tr act infection, site not specified) Orders: cephalexin, 500 mg = 1 cap(s), Cap, Oral, Once, Stop date 05/03/23 16:26:00 EST, STAT, Start date 05/03/23 16:26:00 EST, 05/03/23 16:26:00 EST cephalexin, 500 mg = 1 cap(s), Oral, QID, X 7 day(s), # 28 cap(s), Refills(s) 0, Pharmacy: [facility] #[id number], 157.2, cm, 05/03/23 13:21:00 EST, Height/Length Dosing, 77.4, kg, 05/03/23 13:21:00 EST, Weight Dosing Automated Diff Basic Metabolic Panel CBC w/ Auto Diff ED Cardiac Monitoring eGFR Hepatic Function Panel PT & PTT Saline Lock Insert Troponin 0 Hr. UA With Cult Reflex Urine Culture Future Appointments Appointment Date:05/19/2023 01:00:00 PM Scheduled Provider:Sukh JOHN DO, FAAFP Location:[facility] Appointment Type: Open Appointment Date:05/02/2024 09:30:00 AM Scheduled Provider: Location:[facility] Appointment Type:FM Medicare Wellness Subsequent Diagnostic Tests Pending * Urine Culture 05/03/23 Future Scheduled Tests Laboratory* Thyroid-stimulating Immunoglobulin (TSI) 01/15/23 * UA With Cult Reflex 11/06/22 * T3 Free 01/15/23 [facility]11-09-2023 Hospital Discharge instructions Patient Education 04/23/2023 14:54:18 [...] who specializes in care of the elderly (bufferer or geriatric psychiatrist). Other causes of dementia [...] Follow these instructions at home: Medicines Take jixy-lyi-jwkoaje and prescription medicines only as told by [...] such as advance directives, medical power of assistant county attorney, or a living will. Keep all [...] department or: Call your local emergency services (741 in the U.[place].). Call a suicide crisis helpline, such as the National Suicide Prevention Lifeline at or 603 in the U.S. This is open 24 hours a day in the [place]. Text the Crisis Text Line at 705418 (in the [place].S.). Summary Alzheimer's disease is [...] such as advance directives, medical power of assistant county attorney, or a living will. This information is not intended to replace advice given to you by your health care provider. Make sure you discuss any questions you have with your health care provider. Document Revised: 12/25/2021 Document Reviewed: 09/17/2020 [employer] Patient Education 2022 [employer] 04/23/2023 14:54:15 Deconditioning Deconditioning Deconditioning refers [...] any faster than directed. General instructions Take girg-esq-fmvkfqm and prescription medicines only as told by [...] provider. Document Revised: 03/24/2022 Document Reviewed: 03/24/2022 [employer] Patient Education 2022 [employer] Follow Up Care 02/03/2023 14:02:16 With:SHARAD GRIDER FAAFP, Sukh Lin, VARUN, PED Address: [place] [address]- When:Within 1 Month(s) [facility] 11-09-2023 Hospital Discharge instructions Patient [...] of the medicines you are taking, including yycg-had-hopvsls medicines. Ask your health care provider about [...] feel dizzy, tiredness (fatigue), or off-balance. Take zsdq-cvz-ztimriq and prescription medicines only as told by [...] provider. Document Revised: 10/21/2021 Document Reviewed: 10/21/2021 [employer] Patient Education 2022 [employer] 04/23/2023 14:36:05 Alzheimer's Disease Caregiver Guide Alzheimer's [...] living will and choose a power of assistant county attorney. The person with power of assistant county attorney will be able to make decisions [...] caregivers, and those who live in a fdc or care center may need more care. [...] the National Suicide Prevention Lifeline at or 414 in the U.S. This is open 24 hours a day in the [place].S. Text the Crisis Text Line at 955072 (in the [place].S.). Summary Alzheimer's disease is [...] provider. Document Revised: 12/25/2021 Document Reviewed: 09/17/2020 [employer] Patient Education 2022 [employer] 04/23/2023 14:35:42 Preventive Care 65 Years and [...] glass of hard liquor (44 mL). Lifestyle Freedom your teeth every morning and night with [...] provider. Document Revised: 11/27/2021 Document Reviewed: 11/27/2021 [employer] Patient Education 2022 [employer] [facility] 10-30-2023 Evaluation + Plan noteExtracted from: Title:Discharge Note Author:Freddy Gaitan DO Date:04/13/23 stable Discharge To, Anticipated II - Home with responsible caregiver back to Skilled Nursing Discharge Diet(s): Regular (04/13/23 10:56:00) Prescriptions Abilify [...] PM EST [address] [place] [address] [facility] (1) Additional Instructions: Keep scheduled appointment Extracted from: Title:APSO Note Author:RASHID SAINI, Mbanefo Date: 67-year-old female with history of CVA with right-sided weakness, hypothyroidism, hyperlipidemia, moderate intellectual disability, Parkinson's disease, seizure disorder presented from the shelter because of increased lethargy, syncopal episode while eating, confusion and was admitted with syncope, acute metabolic encephalopathy secondary to urinary tract infection. 1. Syncope (R55: Syncope and collapse) Likely secondary to vasovagal reflex. Cardiac enzymes are negative. Orthostatic vital signs within normal limit. Ordered: [facility] Hospital Care/Day Moderate 35 Minutes [id number] 2. Acute metabolic encephalopathy (G93.41: Metabolic encephalopathy) Secondary to urinary tract infection present on admission. Resolved. Patient is back to her baseline mentation. Ordered: [facility] Hospital Care/Day Moderate 35 Minutes [id number] 3. Acute lower urinary tract infection (N39.0: Urinary tract infection, site not specified) Proteus mirabilis urinary tract infection present on admission. Treating with IV ceftriaxone. Will convert to oral antibiotics at discharge. Ordered: [facility] Hospital Care/Day Moderate 35 Minutes [id number] 4. 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 Continue on Lamictal and seizure precautions. Ordered: [facility] Hospital Care/Day Moderate 35 Minutes [id number] 5. Parkinson's disease (G20: Parkinson's disease) Patient with history of Parkinson's disease and dementia. On Sinemet, Aricept and Namenda. Ordered: [facility] Hospital Care/Day Moderate 35 Minutes [id number] 6. Moderate intellectual disability (F71: Moderate intellectual [...] deep vein thrombosis (DVT) prophylaxis (Z79.899: Other longterm (current) drug therapy) Heparin. Disposition: We will plan for discharge in a.m with home health to shelter when arranged.. I discussed the diagnosis and plan of care with the patient at the bedside. Moderate level of MDM based on addressing above issues. This documentation was transcribed using voice recognition software. Several attempts were made to ensure accuracy. However inadvertent computerized pruner errors may be present. Celi Morgan. Hospitalist. [...] Parkinson's disease, seizure disorder presented from the shelter because of increased lethargy, syncopal episode while eating, confusion and was admitted with syncope, acute metabolic encephalopathy secondary to urinary tract infection. 1. Syncope (R55: Syncope and collapse) Likely secondary to vasovagal reflex. Cardiac enzymes are negative. Check orthostatic vital signs. Ordered: [facility] Care/Day Moderate 35 Minutes 46595 2. Acute metabolic encephalopathy (G93.41: Metabolic encephalopathy) Secondary to urinary tract infection. Present on admission. Improving. Approaching baseline mentation. Ordered: [facility] Care/Day Moderate 35 Minutes [id number] 3. Acute lower urinary tract infection (N39.0: Urinary tract infection, site not specified) Continue on IV ceftriaxone pending final urine culture result. Ordered: [facility] Care/Day Moderate 35 Minutes [id number] 4. 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 Continue on Lamictal. Seizure precautions. Ordered: [facility] Care/Day Moderate 35 Minutes [id number] 5. Parkinson's disease (G20: Parkinson's disease) History of Parkinson's disease with underlying dementia. Continue on Sinemet, Aricept and Namenda. 6. Moderate intellectual disability (F71: Moderate intellectual disabilities) Resides in a shelter. Supportive care. Continue on trazodone, Abilify and [...] deep vein thrombosis (DVT) prophylaxis (Z79.899: Other longterm (current) drug therapy) Heparin. Disposition: Continue current treatment in the hospital pending resolution of acute metabolic encephalopathy and final urine culture result. I discussed the diagnosis and plan of care with the patient at the bedside. Moderate level of MDM based on addressing above issues. This documentation was transcribed using voice recognition software. Several attempts were made to ensure accuracy. However inadvertent computerized pruner errors may be present. Celi Morgan. Hospitalist. Extracted from: Title:Admission H & P Author:Karyn Escamilla MD Date:04/10/23 1. Syncope (R55: Syncope and collapse) Possibly vasovagal in etiology related to underlying UTI. Skilled Nursing staff denies that patient had any seizure [...] (F71: Moderate intellectual disabilities) Resides in a Skilled Nursing Lily Rodríguez, [facility] 7. Familial hypercholesteremia (E78.01: Familial hypercholesterolemia) Statin. [...] Appointments Appointment Date:04/23/2023 01:00:00 PM Scheduled Provider: Location:[facility] Appointment Type: Medicare Wellness Subsequent Appointment Date:04/23/2023 01:40:00 PM Scheduled Provider:Sukh JOHN DO, FAAFP Location:[facility] Appointment Type: Open Future Scheduled Tests Laboratory* Thyroid-stimulating Immunoglobulin (TSI) 01/15/23 * UA With Cult Reflex 11/06/22 * T3 Free 01/15/23 [facility]10-30-2023 Hospital Discharge instructions Patient Education 04/13/2023 11:09:27 [...] you until you feel stable. Medicines Take oerq-pgo-jlqbasr and prescription medicines only as told by [...] provider. Document Revised: 10/10/2021 Document Reviewed: 10/10/2021 [employer] Patient Education 2022 [employer] Follow Up Care 04/10/2023 17:13:06 With:Sukh JOHN Address: [address], [facility] [place] [address] [facility] (1) When:04/23/2023 13:40:00 Comments:Keep scheduled appointment [facility]10-13-2023 Hospital Discharge instructions Patient Education 03/27/2023 13:18:26 [...] with your health care provider about any vdlg-ydl-lbxxwfd and prescription medicines that you are taking. [...] provider. Document Revised: 2020 Document Reviewed: 2020 [employer] Patient Education 2022 [employer] Follow Up Care 03/18/2023 09:33:20 With:SHARAD GRIDER FAAFP, VARUN Hinojosa, PED Address: [address] [place] [address]- When:Within 3 Month(s) [facility] 10-10-2023 Miscellaneous Notes* Telephone Encounter - Andres Cortez RN - 03/24/2023 4:22 PM EDT Form routed to Dr. Sosa for signature thru docusign One copy faxed to Day [phone] Andres Cortez RN * Telephone Encounter - Judy Field - 03/23/2023 12:31 PM EDT Form received: From (agency / facility / parent): Home garcia fleet salesperson (if given): Pablo Ordonez Phone #: [phone] (home) Fax # : [phone] Email: Information requested: physician order form Patient of Dr. sosa [place] [address] Hospital Discharge instructions Patient Education 03/18/2023 13:29:07 [...] sitting or lying down. General instructions Take imjz-dbf-djbhonr and prescription medicines only as told by [...] compression, and elevation. You may be given lbml-vje-mqexrxg medicines for pain. Contact a health care [...] provider. Document Revised: 04/15/2022 Document Reviewed: 03/27/2022 [employer] Patient Education 2022 [employer] Follow Up Care 03/18/2023 10:52:04 With:Sukh JOHN Address: [facility] [address] [place] [address] Business (1) When:03/21/2023 12:54:29 [facility]10-04-2023 Evaluation + Plan noteExtracted from: Title:ED Note Author:González Almaraz PA-C te:03/18/23 Contusion of right shoulder (S40.011A: Contusion of right shoulder, initial encounter) Orders: XR Shoulder Complete Right Future Appointments Appointment Date:03/27/2023 12:40:00 PM Scheduled Provider:Sukh JOHN DO, FAAFP Location:[facility] Appointment Type: Hospital Follow Up w/TCM Appointment Date:04/23/2023 01:00:00 PM Scheduled Provider: Location:[facility] Appointment Type: Medicare Wellness Subsequent Appointment Date:04/23/2023 01:40:00 PM Scheduled Provider:Sukh JOHN DO, FAAFP Location:[facility] Appointment Type: Open Future Scheduled Tests Laboratory* Thyroid-stimulating Immunoglobulin (TSI) 01/15/23 * UA With Cult Reflex 11/06/22 * T3 Free 01/15/23 [facility]-03[facility]2023 Evaluation + Plan noteExtracted from: Title:Discharge Note Author:PLACIDO NELSON, Re nee Date:02/15/23 Hemodynamically stable condi tion Discharge To, Anticipated II - Halfway Unit Discharged to - Other: lives at home(shelter-[facility] or [facility] Discharge Status: Improved Discharge Instructions Given: [...] JOHN In 3 days 02/14/2023 EDT [address], [address] [place] [id number]- Business (1) Additional Instructions: Call the office [...] Author:Sara Morales Date:02/14/23 Pt. lives in a shelter ne 05/01 caregivers -CRM to obtain guardianship information [...] deep vein thrombosis (DVT) prophylaxis (Z79.899: Other longterm (current) drug therapy) -Add SCDs, early ambulation -Avoid heparin 2/2 thrombocytopenia Orders: Ambulate with Assistance Extracted from: Title:APSO Note Author:Sara Morales Date:02/13/23 Pt. lives in a shelter ne 05/01 caregivers -[facility] to obtain guardianship information and make contact [...] deep vein thrombosis (DVT) prophylaxis (Z79.899: Other longterm (current) drug therapy) -Add SCDs, early ambulation -Avoid heparin 2/2 thrombocytopenia Extracted from: Title:APSO Note Author:PLACIDO COLE-Sola HCRISTIANSEN ate:02/12/23 Pt. lives in a shelter [place] 05/01 caregivers -CRM to obtain guardianship [...] deep vein thrombosis (DVT) prophylaxis (Z79.899: Other longterm (current) drug therapy) -Add SCDs, early ambulation [...] unable to ambulate, she lives in a shelter which requires ambulation in order for her [...] made to ensure accuracy, however, inadvertently computerized pruner mistakes may be present. Extracted from: Title:Admission [...] Appointments Appointment Date:04/23/2023 01:00:00 PM Scheduled Provider: Location:[facility] Appointment Type: Medicare Wellness Subsequent Appointment Date:04/23/2023 01:40:00 PM Scheduled Provider:Sukh JOHN DO, FAAFP Location:[facility] Appointment Type: Open Future Scheduled Tests Laboratory* Thyroid-stimulating Immunoglobulin (TSI) 01/15/23 * UA With Cult Reflex 11/06/22 * T3 Free 01/15/23 [facility] Hospital Discharge instructions Patient Education 02/11/2023 12:48:20 [...] use night-lights. Place frequently used items in lmfw-us-ilrrg places. Lower the shelves around your home [...] of the way. Do not use floor armenian or wax that makes floors slippery. If [...] include working with a physical therapist or graduate assistant athletic trainer to improve your strength, balance, and endurance. Where to find more information Centers for Disease Control and Prevention, STEADI: www.cdc.gov National [place] on Aging: www.naun.nih.gov Contact a health care [...] provider. Document Revised: 03/03/2022 Document Reviewed: 01/02/2021 [employer] Patient Education 2022 [employer] 02/11/2023 12:48:20 Contusion Contusion A contusion is [...] sitting or lying down. General instructions Take kpws-iid-sggjcsx and prescription medicines only as told by [...] compression, and elevation. You may be given jibi-efy-jcoqbnk medicines for pain. Contact a health care [...] provider. Document Revised: 04/15/2022 Document Reviewed: 03/27/2022 [employer] Patient Education 2022 [employer] Follow Up Care 02/11/2023 06:53:50 With:Sukh JOHN Address: [address] [facility] [place] [id number] [facility] (1) When:02/14/2023 09:03:53 Comments:Call the office [...] you develop any new or worsening symptoms. [facility]2023 Hospital Discharge instructions Patient Education 02/03/2023 14:09:28 Seizure, Adult, Jfym-jn-Bibj Seizure, Adult A seizure is a sudden [...] Follow these instructions at home: Medicines Take fkph-miw-uigaotw and prescription medicines only as told by [...] medicines are used to treat seizures. Take gpsi-ktb-irtsjbz and prescription medicines only astold by your doctor. This information is not intended to replace advice given to you by your health care provider. Make sure you discuss any questions you have with your health care provider. Document Revised: 12/07/2020 Document Reviewed: 12/07/2020 [employer] Patient Education 2022 [employer] 02/03/2023 14:09:20 Epilepsy, Kghx-ly-Ssnq Epilepsy Epilepsy is when a person keeps [...] Follow these instructions at home: Medicines Take pfzw-hrr-lcpiqtc and prescription medicines only as told by [...] right away. Call your local emergency services (039 int [place] Do not wait to see if the symptoms will go away. Do not drive yourself to the hospital. Get help right awayif you feel like you may hurt yourself or others, or have thoughts about taking your own life. Go to your nearest emergency room or: Call your local emergency services (276 in the [place].). Call the National Suicide Prevention Lifeline at or 317 in the U.S. This is open 24 hours a day. Text the Crisis Text Line at 063900. Summary Epilepsy is when a person keeps having seizures. Seizures can cause many symptoms, such as brief staring and shaking or jerky muscle movements. Treatment can control seizures. Take qgng-hqo-erzvpan and prescription medicines only as told by [...] provider. Document Revised: 12/25/2021 Document Reviewed: 12/03/2020 [employer] Patient Education 2022 [employer] Follow Up Care 09/02/2022 12:04:16 With:SHARAD GRIDER FAAFP, Sukh Lin, VARUN, PED Address: [address] [place] [address] [place] [address]- When:Within 3 Month(s) [facility] 08-03-2023 Hospital Discharge instructions Patient [...] throughout life. Treatments may include: Infant and public events facilities rental manager services. Special education. Job or school coaching. Family support. Vocational training. Day programs. mobility architect managermanager investment banking. Occupational therapy. Special housing options, such as group homes and special needs foster care. Follow these instructions at home: Learn as much as you can about intellectual disability. Ask other family members such as aunts, uncles, siblings, or grandparents to take part in learning about this condition. Give gcky-szp-ffydcar and prescription medicines only as told by your child's health care provider. Find support from federal and community services. As a caregiver, think about how you can meet the needs of your child. If you need support, try to find other resources that may better meet your child's needs. Work with a developmental small arms artillery repairer to identify your child's needs and to plan the best treatment for his or her condition. Keep all follow-up visits as told by your health care provider. This is important. Where to find more information [place] [employer] on Intellectual and Developmental Disabilities: aaidd.org Center for Parent Information & Resources: parentcenterhub.org Family Voices: Call or visit familyPublicate.org Individuals with Disabilities Education Act: sites.ed.gov/idea Contact [...] the National Suicide Prevention Lifeline at or 954 in the U.S. This is open 24 [...] provider. Document Revised: 12/25/2021 Document Reviewed: 06/23/2019 [employer] Patient Education 2022 [employer] 01/15/2023 14:05:33 Insomnia Insomnia Insomnia is [...] go back to bed. General instructions Take wpqc-cri-nlwjpen and prescription medicines only as told by [...] the National Suicide Prevention Lifeline at or 498. This is open 24 hours a day. Text the Crisis Text Line at 829652. Summary Insomnia is a sleep disorder that [...] provider. Document Revised: 05/12/2022 Document Reviewed: 05/12/2022 [employer] Patient Education 2022 [employer] [facility] 06-07-2023 NoteHNO ID: [id number] Author: Wilberto Sosa MD Service: ? Author [...] Wilberto Sosa MD Date: 11/19/2022 Time: 2:32 [facility]06-07-2023 NoteHNO ID: [id number] Author: Al De La Cruz APRN.CNP Service: ? Author Type: Nurse Practitioner Type: Progress Notes Filed: 11/20/2022 12:16 PM Note Text: [facility] Patient Name: Pablo Ordonez Date of : 1955 ESTABLISHED EPILEPSY CLINIC NOTE 11/19/2022 2:00 PM Reason for Visit: Established Patient, Follow Up, and Side Effect Management Clinical Summary: Ms. Ordonez is a 67 year old left-handed Unclear (writes with left; eats with right) female seen in [facility]. At today's visit, the patient [...] 28mg twice daily. She lives in a shelter and is a wolf of the [facility]. Her neurologist is Daniel Diaz MD. Interval [...] Abuse, Hyperlipidemia/Hypercholesterolemia, Dementia, Memory/Cogniti (more content not included)...[facility]04-26-2023 NoteHNO ID: [id number] Author: Tomasz Hair Service: ? Author Type: ? Type: Plan of Care Filed: 10/08/2022 2:59 PM Note Text: PHARMACY BEDSIDE DELIVERY SERVICE Patient Name: Pablo Ordonez The marked outpatient medications were Filled at: [facility] and delivered to the patient's bedside [...] Commonly known as: NEURONMARYBEL Tolbert McNamee PAGER: [phone] October 08, 2022 2:58 [facility]04-26-2023 NoteHNO ID: [id number] Author: Gema Uriostegiu APRN.CLINICAL RESEARCH MANAGER Service: Neurology Adult Epilepsy Author Type: Nurse Practitioner Type: Progress Notes Filed: 10/08/2022 8:47 AM Note Text: Attestation signed by Maya Ordoñez MD at 10/08/2022 6:05 PM No new episodes or change to plan of care. See discharge summary for today's date. Maya Ordoñez MD, MEd Staff Physician [facility] [address] [place] [address] Office NEUROLOGY EPILEPSY MONITORING UNIT ([facility]) PROGRESS [...] Remains standing. 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: Yes senior financial has been Notified: Yes EXAM: Mental Status: [...] Pablo Ordonez October 08, 2022 8:44 AM [facility]04-25-2023 NoteHNO ID: [id number] Author: Gema Uriostegui APRN.CNP Service: Neurology Adult Epilepsy Author Type: Nurse Practitioner Type: Progress Notes Filed: 10/07/2022 9:16 AM Note Text: Attestation signed by Maya Ordoñez MD at 10/07/2022 9:25 PM EPILEPSY CENTER ATTENDING NOTE [facility] Epilepsy Monitoring Unit Progress Note Date of Service: October 07, 2022 [facility] STAFF PHYSICIAN NOTE OF PERSONAL INVOLVEMENT IN CARE Patient was seen by me on separate attending rounds. I have reviewed the history, exam, diagnosis, and plan obtained and documented as above by DINORAH Uriostegui. I performed my own aniq-wp-gdjk assessment and personally participated in the isbell [...] Type C: extremity shaking without EEG change ([facility] 05/2022) Anti-seizure medications: Home: valproate 500 mg [...] plan. Maya Ordoñez MD, MEd Staff Physician [facility] For any issues regarding this patient, please page the epilepsy clinical team [place] nights [place] [phone]. For urgent EEG review, call the Epilepsy Continuous Monitoring Unit (ECMU) at [phone] or [phone]. NEUROLOGY EPILEPSY MONITORING UNIT (EMU) PROGRESS NOTE [...] Remains standing. 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 Unable to state reason for admission. Cranial Nerves: Pupils equal and reactive to light, extraocular muscles intact. No nystagmus, face symmetric. Motor: Moves all extremities equally. Bilateral UE tremor. 3-4/5 UEs (effort vs ability) and 4/5 LEs Sensation: Intact to light touch. Coordina (more content not included)...[facility]04-24-2023 Note HNO ID: [id number] Author: Wilberto Sosa MD Service: Neurology Adult [...] Remains standing. 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 Requested Prescriptions Signed Prescriptions Disp Refills gabapentin (NEURONTIN) 400 mg capsule 270 capsule 0 Sig: TAKE 1 CAPSULE BY MOUTH THREE TIMES DAILY Authorizing Provider: AL DE LA CRUZ APRN.CNP documented in this encounterRegency Hospital Company04-12-2023 NoteHNO ID: [id number] Author: Melissa Panchal PA-C Service: ? Author Type: Physician Sql Etl Developer Type: Progress Notes Filed: 09/24/2022 2:20 PM Note Text: Please route this encounter to the EMU Scheduling Pool ( P EMU ) or PMU Scheduling Pool ( P PMU ) through LOS AND Follow up PHASE 1.0 AND 1.5 ORDER SYNOPSIS Patient: Pablo Ordonez ([id number]) Best contact number: [phone] Insurance: Payor: MEDICARE / Plan: MEDICARE A AND B / Product Type: Medicare / ----- Scheduling Team: Please call for adult patients: Shivani Ferris ([phone]) Kyra Guthrie ([phone]) Kiley Friend([phone]) Vince Cardona([phone]) Please call for pediatric patients: Kyra Guthrie ([phone]) Kiley Friend ([phone]) Shivani Ferris ([phone]) Vince Cardona([phone]) ----- 09/24/2022 Admission Type EMU Adult Number of Days requested 5 Location [facility] Admit Priority Routine PURPOSE 09/24/2022 Patient [...] for MANJIT, please schedule VNS off/on office visits.[facility]04-12-2023 NoteHNO ID: [id number] Author: Wilberto Sosa MD Service: ? Author [...] Wilberto Sosa MD Date: 09/24/2022 Time: 2:11 [facility]04-12-2023 NoteHNO ID: [id number] Author: Melissa Panchal PA-C Service: ? Author Type: Physician Sql Etl Developer Type: Progress Notes Filed: 09/25/2022 9:32 AM Note Text: [facility] Patient Name: Pablo Ordonez Date of : 1955 Referring Provider: SELF ESTABLISHED EPILEPSY CLINIC NOTE 09/24/2022 1:30 PM Reason for Visit: Established Patient, Follow Up, and Epilepsy Clinical Summary: Ms. Ordonez is a 67 year old left-handed Unclear (writes with left; eats with right) female seen in [facility]. At today's visit, the patient [...] 28mg twice daily. She lives in a shelter and is a wolf of the [facility]. Her neurologist is Daniel Diaz MD. Interval [...] most severe possi (more content not included)... [facility]04-12-2023 History of Present illness Narrative* Melissa Panchal PA-C - 09/24/2022 2:19 PM EDT Please route this encounter to the EMU Scheduling Pool ( P EMU ) or PMU Scheduling Pool ( P PMU ) through LOS & Follow up PHASE 1.0 AND 1.5 ORDER SYNOPSIS Patient: Pablo Ordonez ([id number]) Best contact number: [phone] Insurance: Payor: MEDICARE / Plan: MEDICARE A AND B / Product Type: Medicare / Scheduling Team: Please call for adult patients: Shivani Ferris ([phone]) Kyra Guthrie ([phone]) Kiley Friend([phone]) Vince Cardona([phone]) Please call for pediatric patients: Kyra Guthrie ([phone]) Kiley Friend ([phone]) Shivani Ferris ([phone]) Vince Cardona([phone]) 09/24/2022 Admission Type EMU Adult Number of Days requested 5 Location [facility] Admit Priority Routine PURPOSE 09/24/2022 Patient [...] VNS off/on office visits. documented in this encounterRegency Hospital Company03-21-2023 Hospital Discharge instructions Patient Education 09/02/2022 11:50:33 [...] your health care provider or diet and dairy nutrition consultant (dietitian). This may include: ?Eating fewer calories. [...] 07/04/2011 Document Revised: 06/14/2018 Document Reviewed: 06/14/2018 [employer] Patient Education 2020 [employer] 09/02/2022 11:50:19 Exercising to Lose Weight Exercising [...] your health care provider or diet and dairy nutrition consultant (dietitian). This may include: ?Eating fewer calories. [...] 07/04/2011 Document Revised: 06/14/2018 Document Reviewed: 06/14/2018 [employer] Patient Education 2020 [employer] Follow Up Care 06/03/2022 11:14:58 With:SHARAD GRIDER FAAFP, Sukh Lin, VARUN, PED Address: [address] [address]- When:Within 3 Month(s) [facility] 01-24-2023 Miscellaneous Notes* Telephone Encounter [...] EST Spoke with Vince. She reports at [facility] 06/25/22 Dr. Sosa ordered an Aptiom wean She requests Rx for 400mg tablets (one month supply) [facility] Thank you Andres Cortez RN * Telephone Encounter - Jduy WILL - 07/08/2022 12:25 PM EST Medication Concern Person Calling vince customer care agent Name of medication aptiom Concern with medication pt caregiver is asking per [facility] is aptiom should be lowered? Patient of Dr. sosa documented in this encounterRegency Hospital Company01-12-2023 History of Present illness Narrative* Wilberto Sosa MD - 06/26/2022 7:58 AM EST [facility] Patient Name: Pablo Ordonez Date of : 1955 Referring Provider: SELF ESTABLISHED EPILEPSY CLINIC NOTE 06/25/2022 1:30 PM Reason for Visit: Follow Up and Established Patient Clinical Summary: Ms. Ordonez is a 66 year old left-handed Unclear (writes with left; eats with right) female seen in [facility]. At today's visit, the patient [...] 28mg twice daily. She lives in a shelter and is a wolf of the [facility]. Her neurologist is Daniel Diaz MD. Interval Seizure History She continues to have episodes of head drop and her legs come up. She may run if she is having one of these episodes. Her customer care agent, Anna, showed me a video of these [...] - Seizure risk factors: Brain Tumor No RAG INSPECTOR Infections No Developmental Delay No Family history of seizures No Febrile Seizure No Complications No Stroke No Traumatic Brain Injury Yes Previous Epilepsy Evaluations PRIOR EVALUATIONS: [facility] [address] [place] [address] [place] EEG [place] Normal study. No seizures captured. No epileptiform activity recorded EEG ([facility]) Mild to moderate diffuse encephalopathy. 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 (+) cerebral atrophy. No acute findings. Video-EEG evaluation ([facility]; May 15-2021): Classification Abnormal II (Awake, Sleep, [...] No Family History SOCIAL HISTORY: -Lives in [place], [place] -Patient lives alone? -Vocation: -Education: -Cigarette, [...] in an outside institution and one at [facility]). In both no epileptiform activity was recorded. [...] which included: preparing to see the patient [id number] patient care completing clinical documentation obtaining and/or reviewing separately obtained history counseling and educating the patient/family/caregiver ordering medications, tests, or procedures Wilberto Sosa MD cc: Primary Care Physician: Holly Martines MD [address] [facility] [address] Referring: SELF Phone: N/A Fax: Patient: Ms. Pablo Ordonez [address] [facility] [address] documented in this encounterRegency Hospital Company01-11-2023 Instructions* Patient Instructions* Wilberto Sosa MD - 06/25/2022 1:30 PM EST Aptiom Week 1-4 400 Week 5 Stop documented in this encounterRegency Hospital Company12-15-2022 Miscellaneous Notes* Telephone Encounter - Andres Cortez RN - 05/29/2022 9:16 AM EST Chart review, verified Keppra discontinued after discharge from EMU 05/21/22 Called [facility], provided that information. They have marked it as discontinued. Andres Cortez RN * Telephone Encounter - Marley Fang Asst - 05/29/2022 8:58 AM EST Medication Concern Person Calling Pharmacist-[facility] of [facility] Name of medication Keppra Concern with medication Pharmacist states they received a new script from a Dr. Daniel Diaz [id number] every 12 hrs but the shelter says the medication was discontinued. Please call back to confirm. Patient of Dr. Sosa documented in this encounterRegency Hospital Company12-06-2022 Miscellaneous Notes* Telephone Encounter - Andres Cortez RN - 05/20/2022 3:27 PM EST In patient. Rx was changed back to GBP 400mg tabs TID Andres Cortez RN * Telephone Encounter - Judy Young PSS - 05/20/2022 2:02 PM EST Medication Concern Person Calling [facility] Name of medication gabapentin 800mg Concern with medication clarify directions Patient of Dr. sosa documented in this encounterRegency Hospital Company12-01-2022 History of Present illness Narrative* Wilberto Sosa MD - 05/15/2022 1:45 PM EST [facility] STAFF PHYSICIAN NOTE OF PERSONAL INVOLVEMENT IN [...] as well. She is here with a customer care agent. She lives with an apartment with a [...] Plan of care discussed with Patient and Production Inspector I spent a total of 30 minutes on the date of the service which included: preparing to see the patient ojml-xk-qakz patient care completing clinical documentation obtaining and/or reviewing separately obtained history counseling and educating the patient/family/caregiver SIGNATURE: Wilberto Sosa MD DATE of SERVICE: May 15, 2022 TIME of SERVICE: 1:45 PM * Con Jean Baptiste MD - 05/15/2022 12:23 PM EST [facility] Patient Name: Pablo SANTOYO Date of : 1955 Referring Provider: SELF INITIAL EPILEPSY CLINIC NOTE 05/15/2022 1:00 PM CHIEF COMPLAINT: New Patient HISTORY OF PRESENT ILLNESS Ms. Ordonez is a 66 year old (unclear handedness; writes with left but eats with right) female seenin [facility] for initial consultation. At today's visit, the patient is accompanied by: Anna Law from [facility] Handedness: Unclear (writes with left; [...] 28mg twice daily. She lives in a shelter and is a wolf of the [facility]. Her neurologist is Daniel Diaz MD. Total [...] - Seizure risk factors: Brain Tumor No RAG INSPECTOR Infections No Developmental Delay No Family history of seizures No Febrile Seizure No Complications No Stroke No Traumatic Brain Injury Yes Previous Epilepsy Evaluations PRIOR EVALUATIONS: [address] [place] [address] [place] EEG [place]): Normal study. No seizures captured. No epileptiform activity recorded EEG [place]) Mild to moderate diffuse encephalopathy. No epileptiform activity recorded MRI brain wo/w contrast [place]): Large area of remote infarction/encephalomalacia involving [...] No Family History SOCIAL HISTORY: -Lives in [place], [place] -Patient lives alone? -Vocation: -Education: -Cigarette, [...] rigidity in R arm. Normal strength in biceps/triceps/visual training aide. Pain-limited strength testing in BLE. Sensory: Intact [...] cc: Primary Care Physician: Holly Martines MD [address] [place] [address] Referring: SELF Phone: N/A Fax: Patient: Ms. Pablo Ordonez [address] [id number] documented in this encounterRegency Hospital Company11-04-2022 History of Present illness Narrative* Yusra Fofana APRN.CLINICAL RESEARCH MANAGER - 04/18/2022 4:28 PM EDT [facility] Review of Records Patient: Pablo Ordonez Address: [address] [id number] Impression: Review of records for Pablo Ordonez, a 66 year old female, being referred by Dr. Sukh Fabian [[place], [place]] to Any Epileptologist for further evaluation [...] hyperlipidemia, hypothyroidism, COVID, osteoarthritis, depression PRIOR EVALUATIONS: [address] [place] [address] Video EEG [place]20[place]): Normal study. No seizures captured. No epileptiform activity recorded EEG [place]) Mild to moderate diffuse encephalopathy. 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 (+) cerebral atrophy. No acute findings. MARVA Recommendations: - Admit to EMU for VEEG monitoring, diagnostic evaluation Location: [facility] - Visit with epileptologist prior to admission - Additional testing to be considered by epilepsy clinicians Signed: Yusra Fofana APRN.CLINICAL RESEARCH MANAGER April 18, [address] Noble for review and recommendations. MD Recommendations (as discussed with Dr. Noble): - Please proceed with the above plan. Please route this encounter to the EMU Scheduling Pool ( P EMU ) or PMU Scheduling Pool ( P PMU ) through LOS & Follow up PHASE 1.0 AND 1.5 ORDER SYNOPSIS Patient: Pablo Ordonez ([id number]) Best contact number: [phone] Insurance: Payor: MEDICARE / Plan: MEDICARE A AND B / Product Type: Medicare / Scheduling Team: Please call for adult patients: Shivani Ferris ([phone]) Kyra Guthrie ([phone]) Kiley Friend([phone]) Vince Cardona([phone]) Please call for pediatric patients: Kyra Guthrie ([phone]) Kiley Friend ([phone]) Shivani Ferris ([phone]) Vince Cardona([phone]) 04/18/2022 Admission Type EMU Adult Number of Days requested 3 Location [facility] Admit Priority Routine PURPOSE 04/18/2022 Patient Being [...] VNS off/on office visits. documented in this encounterRegency Hospital Company11-02-2022 Miscellaneous Notes* Telephone Encounter - Vince Cardona - 04/16/2022 10:09 AM EDT Images from the original note were not included. documented in this encounterRegency Hospital Company10-25-2022 Hospital Discharge instructions Patient Education 04/08/2022 14:43:35 Epilepsy, Tqye-dj-Kaik Epilepsy Epilepsy is when a person keeps [...] Follow these instructions at home: Medicines Take uisl-zri-hnjypds and prescription medicines only as told by [...] check with your local DMV (department of [employer]) to find out about local driving laws. [...] 03/29/2010 Document Revised: 01/24/2019 Document Reviewed: 01/24/2019 [employer] Patient Education 2020 [employer] 04/08/2022 14:43:31 Epilepsy Epilepsy Epilepsy is a [...] Follow these instructions at home: Medicines Take rywb-yei-inxvoik and prescription medicines only as told by [...] Treatment is effective at controlling seizures. Take baje-wcj-ditmfiv and prescription medicines only as told by [...] 06/01/2006 Document Revised: 01/24/2019 Document Reviewed: 01/24/2019 [employer] Patient Education 2020 [employer] Follow Up Care 10/29/2021 14:26:00 With:SHARAD GRIDER FAAFP, VARUN Hinojosa, PED Address: [address] [place] [address]- When:Within 3 Month(s) [facility] 10-17-2022 Hospital Discharge instructions Patient [...] An elastic wrap to support your hand. Ilpr-uks-xqawoid medicines to control pain. Follow these instructions [...] sitting or lying down. General instructions Take rbnu-qii-imtvzjl and prescription medicines only as told by [...] 11/21/2002 Document Revised: 03/30/2019 Document Reviewed: 03/30/2019 [employer] Patient Education 2020 [employer] Follow Up Care 03/31/2022 15:23:06 With:Sukh JOHN Address: [address] [place] [address]- Business (1) When:04/03/2022 16:32:57 [facility]10-17-2022 Evaluation + Plan noteExtracted from: Title:ED Note Author:González Almaraz PA-C te:03/31/22 Hand contusion (S60.229A: Co ntusion of unspecified hand, initial encounter) Orders: Tera Wrap Future Appointments Appointment Date:04/08/2022 02:20:00 PM Scheduled Provider:Sukh JOHN DO, FAAFP Location:[facility] Appointment Type: Open [facility]05-05-2022 Evaluation + Plan noteExtracted from: Title:Discharge Note [...] TY Sanchez Within 2 to [address] [address] [place] [address]- Additional Instructions: Epilepsy, Uhlu-jm-Wqyi Extracted from: Title:APSO Note-neurology Author:Kemi RICHARD, Frantz [...] 01:20:00 PM Scheduled Provider:Sukh JOHN DO, FAAFP Location:[facility] Appointment Type:FM Open Diagnostic Tests Pending * Sebastián Lvl 10/14/21 [facility]05-03-2022 Hospital Discharge instructions Patient Education 10/15/2021 11:36:44 Epilepsy, Vkpt-nf-Pvzd Epilepsy Epilepsy is when a person keeps [...] Follow these instructions at home: Medicines Take upoz-qph-wxmhzdj and prescription medicines only as told by [...] check with your local DMV (department of [employer]) to find out about local driving laws. [...] 03/29/2010 Document Revised: 01/24/2019 Document Reviewed: 01/24/2019 [employer] Patient Education 2019 [employer] Follow Up Care 10/14/2021 16:53:56 With:Joe SAINI, TY Sanchez Address: [facility] [place] [address] [place] [address]- When:2 to 4 weeks [facility]05-02-2022 Hospital Discharge instructions Patient Education 10/14/2021 16:38:50 Epilepsy, Ckvi-ew-Yzkb Epilepsy Epilepsy is when a person keeps [...] Follow these instructions at home: Medicines Take egyv-tai-sctwpfa and prescription medicines only as told by [...] check with your local DMV (department of [employer]) to find out about local driving laws. [...] 03/29/2010 Document Revised: 01/24/2019 Document Reviewed: 01/24/2019 [employer] Patient Education 2020 [employer] Follow Up Care 10/11/2021 09:50:34 With:Sukh JOHN DO, FAAFP, FAM, PED Address: [place] [address]- When:Within 2 Week(s) Comments:Anna will take to ED now [facility] Evaluation + Plan note Future Appointments Appointment Date:10/10/2021 12:20:00 PM Scheduled Provider:Sukh JOHN DO, FAAFP [facility] App[facility]ments Appointment Date:10/29/2021 01:20:00 PM Scheduled Provider:Sukh JOHN DO, FAAFP Location:[facility] Appointment Type:[facility] Evaluation + Plan note Future Appointments Appointment Date:02/04/2022 01:40:00 PM Scheduled Provider:Sukh JOHN DO, FAAFP Location:[facility] Appointment Type: Open Future Scheduled Tests Radiology* BD Bone Density DEXA 10/29/21 [facility] Evaluation + Plan note Future Appointments Appointment Date:02/04/2022 01:40:00 PM Scheduled Provider:Sukh JOHN DO, FAAFP Location:[facility]ment [facility]: [facility] Future Appointments Appointment Date:07/08/2022 12:20:00 PM Scheduled Provider:Sukh JOHN DO, FAAFP Location:[facility] Appointment Type:[facility] Primary Care Evaluation + Plan note Future Appointments Appointment Date:07/08/2022 12:20:00 PM Scheduled Provider:Sukh JOHN DO, FAAFP Location:[facility] Appointment Type: Open Diagnostic Tests Pending * Urine Culture [facility] Future App[facility]ments Appointment Date:09/02/2022 11:00:00 AM Scheduled Provider:Sukh JOHN DO, FAAFP [facility] Future Appointments Appointment Date:12/08/2022 02:20:00 PM Scheduled Provider:Sukh JOHN DO, FAAFP Location:[facility] Appointment Type:[facility] Primary Care Evaluation + Plan note Future Appointments Appointment Date:02/03/2023 01:20:00 PM Scheduled Provider:Sukh JOHN DO, FAAFP Location:[facility] Appointment Type: Open Future Scheduled Tests Laboratory* Thyroid-stimulating Immunoglobulin (TSI) 01/15/23 * UA With Cult Reflex 11/06/22 * T3 Free 01/15/23 [facility] Evaluation + Plan note Future Appointments Appointment Date:04/23/2023 01:00:00 PM Scheduled Provider: Location:[facility] Appointment Type: Medicare Wellness Subsequent Appointment Date:04/23/2023 01:40:00 PM Scheduled Provider:Suhk JOHN DO, FAAFP Location:[facility] Appointment Type: Open Future Scheduled Tests Laboratory* Thyroid-stimulating Immunoglobulin (TSI) 01/15/23 * UA With Cult Reflex 11/06/22 * T3 Free 01/15/23 [facility] Evaluation + Plan note Future Appointments Appointment Date:05/19/2023 01:00:00 PM Scheduled Provider:Sukh JOHN DO, FAAFP Location:[facility] Appointment Type:FM Open Appointment Date:05/02/2024 09:30:00 AM Scheduled Provider: Location:[facility] Appointment Type: Medicare Wellness Subsequent Future Scheduled Tests Laboratory* Thyroid-stimulating Immunoglobulin (TSI) 01/15/23 * UA With Cult Reflex 11/06/22 * T3 Free 01/15/23 [facility] evaluation + Plan note Future Appointments Appointment Date:05/19/2023 01:00:00 PM Scheduled Provider:Sukh JOHN DO, FAAFP Location:[facility] Appointment Type: Open Appointment Date:08/20/2023 08:40:00 AM Scheduled Provider:Sukh JOHN DO, FAAFP Location:[facility] Appointment Type: Open Appointment Date:05/02/2024 09:30:00 AM Scheduled Provider: Location:[facility] Appointment Type:FM Medicare Wellness Subsequent Future Scheduled Tests Laboratory* Thyroid-stimulating Immunoglobulin (TSI) 01/15/23 * UA With Cult Reflex 11/06/22 * T3 Free 01/15/23 [facility] evaluation + Plan note Future Appointments Appointment Date:08/20/2023 08:40:00 AM Scheduled Provider:Sukh JOHN DO, FAAFP Location:[facility] Appointment Type: Open Appointment Date:05/02/2024 09:30:00 AM Scheduled Provider: Location:[facility] Appointment Type:FM Medicare Wellness Subsequent Diagnostic Tests Pending * Urine Culture 06/17/23 Future Scheduled Tests Laboratory* Thyroid-stimulating Immunoglobulin (TSI) 01/15/23 * UA With Cult Reflex 11/06/22 * T3 Free 01/15/23 [facility] note* Diagnosis Generalized epilepsy (HCC)- Primary Unspecified epilepsy without mention of intractable epilepsy documented in this encounter [facility] note* Diagnosis Convulsions, unspecified convulsion type (HCC)- Primary documented in this encounter [facility] note* Diagnosis Convulsions, unspecified convulsion type (HCC)- Primary documented in this encounter [facility] note* Diagnosis Convulsions, unspecified convulsion type (HCC)- Primary documented in this encounter [facility] note* Diagnosis Convulsions, unspecified convulsion type (HCC)- Primary documented in this encounter [facility] note* Diagnosis Encounter for screening mammogram for malignant neoplasm of breast Other screening [facility]ogram [facility] Diagnosis Abnormal mammogram Abnormal mammogram, unspecified documented in this encounter [facility] course Narrative No data available for this section [facility] Discharge instructions No data available for this section [facility] No data available for this section [facility] , Neurology - [facility], [facility] office is okay Mentally handicap patient with caregiver. Would like second opinion regarding seizure medication dosing or if they can stop seizure medication. Referred by: Sukh JOHN DO, FAAFP [facility] reason for referral (narrative)* Outpatient Procedure (Routine) - Pending Review Specialty Diagnoses / Procedures Referred By Xiomy quiroga Referred To [facility] Diagnoses Generalized epilepsy (HCC) Procedures EPIL EEG LEAD PLACEMENT EEG EXTENDED MONITORING 61-119 MINUTES ELECTROENCEPHALOGRAM REC COMA/SLEEP ONLY Yusra Fofana APRN.DINORAH [address] [place] [address] [address] [place] [address] Referral ID Status Reason Start Date Expiration Date Visits Requested Visits Authorized [id number] Pending Review Auto-Generat ed Referral 04/21/2022 04/21/2023 1 1 [facility] for referral (narrative) , PT suggested brace as her current one is rubbing her skin. I question the need for brace at all. Second opinion for orthopedic surgery as he has brace necessary. Arthritis of right knee Referred by: Sukh JOHN DO, FAAFP [facility] reason for referral (narrative) , Affiliated with [facility] in [place] office Referred by: Sukh JOHN DO, FAAFP [facility] reason for visit Narrative* Other (Routine) - Closed Specialty Diagnoses / Procedures Referred By Xiomy quiroga Referred To Contact Radiology Diagnoses Encounter for screening mammogram for malignant neoplasm of breast Procedures AMANDA LUZ ELENA DIGITAL SCREEN BILATERAL Leonides Da Silva, SEWING DEPARTMENT SUPERVISOR [address] [facility] [place] [address] Phone: tel: fax: Referral ID Status Reason Start Date Expiration Date Visits Re quested Visits Authorized [id number] Closed 08/11/2024 08/11/2025 1 1 [facility] Narrative* Imaging (Routine) - Open Specialty Diagnoses / Procedures Referred By Xiomy t Referred To Contact Radiology Diagnoses Abnormal mammogram Procedures US BREAST LIMITED RIGHT Leonides Da Silva, SEWING DEPARTMENT SUPERVISOR [address] [facility] [place] [address] Phone: tel: fax: Referral ID Status Reason Start Date Expiration Date Visits Re quested Visits Authorized [id number] Open 11/04/2024 11/04/2025 1 1 [facility] Infection Onset Date Last Indicated Resolved Time COVID-19 Rule-Out 05/15/2022 05/15/2022 05/15/2022 6:21 PM EST Summary Purpose Family History No Family History Records Found Advance Directives No Advanced Directives Records Found Date Activated Date Inactivated Comments 10/03/2016 11:20 AM 10/05/2016 7:58 PM Documents on File Type Date Recorded Patient Art Supervisor Expl anation ACP-Guardianship 05/30/2024 2:12 PM APS g aurdianship papers received 05.30.2024 Documents on File Type Date Recorded Patient Art Supervisor Expl anation ACP-Guardianship 05/30/2024 2:12 PM APS g aurdianship papers received 05.30.2024 Date Activated Date Inactivated Comments 10/03/2016 11:20 AM 10/05/2016 7:58 PM Additional Source Comments Patient Care team informatio n (unrecognized section and content) Simplex Operator Relationship Specialty Start Date End Date Holly Martines MD [address] [facility] [address] [place] [address] PCP - General Family Medicine 08/05/13 Sukh John, [address] [place] [address] Referring Family Medicine 12/04/21 Simplex Operator Relationship Specialty Start Date End Date Holly Martines MD [address] [address] PCP - General Family Medicine 08/05/13 Sukh John, DO [address] [place] [address] Referring Family Medicine 12/04/21 Simplex Operator Relationship Specialty Start Date End Date Holly Martines MD [address] [address] PCP - General Family Medicine 08/05/13 Sukh John, [address] [facility] [place] [address] Referring Family Medicine 12/04/21 Simplex Operator Relationship Specialty Start Date End Date Holly Martines MD [address] [address] PCP - General Family Medicine 08/05/13 Sukh John, [address] [facility] [place] [address] Referring Family Medicine 12/04/21 Simplex Operator Relationship Specialty Start Date End Date Holly Martines MD [address] [address] PCP - General Family Medicine 08/05/13 Sukh John, DO [address] [facility] [place] [address] Referring Family Medicine 12/04/21 Simplex Operator Relationship Specialty Start Date End Date Holly Martines MD [address] [place] [address] PCP - General Family Medicine 08/05/13 Sukh John, DO [address] [place] [address] Referring Family Medicine 12/04/21 Simplex Operator Relationship Specialty Start Date End Date Holly Martines MD [address] [place] [address] PCP - General Family Medicine 08/05/13 Sukh John, [address] [place] [address] Referring Family Medicine 12/04/21 Simplex Operator Relationship Specialty Start Date End Date Holly Martines MD [address] [place] [address] PCP - General Family Medicine 08/05/13 Sukh John DO [address] [place] [address] Referring Family Medicine 12/04/21 Simplex Operator Relationship Specialty Start Date End Date Sukh John DO PCP - General Family Medicine 10/03/16 Simplex Operator Relationship Specialty Start Date End Date Sukh John DO PCP - General Family Medicine 10/03/16 Simplex Operator Relationship Specialty Start Date End Date Sukh John DO PCP - General Family Medicine 10/03/16 Simplex Operator Relationship Specialty Start Date End Date Sukh John DO PCP - General Family Medicine 10/03/16 Simplex Operator Relationship Specialty Start Date End Date Sukh John DO PCP - General Family Medicine 10/03/16 Simplex Operator Relationship Specialty Start Date End Date Sukh John DO PCP - General Family Medicine 10/03/16 Source Comments (unrecognize d section and content) In the event this informatio n is protected by the Federal Confidentiality of Alcohol and Drug Abuse Patient Records regulations: The Federal rules restrict any use of the information to criminally investigate or prosecute any alcohol or drug abuse patient.[facility] the event this information is protected by the Federal Confidentiality of Alcohol and Drug Abuse Patient Records regulations: The Federal rules restrict any use of the information to criminally investigate or prosecute any alcohol or drug abuse patient.[facility] Company[facility] the event this information is protected by the Federal Confidentiality of Alcohol and Drug Abuse Patient Records regulations: The Federal rules restrict any use of the information to criminally investigate or prosecute any alcohol or drug abuse patient.[facility] Company[facility] the event this information is protected by the Federal Confidentiality of Alcohol and Drug Abuse Patient Records regulations: The Federal rules restrict any use of the information to criminally investigate or prosecute any alcohol or drug abuse patient.[facility] Company[facility] the event this information is protected by the Federal Confidentiality of Alcohol and Drug Abuse Patient Records regulations: The Federal rules restrict any use of the information to criminally investigate or prosecute any alcohol or drug abuse patient.[facility] Company[facility] the event this information is protected by the Federal Confidentiality of Alcohol and Drug Abuse Patient Records regulations: The Federal rules restrict any use of the information to criminally investigate or prosecute any alcohol or drug abuse patient.[facility] Company[facility] the event this information is protected by the Federal Confidentiality of Alcohol and Drug Abuse Patient Records regulations: The Federal rules restrict any use of the information to criminally investigate or prosecute any alcohol or drug abuse patient.[facility] Company[facility] the event this information is protected by the Federal Confidentiality of Alcohol and Drug Abuse Patient Records regulations: The Federal rules restrict any use of the information to criminally investigate or prosecute any alcohol or drug abuse patient.[facility] Company[facility] the event this information is protected by the Federal Confidentiality of Alcohol and Drug Abuse Patient Records regulations: The Federal rules restrict any use of the information to criminally investigate or prosecute any alcohol or drug abuse patient.[facility] Company[facility] the event this information is protected by the Federal Confidentiality of Alcohol and Drug Abuse Patient Records regulations: The Federal rules restrict any use of the information to criminally investigate or prosecute any alcohol or drug abuse patient.[facility] Reason for Visit (unrecogniz ed section and [...] section and content) DATE CREATED AUTHOR 07/11/2023 [facility] DATE CREATED AUTHOR AUTHOR'S ORGANIZ ATION 07/19/2023 [facility] DATE CREATED AUTHOR AUTHOR'S ORGANIZ ATION 08/19/2023 [facility] DATE CREATED AUTHOR AUTHOR'S ORGANIZ ATION 10/01/2024 [facility] DATE CREATED AUTHOR AUTHOR'S ORGANIZ ATION 11/10/2024 [facility] DATE CREATED AUTHOR AUTHOR'S ORGANIZ ATION 11/17/2024 [facility] DATE CREATED AUTHOR AUTHOR'S ORGANIZ ATION 11/17/2024 [facility] FOR RECORDS PERTAINING TO PATIENTS WHO ARE [...] BE BASED ON THE PRIMARY CLINICAL RECORDS. [facility] [employer] [facility]. provides no warranty or guarantee of the accuracy or completeness of information in this document.
[2024-11-20 00:07] VITALS: BP 135/75; PULSE 70; TEMP 37.4; O2SAT 98; BMI 24.9
[2024-11-20] MEDS: WATER FOR INJECTION, STERILE 20 ML VIAL INJ (01:44)
[2024-11-20] MEDS: ZIPRASIDONE MESYLATE 20 MG VIAL 10 MG IM (01:44)
--- NOTE | 2024-11-20 01:47 | PC.NURSE ---
patient confused, wont open eyes, intermittently will wake up and thrash body and arms around bed. Patient will not follow commands. Not able to carry on any conversation. Just says some words. RN attempted to give patient a bite of applesauce to see if she would take anything PO and patient refused. [place] notifed and orders were recieved
[2024-11-20 06:05] VITALS: BP 109/61; PULSE 68; TEMP 36.7; O2SAT 90
[2024-11-20 07:29] LABS: Alanine Aminotransferase 11 U/L (14-59); Albumin Globulin Ratio 0.7; Albumin Level 2.6 g/dL (3.4-5.0); Alkaline Phosphatase 44 U/L (46-116); Anion Gap 10.2; Aspartate Amino Transferase 17 U/L (15-37); BUN Creatinine Ratio 37.7; Bilirubin Total 0.2 mg/dL (0.2-1.0); Calcium 8.5 mg/dL (8.5-10.1); Carbon Dioxide 31.3 mmol/L (21.0-32.0); Chloride 108 mmol/L (98-107); Estimated GFR (African America >60 (>=60 mL/min/1.73m^2); Estimated GFR (Non-African Ame >60 (>=60 mL/min/1.73m^2); Globulin 3.5 g/dL; Glucose 97 mg/dL (74-106); Magnesium 1.9 mg/dL (1.8-2.4); Potassium 3.5 mmol/L (3.5-5.1); Sodium 146 mmol/L (136-145); Total Protein 6.1 g/dL (6.4-8.2)
[2024-11-20 07:43] LABS: Basophils Absolute Auto 0.1 10^3/uL (0.0-0.1); Basophils Percent Auto 0.6 % (0.2-2.0); Eosinophils Absolute Auto 0.1 10^3/uL (0.0-0.7); Eosinophils Percent Auto 0.7 % (0.9-7.0); Hematocrit 34.4 % (36.0-48.0); Hemoglobin 11.5 g/dL (12.0-16.0); Immature Granulocytes Abs Auto 0.07 10^3/uL (0.00-0.03); Immature Granulocytes Pct Auto 0.9 % (0.0-0.5); Lymphocytes Absolute Auto 2.8 10^3/uL (1.2-3.8); Lymphocytes Percent Auto 35.2 % (20.5-60.0); Mean Corpuscular HGB Conc 33.4 g/dL (29.9-35.2); Mean Corpuscular Hemoglobin 30.5 pg (26.7-34.0); Mean Corpuscular Volume 91.2 fL (81.0-99.0); Mean Platelet Volume 12.9 fL (9.5-13.5); Monocytes Percent Auto 11.8 % (1.7-12.0); Neutrophils Absolute Auto 4.1 10^3/uL (1.4-6.5); Neutrophils Percent Auto 50.8 % (43.0-75.0); Platelet Count 127 10^3/uL (150-450); Red Blood Count 3.77 10^6/uL (4.20-5.40); Red Cell Distribution Width 13.4 % (11.0-15.0); White Blood Count 8.1 10^3/uL (4.0-11.0)
[2024-11-20 08:00] VITALS: BP 132/64; PULSE 60; TEMP 36.4; O2SAT 97
--- NOTE | 2024-11-20 08:53 | PM.HP ---
HPI H&P: HPI History of Present Illness Chief complaint: AMS UTI Narrative: Patient is a 69 y.o female with past medical history of Parkinson's disease with behavior disturbance, hypothyroidism, HLD, insomnia, GERD, Stress urinary incontinence, seasonal allergies who presented to the ER last night with change in mental status, patient became more delirious. Per ER notes, Patient had gone to dinner and following this was not acting per her norm and that she was not able to stand to change her clothing or toilet. She reports shortly following this she began yelling and calling out becoming more agitated and restless which is not her norm. Examination patient is awake and will open her eyes to tactile stimuli. She is yelling and calling out and kicking her arms and legs. She did receive initial supportive measures of Valium by the ER attending provider Dr. Lyon and she subsequent received Haldol due to ongoing agitation and calling out. Once she arrived to the floor she was much more calm. This morning she answers questions appropriately. Alert to Person and place and is compliant with directions. ER findings: Labs stable and showed no significant leukocytosis, anemia, thrombocytopenia. Electrolytes including renal and hepatic function overall stable. UA is concerning for UTI as evidenced by leukocytes and bacteria in the urine. Receive additional supportive measures of IV ceftriaxone. Chest x-ray otherwise appears stable and EKG without acute changes. CT of head showed no acute process. Cr 0.53. Patient admitted for UTI and Acute Delirium. Opioid HPI Opioid Management Most Recent Pain and Opioid Data: Last Pain Assessment Today, 01:00 Review of Systems ROS Narrative ROS: a complete review of systems were reviewed with patient and are positive as below or listed in History of Chief Complaint. General: no fever, chills, night sweats Head: no headache, trauma, visual changes, nausea or vomiting Skin: no reported rashes, itching or sores Eyes: no blurriness of vision Ears: no reported hearing loss, vertigo, earache, or tinnitus Throat: no sore throat, hoarseness, swelling of neck, or tongue pain Heart: no chest pain Lungs: no shortness of breath or cough GI: no diarrhea or vomiting/nausea Urinary: no urinary urgency, frequency or pain Neuro: no numbness or tingling HEM: no bleeding issues or bruising ENDO: no thyroid problems Psych: no anxiety or depression [facility] Medical History (Updated 11/20/24 @ 09:01 by Maya Jackson, DO) Brain injury ?S06.9XAA - Unspecified intracranial injury with loss of consciousness status unknown, initial encounter (ICD-10) Dementia ?F03.90 - Unspecified dementia, unspecified severity, without behavioral disturbance, psychotic disturbance, mood disturbance, and anxiety (ICD-10) History of stroke ?Z86.73 - Personal history of transient ischemic attack (TIA), and cerebral infarction without residual deficits (ICD-10) Vitamin D deficiency ?E55.9 - Vitamin D deficiency, unspecified (ICD-10) Psychosis ?F29 - Unspecified psychosis not due to a substance or known physiological condition (ICD-10) Depression ?F32.A - Depression, unspecified (ICD-10) Hyperlipidemia ?E78.5 - Hyperlipidemia, unspecified (ICD-10) Ulcerative colitis ?K51.90 - Ulcerative colitis, unspecified, without complications (ICD-10) Osteoarthritis ?M19.90 - Unspecified osteoarthritis, unspecified site (ICD-10) Parkinson disease ?G20.A1 - Parkinson's disease without dyskinesia, without mention of fluctuations (ICD-10) Hypothyroidism ?E03.9 - Hypothyroidism, unspecified (ICD-10) Thrombocytopenia ?D69.6 - Thrombocytopenia, unspecified (ICD-10) Insomnia ?G47.00 - Insomnia, unspecified (ICD-10) Seizures ?R56.9 - Unspecified convulsions (ICD-10) Surgical History Hx of colonoscopy ?Z98.890 - Other specified postprocedural states (ICD-10) H/O: hysterectomy ?Z90.710 - Acquired absence of both cervix and uterus (ICD-10) Meds Home Medications and Allergies Home Medications ?Medication ?Instructions ?Recorded ?Confirmed ?Type aripiprazole 10 mg tablet (Abilify) 10 mg PO BEDTIME 04/13/24 11/20/24 History aspirin 81 mg tablet,delayed 81 mg PO DAILY 04/13/24 11/19/24 History release (Adult Low Dose Aspirin) carbidopa 25 mg-levodopa 100 mg 1 tab PO TID 04/13/24 11/19/24 History tablet (Sinemet) calcium phosphate,dibasic 77 1 tab PO DAILY 11/19/24 11/19/24 History mg-vitamin D3 400 unit tablet docusate sodium 100 mg capsule 100 mg PO DAILY 11/19/24 11/19/24 History (Colace) donepezil 10 mg tablet (Aricept) 10 mg PO BID 11/19/24 11/19/24 History doxepin 10 mg capsule 10 mg PO TID 11/19/24 11/19/24 History escitalopram oxalate 20 mg tablet 20 mg PO DAILY 11/19/24 11/19/24 History gabapentin 400 mg capsule 400 mg PO TID 11/19/24 11/19/24 History lamotrigine 100 mg tablet 100 mg PO BID 11/19/24 11/19/24 History (Lamictal) levothyroxine 100 mcg tablet 100 mcg PO DAILY 11/19/24 11/19/24 History (Euthyrox) loratadine 10 mg capsule (Allergy 10 mg PO DAILY 11/19/24 11/19/24 History Relief (loratadine)) melatonin 10 mg capsule 10 mg PO HS 11/19/24 11/19/24 History memantine 10 mg tablet 10 mg PO BID 11/19/24 11/19/24 History mirabegron 50 mg tablet,extended 50 mg PO DAILY 11/19/24 11/19/24 History release 24 hr (Myrbetriq) omeprazole 20 mg capsule,delayed 20 mg PO DAILY 11/19/24 11/19/24 History release pravastatin 20 mg tablet 20 mg PO BEDTIME 11/19/24 11/20/24 History raloxifene 60 mg tablet 60 mg PO DAILY 11/19/24 11/19/24 History trazodone 150 mg tablet 150 mg PO BEDTIME 11/19/24 11/20/24 History cholecalciferol (vitamin D3) 125 125 mcg PO DAILY 11/20/24 11/20/24 History mcg (5,000 unit) tablet (Vitamin D3) Allergies Allergy/AdvReac Type Severity Reaction Status Date / Time adhesive tape Allergy Mild rash Verified 04/13/24 22:33 Latex, Natural Rubber Allergy Mild rash Verified 04/13/24 22:33 Sulfa (Sulfonamide Allergy Mild rash Verified 04/13/24 22:33 Antibiotics) Exam Narrative Exam Narrative: General: Patient is alert, and oriented to person, place, not time Skin: no visible rashes, or ulcers Head: atraumatic, acephalic Eyes: PERRLA, no nystagmus present, conjunctiva clear, no scleral icterus Ears: normal gross auditory acuity Heart: Normal rate and rhythm, no murmurs/rubs/gallops Lungs: no audible wheezes, crackles and normal breath sounds all lung morales Abdomen: Normal audible bowel sounds, no distension, No palpable masses, no organomegaly, no rebound/guarding/ or rigidity Musculoskeletal: no swelling bilateral lower extremities Neuro: CN II-X grossly intact Constitutional Vital Signs, click to edit/add: Last Vital Signs Temp 97.5 F L 11/20/24 08:00 Pulse 60 11/20/24 08:00 Resp 18 11/20/24 08:00 BP 132/64 11/20/24 08:00 Pulse Ox 97 11/20/24 08:00 O2 Del Method Room Air 11/20/24 08:00 O2 Flow Rate 2 11/20/24 06:05 Results Labs Labs: Short CBC 11/19/24 11/20/24 Range/Units 18:52 07:31 WBC 7.7 8.1 (4.0-11.0) 10^3/uL Hgb 13.0 11.5 L (12.0-16.0) g/dL Hct 38.9 34.4 L (36.0-48.0) % Plt Count 102 L 127 L (150-450) 10^3/uL BMP 11/19/24 11/20/24 18:52 06:50 Sodium 146 H 146 H Potassium 3.9 3.5 Chloride 105 108 H Carbon Dioxide 33.9 H 31.3 BUN 21.0 H 20.0 H Creatinine 0.55 0.53 L Glucose 141 H 97 Calcium 8.9 8.5 Liver Function 11/19/24 11/20/24 Range/Units 18:52 06:50 Total Bilirubin 0.4 0.2 (0.2-1.0) mg/dL AST 19 17 (15-37) U/L ALT 9 L 11 L (14-59) U/L Alkaline Phosphatase 52 44 L (46-116) U/L Albumin 3.0 L 2.6 L (3.4-5.0) g/dL Urine 11/19/24 Range/Units 20:16 Urine Color Yellow (YELLOW) Urine Clarity Cloudy A (CLEAR) Urine pH 6.5 (5.0-9.0) Ur Specific [place] 1.015 (1.005-1.025) Urine Protein Negative (NEG/TRACE) mg/dL Urine Glucose (UA) Negative (NEGATIVE) mg/dL Assessment and Plan Assessment and Plan (1) Acute UTI: Assessment and Plan: Patient given Rocephin IV, Urine culture pending. Will discharge on Cipro 500mg BID x 7 days. (2) Altered mental status: Assessment and Plan: Patient is back to baseline, CT head normal. WBC's normal. She is following tasks appropriately this morning, ate her breakfast. 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 No other findings on work up other than UTI which can be treated with oral antibiotics. Qualifiers: Altered mental status type: delirium Qualified Code(s): R41.0 - Disorientation, unspecified (3) Parkinson disease: Assessment and Plan: continue Sinemet, Doxepin, lexapro, Lamictal, Abilify Qualifiers: Dyskinesia presence: unspecified whether dyskinesia Fluctuating manifestations: unspecified whether manifestations fluctuate Qualified Code(s): G20.A1 - Parkinson's disease without dyskinesia, without mention of fluctuations (4) Hypothyroidism: Assessment and Plan: continue levothyroxine Qualifiers: Hypothyroidism type: acquired Qualified Code(s): E03.9 - Hypothyroidism, unspecified (5) Insomnia: Assessment and Plan: continue trazodone Qualifiers: Insomnia type: primary Qualified Code(s): F51.01 - Primary insomnia (6) Hyperlipidemia: Assessment and Plan: continue pravastatin Qualifiers: Hyperlipidemia type: unspecified Qualified Code(s): E78.5 - Hyperlipidemia, unspecified (7) Dementia: Assessment and Plan: continue aricept and memantine Qualifiers: Dementia behavioral or psychological symptom: unspecified whether behavioral, psychotic, or mood disturbance or anxiety Dementia severity: severe Dementia type: unspecified type Qualified Code(s): F03.C0 - Unspecified dementia, severe, without behavioral disturbance, psychotic disturbance, mood disturbance, and anxiety Plan Patient is full code Patient is observation and is not expected to cross 2 midnights, probable discharge home today on Oral antibiotics to treat her UTI. Urinary Catheter Management Urinary Catheter Management Straight: Cath placed during this visit: yes Urethral indwelling: No Insertion date: 11/19/24 Insertion time: 20:26
[2024-11-20] MEDS: ESCITALOPRAM 10 MG TABLET 20 MG PO (10:24)
[2024-11-20] MEDS: DONEPEZIL HCL 10 MG TABLET PO (10:24)
[2024-11-20] MEDS: ASPIRIN 81 MG TABLET.DR PO (10:24)
[2024-11-20] MEDS: MEMANTINE HCL 28 MG CAP XR PO (10:24)
[2024-11-20] MEDS: ENOXAPARIN SODIUM 40 MG/0.4 ML SYRINGE SUBQ (10:25)
[2024-11-20] MEDS: LAMOTRIGINE 100 MG TABLET PO (10:25)
[2024-11-20] MEDS: DOCUSATE SODIUM 100 MG CAPSULE PO (10:25)
--- NOTE | 2024-11-20 10:40 | PC.NURSE ---
[id number] spoke with grand daughter and advised her to return home as patient will probably go back home. Dr. Jackson will touch base with social work.
[2024-11-20 12:00] VITALS: BP 120/58; PULSE 81; TEMP 36.6; O2SAT 93
--- NOTE | 2024-11-20 12:17 | PM.DS1 ---
DS: Providers Provider Date of admission: 11/19/24 23:52 Primary care physician: TESSA PADILLA Attending physician on admission: Maya Jackson Consults: 11/19/24 21:35 Consult to Professor Of Literature Routine Has provider been notified: No Reason for consult:: Correction Discharging clinician: Maya Jackson DS: Diagnosis Discharge Diagnosis (1) Acute UTI: (2) Altered mental status: Qualifiers: Altered mental status type: delirium Qualified Code(s): R41.0 - Disorientation, unspecified (3) Parkinson disease: Qualifiers: Dyskinesia presence: unspecified whether dyskinesia Fluctuating manifestations: unspecified whether manifestations fluctuate Qualified Code(s): G20.A1 - Parkinson's disease without dyskinesia, without mention of fluctuations (4) Hypothyroidism: Qualifiers: Hypothyroidism type: acquired Qualified Code(s): E03.9 - Hypothyroidism, unspecified (5) Insomnia: Qualifiers: Insomnia type: primary Qualified Code(s): F51.01 - Primary insomnia (6) Hyperlipidemia: Qualifiers: Hyperlipidemia type: unspecified Qualified Code(s): E78.5 - Hyperlipidemia, unspecified (7) Dementia: Qualifiers: Dementia type: unspecified type Dementia severity: severe Dementia behavioral or psychological symptom: unspecified whether behavioral, psychotic, or mood disturbance or anxiety Qualified Code(s): F03.C0 - Unspecified dementia, severe, without behavioral disturbance, psychotic disturbance, mood disturbance, and anxiety DS: Summary Hospital Course Hospital Course: Patient is back to her baseline. I will treat her UTI with cipro 500mg BID x 7 days. Urine culture is pending at the time of discharge and we will notify facility once culture results. She will resume all home medications as taken. She may return to the ER with any worsening signs or symptoms. Status at Discharge Overall status at discharge: patient is back to baseline Time Spent with Patient Time attestation: Total time spent providing and/or coordinating discharge services: Time spent: greater than 30 minutes Exam Narrative Exam Narrative: no changes from admission H&P dated 11/20/24 Constitutional Vital Signs, click to edit/add: Last Vital Signs Temp 97.8 F 11/20/24 12:00 Pulse 81 11/20/24 12:00 Resp 18 11/20/24 12:00 BP 120/58 11/20/24 12:00 Pulse Ox 93 L 11/20/24 12:00 O2 Del Method Room Air 11/20/24 12:00 O2 Flow Rate 2 11/20/24 06:05 DS: Data Data Completed and Pending Labs on day of discharge: Labs from last 24 hours 11/20/24 11/20/24 11/19/24 07:31 06:50 20:16 WBC 8.1 RBC 3.77 L Hgb 11.5 L Hct 34.4 L MCV 91.2 MCH 30.5 MCHC 33.4 RDW 13.4 Plt Count 127 L MPV 12.9 Neut % (Auto) 50.8 Lymph % (Auto) 35.2 [place] % (Auto) 11.8 Eos % (Auto) 0.7 L Baso % (Auto) 0.6 Neut # (Auto) 4.1 Lymph # (Auto) 2.8 [place] # (Auto) 1.0 H Eos # (Auto) 0.1 Baso # (Auto) 0.1 Abs Immat Gran (auto) 0.07 H Imm/Tot Granulo (auto) 0.9 H Sodium 146 H Potassium 3.5 Chloride 108 H Carbon Dioxide 31.3 Anion Gap 10.2 BUN 20.0 H Creatinine 0.53 L Est GFR ( Amer) >60 Est GFR (Non-Af Amer) >60 BUN/Creatinine Ratio 37.7 Glucose 97 Calcium 8.5 Magnesium 1.9 Total Bilirubin 0.2 AST 17 ALT 11 L Alkaline Phosphatase 44 L C-Reactive Protein NT-Pro-B Natriuret Pep Total Protein 6.1 L Albumin 2.6 L Globulin 3.5 Albumin/Globulin Ratio 0.7 Urine Color Yellow Urine Clarity Cloudy A Urine pH 6.5 Ur Specific [place] 1.015 Urine Protein Negative Urine Glucose (UA) Negative Urine Ketones Negative Urine Occult Blood Small A Urine Nitrite Negative Urine Bilirubin Negative Urine Urobilinogen 1.0 Ur Leukocyte Esterase Trace A Urine RBC 20-50 A Urine WBC 10-20 A Ur Squamous Epith Cells Few A Urine Crystals None seen Amorphous Sediment Moderate Urine Bacteria Moderate A Urine Casts None seen Urine Mucus Moderate A Ur Culture Indicated? Yes-[facility] POC Glucose 11/19/24 11/19/24 18:52 18:37 WBC 7.7 RBC 4.30 Hgb 13.0 Hct 38.9 MCV 90.5 MCH 30.2 MCHC 33.4 RDW 13.2 Plt Count 102 L MPV 13.0 Neut % (Auto) 60.6 Lymph % (Auto) 29.2 [place] % (Auto) 8.3 Eos % (Auto) 0.5 L Baso % (Auto) 0.5 Neut # (Auto) 4.6 Lymph # (Auto) 2.2 [place] # (Auto) 0.6 Eos # (Auto) 0.0 Baso # (Auto) 0.0 Abs Immat Gran (auto) 0.07 H Imm/Tot Granulo (auto) 0.9 H Sodium 146 H Potassium 3.9 Chloride 105 Carbon Dioxide 33.9 H Anion Gap 11.0 BUN 21.0 H Creatinine 0.55 Est GFR ( Amer) >60 Est GFR (Non-Af Amer) >60 BUN/Creatinine Ratio 38.2 Glucose 141 H Calcium 8.9 Magnesium Total Bilirubin 0.4 AST 19 ALT 9 L Alkaline Phosphatase 52 C-Reactive Protein 1.76 H NT-Pro-B Natriuret Pep 254.0 Total Protein 6.9 Albumin 3.0 L Globulin 3.9 Albumin/Globulin Ratio 0.8 Urine Color Urine Clarity Urine pH Ur Specific [place] Urine Protein Urine Glucose (UA) Urine Ketones Urine Occult Blood Urine Nitrite Urine Bilirubin Urine Urobilinogen Ur Leukocyte Esterase Urine RBC Urine WBC Ur Squamous Epith Cells Urine Crystals Amorphous Sediment Urine Bacteria Urine Casts Urine Mucus Ur Culture Indicated? POC Glucose 130 H Discharge Plan Discharge Disposition: Home, Self-Care Discharge Medications: New ciprofloxacin HCl 500 mg tablet 500 mg PO BID 7 Days Qty: 14 0RF Continued aripiprazole [Abilify] 10 mg tablet 10 mg PO BEDTIME aspirin [Adult Low Dose Aspirin] 81 mg tablet,delayed release (DR/EC) 81 mg PO DAILY carbidopa-levodopa [Sinemet] 25-100 mg tablet 1 tab PO TID docusate sodium [Colace] 100 mg capsule 100 mg PO DAILY donepezil [Aricept] 10 mg tablet 10 mg PO BID doxepin 10 mg capsule 10 mg PO TID escitalopram oxalate 20 mg tablet 20 mg PO DAILY gabapentin 400 mg capsule 400 mg PO TID lamotrigine [Lamictal] 100 mg tablet 100 mg PO BID levothyroxine [Euthyrox] 100 mcg tablet 100 mcg PO DAILY Allergy Relief (loratadine) 10 mg capsule 10 mg PO DAILY melatonin 10 mg capsule 10 mg PO HS memantine 10 mg tablet 10 mg PO BID mirabegron [Myrbetriq] 50 mg tablet extended release 24 hr 50 mg PO DAILY omeprazole 20 mg capsule,delayed release(DR/EC) 20 mg PO DAILY pravastatin 20 mg tablet 20 mg PO BEDTIME raloxifene 60 mg tablet 60 mg PO DAILY trazodone 150 mg tablet 150 mg PO BEDTIME calcium phos,dibas-vitamin D3 77-400 mg-unit tablet 1 tab PO DAILY cholecalciferol (vitamin D3) [Vitamin D3] 125 mcg (5,000 unit) tablet 125 mcg PO DAILY Activity: resume usual activities as tolerated Diet: advance to your usual diet Print Language: Cook Islander Forms: Portal Instructions
[2024-11-20 12:29] VITALS: O2SAT 97
--- NOTE | 2024-11-21 08:15 | SWNOTE1 ---
Consult was for [facility], SW did not assess pt, but pt was discharged back to [facility] home.
--- NOTE | 2024-11-22 14:23 | CM.DCFOLLOWU ---
From [facility]
== END 2024-11-20 13:38 | disposition home or self-care (01) ==
LOC: ER 21:02 → MS 11-20 00:01
PROVIDERS: Nurse Practitioner; Registered Nurse; Admitting Provider Family Medicine; Emergency Provider Emergency Medicine; PCP Psychiatry & Neurology Psychiatry; Visit Provider Family Medicine
DX: N39.0 Urinary tract infection, site not specified (principal); R41.0 Disorientation, unspecified; G20.A1 Parkinson's disease without dyskinesia, without mention of fluctuations; E03.9 Hypothyroidism, unspecified; E78.5 Hyperlipidemia, unspecified; K21.9 Gastro-esophageal reflux disease without esophagitis; G47.00 Insomnia, unspecified; J30.2 Other seasonal allergic rhinitis; N39.3 Stress incontinence (female) (male); Z90.710 Acquired absence of both cervix and uterus; F03.C0 Unspecified dementia, severe, without behavioral disturbance, psychotic disturbance, mood disturbance, and anxiety; R06.02 Shortness of breath
CPT/HCPCS: 36415; 51798; 70450; 71045; 80053; 81001; 83735; 83880; 85025; 86140; 87086; 93005; 94761; 96361; 96365; 96372; 96375; 96376; 99285; G0378; J0696; J1630; J1650; J3360; J3486